=== PATIENT | female | born 1955 | race Caucasian/White ===

== ENCOUNTER 2020-02-06 10:51 | Outpatient (CLI) | payer BC, MEDICARE, SELFPAY ==
[2020-02-06 11:09] LABS: Basophils Absolute Auto 0.06 K/mm3 (0.00-0.10); Eosinophils Absolute Auto 0.06 K/mm3 (0.02-0.50); Hematocrit 45.6 % (35.0-42.0); Hemoglobin 15.8 g/dL (11.7-13.8); Immature Granulocyte Absolute 0.02 K/mm3 (0.00-0.00); Immature Granulocyte Percent A 0.3 % (0.0-0.0); Lymphocytes Absolute Auto 1.74 K/mm3 (1.10-4.50); Lymphocytes Percent Auto 29.2 % (18.0-42.0); Mean Corpuscular HGB Conc 34.6 g/dL (32.0-36.0); Mean Corpuscular Hemoglobin 31.7 pg (27.0-31.0); Mean Corpuscular Volume 91.6 fL (78.0-102.0); Mean Platelet Volume 9.7 fl (9.2-11.8); Monocytes Absolute Auto 0.48 K/mm3 (0.10-0.90); Monocytes Percent Auto 8.1 % (2.0-11.0); Neutrophils Absolute Auto 3.6 K/mm3 (1.7-7.2); Neutrophils Percent Auto 60.4 % (50.0-70.0); Platelet Count Result 269 K/mm3 (150-420); Red Blood Count 4.98 M/mm3 (4.20-5.40); Red Cell Distribution Width 12.9 % (11.6-14.4)
[2020-02-06 11:48] LABS: Alanine Aminotransferase 14 U/L (14-59); Alkaline Phosphatase 147 U/L (46-116); Anion Gap 18.9 mmol/L (7-16); Aspartate Amino Transferase 14 U/L (15-37); Bilirubin,Total 0.3 mg/dL (0.00-1.00); Blood Urea Nitrogen 10 mg/dL (7-18); Calcium 9.9 mg/dL (8.5-10.1); Carbon Dioxide 19 mmol/L (21-32); Chloride 110 mmol/L (98-108); Cholesterol 256 mg/dL (0-200); Estimated Glomerular Filt Rate > 60; Glucose 88 mg/dL (70-99); HDL Direct 51 mg/dL (40-60); LDL Cholesterol Calculated 161 mg/dL (<130); Osmolality Calculated 296 mOsm/kg (285-295); Potassium 3.9 mmol/L (3.5-5.1); Sodium 144 mmol/L (136-145); Total Protein 7.2 g/dL (6.4-8.2); Triglycerides 219 mg/dL (0-150)
[2020-02-06 12:08] LABS: Thyroid Stimulating Hormone Reflex 2.35 u/IU/mL (0.36-3.74)
[2020-02-09 02:17] LABS: Hepatitis C Signal to Cutoff 0.01 ratio (<1.00); Hepatitis C Virus Antibody Nonreactive (Nonreactive)
== END 2020-02-06 10:52 | disposition home or self-care (01) ==
PROVIDERS: PCP Family Medicine; Visit Provider Family Medicine
DX: E03.9 Hypothyroidism, unspecified (principal); Z11.59 Encounter for screening for other viral diseases; E78.5 Hyperlipidemia, unspecified
CPT/HCPCS: 36415; 80053; 80061; 84443; 85025

== ENCOUNTER 2020-06-07 13:23 | Emergency (ER) | payer BC, MEDICARE, SELFPAY ==
--- NOTE | ~2020-06-07 | XR_ITS ---
XR chest 2V DATE: 06/07/2020 14:33 INDICATION: Right chest pain TECHNIQUE: PA and lateral views COMPARISON: 07/29/2019 2 view chest FINDINGS: Bilateral hyperinflation. No pulmonary infiltrate or consolidation, pleural effusion or pul monary vascular congestion or pneumothorax. Normal heart size. No hilar or mediastinal enlargement. Diffuse osteopenia. IMPRESSION: Bilateral hyperinflation Reviewed, dictated and finalized at location [facility]. IMPRESSION: Bilateral hyperinflation
--- NOTE | 2020-06-07 13:27 | ECG_ITS ---
Measurements Intervals [place] Rate: 105 P: 65 [place]: 166 QRS: 26 QRSD: 85 T: 66 QT: 322 QTc: 426 Interpretive Statements SINUS TACHYCARDIA BASELINE ARTIFACT- I, II, III, AVR, AVL, AVF, V1-V6 ABNORMAL ECG Electronically Signed On 06-08-2020 8:30:21 CDT by Juan Coto D.O.
[2020-06-07 13:30] VITALS: BP 143/85; PULSE 95; RESP 16; TEMP 36.8; O2SAT 98
--- NOTE | 2020-06-07 13:55 | ED.CHESTPAIN ---
HPI - Chest Pain General Chief Complaint: Chest Pain Stated Complaint: 64 Yo female w/ known h/o tobaccoism, HLD, Hypothyroidism, GERD comes into Ed for evaluation of Right sided Chest Pain that started yesterday after she sneezed several times. Patient pointe to pain in chest wall and is able to reproduce it. Denies revious H/O CAD. Related Data Allergies Allergy/AdvReac Type Severity Reaction Status Date / Time poison micheline extract Allergy Unknown Unknown Verified 02/06/20 09:52 ibuprofen AdvReac Mild NAUSEA, Verified 02/06/20 09:52 ABD PAIN Review of Systems Review of Systems: All systems reviewed & are unremarkable except as noted in HPI and below Constitutional: Constitutional: Reports no additional constitutional complaints Eyes: Eyes: Reports no additional eye complaints ENT: Reports system reviewed and no additional complaints, except as documented Cardiovascular: Cardiovascular: Reports as per HPI, Reports chest pain, Denies rapid heart rate, Denies radiating jaw, neck or arm pain and Denies slow heart rate Respiratory: Respiratory: Reports no additional respiratory complaints, Denies chest congestion, Denies cough, Denies dyspnea and Denies wheezing Gastrointestinal: Gastrointestinal: Reports no additional gastrointestinal complaints Genitourinary: Genitourinary: Reports no additional female genitourinary complaints Musculoskeletal: Musculoskeletal: Reports no additional musculoskeletal complaints Integumentary/Breasts: Skin/Breast: Reports system reviewed and no additional complaints, except as docu Neurologic: Reports system reviewed and no additional complaints, except as documented Psychiatric: Psychiatric: Reports no additional psychiatric complaints Endocrine: Endocrine: Reports no additional endocrine complaints Hematologic/Lymphatic: Hematologic/Lymphatic: Reports no additional hematologic/lymphatic complaints Allergic/Immunologic: Allergic/Immunologic: Reports no additional allergic/immunologic complaints [facility] Past Medical History Medical History Acid reflux disease with ulcer Hyperlipidemia Hypothyroidism Migraines, neuralgic Surgical History Surgical History H/O removal of cyst H/O: section Hx of removal of ovary Family History Family History Other Family history of arthritis Family history of mental disorder Family history of thyroid disease Social History Social History (Reviewed 02/14/20 @ 10:31 by Montserrat Baker Smoking packs per day: 0.25 Smoking cigarettes per day: 5.0 Years smoked: 10 Smoking pack-years: 2.50 Smoking status: Current every day smoker Second hand tobacco smoke exposure: No Alcohol intake: never Substance use type: does not use Additional living arrangements comments: , has 2 children Gender identity (if verbalized by the patient): Female Spiritual care concerns: No Exam Const: General: healthy appearing, no acute distress and alert Orientation/consciousness: patient oriented x3 HENMT: Head: normal to inspection Eyes: Conjunctivae: conjunctivae normal Pupils: Equal, round and reactive pupils present Neck: Neck: normal visual inspection Chest: Chest palpation & inspection: normal inspection of the chest, normal inspection of the chest, tenderness costochondral junction (Right sided that completely reproduces the pain.) and No Pacemaker present Resp: Effort & Inspection: normal respiratory effort, not labored, no retractions, not tachypneic and no use of accessory muscles Auscultation: clear to auscultation bilaterally Cardio: Rate: regular rate Rhythm: regular rhythm GI: Auscultation: normal bowel sounds : General: Yes no CVA tenderness Back/Spine/Pelvis: Back: no CVA tenderness Skin: General skin exam: normal color
[2020-06-07] MEDS: KETOROLAC 30 MG/ML VIAL (*BKC) IV PUSH (14:03)
[2020-06-07] MEDS: ASPIRIN 81 MG CHEWABLE TABLET 324 MG PO (14:04)
[2020-06-07 14:27] LABS: Basophils Absolute Auto 0.05 K/mm3 (0.00-0.10); Basophils Percent Auto 0.6 % (0.0-1.0); Eosinophils Absolute Auto 0.03 K/mm3 (0.02-0.50); Eosinophils Percent Auto 0.4 % (1.0-6.0); Hemoglobin 14.2 g/dL (11.7-13.8); Immature Granulocyte Absolute 0.03 K/mm3 (0.00-0.00); Immature Granulocyte Percent A 0.4 % (0.0-0.0); Lymphocytes Absolute Auto 1.91 K/mm3 (1.10-4.50); Lymphocytes Percent Auto 22.7 % (18.0-42.0); Mean Corpuscular HGB Conc 33.8 g/dL (32.0-36.0); Mean Corpuscular Hemoglobin 31.1 pg (27.0-31.0); Mean Corpuscular Volume 92.1 fL (78.0-102.0); Mean Platelet Volume 9.8 fl (9.2-11.8); Monocytes Absolute Auto 0.71 K/mm3 (0.10-0.90); Monocytes Percent Auto 8.4 % (2.0-11.0); Neutrophils Absolute Auto 5.7 K/mm3 (1.7-7.2); Neutrophils Percent Auto 67.5 % (50.0-70.0); Platelet Count Result 204 K/mm3 (150-420); Red Blood Count 4.56 M/mm3 (4.20-5.40); Red Cell Distribution Width 12.8 % (11.6-14.4); White Blood Count 8.4 K/mm3 (4.8-10.8)
[2020-06-07 14:43] LABS: D Dimer 0.21 mg/L (0.19-0.50); Partial Thromboplastin Time 25.1 SEC (22.3-31.6); Prothrombin Time 10.8 Seconds (9.64-11.0)
[2020-06-07 14:44] LABS: Alanine Aminotransferase 15 U/L (14-59); Albumin Level 3.7 g/dL (3.4-5.0); Alkaline Phosphatase 149 U/L (46-116); Anion Gap 11 mmol/L (8-16); Aspartate Amino Transferase 12 U/L (15-37); Bilirubin,Total 0.3 mg/dL (0.00-1.00); Blood Urea Nitrogen 10 mg/dL (7-18); Calcium 9.4 mg/dL (8.5-10.1); Carbon Dioxide 22 mmol/L (21-32); Chloride 110 mmol/L (98-108); Estimated Glomerular Filt Rate 58; Glucose 99 mg/dL (70-99); Osmolality Calculated 295 mOsm/kg (285-295); Potassium 3.7 mmol/L (3.5-5.1); Sodium 143 mmol/L (136-145); Total Protein 7.3 g/dL (6.4-8.2)
[2020-06-07 14:45] LABS: BNP < 5.0 pg/mL (0-100); Troponin I < 0.02 ng/mL (0.00-0.056)
[2020-06-07 15:28] VITALS: BP 113/67; PULSE 83; O2SAT 98
== END 2020-06-07 15:28 | disposition home or self-care (01) ==
PROVIDERS: Emergency Provider Family Medicine; PCP Family Medicine
DX: M94.0 Chondrocostal junction syndrome [Tietze] (principal); F17.200 Nicotine dependence, unspecified, uncomplicated
CPT/HCPCS: 36415; 71046; 80053; 83880; 84484; 85025; 85380; 85610; 85730; 93005; 96374; 99283; 99284; A9270; J1885

== ENCOUNTER 2020-10-09 11:12 | Outpatient (CLI) | payer BC, MEDICARE, SELFPAY ==
[2020-10-09 11:27] LABS: Basophils Absolute Auto 0.06 K/mm3 (0.00-0.10); Basophils Percent Auto 0.9 % (0.0-1.0); Eosinophils Absolute Auto 0.09 K/mm3 (0.02-0.50); Eosinophils Percent Auto 1.3 % (1.0-6.0); Hematocrit 42.5 % (35.0-42.0); Hemoglobin 14.3 g/dL (11.7-13.8); Immature Granulocyte Absolute 0.03 K/mm3 (0.00-0.00); Immature Granulocyte Percent A 0.4 % (0.0-0.0); Lymphocytes Absolute Auto 1.43 K/mm3 (1.10-4.50); Lymphocytes Percent Auto 21.4 % (18.0-42.0); Mean Corpuscular HGB Conc 33.6 g/dL (32.0-36.0); Mean Platelet Volume 10.1 fl (9.2-11.8); Monocytes Absolute Auto 0.49 K/mm3 (0.10-0.90); Monocytes Percent Auto 7.3 % (2.0-11.0); Neutrophils Absolute Auto 4.6 K/mm3 (1.7-7.2); Neutrophils Percent Auto 68.7 % (50.0-70.0); Platelet Count Result 210 K/mm3 (150-420); Red Blood Count 4.62 M/mm3 (4.20-5.40); Red Cell Distribution Width 12.4 % (11.6-14.4); White Blood Count 6.7 K/mm3 (4.8-10.8)
[2020-10-09 12:50] LABS: Alanine Aminotransferase 15 U/L (14-59); Albumin Level 3.8 g/dL (3.4-5.0); Alkaline Phosphatase 155 U/L (46-116); Anion Gap 12 mmol/L (8-16); Aspartate Amino Transferase 13 U/L (15-37); Bilirubin,Total 0.3 mg/dL (0.00-1.00); Blood Urea Nitrogen 10 mg/dL (7-18); Calcium 9.6 mg/dL (8.5-10.1); Carbon Dioxide 23 mmol/L (21-32); Chloride 107 mmol/L (98-108); Estimated Glomerular Filt Rate > 60; Glucose 80 mg/dL (70-99); Osmolality Calculated 292 mOsm/kg (285-295); Sodium 142 mmol/L (136-145); Total Protein 7.1 g/dL (6.4-8.2)
[2020-10-09 12:52] LABS: Thyroid Stimulating Hormone Reflex 1.64 u/IU/mL (0.36-3.74)
== END 2020-10-09 11:13 | disposition home or self-care (01) ==
LOC: CHSLAB 11:15
PROVIDERS: PCP Family Medicine; Visit Provider Family Medicine
DX: E03.9 Hypothyroidism, unspecified (principal)
CPT/HCPCS: 36415; 80053; 84443; 85025

== ENCOUNTER 2021-02-15 08:51 | Outpatient (CLI) | payer BC, MEDICARE, SELFPAY ==
[2021-02-15 09:56] LABS: Cholesterol 181 mg/dL (0-200); HDL Direct 59 mg/dL (40-60); LDL Cholesterol Calculated 105 mg/dL (<130); Triglycerides 84 mg/dL (0-150)
== END 2021-02-15 08:52 | disposition home or self-care (01) ==
LOC: CHSLAB 08:54
PROVIDERS: PCP Family Medicine; Visit Provider Internal Medicine Cardiovascular Disease
DX: E78.5 Hyperlipidemia, unspecified (principal)
CPT/HCPCS: 36415; 80061

== ENCOUNTER 2021-06-28 13:27 | Outpatient (CLI) | payer BC, MEDICARE, SELFPAY ==
--- NOTE | ~2021-06-28 | MM_ITS ---
EXAMINATION: MM screening lindsey BI w eugenie HISTORY: Screening TECHNIQUE: Craniocaudal and mediolateral oblique 3-D tomosynthesis images were obtained and synthetic 2-D images were generated. CAD analysis was submitted and interpreted. COMPARISON: No prior mammogram is available for comparison at this institution. BREAST PARENCHYMAL COMPOSITION: The breasts are heterogeneously dense, which may obscure small masses .. FINDINGS: There is a benign intramammary lymph node in the upper outer quadrant of the right breast. There is no evidence of suspicious mass, calcification, or architectural distortion to suggest malign ekaterina in either breast. There has been no suspicious interval change. IMPRESSION: 1. No mammographic evidence of malignancy. 2. Recommend routine screening mammography in one year. BI-RADS Category 2: Benign finding(s). Reviewed, dictated and finalized at location [facility].
== END 2021-06-28 13:28 | disposition home or self-care (01) ==
LOC: CHSIMG 13:31
PROVIDERS: PCP Family Medicine; Visit Provider Family Medicine
DX: Z12.31 Encounter for screening mammogram for malignant neoplasm of breast (principal)
CPT/HCPCS: 77063; 77067

== ENCOUNTER 2021-10-27 18:46 | Emergency (ER) | payer BC, MEDICARE, SELFPAY ==
--- NOTE | ~2021-10-27 | CT_ITS ---
EXAMINATION: CT abdomen pelvis w con DATE: 10/27/2021 20:52 INDICATION: Left upper quadrant and flank pain for one week. History of kidney stones TECHNIQUE: Computed tomography (CT) of the abdomen and pelvis was performed with 100 cc Omnipaque 350 intravenous contrast. Automated exposure control and iterative reconstruction technique were employe d. Exam dose: 224.44 mGy-cm total exam DLP. COMPARISON: 03/07/2018 CT abdomen pelvis noncontrast examination FINDINGS: And irregular 15 x 17.5 mm soft tissue opacity is noted in the posterior right lung base, r ight lower lobe. Differential diagnosis includes pulmonary malignancy versus round atelectasis/consol idation. There is patchy infiltrate and/atelectasis in the posterior and posterolateral left lung base, left l ower lobe. Minimal left pleural effusion. Normal heart size. No pericardial or pleural effusion. There is calcification at the posterior wall of the gallbladder fundus, possibly gallbladder wall richardson cification and/or small gallstones. No gallbladder wall thickening. No bile duct or pancreatic duct d ilatation. No hepatic, splenic, pancreatic, and adrenal or renal space-occupying mass lesion is evident. Several mid and lower right renal calculi are noted, largest measuring up to 5.7 x 9 mm. No left sonia l calculus. No right or left ureteral calculus or hydroureteronephrosis is evident. The urinary bladd er is unremarkable. Retroverted uterus. There is calcification of the abdominal aorta but no abdominal aortic aneurysm. No intraperitoneal or retroperitoneal or pelvic mass lesion or adenopathy or ascites is evident. Included skeletal structures are unremarkable other than occasional probable bone island. IMPRESSION: 15 x 17.5 cm soft tissue mass density in the posterior right lung base; diffusion diagno sis includes pulmonary malignancy versus rounded atelectasis/consolidation Minimal infiltrate or atelectasis in the posterior left lung base and minimal left pleural effusion Nonobstructive right nephrolithiasis Posterior gallbladder fundus calcification or calculi Reviewed, dictated and finalized at [facility]. Reviewed, dictated and finalized at location [facility]. 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
[2021-10-27 18:55] VITALS: BP 150/71; PULSE 105; RESP 20; TEMP 36.7; O2SAT 98
--- NOTE | 2021-10-27 19:25 | ED.ABDPAIN ---
HPI - Abdominal Pain General Chief Complaint: Urogenital-Female Stated Complaint: ambulance Time Seen by Provider: 10/27/21 19:25 Source: patient Mode of arrival: EMS Limitations: no limitations History of Present Illness HPI narrative: 66-year-old woman with a history kidney stone comes in today complaining of left flank pain that started approximately a.m. this evening. Patient states that she woke up 2 days ago with pain in her right side that was worse with movement and coughing and taking a deep breath. She denies any injuries, heavy lifting. She has had no fever, chills, nausea, vomiting, hematuria, dysuria, diarrhea, blood in her stools or change in appetite. She last ate at noon. She has a history of kidney stones. MD elicited complaint: flank pain Pertinent past history: kidney stones Onset (ago): hour(s) (2) Pain Consistency: constant Location: L flank Severity: severe Quality: sharp Radiation: back Migration to: no migration Exacerbating factors: movement Relieving factors: rest Associated symptoms: denies other symptoms Treatments prior to arrival: NSAIDs (30 mg of Ketoralac IV from EMS) Related Data Home Medications Medication Instructions Recorded Confirmed esomeprazole magnesium [Nexium 20 mg PO BID 10/27/21 10/27/21 24HR] rosuvastatin [Crestor] 20 mg PO DAILY 10/27/21 10/27/21 Allergies Allergy/AdvReac Type Severity Reaction Status Date / Time poison micheline extract Allergy Unknown Unknown Verified 10/27/21 18:52 ibuprofen AdvReac Mild NAUSEA, Verified 10/27/21 18:52 ABD PAIN Review of Systems Review of Systems: All systems reviewed & are unremarkable except as noted in HPI and below Constitutional: Constitutional: Denies chills and Denies fever(s) ENT: Denies nasal congestion and Denies sore throat Cardiovascular: Cardiovascular: Denies chest pain Respiratory: Respiratory: Denies cough and Denies dyspnea Gastrointestinal: Gastrointestinal: Reports abdominal pain, Denies diarrhea, Denies nausea and Denies vomiting Genitourinary: Genitourinary: Denies hematuria, Denies nocturia and Denies dysuria Musculoskeletal: Musculoskeletal: Denies back pain, Denies arthralgias and Denies joint swelling Integumentary/Breasts: Skin/Breast: Denies pruritus, Denies erythema and Denies rash Neurologic: Denies vertigo, Denies dizziness, Denies syncope and Denies focal weakness Allergic/Immunologic: Allergic/Immunologic: Denies lip swelling and Denies throat swelling [facility] Past Medical History Medical History (Updated 10/27/21 @ 21:42 by Derrick Rizo MD) Acid reflux disease with ulcer Acute bronchitis Bipolar 1 disorder Hyperlipidemia Hypothyroidism Migraines, neuralgic Mood disorder Urolithiasis Surgical History Surgical History H/O removal of cyst H/O: section Hx of removal of ovary Family History Family History Other Family history of arthritis Family history of mental disorder Family history of thyroid disease Social History Social History Smoking packs per day: 0.25 Smoking cigarettes per day: 5.0 Years smoked: 10 Smoking pack-years: 2.50 Smoking status: Current every day smoker Second hand tobacco smoke exposure: No Alcohol intake: never Substance use type: does not use Additional living arrangements comments: , has 2 children Gender identity (if verbalized by the patient): Female Spiritual care concerns: No Exam Const: General: healthy appearing and alert Orientation/consciousness: patient oriented x3 Limitations: no limitations Other: Moderate acute distress. HENMT: Head: normal to inspection Ears: external ears normal, TM's normal bilaterally and EAC's normal General nose exam: Normal nares present Face and sinus: normal facial exam Mo
[2021-10-27 19:57] LABS: Basophils Absolute Auto 0.02 K/mm3 (0.00-0.10); Basophils Percent Auto 0.3 % (0.0-1.0); Eosinophils Absolute Auto 0.02 K/mm3 (0.02-0.50); Eosinophils Percent Auto 0.3 % (1.0-6.0); Hematocrit 39.4 % (35.0-42.0); Hemoglobin 13.5 g/dL (11.7-13.8); Immature Granulocyte Absolute 0.02 K/mm3 (0.00-0.00); Immature Granulocyte Percent A 0.3 % (0.0-0.0); Lymphocytes Absolute Auto 0.48 K/mm3 (1.10-4.50); Lymphocytes Percent Auto 6.7 % (18.0-42.0); Mean Corpuscular HGB Conc 34.3 g/dL (32.0-36.0); Mean Corpuscular Hemoglobin 31.3 pg (27.0-31.0); Mean Corpuscular Volume 91.2 fL (78.0-102.0); Mean Platelet Volume 9.6 fl (9.2-11.8); Monocytes Absolute Auto 0.63 K/mm3 (0.10-0.90); Monocytes Percent Auto 8.8 % (2.0-11.0); Neutrophils Percent Auto 83.6 % (50.0-70.0); Platelet Count Result 189 K/mm3 (150-420); Red Blood Count 4.32 M/mm3 (4.20-5.40); Red Cell Distribution Width 12.6 % (11.6-14.4); White Blood Count 7.2 K/mm3 (4.8-10.8)
[2021-10-27 19:58] LABS: Appearance Urine Clear (Clear); Bilirubin Urine Negative (Negative); Color Urine Light Yellow (Yellow); Glucose Urine UA Negative (Negative); Ketones Urine Negative (Negative); Leukocyte Esterase Ur Trace LEU/UL (Negative); Nitrate Urine Negative (Negative); Protein Urine Trace (Negative); Specific Grav Ur 1.015 (1.010-1.020); Urobilinogen Urine 0.2 mg/dL (0.2-1.0)
[2021-10-27 20:03] LABS: Add Urine Microscopic? YES; Bacteria Urine Trace /hpf; Blood Urine Trace-Intact (Negative); RBC Urine 0-2 /hpf (0-2); Squamous Epithelial Cell Urine Rare /hpf (Few); WBC Urine 0-3 /hpf (0-3)
[2021-10-27 20:04] LABS: Mucus Urine Rare /lpf
[2021-10-27] MEDS: SODIUM CHLORIDE 0.9% IV 1,000 ML 999 ML IV CONT (20:04)
[2021-10-27] MEDS: HYDROmorphone HCL INJ (*CRX) 2 MG/ML VIAL 0.5 MG IV PUSH ×2 (20:06→21:07)
[2021-10-27] MEDS: ONDANSETRON INJ 4 MG/2 ML VIAL IV PUSH (20:06)
[2021-10-27 20:11] LABS: Alanine Aminotransferase 18 U/L (14-59); Albumin Level 3.1 g/dL (3.4-5.0); Alkaline Phosphatase 154 U/L (46-116); Anion Gap 12 mmol/L (8-16); Aspartate Amino Transferase 12 U/L (15-37); Bilirubin,Total 0.3 mg/dL (0.00-1.00); Blood Urea Nitrogen 12 mg/dL (7-18); Calcium 9.6 mg/dL (8.5-10.1); Carbon Dioxide 21 mmol/L (21-32); Chloride 105 mmol/L (98-108); Estimated CRCL calculation 45 ml/min; Estimated Glomerular Filt Rate > 60; Glucose 112 mg/dL (70-99); Lipase 61 U/L (73-393); Osmolality Calculated 286 mOsm/kg (285-295); Potassium 3.4 mmol/L (3.5-5.1); Sodium 138 mmol/L (136-145)
[2021-10-27 20:16] LABS: Lactic Acid Reflex 0.4 mmol/L (0.4-2.0)
--- NOTE | 2021-10-27 20:34 | PC.NURSE ---
191: Took Pt report from Janae FREEMAN. Pt. resting comfortable on stretcher and at bedside. MALORIE Rizo in to see Pt. Pt reports pain coming back at this time S/P 30mg Toradol per EMs. Med orders recieved form [facility]. No obvious signs of pain from Pt. Noted Pt smiling and conversational.
--- NOTE | 2021-10-27 20:36 | PC.NURSE ---
Pt to CT via w/c at this time.
--- NOTE | 2021-10-27 20:49 | PC.NURSE ---
Pt returned from CT at this time. States Pain is a 3 on a 1-10 scale.
[2021-10-27 21:18] VITALS: BP 139/79; PULSE 103; RESP 22; O2SAT 97
[2021-10-27 22:00] VITALS: BP 139/89; PULSE 95; RESP 20; TEMP 36.4; O2SAT 97
== END 2021-10-27 22:03 | disposition home or self-care (01) ==
PROVIDERS: Emergency Provider Emergency Medicine
DX: R91.8 Other nonspecific abnormal finding of lung field (principal); R10.12 Left upper quadrant pain
CPT/HCPCS: 36415; 74177; 80053; 81001; 83605; 83690; 85025; 96361; 96374; 96375; 96376; 99283; 99284; J1170; J2405; J7030; Q9967

== ENCOUNTER 2021-11-21 13:37 | Emergency (ER) | payer BC, MEDICARE, SELFPAY ==
--- NOTE | ~2021-11-21 | CT_ITS ---
EXAMINATION: CTA chest PE protocol DATE: 11/21/2021 16:55 INDICATION: Shortness of breath, chronic cough and positive d-dimer. TECHNIQUE: Computed tomography (CT) pulmonary angiogram of the chest was performed with 100 mL Omnipa que-350 intravenous contrast. Additional 3D reconstructions utilizing coronal maximum intensity proje ction (MIP) were performed. Automated exposure control and iterative reconstruction technique were em ployed. The dose-length product was 135.45 mGy-cm. COMPARISON: None FINDINGS: Excellent contrast opacification of the pulmonary arteries. There is mild streak artifact from dense contrast in the superior vena cava and right atrium. Minimal respiratory motion which does not limit evaluation. No pulmonary embolism. Tree-in-bud and patchy airspace opacities consistent with pneumoni a in the lingula, right middle and the lateral lower lobes. This includes a large region of consolida tion occupying a significant portion of the left lower lobe. Within this region of consolidation is a 6.6 x 7.0 x 3.9 cm loculated fluid collection which appears intrapulmonary and favors abscess. There is also a small left pleural effusion at the posterior sulcus. Heart size is normal. No pericardial effusion. Thoracic aorta is normal in caliber with no dissection. Mild bilateral hilar lymphadenopath y which is likely reactive. Visualized upper abdomen is unremarkable. Mild thoracic kyphosis with chr onic minimal to mild anterior wedging at T6-T9. IMPRESSION: 1. No pulmonary embolism. 2. Bilateral lung disease consistent with multifocal pneumonia which in the left lower lobe surrounds a large likely intrapulmonary abscess. 2. Small left pleural effusion. Reviewed, dictated and finalized at location A. 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 No pulmonary embolism. 2. Bilateral lung disease consistent with multifocal pneumonia which in the lef t lower lobe surrounds a large likely intrapulmonary abscess. 2. Small left pleural effusion.
--- NOTE | 2021-11-21 14:18 | ED.URI ---
HPI - URI/Sore Throat General Chief Complaint: Upper Respiratory Infection Stated Complaint: still not feeling better from pneumonia Time Seen by Provider: 11/21/21 14:18 Source: patient Mode of arrival: ambulatory Limitations: no limitations History of Present Illness HPI Narrative: 66-year-old female, smoker with bipolar, hypothyroidism, dyslipidemia, migraine, GERD, kidney stone presented to the ER I 03/21/2022 for abdominal pain. She did not have any ureteric stones but had a 15 in to 17.5 right lung mass. The patient received antibiotics and subsequently followed up with her physician who gave her an additional round of Zithromax. The patient presents to the ER with -- recurrent coughing -- weakness and chest discomfort from the coughing. No fever. No mucopurulent sputum or hemoptysis. No weight loss. MD elicited complaint: cough Onset (ago): day(s) ( Fifteen days.) Consistency: constant Severity: moderate Description of mucous: clear Able to tolerate fluids by mouth: Yes Exacerbating factors: nothing Relieving factors: nothing Associated symptoms: denies other symptoms Treatments prior to arrival: antibiotics Related Data Home Medications Medication Instructions Recorded Confirmed esomeprazole magnesium [Nexium 20 mg PO BID 10/27/21 11/21/21 24HR] rosuvastatin [Crestor] 20 mg PO DAILY 10/27/21 11/21/21 Allergies Allergy/AdvReac Type Severity Reaction Status Date / Time poison micheline extract Allergy Unknown Unknown Verified 11/21/21 14:26 ibuprofen AdvReac Mild NAUSEA, Verified 11/21/21 14:26 ABD PAIN Review of Systems Review of Systems: All systems reviewed & are unremarkable except as noted in HPI and below Constitutional: Constitutional: Reports as per HPI and Reports weakness Eyes: Eyes: Reports as per HPI and Reports no additional eye complaints ENT: Reports system reviewed and no additional complaints, except as documented Cardiovascular: Cardiovascular: Reports as per HPI and Reports no additional cardiovascular complaints Respiratory: Respiratory: Reports as per HPI and Reports cough Comments: Right chest wall pain. Gastrointestinal: Gastrointestinal: Reports as per HPI and Reports no additional gastrointestinal complaints Genitourinary: Genitourinary: Reports no additional female genitourinary complaints Musculoskeletal: Musculoskeletal: Reports no additional musculoskeletal complaints Integumentary/Breasts: Skin/Breast: Reports system reviewed and no additional complaints, except as docu Neurologic: Reports system reviewed and no additional complaints, except as documented Psychiatric: Psychiatric: Reports no additional psychiatric complaints Endocrine: Endocrine: Reports no additional endocrine complaints Hematologic/Lymphatic: Hematologic/Lymphatic: Reports no additional hematologic/lymphatic complaints Allergic/Immunologic: Allergic/Immunologic: Reports no additional allergic/immunologic complaints [facility] Past Medical History Medical History Acid reflux disease with ulcer Acute bronchitis Bipolar 1 disorder Hyperlipidemia Hypothyroidism Migraines, neuralgic Mood disorder Urolithiasis Surgical History Surgical History H/O removal of cyst H/O: section Hx of removal of ovary Family History Family History Other Family history of arthritis Family history of mental disorder Family history of thyroid disease Social History Social History Smoking packs per day: 0.25 Smoking cigarettes per day: 5.0 Years smoked: 10 Smoking pack-years: 2.50 Smoking status: Current every day smoker Second hand tobacco smoke exposure: No Alcohol intake: never Substance use type: does not use Additional living arrangements comments:
[2021-11-21 14:20] VITALS: BP 163/79; PULSE 96; RESP 16; TEMP 36.4; O2SAT 95
[2021-11-21] MEDS: LACTATED RINGERS 1,000 ML 500 ML IV CONT (14:39)
[2021-11-21 15:14] LABS: Basophils Absolute Auto 0.04 K/mm3 (0.00-0.10); Basophils Percent Auto 0.4 % (0.0-1.0); Eosinophils Absolute Auto 0.07 K/mm3 (0.02-0.50); Eosinophils Percent Auto 0.7 % (1.0-6.0); Hematocrit 36.3 % (35.0-42.0); Immature Granulocyte Absolute 0.11 K/mm3 (0.00-0.00); Lymphocytes Absolute Auto 0.91 K/mm3 (1.10-4.50); Lymphocytes Percent Auto 8.5 % (18.0-42.0); Mean Corpuscular HGB Conc 33.1 g/dL (32.0-36.0); Mean Corpuscular Hemoglobin 29.7 pg (27.0-31.0); Mean Corpuscular Volume 89.9 fL (78.0-102.0); Mean Platelet Volume 9.2 fl (9.2-11.8); Monocytes Absolute Auto 0.66 K/mm3 (0.10-0.90); Monocytes Percent Auto 6.2 % (2.0-11.0); Neutrophils Absolute Auto 8.9 K/mm3 (1.7-7.2); Neutrophils Percent Auto 83.2 % (50.0-70.0); Platelet Count Result 483 K/mm3 (150-420); Red Blood Count 4.04 M/mm3 (4.20-5.40); Red Cell Distribution Width 12.5 % (11.6-14.4); White Blood Count 10.7 K/mm3 (4.8-10.8)
[2021-11-21 15:30] LABS: Partial Thromboplastin Time 36.2 SEC (23.90-30.70); Prothrombin Time 20.9 Seconds (9.50-12.10)
[2021-11-21 15:40] LABS: Alanine Aminotransferase 14 U/L (14-59); Alkaline Phosphatase 350 U/L (46-116); Anion Gap 11 mmol/L (8-16); Aspartate Amino Transferase 22 U/L (15-37); Bilirubin,Total 0.3 mg/dL (0.00-1.00); Blood Urea Nitrogen 13 mg/dL (7-18); Calcium 9.1 mg/dL (8.5-10.1); Carbon Dioxide 26 mmol/L (21-32); Chloride 98 mmol/L (98-108); Estimated CRCL calculation 49 ml/min; Estimated Glomerular Filt Rate > 60; Glucose 102 mg/dL (70-99); NT Pro B Type Natriuretic Pept 121 pg/mL (0-125); Osmolality Calculated 280 mOsm/kg (285-295); Potassium 3.3 mmol/L (3.5-5.1); Sodium 135 mmol/L (136-145); Thyroid Stimulating Hormone 10.82 uIU/mL (0.36-3.74); Total Protein 7.1 g/dL (6.4-8.2); Troponin I 4.3 ng/L (0.00-60.4)
[2021-11-21 15:50] LABS: SARS-CoV-2 Ag Negative (Negative)
[2021-11-21 17:59] LABS: Lactic Acid Reflex 1.6 mmol/L (0.4-2.0)
[2021-11-21] MEDS: HYDROcodone/acetaminophen (*CRX) 5-325 MG TABLET 1 TAB PO ×2 (18:15→21:57)
--- NOTE | 2021-11-21 20:02 | PC.NURSE ---
Contacted [facility] concerning patient transfer. informed that the patient's room is not ready at this time. Advised to call back at 2100 to verify room status.
--- NOTE | 2021-11-21 21:00 | PC.NURSE ---
contacted [facility] concerning patient's room status. informed that patient's room is ready. contacting EMS for transport.
--- NOTE | 2021-11-21 21:20 | PC.NURSE ---
[facility] does not have a transfer truck. [facility] contacted for patient transfer.
[2021-11-21] MEDS: guaiFENesin/DEXTROMETHORPHAN 5 ML UDC PO (21:58)
[2021-11-21 22:29] VITALS: BP 134/92; PULSE 93; RESP 17; TEMP 36.9; O2SAT 97
== END 2021-11-21 22:43 | disposition short-term general hospital (02) ==
PROVIDERS: Emergency Provider Internal Medicine Critical Care Medicine; PCP Family Medicine
DX: J85.1 Abscess of lung with pneumonia (principal); R07.89 Other chest pain; E03.9 Hypothyroidism, unspecified; Z20.822 Contact with and (suspected) exposure to COVID-19; K21.9 Gastro-esophageal reflux disease without esophagitis; E78.5 Hyperlipidemia, unspecified; F17.200 Nicotine dependence, unspecified, uncomplicated; Z79.899 Other long term (current) drug therapy
CPT/HCPCS: 36415; 71275; 80053; 83605; 83880; 84443; 84484; 85025; 85380; 85610; 85730; 87040; 87426; 96361; 96365; 96367; 99285; A9270; C9803; J2543; J3370; J7120; Q9967

== ENCOUNTER 2021-12-27 14:20 | Outpatient (CLI) | payer BC, MEDICARE, SELFPAY ==
--- NOTE | ~2021-12-27 | XR_ITS ---
XR chest 2V DATE: 12/27/2021 15:00 INDICATION: Hyperlipidemia. Recent pulmonary abscess. TECHNIQUE: PA and lateral views COMPARISON: November 21, 2021 CT pulmonary scan 06/07/2020 PA and lateral chest FINDINGS: There is mild discoid atelectasis//or scarring in the left mid to lower lung. The lungs are otherwise clear of infiltrate or consolidation. There is blunting of left costophrenic which may be due to small pleural effusion or scarring. No right pleural effusion. No pneumothorax. Normal heart size. No hilar or mediastinal enlargement. Diffuse osteopenia. IMPRESSION: Mild discoid atelectasis and/or scarring in the left mid and lower lung Reviewed, dictated and finalized at location A.
[2021-12-27 14:45] LABS: Hematocrit 40.8 % (35.0-42.0); Hemoglobin 13.4 g/dL (11.7-13.8); Mean Corpuscular HGB Conc 32.8 g/dL (32.0-36.0); Mean Corpuscular Hemoglobin 30.9 pg (27.0-31.0); Mean Corpuscular Volume 94.2 fL (78.0-102.0); Mean Platelet Volume 10.6 fl (9.2-11.8); Platelet Count Result 201 K/mm3 (150-420); Red Blood Count 4.33 M/mm3 (4.20-5.40); Red Cell Distribution Width 14.5 % (11.6-14.4); White Blood Count 5.6 K/mm3 (4.8-10.8)
[2021-12-27 15:39] LABS: Alanine Aminotransferase 15 U/L (14-59); Albumin Level 3.8 g/dL (3.4-5.0); Alkaline Phosphatase 121 U/L (46-116); Anion Gap 12 mmol/L (8-16); Aspartate Amino Transferase 12 U/L (15-37); Bilirubin,Total 0.2 mg/dL (0.00-1.00); Blood Urea Nitrogen 21 mg/dL (7-18); Calcium 9.5 mg/dL (8.5-10.1); Carbon Dioxide 21 mmol/L (21-32); Chloride 109 mmol/L (98-108); Cholesterol 165 mg/dL (0-200); Estimated Glomerular Filt Rate > 60; Glucose 91 mg/dL (70-99); HDL Direct 60 mg/dL (40-60); LDL Cholesterol Calculated 86 mg/dL (<130); Osmolality Calculated 297 mOsm/kg (285-295); Potassium 3.7 mmol/L (3.5-5.1); Sodium 142 mmol/L (136-145); Triglycerides 94 mg/dL (0-150)
[2021-12-27 15:40] LABS: Thyroid Stimulating Hormone Reflex 0.67 u/IU/mL (0.36-3.74)
== END 2021-12-27 14:21 | disposition home or self-care (01) ==
LOC: CHSIMG 14:25
PROVIDERS: PCP Family Medicine; Visit Provider Family Medicine
DX: E78.5 Hyperlipidemia, unspecified (principal); F31.9 Bipolar disorder, unspecified; E03.9 Hypothyroidism, unspecified
CPT/HCPCS: 36415; 71046; 80053; 80061; 84443; 85027

== ENCOUNTER 2022-04-22 09:06 | Outpatient (CLI) | payer BC, MEDICARE, SELFPAY ==
--- NOTE | ~2022-04-22 | XR_ITS ---
XR chest 2V 04/22/2022 09:23 Indication: Left-sided chest pain. Previous pneumonia. Procedure: 2 view chest Comparison: Comparison to multiple prior studies sequentially, with oldest reviewed study dated 06/2019. Findings: Heart size normal. No focal air space disease, pulmonary edema, pleural effusion or suspect ed pneumothorax. There is left basilar atelectasis/scarring, unchanged. There is dextroscoliosis. No acute osseous abnormality. The lungs are hyperinflated which is consistent with, but not diagnostic of chronic obstructive pulmo nary disease. Impression: 1: No acute cardiopulmonary disease. 2: Unchanged left basilar atelectasis/scarring. Reviewed, dictated and finalized at location A. Impression: 1: No acute cardiopulmonary disease. 2: Unchanged left basilar atelectasis/scarring.
== END 2022-04-22 09:07 | disposition home or self-care (01) ==
LOC: CHSIMG 09:07
PROVIDERS: PCP Family Medicine; Visit Provider Family Medicine
DX: R07.9 Chest pain, unspecified (principal)
CPT/HCPCS: 71046

== ENCOUNTER 2022-05-16 09:26 | Outpatient (CLI) | payer BC, MEDICARE, SELFPAY ==
--- NOTE | 2022-05-16 09:28 | EST_ITS ---
Patient Info Name: Radha Hazel Age: 66 years : 1955 Gender: Female Ht: 66 in Wt: 123 lbs BSA: 1.61 m2 HR: 90 bpm BP: 116 / 75 mmHg Heart Rhythm: Sinus Rhythm Technical Quality: Good Exam Date: 05/16/2022 9:41 AM Exam Location: [facility] Patient Status: Outpatient Admit Date: 05/16/2022 Staff Ordering Physician: Aashish Corrigan DO Attending Provider: Aashish Corrigan DO Exercise Technologist: Danielle Martinez CRT Exam Type: CA stress test treadmill Study Info Indications R07.9 - Chest pain, unspecified An exercise stress test was performed. History/Risk Factors Tobacco Use: Current - Frequency Unknown Summary 1. 1. Negative Devyn exercise stress test for ischemic ST changes by ECG criteria. 2. 2. Reduced functional capacity, achieving 7 METs of workload. 3. 3. Hypertensive response to exercise. 4. 4. Appropriate HR response to exercise. 5. 5. Appropriate HR recovery at 1 minute post exercise. 6. 6. No imaging with stress testing. Recommendations * Smoking cessation counseling is recommended for this patient. Protocol: Devyn Stress ECG Details Stage: REST Duration (min): 4 min : 8 sec Speed (mph): 0.0 Grade (%): 0 HR (bpm): 92 SBP (mmHg): 116 DBP (mmHg): 75 METS: --- Stage: REST Duration (min): 9 min : 37 sec Speed (mph): 0.0 Grade (%): 0 HR (bpm): 105 SBP (mmHg): 116 DBP (mmHg): 75 METS: --- Stage: STAGE 1 Duration (min): 1 min : 0 sec Speed (mph): 1.7 Grade (%): 10 HR (bpm): 116 SBP (mmHg): 116 DBP (mmHg): 75 METS: --- Stage: STAGE 1 Duration (min): 2 min : 0 sec Speed (mph): 1.7 Grade (%): 10 HR (bpm): 127 SBP (mmHg): 116 DBP (mmHg): 75 METS: --- Stage: STAGE 1 Duration (min): 3 min : 0 sec Speed (mph): 1.7 Grade (%): 10 HR (bpm): 133 SBP (mmHg): 179 DBP (mmHg): 69 METS: --- Stage: STAGE 2 Duration (min): 1 min : 0 sec Speed (mph): 2.5 Grade (%): 12 HR (bpm): 142 SBP (mmHg): 179 DBP (mmHg): 69 METS: --- Stage: STAGE 2 Duration (min): 2 min : 0 sec Speed (mph): 2.5 Grade (%): 12 HR (bpm): 148 SBP (mmHg): 179 DBP (mmHg): 69 METS: --- Stage: STAGE 2 Duration (min): 2 min : 0 sec Speed (mph): 2.5 Grade (%): 12 HR (bpm): 148 SBP (mmHg): 179 DBP (mmHg): 69 METS: --- Stage: RECOVERY Duration (min): 0 min : 59 sec Speed (mph): 0.0 Grade (%): 0 HR (bpm): 126 SBP (mmHg): 210 DBP (mmHg): 65 METS: --- Stage: RECOVERY Duration (min): 1 min : 59 sec Speed (mph): 0.0 Grade (%): 0 HR (bpm): 110 SBP (mmHg): 183 DBP (mmHg): 67 METS: --- Stage: RECOVERY Duration (min): 2 min : 59 sec Speed (mph): 0.0 Grade (%): 0 HR (bpm): 103 SBP (mmHg): 183 DBP (mmHg): 67 METS: --- Stage: RECOVERY Duration (min): 3 min : 59 s
== END 2022-05-16 09:27 | disposition home or self-care (01) ==
LOC: CHSCARD 09:28
PROVIDERS: PCP Family Medicine; Visit Provider Family Medicine
DX: R07.9 Chest pain, unspecified (principal)
CPT/HCPCS: 93017

== ENCOUNTER 2022-07-21 09:48 | Outpatient (CLI) | payer BC, MEDICARE, SELFPAY ==
[2022-07-21 10:53] LABS: Alanine Aminotransferase 17 U/L (14-59); Alkaline Phosphatase 143 U/L (46-116); Anion Gap 10 mmol/L (8-16); Aspartate Amino Transferase 17 U/L (15-37); Bilirubin,Total 0.3 mg/dL (0.00-1.00); Blood Urea Nitrogen 14 mg/dL (7-18); Calcium 9.8 mg/dL (8.5-10.1); Carbon Dioxide 25 mmol/L (21-32); Chloride 107 mmol/L (98-108); Cholesterol 163 mg/dL (0-200); Estimated Glomerular Filt Rate 56; Free T4 Free Thyroxine 1.22 ng/dL (0.76-1.46); Glucose 99 mg/dL (70-99); HDL Direct 55 mg/dL (40-60); LDL Cholesterol Calculated 89 mg/dL (<130); Osmolality Calculated 294 mOsm/kg (285-295); Potassium 3.6 mmol/L (3.5-5.1); Sodium 142 mmol/L (136-145); Thyroid Stimulating Hormone 0.35 uIU/mL (0.36-3.74); Total Protein 7.2 g/dL (6.4-8.2); Triglycerides 93 mg/dL (0-150)
== END 2022-07-21 09:49 | disposition home or self-care (01) ==
LOC: CHSLAB 09:50
PROVIDERS: PCP Nurse Practitioner Family; Visit Provider Nurse Practitioner Family
DX: E78.5 Hyperlipidemia, unspecified (principal); E03.9 Hypothyroidism, unspecified
CPT/HCPCS: 36415; 80053; 80061; 84439; 84443

== ENCOUNTER 2022-07-29 08:10 | Outpatient (CLI) | payer BC, MEDICARE, SELFPAY ==
--- NOTE | ~2022-07-29 | MM_ITS ---
EXAMINATION: MM screening lindsey BI w eugenie HISTORY: Screening mammogram TECHNIQUE: Craniocaudal and mediolateral oblique 3-D tomosynthesis images were obtained and synthetic 2-D images were generated. CAD analysis was submitted and interpreted. COMPARISON: 06/28/2021 BREAST PARENCHYMAL COMPOSITION: The breasts are heterogeneously dense, which may obscure small masses . FINDINGS: No suspicious mass, calcification, or architectural distortion are identified in either nikolas ast to suggest malignancy. There has been no suspicious interval change. IMPRESSION: 1. No mammographic evidence of malignancy. 2. Recommend routine screening mammography in one year. BI-RADS Category 1: Negative Reviewed, dictated and finalized at location A.
== END 2022-07-29 08:11 | disposition home or self-care (01) ==
LOC: CHSIMG 08:12
PROVIDERS: PCP Nurse Practitioner Family; Visit Provider Nurse Practitioner Family
DX: Z12.31 Encounter for screening mammogram for malignant neoplasm of breast (principal)
CPT/HCPCS: 77063; 77067

== ENCOUNTER 2022-08-05 14:29 | Outpatient (NON) | payer BC, MEDICARE, SELFPAY | END 2022-08-05 14:30 | disposition home or self-care (01) | PROVIDERS: Visit Provider Family Medicine | DX: N39.0 Urinary tract infection, site not specified (principal) | CPT/HCPCS: 87077; 87086; 87088; 87186 ==

== ENCOUNTER 2022-08-16 10:19 | Outpatient (CLI) | payer BC, MEDICARE, SELFPAY ==
--- NOTE | ~2022-08-16 | CT_ITS ---
EXAMINATION: CT abdomen pelvis wo con DATE: 08/16/2022 10:40 INDICATION: Right flank pain, pyelonephritis. TECHNIQUE: Computed tomography (CT) of the abdomen and pelvis was performed without intravenous contr ast. Automated exposure control and iterative reconstruction technique were employed. Exam dose: 193 .86 mGy-cm total exam DLP. COMPARISON: 10/27/2021 CT abdomen pelvis FINDINGS: Interval resolution of rounded opacity in the posterior right lung base since 10/27/2021, co nsistent with resolution of round atelectasis or consolidation. There is mild discoid atelectasis or scarring in both lower lobes. Normal heart size. No pericardial or pleural effusion. The liver, gallbladder, bile ducts, spleen, pancreas and pancreatic duct are unremarkable. There is extensive nonobstructive nephrolithiasis of the right kidney. There is a pinpoint nonobstruc ting lower pole left renal calculi. No ureteral calculus or hydroureteronephrosis. The urinary bladder is unremarkable. Retroverted uterus. There is atherosclerotic calcification but normal caliber of the abdominal aorta. No intraperitoneal or retroperitoneal or pelvic mass lesion or adenopathy or ascites. Normal appendix. No bowel obstruction or intraperitoneal free air. Probable bone islands of the iliac bones. No suspicious osteolytic or osteosclerotic lesions are sugg ested IMPRESSION: Extensive nonobstructive nephrolithiasis on the right Pinpoint lower pole nonobstructing left renal calculus No ureteral calculus or hydroureteronephrosis Normal appendix Reviewed, dictated and finalized at [facility]. Reviewed, dictated and finalized at location [facility]. T END SPECIALIST
== END 2022-08-16 10:20 | disposition home or self-care (01) ==
LOC: CHSIMG 10:23
PROVIDERS: PCP Family Medicine; Visit Provider Family Medicine
DX: N12 Tubulo-interstitial nephritis, not specified as acute or chronic (principal); R10.9 Unspecified abdominal pain
CPT/HCPCS: 74176

== ENCOUNTER 2022-10-01 09:22 | Emergency (ER) | payer BC, MEDICARE, SELFPAY ==
--- NOTE | ~2022-10-01 | XR_ITS ---
EXAMINATION: XR chest 2V DATE: 10/01/2022 10:07 INDICATION: Mid chest pain. TECHNIQUE: Frontal and lateral views of the chest were obtained. COMPARISON: Chest 2 views 04/22/2022, CT abdomen and pelvis 08/16/2022 FINDINGS: There is mild scarring at left lung base. No pleural effusion or pneumothorax. The heart si ze is normal. IMPRESSION: 1. Stable mild scarring at left lung base. Reviewed, dictated and finalized at location [facility]. SCIENTIST
[2022-10-01 09:22] VITALS: BP 139/76; PULSE 84; RESP 16; TEMP 36.9; O2SAT 100
[2022-10-01 09:25] VITALS: BP 139/76; PULSE 84; RESP 16; TEMP 36.9; O2SAT 99
[2022-10-01 09:35] VITALS: PULSE 81
--- NOTE | 2022-10-01 09:40 | ECG_ITS ---
Measurements Intervals [place] Rate: 79 P: 60 TN: 179 QRS: 37 QRSD: 88 T: 82 QT: 357 QTc: 410 Interpretive Statements SINUS RHYTHM NORMAL ELECTROCARDIOGRAM COMPARED TO ECG 06/07/2020 13:36:19 HEART RATE IS REDUCED/CURRENT ECG IS OF BETTER QUALITY WITH LESS ARTIFACT Electronically Signed On 10-01-2022 9:58:08 PHOTOGRAPHER NEWS by Riccardo Roy M.D.
--- NOTE | 2022-10-01 09:45 | ED.GENADULT ---
HPI - General Adult General Chief complaint: Chest Pain Stated complaint: chest pain Time Seen by Provider: 10/01/22 09:44 History of Present Illness HPI narrative: The patient is a 67-year-old woman with no significant coronary artery disease. Has history of migraine headaches, hyperlipidemia, pneumonia, GERD on Nexium, and previous history of chest pain at which point she was diagnosed with pneumonia. Also has a history of kidney stones. She presents with mild sternal chest discomfort, with tenderness in the chest wall, since 11:00 p.m. last night, constant in nature, not waxing and waning in intensity, described as moderate. No falls or twists or turns or heavy lifting. The pain continues this morning. No previous similar symptoms. Does complain of mild chest congestion, but no URI symptoms such as fevers or chills or diaphoresis or cough or rhinorrhea or nasal congestion or dyspnea. No nausea vomiting or diaphoresis. No abdominal pain. No other complaints. Related Data Home Medications Medication Instructions Recorded Confirmed esomeprazole magnesium 20 mg 20 mg PO DAILY 12/27/21 10/01/22 tablet,delayed release (Nexium 24HR) Allergies Allergy/AdvReac Type Severity Reaction Status Date / Time poison micheline extract Allergy Unknown Unknown Verified 10/01/22 09:33 ibuprofen AdvReac Mild NAUSEA, Verified 10/01/22 09:33 ABD PAIN Review of Systems Review of Systems: All systems reviewed & are unremarkable except as noted in HPI and below Constitutional: Constitutional: Reports no additional constitutional complaints, Denies anorexia, Denies body ache(s), Denies chills, Denies excessive sweating, Denies fatigue, Denies fever(s), Denies frequent falls, Denies headache(s), Denies malaise and Denies poor appetite Eyes: Eyes: Reports no additional eye complaints, Denies blurry vision, Denies change in vision, Denies irritation, Denies itchy eyes and Denies photophobia ENT: Reports system reviewed and no additional complaints, except as documented, Reports Normal hearing present, Denies change in voice, Denies dysphagia, Denies vertigo, Denies dizziness, Denies ear discharge, Denies headache(s), Denies hearing loss, Denies hoarseness, Denies nasal congestion, Denies neck pain, Denies sinus pressure, Denies sore throat and Denies throat swelling Cardiovascular: Cardiovascular: Reports no additional cardiovascular complaints, Reports chest pain, Denies syncope, Denies rapid heart rate, Denies irregular heart rhythm, Denies leg edema, Denies dyspnea and Denies slow heart rate Respiratory: Respiratory: Reports no additional respiratory complaints, Denies cough, Denies dyspnea, Denies stridor and Denies wheezing Gastrointestinal: Gastrointestinal: Reports no additional gastrointestinal complaints, Denies abdominal pain, Denies melena, Denies hematochezia, Denies dysphagia, Denies diarrhea, Denies nausea and Denies vomiting Genitourinary: Genitourinary: Denies hematuria, Denies urinary frequency, Denies dysuria, Denies flank pain and Denies urinary urgency Musculoskeletal: Musculoskeletal: Reports no additional musculoskeletal complaints, Denies abnormal gait, Denies back pain, Denies myalgias, Denies arthralgias, Denies joint swelling, Denies limited range of motion, Denies muscle cramps, Denies muscle weakness, Denies neck pain and Denies numbness Integumentary/Breasts: Skin/Breast: Reports system reviewed and no additional complaints, except as docu, Denies breast pain, Denies change in pigmentation, Denies pruritus, Denies erythema and Denies wounds Neurologic: Reports system reviewed and no additional complaints, except as documented, Reports Normal hearing present, Denies Abnormal speech present, Denies abnormal gait, Denies confusion, Denies vertigo, Denies dizziness, Denies syncope, Denies frequent falls, Denies headache(s), Denies focal weakness, Denies numbness and Denies paresthesias Psychiatric: Psychiatric: Reports no
[2022-10-01 10:00] LABS: Basophils Absolute Auto 0.04 K/mm3 (0.00-0.10); Basophils Percent Auto 0.7 % (0.0-1.0); Eosinophils Absolute Auto 0.09 K/mm3 (0.02-0.50); Eosinophils Percent Auto 1.5 % (1.0-6.0); Hematocrit 40.2 % (35.0-42.0); Immature Granulocyte Absolute 0.02 K/mm3 (0.00-0.00); Immature Granulocyte Percent A 0.3 % (0.0-0.0); Lymphocytes Absolute Auto 1.41 K/mm3 (1.10-4.50); Mean Corpuscular HGB Conc 34.8 g/dL (32.0-36.0); Mean Corpuscular Hemoglobin 32.6 pg (27.0-31.0); Mean Corpuscular Volume 93.7 fL (78.0-102.0); Mean Platelet Volume 9.9 fl (9.2-11.8); Monocytes Absolute Auto 0.62 K/mm3 (0.10-0.90); Monocytes Percent Auto 10.1 % (2.0-11.0); Neutrophils Absolute Auto 3.9 K/mm3 (1.7-7.2); Neutrophils Percent Auto 64.4 % (50.0-70.0); Platelet Count Result 178 K/mm3 (150-420); Red Blood Count 4.29 M/mm3 (4.20-5.40); Red Cell Distribution Width 11.9 % (11.6-14.4); White Blood Count 6.1 K/mm3 (4.8-10.8)
[2022-10-01] MEDS: ACETAMINOPHEN 325 MG TABLET 650 MG PO (10:09)
[2022-10-01 10:10] LABS: D Dimer 0.25 mg/L (0.19-0.50)
[2022-10-01] MEDS: IBUPROFEN 600 MG TABLET PO (10:10)
[2022-10-01] MEDS: MAG HYDROX/ALUMINUM HYD/SIMETH 30 ML, PHENobarb/HYOSCY/ATROPINE/SCOP 32.4 MG, LIDOCAINE... PO (10:11)
[2022-10-01 10:16] LABS: Alanine Aminotransferase 20 U/L (14-59); Albumin Level 3.5 g/dL (3.4-5.0); Alkaline Phosphatase 143 U/L (46-116); Anion Gap 5 mmol/L (8-16); Aspartate Amino Transferase 12 U/L (15-37); Bilirubin,Total 0.2 mg/dL (0.00-1.00); Blood Urea Nitrogen 26 mg/dL (7-18); Calcium 9.2 mg/dL (8.5-10.1); Carbon Dioxide 30 mmol/L (21-32); Chloride 106 mmol/L (98-108); Estimated CRCL calculation 48 ml/min; Estimated Glomerular Filt Rate > 60; Glucose 86 mg/dL (70-99); Osmolality Calculated 295 mOsm/kg (285-295); Potassium 3.5 mmol/L (3.5-5.1); Sodium 141 mmol/L (136-145); Total Protein 6.6 g/dL (6.4-8.2); Troponin I 4.4 ng/L (0.00-60.4)
[2022-10-01 11:01] VITALS: BP 108/52; PULSE 71; RESP 18; O2SAT 98
== END 2022-10-01 11:04 | disposition home or self-care (01) ==
PROVIDERS: Emergency Provider Emergency Medicine; PCP Family Medicine
DX: R07.89 Other chest pain (principal); K21.9 Gastro-esophageal reflux disease without esophagitis; E78.5 Hyperlipidemia, unspecified; E03.9 Hypothyroidism, unspecified; F31.9 Bipolar disorder, unspecified; Z87.891 Personal history of nicotine dependence
CPT/HCPCS: 36415; 71046; 80053; 84484; 85025; 85380; 93005; 99284; A9270

== ENCOUNTER 2022-10-04 09:55 | Outpatient (CLI) | payer BC, MEDICARE, SELFPAY | END 2022-10-04 09:56 | disposition home or self-care (01) | LOC: CHSLAB 09:56 | PROVIDERS: PCP Family Medicine; Visit Provider Family Medicine | DX: K21.9 Gastro-esophageal reflux disease without esophagitis (principal) | CPT/HCPCS: 83013 ==

== ENCOUNTER 2022-12-08 15:24 | Outpatient (NON) | payer BC, MEDICARE, SELFPAY ==
[2022-12-08 15:38] LABS: Appearance Urine Clear (Clear); Bilirubin Urine Negative (Negative); Blood Urine Negative (Negative); Color Urine Light Yellow (Yellow); Glucose Urine UA Negative (Negative); Ketones Urine Negative (Negative); Leukocyte Esterase Ur Trace LEU/UL (Negative); Nitrate Urine Negative (Negative); Protein Urine Negative (Negative); Urobilinogen Urine 0.2 mg/dL (0.2-1.0)
[2022-12-08 16:08] LABS: Add Urine Microscopic? YES
[2022-12-08 16:09] LABS: Bacteria Urine Rare /hpf; Squamous Epithelial Cell Urine Few /hpf (Few); WBC Urine 0-3 /hpf (0-3)
== END 2022-12-08 15:25 | disposition home or self-care (01) ==
LOC: CHSLAB 15:26
PROVIDERS: Visit Provider Nurse Practitioner Family
DX: R39.9 Unspecified symptoms and signs involving the genitourinary system (principal)
CPT/HCPCS: 81001

== ENCOUNTER 2023-01-27 11:28 | Outpatient (CLI) | payer BC, MEDICARE, SELFPAY ==
--- NOTE | ~2023-01-27 | CT_ITS ---
EXAMINATION: CT abdomen pelvis wo con DATE: 01/27/2023 11:51 INDICATION: Right flank pain TECHNIQUE: Computed tomography (CT) of the abdomen and pelvis was performed without intravenous contr ast. The dose-length product (DLP) was 213.49 mGy-cm. Automated exposure control and iterative recons truction technique were employed. COMPARISON: 08/16/2022 FINDINGS: Minimal dependent atelectasis is present in the lung bases. The heart size is normal. The l iver, spleen, pancreas, gallbladder, and adrenal glands are normal. An extrarenal pelvis is noted in the right kidney. There are at least five nonobstructing stones of the right kidney which measure up to 1.4 cm. There is a 3 mm nonobstructing stone of the left kidney lower pole. No stones are identifi ed in the ureters or bladder. No hydronephrosis or hydroureter. There is calcified atherosclerosis of the aorta and many of the other arteries. No pathologically enlarged abdominal or pelvic lymph nodes are identified. No free intraperitoneal gas or evidence of bowel obstruction. A large volume of colo princess stool is present. There is hyperattenuating material in the otherwise normal appendix. There is m ild lumbar spondylosis. IMPRESSION: 1. Bilateral nonobstructing nephrolithiasis. Reviewed, dictated and finalized at location [facility].
== END 2023-01-27 11:29 | disposition home or self-care (01) ==
LOC: CHSIMG 11:31
PROVIDERS: PCP Family Medicine; Visit Provider Family Medicine
DX: R10.9 Unspecified abdominal pain (principal); N20.0 Calculus of kidney
CPT/HCPCS: 74176

== ENCOUNTER 2023-03-21 12:01 | Outpatient (NON) | payer BC, MEDICARE, SELFPAY ==
[2023-03-21 12:10] LABS: Appearance Urine Clear (Clear); Bilirubin Urine Negative (Negative); Blood Urine 1+ (Negative); Color Urine Light Yellow (Yellow); Glucose Urine UA Negative (Negative); Ketones Urine Negative (Negative); Leukocyte Esterase Ur 3+ LEU/UL (Negative); Nitrate Urine Positive (Negative); Protein Urine Negative (Negative); Specific Grav Ur <= 1.005 (1.010-1.020); Urobilinogen Urine 0.2 mg/dL (0.2-1.0)
[2023-03-21 12:16] LABS: Add Urine Microscopic? YES; Bacteria Urine 2+ /hpf; Squamous Epithelial Cell Urine Occasional /hpf (Few); WBC Urine 21-30 /hpf (0-3)
== END 2023-03-21 12:02 | disposition home or self-care (01) ==
LOC: CHSLAB 12:02
PROVIDERS: Visit Provider Family Medicine
DX: R39.9 Unspecified symptoms and signs involving the genitourinary system (principal)
CPT/HCPCS: 81001; 87077; 87086; 87088; 87186

== ENCOUNTER 2023-04-19 08:55 | Outpatient (CLI) | payer BC, MEDICARE, SELFPAY ==
[2023-04-19 09:08] LABS: Appearance Urine Clear (Clear); Bilirubin Urine Negative (Negative); Blood Urine Trace-Intact (Negative); Color Urine Light Yellow (Yellow); Glucose Urine UA Negative (Negative); Ketones Urine Negative (Negative); Leukocyte Esterase Ur 2+ (Negative); Nitrate Urine Negative (Negative); Protein Urine Negative (Negative); Specific Grav Ur <= 1.005 (1.010-1.020); Urobilinogen Urine 0.2 mg/dL (0.2-1.0)
[2023-04-19 09:13] LABS: Add Urine Microscopic? YES; Bacteria Urine Trace /hpf; RBC Urine None seen /hpf (0-2); Squamous Epithelial Cell Urine Few /hpf (Few)
== END 2023-04-19 08:56 | disposition home or self-care (01) ==
LOC: CHSLAB 08:58
PROVIDERS: PCP Family Medicine; Visit Provider Family Medicine
DX: R30.9 Painful micturition, unspecified (principal)
CPT/HCPCS: 81001

== ENCOUNTER 2023-05-11 10:25 | Outpatient (NON) | payer BC, SELFPAY ==
[2023-05-11 10:35] LABS: Appearance Urine Clear (Clear); Bilirubin Urine Negative (Negative); Blood Urine 2+ (Negative); Color Urine Yellow (Yellow); Glucose Urine UA Negative (Negative); Ketones Urine Negative (Negative); Leukocyte Esterase Ur 3+ LEU/UL (Negative); Nitrate Urine Positive (Negative); Protein Urine 1+ (Negative); Urobilinogen Urine 0.2 mg/dL (0.2-1.0); pH Urine 6.5 (5.0-8.0)
[2023-05-11 10:43] LABS: Add Urine Microscopic? YES
[2023-05-11 10:44] LABS: Bacteria Urine 1+ /hpf; Squamous Epithelial Cell Urine Occasional /hpf (Few); WBC Urine 21-30 /hpf (0-3)
== END 2023-05-11 10:26 | disposition home or self-care (01) ==
LOC: CHSLAB 10:26
PROVIDERS: Visit Provider Nurse Practitioner Family
DX: R39.9 Unspecified symptoms and signs involving the genitourinary system (principal); R82.90 Unspecified abnormal findings in urine
CPT/HCPCS: 81001; 87077; 87086; 87088; 87186

== ENCOUNTER 2023-05-25 08:29 | Outpatient (CLI) | payer BC, MEDICARE, SELFPAY ==
[2023-05-25 08:43] LABS: Appearance Urine Clear (Clear); Bilirubin Urine Negative (Negative); Blood Urine Trace-Intact (Negative); Color Urine Light Yellow (Yellow); Glucose Urine UA Negative (Negative); Ketones Urine Negative (Negative); Leukocyte Esterase Ur Trace LEU/UL (Negative); Nitrate Urine Negative (Negative); Protein Urine Negative (Negative); Specific Grav Ur <= 1.005 (1.010-1.020); Urobilinogen Urine 0.2 mg/dL (0.2-1.0)
[2023-05-25 08:50] LABS: Add Urine Microscopic? YES; Bacteria Urine Rare /hpf; RBC Urine None seen /hpf (0-2); Squamous Epithelial Cell Urine Rare /hpf (Few); WBC Urine None seen /hpf (0-3)
== END 2023-05-25 08:30 | disposition home or self-care (01) ==
LOC: CHSLAB 08:30
PROVIDERS: PCP Family Medicine; Visit Provider Nurse Practitioner Family
DX: R39.9 Unspecified symptoms and signs involving the genitourinary system (principal)
CPT/HCPCS: 81001

== ENCOUNTER 2023-07-02 10:20 | Emergency (ER) | payer BC, MEDICARE, SELFPAY ==
[2023-07-02 10:33] VITALS: BP 145/81; PULSE 91; RESP 19; TEMP 36.6; O2SAT 97
[2023-07-02 10:37] LABS: Bilirubin Urine Negative (Negative); Blood Urine 3+ (Negative); Color Urine Light Yellow (Yellow); Glucose Urine UA Negative (Negative); Ketones Urine Negative (Negative); Leukocyte Esterase Ur 2+ LEU/UL (Negative); Nitrate Urine Negative (Negative); Protein Urine 1+ (Negative); Urobilinogen Urine 0.2 mg/dL (0.2-1.0)
[2023-07-02 10:50] LABS: Add Urine Microscopic? YES; Appearance Urine Slightly Cloudy (Clear); Bacteria Urine 2+ /hpf; Mucus Urine Few /lpf; RBC Urine 21-50 /hpf (0-2); Squamous Epithelial Cell Urine Few /hpf (Few); WBC Clumps Urine Present /hpf; WBC Urine 16-20 /hpf (0-3)
--- NOTE | 2023-07-02 10:54 | ED.FEMALEGU ---
HPI - Female Genitourinary General Chief complaint: Urogenital-Female Stated complaint: Urinary problems Time Seen by Provider: 07/02/23 10:22 Source: patient Mode of arrival: ambulatory Limitations: no limitations History of Present Illness HPI Narrative: Patient is a 67-year-old female with known recurrent and chronic UTIs. She is on Bactrim which is not helpful at this time. She is having dysuria and suprapubic pains. MD elicited complaint: dysuria, UTI , pelvic pain and back pain Pertinent past history: recurrent UTIs and interstitial cystits Onset (ago): week(s) Location of symptoms: suprapubic Severity: moderate Female Urogenital Radiation: Suprapubic Severity scale (1-10): 5 Quality of pain: sharp Consistency: constant Vaginal discharge: none Vaginal bleeding: none Urinary symptoms: Dysuria, Urgency and Frequency Exacerbating factors: none Relieving factors: none Associated symptoms: denies other symptoms Treatment prior to arrival: other ( Bactrim for 5 days without change) Sexual activity: Yes Patient : No Related Data Home Medications Medication Instructions Recorded Confirmed rosuvastatin 20 mg tablet 20 mg PO DAILY 07/02/23 07/02/23 topiramate 100 mg tablet 100 mg PO BID 07/02/23 07/02/23 Allergies Allergy/AdvReac Type Severity Reaction Status Date / Time poison micheline extract Allergy Severe Rash Verified 05/11/23 09:05 ibuprofen AdvReac Mild NAUSEA, Verified 05/11/23 09:05 ABD PAIN Review of Systems Review of Systems: All systems reviewed & are unremarkable except as noted in HPI and below Constitutional: Constitutional: Reports no additional constitutional complaints Eyes: Eyes: Reports no additional eye complaints ENT: Reports system reviewed and no additional complaints, except as documented Cardiovascular: Cardiovascular: Reports no additional cardiovascular complaints Respiratory: Respiratory: Reports no additional respiratory complaints Gastrointestinal: Gastrointestinal: Reports no additional gastrointestinal complaints Genitourinary: Genitourinary: Reports no additional female genitourinary complaints Musculoskeletal: Musculoskeletal: Reports no additional musculoskeletal complaints Integumentary/Breasts: Skin/Breast: Reports system reviewed and no additional complaints, except as docu Neurologic: Reports system reviewed and no additional complaints, except as documented Psychiatric: Psychiatric: Reports no additional psychiatric complaints Endocrine: Endocrine: Reports no additional endocrine complaints Hematologic/Lymphatic: Hematologic/Lymphatic: Reports no additional hematologic/lymphatic complaints Allergic/Immunologic: Allergic/Immunologic: Reports no additional allergic/immunologic complaints PMFSH Past Medical History Medical History Bipolar 1 disorder Encounter for screening for other viral diseases Hyperlipidemia Hypothyroidism Urolithiasis Surgical History Surgical History H/O removal of cyst H/O: section Hx of removal of ovary Family History Family History Other Family history of arthritis Family history of mental disorder Family history of thyroid disease Social History Social History Smoking packs per day: 0.25 Smoking cigarettes per day: 5.0 Years smoked: 10 Smoking pack-years: 2.50 Smoking status: Former smoker Tobacco type: cigarettes Second hand tobacco smoke exposure: No Additional smoking assessment comments: Quit October 2021 Alcohol intake: never Substance use: never Substance use type: does not use Lack of Transportation: No Lack of Food: Never True Current Housing: I Have Housing Concerned About Future Housing: No Difficulty Paying Gas/Electric Bills: No Diffic
[2023-07-02 11:20] VITALS: BP 142/54; PULSE 89; RESP 19; TEMP 36.3; O2SAT 98
--- NOTE | 2023-07-04 12:22 | PC.NURSE ---
FINAL URINE CULTURE RESULTS: NO GROWTH. NO ACTION NEEDED.
== END 2023-07-02 11:38 | disposition home or self-care (01) ==
PROVIDERS: Emergency Provider Emergency Medicine; PCP Family Medicine
DX: N39.0 Urinary tract infection, site not specified (principal); E78.5 Hyperlipidemia, unspecified; E03.9 Hypothyroidism, unspecified; F31.9 Bipolar disorder, unspecified; Z87.891 Personal history of nicotine dependence
CPT/HCPCS: 81001; 87086; 99283

== ENCOUNTER 2023-07-15 16:56 | Emergency (ER) | payer BC, MEDICARE, SELFPAY ==
--- NOTE | ~2023-07-15 | CT_ITS ---
EXAMINATION: CT abdomen pelvis wo con DATE: 07/15/2023 17:27 INDICATION: Nephrolithiasis presenting with left flank pain and nausea TECHNIQUE: Computed tomography (CT) of the abdomen and pelvis was performed without intravenous contr ast. Automated exposure control and iterative reconstruction technique were employed. The dose-length product was 177.77 mGy-cm. COMPARISON: 01/27/2023 FINDINGS: Discoid atelectasis in the posterior aspect of the left and right lower lobes. Heart size is normal. No pericardial or pleural effusion. Tiny calcific density along the dependent fundus of the otherwise normal gallbladder which could represent either cholelithiasis or small amount of mural calcificatio n. Liver, spleen, pancreas and the lateral adrenal glands are normal. Bilateral nephrolithiasis with 5 stones and sludge or cluster of stones in the mid and lower pole calyces of the right kidney, the l argest stone measuring 8 mm in maximal diameter. Couple stones measuring up to 3 mm at the lower pole calyces of the left kidney. There is mild left hydroureteronephrosis resulting from a 3 mm stone at the distal left ureter on series 3, image 119. Several additional unchanged calcific lesions and pelv is corresponding to atherosclerotic calcific lesions and phleboliths. The uterus, bilateral adnexa an d decompressed bladder are unremarkable. Bowels including the appendix are normal. No free intraperit bro gas or fluid. No pathologically enlarged thoracic lymphadenopathy. Mild degenerative skeletal c hanges in the pelvis and visualized spine. IMPRESSION: 1. Bilateral nephrolithiasis with 3 mm distal left ureteral stone and mild left hydroureteronephrosis . 2. Unchanged tiny calcification along the wall of the fundus of the decompressed gallbladder which co uld represent either cholelithiasis or small focus of mural calcification. Reviewed, dictated and finalized at location A. IMPRESSION: 1. Bilateral nephrolithiasis with 3 mm distal left ureteral stone and mild left hydroureteronephrosis. 2. Unchanged tiny calcification along the wall of the fundus of the decompresse d gallbladder which could represent either cholelithiasis or small focus of mur al calcification.
[2023-07-15 16:56] VITALS: BP 149/87; PULSE 89; RESP 16; TEMP 36.7; O2SAT 97
--- NOTE | 2023-07-15 17:04 | ED.FEMALEGU ---
HPI - Female Genitourinary General Chief complaint: Back Pain/Injury Stated complaint: L FLANK PAIN Time Seen by Provider: 07/15/23 16:57 Source: patient Mode of arrival: ambulatory Limitations: no limitations History of Present Illness HPI Narrative: Patient presents to ED due to 1 day history of left flank pain. Has history of renal stone and recurrent UTIs. She does see a Urologist and recently finished a course of Abx just 3 days ago. No dysuria, gross blood in urine. MD elicited complaint: flank pain and difficulty urinating Pertinent past history: pyelonephritis Onset (ago): hour(s) Location of symptoms: flank (Left) Severity: severe Female Urogenital Radiation: L Flank Severity scale (1-10): 8 Consistency: constant Vaginal discharge: none Vaginal bleeding: none Urinary symptoms: Flank Pain Exacerbating factors: none Relieving factors: none Treatment prior to arrival: none Sexual activity: No Patient : No Related Data Home Medications Medication Instructions Recorded Confirmed topiramate 100 mg tablet 100 mg PO BID 07/02/23 07/15/23 Allergies Allergy/AdvReac Type Severity Reaction Status Date / Time poison micheline extract Allergy Severe Rash Verified 07/15/23 17:08 ibuprofen AdvReac Mild NAUSEA, Verified 07/15/23 17:08 ABD PAIN Review of Systems Constitutional: Constitutional: Reports as per HPI and Reports no additional constitutional complaints Eyes: Eyes: Reports as per HPI and Reports no additional eye complaints ENT: Reports system reviewed and no additional complaints, except as documented and Reports as per HPI Cardiovascular: Cardiovascular: Reports as per HPI and Reports no additional cardiovascular complaints Respiratory: Respiratory: Reports as per HPI and Reports no additional respiratory complaints Gastrointestinal: Gastrointestinal: Reports as per HPI and Reports no additional gastrointestinal complaints Genitourinary: Genitourinary: Reports as per HPI Musculoskeletal: Musculoskeletal: Reports no additional musculoskeletal complaints and Reports as per HPI Integumentary/Breasts: Skin/Breast: Reports system reviewed and no additional complaints, except as docu and Reports as per HPI Neurologic: Reports system reviewed and no additional complaints, except as documented and Reports as per HPI Psychiatric: Psychiatric: Reports no additional psychiatric complaints and Reports as per HPI Endocrine: Endocrine: Reports no additional endocrine complaints and Reports as per HPI Hematologic/Lymphatic: Hematologic/Lymphatic: Reports no additional hematologic/lymphatic complaints and Reports as per HPI Allergic/Immunologic: Allergic/Immunologic: Reports no additional allergic/immunologic complaints and Reports as per HPI [facility] Past Medical History Medical History Bipolar 1 disorder Encounter for screening for other viral diseases Hyperlipidemia Hypothyroidism Urolithiasis Surgical History Surgical History H/O removal of cyst H/O: section Hx of removal of ovary Family History Family History Other Family history of arthritis Family history of mental disorder Family history of thyroid disease Social History Social History Smoking packs per day: 0.25 Smoking cigarettes per day: 5.0 Years smoked: 10 Smoking pack-years: 2.50 Smoking status: Former smoker Tobacco type: cigarettes Second hand tobacco smoke exposure: No Additional smoking assessment comments: Quit October 2021 Alcohol intake: never Substance use: never Substance use type: does not use Lack of Transportation: No Lack of Food: Never True Current Housing: I Have Housing Concerned About Future Housing: No Difficulty Paying Gas/Electric Bills: No
[2023-07-15] MEDS: KETOROLAC 30 MG/ML VIAL (*BKC) IV PUSH (17:40)
[2023-07-15 17:46] LABS: Hemoglobin 13.7 g/dL (11.7-13.8); Mean Corpuscular HGB Conc 34.3 g/dL (32.0-36.0); Mean Corpuscular Volume 93.5 fL (78.0-102.0); Mean Platelet Volume 9.4 fl (9.2-11.8); Platelet Count Result 241 K/mm3 (150-420); Red Blood Count 4.28 M/mm3 (4.20-5.40); Red Cell Distribution Width 12.4 % (11.6-14.4); White Blood Count 9.2 K/mm3 (4.8-10.8)
[2023-07-15 18:01] LABS: Alanine Aminotransferase 9 U/L (14-59); Albumin Level 3.5 g/dL (3.4-5.0); Alkaline Phosphatase 110 U/L (46-116); Anion Gap 10 mmol/L (8-16); Aspartate Amino Transferase 10 U/L (15-37); Bilirubin,Total 0.2 mg/dL (0.00-1.00); Blood Urea Nitrogen 21 mg/dL (7-18); Calcium 9.9 mg/dL (8.5-10.1); Carbon Dioxide 26 mmol/L (21-32); Chloride 109 mmol/L (98-108); Estimated Glomerular Filt Rate 54; Glucose 116 mg/dL (70-99); Osmolality Calculated 304 mOsm/kg (285-295); Potassium 3.5 mmol/L (3.5-5.1); Sodium 145 mmol/L (136-145); Total Protein 6.6 g/dL (6.4-8.2)
[2023-07-15 18:02] LABS: Bilirubin Urine Negative (Negative); Blood Urine 3+ (Negative); Glucose Urine UA Negative (Negative); Ketones Urine Negative (Negative); Leukocyte Esterase Ur Negative LEU/UL (Negative); Nitrate Urine Negative (Negative); Protein Urine Negative (Negative); Urobilinogen Urine 0.2 mg/dL (0.2-1.0)
[2023-07-15 18:39] LABS: Appearance Urine Cloudy (Clear)
[2023-07-15 18:40] LABS: Add Urine Microscopic? YES; Amorphous Sediment Urine Moderate; Color Urine Light Red (Yellow); RBC Urine >100 /hpf (0-2)
[2023-07-15] MEDS: SODIUM CHLORIDE 0.9% IV 500 ML 2000 ML IV CONT (19:13)
[2023-07-15 19:58] VITALS: BP 127/84; PULSE 97; RESP 20; TEMP 36.6; O2SAT 97
== END 2023-07-15 19:57 | disposition home or self-care (01) ==
PROVIDERS: Emergency Provider Emergency Medicine; PCP Family Medicine
DX: N20.0 Calculus of kidney (principal); E78.5 Hyperlipidemia, unspecified; E03.9 Hypothyroidism, unspecified; Z87.891 Personal history of nicotine dependence
CPT/HCPCS: 36415; 74176; 80053; 81001; 85027; 96374; 99284; J1885; J7040

== ENCOUNTER 2023-07-18 09:37 | Outpatient (NON) | payer BC, MEDICARE, SELFPAY ==
[2023-07-18 09:46] LABS: Appearance Urine Cloudy (Clear); Bilirubin Urine 1+ (Negative); Blood Urine 3+ (Negative); Color Urine Red (Yellow); Glucose Urine UA Negative (Negative); Ketones Urine Negative (Negative); Leukocyte Esterase Ur Trace LEU/UL (Negative); Nitrate Urine Negative (Negative); Protein Urine 2+ (Negative); Urobilinogen Urine 0.2 mg/dL (0.2-1.0)
[2023-07-18 09:57] LABS: Add Urine Microscopic? YES; Bacteria Urine Trace /hpf; RBC Urine >100 /hpf (0-2); Squamous Epithelial Cell Urine Few /hpf (Few); WBC Urine 0-3 /hpf (0-3)
== END 2023-07-18 09:38 | disposition home or self-care (01) ==
LOC: CHSLAB 09:38
PROVIDERS: Visit Provider Nurse Practitioner Family
DX: R39.9 Unspecified symptoms and signs involving the genitourinary system (principal)
CPT/HCPCS: 81001

== ENCOUNTER → 2023-08-02 08:09 | Outpatient (CLI) | payer BC, MEDICARE, SELFPAY ==
--- NOTE | ~2023-08-02 | XR_ITS ---
XR abdomen/kub 1V 08/02/2023 08:24 Indication: Renal stone Procedure: KUB Comparison: 03/06/2018 Findings: There are right renal stones. There is calcification overlying the right sacrum. Large uret eral stone measuring 12 mm is possible. Nonobstructive bowel gas pattern. No acute osseous abnormalit y. There are left pelvic phleboliths. Impression: 1: Right nephrolithiasis. Possible right ureteral stone. Reviewed, dictated and finalized at location B. Impression: 1: Right nephrolithiasis. Possible right ureteral stone.
== END ==
PROVIDERS: PCP Nurse Practitioner Family; Visit Provider Nurse Practitioner Family
DX: N20.0 Calculus of kidney (principal)
CPT/HCPCS: 74018

== ENCOUNTER 2023-08-08 13:50 | Outpatient (CLI) | payer BC, MEDICARE, SELFPAY ==
--- NOTE | ~2023-08-08 | CT_ITS ---
Non-contrast CT scan of the Abdomen and Pelvis Clinical indication: Ureteral stone Technique: 2.5 mm axial scans were obtained through the abdomen and pelvis without intravenous or or al contrast. Dose reduction technique was used on this scan by utilizing automated exposure control a nd iterative reconstruction technique. The dose-length product (DLP) was 171.44 mGy-cm. COMPARISON: 07/15/2023 Findings: Images through the lung bases reveal no abnormalities. Multiple nonobstructing right renal stones are present, largest measuring up to 7 mm. Punctate nonobs tructing left renal stone present. Probable 5 mm distal left ureteral stone (axial image 132). No hyd ronephrosis evident on either side. The liver, spleen, pancreas, gallbladder, and adrenals appear normal. There is no aortic aneurysm. There is no evidence of bowel obstruction. Images through the pelvis were performed. There is no evidence of ascites or lymphadenopathy. Urinary bladder unremarkable. No pelvic mass seen. Impression: 5 mm distal left ureteral stone. No hydronephrosis. Additional bilateral nonobstructing renal calculi, as detailed above. Reviewed, dictated and finalized at location M. IOLOGIST Impression: 5 mm distal left ureteral stone. No hydronephrosis. Additional bilateral nonobstructing renal calculi, as detailed above.
== END 2023-08-08 13:51 | disposition home or self-care (01) ==
PROVIDERS: PCP Family Medicine; Visit Provider Nurse Practitioner Family
DX: N20.0 Calculus of kidney (principal); N20.1 Calculus of ureter
CPT/HCPCS: 74176

== ENCOUNTER 2023-08-31 01:25 | Day surgery (SDC) | payer BC, MEDICARE, SELFPAY ==
--- NOTE | 2023-08-23 12:32 | PC.NURSE ---
Report to the Outpatient Waiting Room, entrance under the green pavilion located off [facility], at time _1030_ on date _[id number]_. Planned Procedure Time: _1230_. Time changes happen often and if your time is changed the preop area will call you the afternoon before. - You and your visitor will be asked to self-screen and do not enter if you have any COVID symptoms. - A mask is optional within the hospital at this time. Patients may have clear liquids (water, carbonated beverages, clear teas, apple juice) until 3 hours prior to surgery with a maximum of 20 ounces. - No food from midnight until time of surgery Take the following medications with a SIP of water the morning of surgery: __Synthroid and Topiramate DO NOT STOP ANY OF YOUR OTHER PRESCRIPTION MEDICATIONS PRIOR TO SURGERY ?EXCEPT THE FOLLOWING Medications to discontinue per physician None Date to take last dose Please no make-up, nail frisian, hairspray, perfume, deodorant, or body powder the day of surgery. No jewelry (including any body piercings) or valuables the day of surgery, leave them at home. Please take a shower or bath the night before, or the morning of, surgery with an antibacterial soap. Wear comfortable, loose fitting clothing. - Jewelry must be removed prior to entering the operating room. Rings and piercings that are not removed may be cut off. - The hospital will not accept responsibility for valuables. - Please leave all valuables, including medications, at home the day of surgery. If you are going home after surgery, a licensed [employer] company driver must drive you home. - NO public transportation without another adult if you receive anesthesia. - We recommend that an adult stay with you for 24 hours following discharge. - We also recommend that you do not drive, make important decision, drink alcoholic beverages, or take any drugs that were not prescribed by your health care provider for at least 24 hours after your discharge time. Follow any additional instructions given to you from your surgeon. If you or anyone in your household have experienced Covid symptoms in the past week, please notify your surgeon or the nurse liaison at the phone number below for possible testing. Telephone instructions given to _Zarasindy_and asked if any additional questions and then verbalized understanding. Patient advised to call surgeon office or pre surgery nurse liaison [phone] if any additional questions.
--- NOTE | 2023-08-29 07:47 | PM.HPGS ---
History of Present Illness History of Present Illness Consent: Risks, benefits, and alternatives have been discussed and questions answered. Patient agrees to proceed with procedure. Chief complaint: left ureteral stone Narrative: Radha Hazel is a 68 year old female undergoing evaluation for recurrent UTI and irritable voiding by 1 of our nurse practitioners.? Upper tract imaging revealed a partially obstructing stone in her distal left ureter and a moderate-sized nonobstructing stone in her right kidney.? After discussion of options she is elected for left ureteroscopy with possible laser lithotripsy, stone extraction and stent placement.? In the future we will consider ESWL for her right renal calculus.? She is aware of the risks including, but not limited to, need for additional procedures, ureteral injury, hematuria and stent placement. Review of Systems Cardiovascular: Cardiovascular: Denies chest pain, Denies lightheadedness, Denies palpitations and Denies dyspnea Respiratory: Respiratory: Denies dyspnea Gastrointestinal: Gastrointestinal: Denies diarrhea, Denies nausea and Denies vomiting Genitourinary: Genitourinary: Denies hematuria and Denies dysuria Endocrine: Endocrine: Denies palpitations [facility] Past Medical History Medical History (Updated 08/29/23 @ 07:48 by Colton Alvarez MD) Bipolar 1 disorder Encounter for screening for other viral diseases Hyperlipidemia Hypothyroidism Urolithiasis Surgical History Surgical History H/O removal of cyst H/O: section Hx of removal of ovary Family History Family History Other Family history of arthritis Family history of mental disorder Family history of thyroid disease Social History Social History Smoking packs per day: 0.25 Smoking cigarettes per day: 5.0 Years smoked: 15 Smoking pack-years: 3.75 Smoking status: Current some day smoker Tobacco type: cigarettes Second hand tobacco smoke exposure: No Additional smoking assessment comments: Quit October 2021 Alcohol intake: never Substance use: never Substance use type: does not use Lack of Transportation: No Lack of Food: Never True Current Housing: I Have Housing Concerned About Future Housing: No Difficulty Paying Gas/Electric Bills: No Difficulty Paying for Meds: No Currently Unemployed: No Education: High School Diploma/GED Difficulty w/ Childcare or Family Care: No Living arrangements: with family Additional living arrangements comments: , has 2 children Occupation/Education: retired Gender identity (if verbalized by the patient): Female Spiritual care concerns: No Meds Home Medications and Allergies Home Medications Medication Instructions Recorded Confirmed Type topiramate 100 mg tablet 100 mg PO BID 07/02/23 08/23/23 History rosuvastatin 20 mg tablet See Rx Instructions .Route 07/14/23 08/23/23 Rx .COMPLEX #90 tabs Synthroid 112 mcg tablet See Rx Instructions .Route 08/02/23 08/23/23 Rx (levothyroxine) .COMPLEX #90 tabs rfleuyq-pxmxkkosxi-VDZ-caffeine 30 1 cap PO Q4H PRN Migraine Headache 08/02/23 08/23/23 Rx mg-50 mg-325 mg-40 mg capsule #20 caps hydrocodone 5 mg-acetaminophen 325 1 tablet PO Q8H PRN pain #20 tabs 08/15/23 08/23/23 Rx mg tablet tamsulosin 0.4 mg capsule See Rx Instructions .Route 08/22/23 08/23/23 Rx .COMPLEX #20 caps Allergies Allergy/AdvReac Type Severity Reaction Status Date / Time poison micheline extract Allergy Severe Rash Verified 08/23/23 12:25 ibuprofen AdvReac Mild NAUSEA, Verified 08/23/23 12:25 ABD PAIN Exam Const: General: no acute distress Resp: Effort & Inspection: normal respiratory effort GI: Inspection: non-distended GI Palp: No abdominal tenderness and No Guarding due to palpat
[2023-08-31] VITALS (9 sets, daily range): BP systolic 106–133; BP diastolic 51–69; PULSE 77–94; RESP 13–16; TEMP 36.8–37.4; O2SAT 97–100; BMI 18.6
--- NOTE | ~2023-08-31 | XR_ITS ---
EXAMINATION: XR stent kub - surgery DATE: 08/31/2023 10:36 INDICATION: Left-sided stent placement TECHNIQUE: Fluoroscopic images from a left internal ureteral stent placement are submitted for review . 25 seconds of fluoroscopy time. 5 fluoroscopic images. FINDINGS: There is a left double-J internal ureteral stent projecting in expected position, with proximal Gurley loop at the level of the renal pelvis and distal loop in the pelvis within the bladder lumen. IMPRESSION: 1. Left internal ureteral stent placement. Please refer to real-time procedural findings for detail s. Reviewed, dictated and finalized at location L. CER HELPER IMPRESSION: 1. Left internal ureteral stent placement. Please refer to real-time procedur al findings for details.
--- NOTE | 2023-08-31 06:30 | WPDHPUPDATE1 ---
History and Physical Update Update Date/Time: 08/31/23 06:30 History and Physical has been reviewed, including an updated exam of the patient. There are NO changes in the patient's condition. Risks, benefits, and alternatives have been discussed and questions answered. Patient agrees to proceed with procedure.
[2023-08-31] MEDS: LACTATED RINGERS 1,000 ML 30 ML IV CONT (09:25)
--- NOTE | 2023-08-31 09:49 | WPDANESEPPF ---
Anes - Initial Pre Proc Eval Procedure: Operation Date: 08/31/23 10:30 Proposed Procedures p Cystoscopy, Left Ureteroscopy, Left Stone Extraction, Possible Left Stent Placement, Possible Holmium Laser, Possible Left Retrograde Pyelogram - Colton Alvarez MD Date/Time: 08/31/23 09:49 Surgeon: Colton Alvarez MD Pre Op Diagnosis: left ureteral stone Patient Data Age: 68 Gender: F Height: Weight: 54.5 kg Allergies Allergy/AdvReac Type Severity Reaction Status Date / Time poison micheline extract Allergy Severe Rash Verified 08/31/23 09:12 ibuprofen AdvReac Mild NAUSEA, Verified 08/31/23 09:12 ABD PAIN Home Medications Medication Instructions Recorded Confirmed Type topiramate 100 mg tablet 100 mg PO BID 07/02/23 08/31/23 History rosuvastatin 20 mg tablet See Rx Instructions .Route 07/14/23 08/23/23 Rx .COMPLEX #90 tabs Synthroid 112 mcg tablet See Rx Instructions .Route 08/02/23 08/31/23 Rx (levothyroxine) .COMPLEX #90 tabs zusirut-glmyehshuy-CJJ-caffeine 30 1 cap PO Q4H PRN Migraine Headache 08/02/23 08/23/23 Rx mg-50 mg-325 mg-40 mg capsule #20 caps hydrocodone 5 mg-acetaminophen 325 1 tablet PO Q8H PRN pain #20 tabs 08/15/23 08/23/23 Rx mg tablet tamsulosin 0.4 mg capsule See Rx Instructions .Route 08/22/23 08/23/23 Rx .COMPLEX #20 caps Patient hx anesthesia problems: none Family hx anesthesia problems: post op nausea/vomiting Results Review: All pre-operative results and documents have been reviewed as part of the pre-operative evaluation. [facility] Past Medical History Medical History Bipolar 1 disorder Encounter for screening for other viral diseases Hyperlipidemia Hypothyroidism Urolithiasis Surgical History Surgical History H/O removal of cyst H/O: section Hx of removal of ovary Family History Family History Other Family history of arthritis Family history of mental disorder Family history of thyroid disease Social History Social History Smoking packs per day: 0.25 Smoking cigarettes per day: 5.0 Years smoked: 15 Smoking pack-years: 3.75 Smoking status: Current some day smoker Tobacco type: cigarettes Second hand tobacco smoke exposure: No Additional smoking assessment comments: Quit October 2021 Alcohol intake: never Substance use: never Substance use type: does not use Lack of Transportation: No Lack of Food: Never True Current Housing: I Have Housing Concerned About Future Housing: No Difficulty Paying Gas/Electric Bills: No Difficulty Paying for Meds: No Currently Unemployed: No Education: High School Diploma/GED Difficulty w/ Childcare or Family Care: No Living arrangements: with family Additional living arrangements comments: , has 2 children Occupation/Education: retired Gender identity (if verbalized by the patient): Female Spiritual care concerns: No Anes - Eval Final PreProcedure Day of Procedure 08/31/23 09:49 Patient weight: normal Heart: regular rate and rhythm Lungs: decreased breath sounds Airway: Mallampati scale class II Neurological: alert and oriented Last oral intake: >/= 8 hours ASA classification: III Emergent: no Anesthetic plan: proceed Anesthesia type and monitoring: general LMA and standard monitoring Results Review: All pre-operative results and documents have been reviewed as part of the pre-operative evaluation. Informed Consent: The patient's anesthetic plan and its attendant risks and benefits were discussed with the patient/family/POA. Questions were solicited and answers provided to the satisfaction of the patient/family/POA.
[2023-08-31] MEDS: ceFAZolin 2 GM/D5W 50 ML 2 GM/50 ML BAG IVPB (10:01)
--- NOTE | 2023-08-31 10:49 | W.PM.PROC2 ---
Procedure Note - Detailed Date of Procedure 08/31/23 Pre-op Diagnosis Left ureteral stone Post-op Diagnosis Same Procedure Performed Cystoscopy, left ureteroscopy with laser lithotripsy, stone extraction and stent placement Surgeon Colton Alvarez MD Anesthesia General Description of Procedure patient brought to the op suite she has prepped draped in routine sterile fashion while in dorsal lithotomy position. Cystoscopy was undertaken with a 19 F rigid cystoscope. The urethra and bladder neck were endoscopically normal. Bladder shows no mucosal hyperemia. There was no intravesical foreign body or neoplasm. She has a single orthotopic ureteral orifice bilaterally. A 0.035 in glidewire was advanced in the left renal pelvis. Ureteroscopy was undertaken with a short tapered semi-rigid ureteral scope after dilating the ureter with an 8 F 10 F dilator. Her 5-6 mm distal ureteral stone is identified. I tried gently extract the disposable basket without success. I therefore got a 2 micron Erik laser fiber and fractured/ dusted the stone into small particles all of which were removed with a 1.9 F disposable stone basket. Because of the extent of this manipulation I did place a 4.8 F variable length stent with proximal coil in the renal pelvis and distal coil in the bladder. Scopes wires removed. She was taken recovery in good condition. Drains No Pathology Yes
[2023-08-31] MEDS: fentaNYL CITRATE INJ (*CRX) 100 MCG/2 ML VIAL 25 MCG IV PUSH ×8 (10:51→11:15)
[2023-08-31] MEDS: oxyCODONE HCL (*CRX) 5 MG TAB IR PO (11:43)
== END 2023-08-31 12:11 | disposition home or self-care (01) ==
PROVIDERS: PCP Family Medicine; Visit Provider Urology
PROC: (CPT 52352; principal; 2023-08-31 10:30)
DX: N20.1 Calculus of ureter (principal); E78.5 Hyperlipidemia, unspecified; E03.9 Hypothyroidism, unspecified; F31.9 Bipolar disorder, unspecified; F17.210 Nicotine dependence, cigarettes, uncomplicated
CPT/HCPCS: 52356; 82365; 88300; A9270; C1769; C2617; J0690; J1100; J2405; J2704; J3010; J7120

== ENCOUNTER 2024-01-15 09:42 | Outpatient (CLI) | payer BC, MEDICARE, SELFPAY ==
--- NOTE | ~2024-01-15 | XR_ITS ---
EXAMINATION: XR lumbar spine 2-3V DATE: 01/15/2024 10:23 INDICATION: Right upper flank pain. TECHNIQUE: 3 views of lumbar spine were obtained. COMPARISON: None. FINDINGS: There is 4 degrees dextrocurvature of thoracolumbar spine. Vertebral body heights are colin l. There is a benign bone island in right ilium. Intervertebral disc heights are normal. There are en dplate osteophytes at multiple levels. There is multilevel facet joint osteoarthritis, moderate in lo wer lumbar spine. IMPRESSION: 1. Mild lumbar spondylosis. Reviewed, dictated and finalized at location E. IMPRESSION: 1. Mild lumbar spondylosis.
[2024-01-15 10:16] LABS: Appearance Urine Clear (Clear); Bilirubin Urine Negative (Negative); Blood Urine 1+ (Negative); Color Urine Yellow (Yellow); Glucose Urine UA Negative (Negative); Ketones Urine Negative (Negative); Leukocyte Esterase Ur Negative LEU/UL (Negative); Nitrate Urine Negative (Negative); Protein Urine Negative (Negative); Urobilinogen Urine 0.2 mg/dL (0.2-1.0)
[2024-01-15 10:39] LABS: Add Urine Microscopic? YES; Bacteria Urine Trace /hpf; Mucus Urine Moderate /lpf; Squamous Epithelial Cell Urine Few /hpf (Few); WBC Urine None seen /hpf (0-3)
[2024-01-15 13:56] LABS: Alanine Aminotransferase 20 U/L (14-59); Alkaline Phosphatase 165 U/L (46-116); Anion Gap 12 mmol/L (4-12); Aspartate Amino Transferase 20 U/L (15-37); Bilirubin,Total 0.2 mg/dL (0.00-1.00); Blood Urea Nitrogen 15 mg/dL (7-18); Calcium 9.7 mg/dL (8.5-10.1); Carbon Dioxide 22 mmol/L (21-32); Chloride 109 mmol/L (98-108); Cholesterol 172 mg/dL (0-200); Estimated Glomerular Filt Rate 56; Free T4 Free Thyroxine 1.31 ng/dL (0.76-1.46); Glucose 88 mg/dL (70-99); HDL Direct 64 mg/dL (40-60); LDL Cholesterol Calculated 95 mg/dL (<130); Osmolality Calculated 295 mOsm/kg (285-295); Potassium 3.9 mmol/L (3.5-5.1); Sodium 143 mmol/L (136-145); Thyroid Stimulating Hormone 0.13 uIU/mL (0.36-3.74); Total Protein 6.9 g/dL (6.4-8.2); Triglycerides 63 mg/dL (0-150)
[2024-01-15 14:02] LABS: CRP < 0.5 mg/dL (0.0-0.9)
== END 2024-01-15 09:43 | disposition home or self-care (01) ==
PROVIDERS: PCP Nurse Practitioner Family; Visit Provider Nurse Practitioner Family
DX: N39.0 Urinary tract infection, site not specified (principal); E78.5 Hyperlipidemia, unspecified; E03.9 Hypothyroidism, unspecified; M54.50 Low back pain, unspecified; M43.06 Spondylolysis, lumbar region
CPT/HCPCS: 36415; 72100; 80053; 80061; 81001; 84439; 84443; 86140

== ENCOUNTER 2024-01-24 11:47 | Outpatient (CLI) | payer BC, MEDICARE, SELFPAY ==
--- NOTE | ~2024-01-24 | DEXA_ITS ---
? Bone Density Report? Name:? linseyrobert Patient ID:??? [id number] Age:? 68 Sex:? Female Ethnicity:? White Date of : 1955 Indication: postmenopausal; screening for osteoporosis; parental hip fracture; height loss; Referring Provider: Yisel Reid Study: Bone densitometry was performed. Exam Date: January 24, 2024 Accession number: [id number] Bone Density: Region? BMD??? T-score? Z-score?? Classification AP Spine(L1-L4)? 0.542?? -4.6? -2.5? Osteoporosis Femoral Neck (Left)? 0.421?? -3.9? -2.1? Osteoporosis Total Hip (Left)? 0.417?? -4.3? -2.8? Osteoporosis Femoral Neck (Right)? 0.416?? -3.9? -2.1? Osteoporosis Total Hip (Right)? 0.430?? -4.2? -2.7? Osteoporosis Femoral Neck Mean? 0.419?? -3.9? -2.1? Osteoporosis Total Hip Mean? 0.423?? -4.3? -2.8? Osteoporosis World Health Organization criteria for BMD impression classify patients as: Normal (T-score at or above -1.0), Osteopenia (T-score between -1.0 and -2.5), or Osteoporosis (T-score at or below -2.5). 10-year Fracture Risk: FRAX not reported because: ? Some T-score for Spine Total or Hip Total or Femoral Neck at or below -2.5 Clinical Information Provided by Patient: Parent has had a hip fracture Smokes Has used the following medications: Calcium Patient maximum height was 65 Menopause Age: 44 No regular weight bearing exercise Does not regularly consume dairy products Onset of menses at age 13 Number of children 2 Impression: The patient has osteoporosis, based on the Total Spine T-score. The patient has risk factors, including: parental hip fracture, smoking. Discussion: HIGH RISK OF FRACTURE. BONE DENSITY IS UNDESIRABLY LOW AT ONE OR MORE SKELETAL SITES, CONSISTENT WITH OSTEOPOROSIS.? ALSO, BONE DENSITY IS LOWER THAN EXPECTED FOR AGE AND SEX AT ONE OR MORE SKELETAL SITES; RECOMMEND A DILIGENT SEARCH FOR SECONDARY CAUSES OF BONE LOSS. This patient's lowest T-score meets the World Health Organization's (WHO) criteria for osteoporosis at one or more sites (T-score -2.5 or below).? In untreated patients, the risk of osteoporotic fracture increases approximately two-fold for each 1.0 SD decrease in T-score.? Low bone density is not the only risk factor for fracture; also consider factors such as patient's age, frailty or poor health, risk of falling, risk of injury, previous osteoporotic fracture, family history of osteoporosis, cigarette smoking, low body weight, etc.? Not everyone with low bone mineral density has osteoporosis; osteomalacia and other metabolic bone disorders should also be considered. Patients who have osteoporosis should be evaluated for specific diseases and conditions (secondary causes) that may cause or contribute to bone loss.? The [place] [employer]ocrinologists (AACE) and National Osteoporosis Foundation (NOF) recommend pharmacologic intervention for all postmenopausal women whose T-score is in this range.
== END 2024-01-24 11:48 | disposition home or self-care (01) ==
LOC: CHSIMG 11:48
PROVIDERS: PCP Nurse Practitioner Family; Visit Provider Nurse Practitioner Family
DX: Z78.0 Asymptomatic menopausal state (principal)
CPT/HCPCS: 77080

== ENCOUNTER 2024-05-05 13:20 | Emergency (ER) | payer BC, MEDICARE, SELFPAY ==
--- NOTE | ~2024-05-05 | XR_ITS ---
Right Shoulder Technique: AP and scapular Y views were obtained. Clinical History: Status post fall Findings: There is an acute comminuted fracture involving the surgical neck and greater tuberosity of the right humerus. Fracture is minimally displaced.. The glenohumeral and acromioclavicular joint sp aces are preserved. Soft tissues are unremarkable. Impression: Acute, comminuted, minimally displaced fracture involving the surgical neck and greater tuberosity of the proximal right humerus. Reviewed, dictated and finalized at location M. Impression: Acute, comminuted, minimally displaced fracture involving the surgical neck and greater tuberosity of the proximal right humerus.
--- NOTE | ~2024-05-05 | CT_ITS ---
Non-contrast Head CT History: Status post fall Technique: Axial non-contrast imaging of the brain was performed. Dose reduction technique was used on this scan by utilizing automated exposure control and iterative reconstruction technique. The dose -length product (DLP) was 681.00 mGy-cm. Findings: There is no evidence of intracranial hemorrhage, mass lesion, or acute infarct. Brain par enchyma appears normal. The ventricles and subarachnoid spaces are normal in size. The calvarium ap pears normal. The visualized paranasal sinuses and mastoid air cells are clear. Impression: No significant abnormality seen. Reviewed, dictated and finalized at location . Impression: No significant abnormality seen.
--- NOTE | ~2024-05-05 | CT_ITS ---
Noncontrast CT scan of the cervical spine Technique: Multiple contiguous axial [address] images of the cervical spine were obtained and rec onstructed in 2D sagittal and coronal planes on the acquisition scanner. Dose reduction technique was used on this scan by utilizing automated exposure control, adjustment of the mA and/or kV according to patient size. The dose-length product (DLP) was 110.69 mGy-cm. Clinical History: Pain Findings: No fractures or dislocations. There are mild degenerative changes of the cervical spine. T here is mild bilateral neural foraminal narrowing at C5-C6. No prevertebral soft tissue swelling. Impression: No fracture or subluxation of the cervical spine. Reviewed, dictated and finalized at location . Impression: No fracture or subluxation of the cervical spine.
--- NOTE | ~2024-05-05 | XR_ITS ---
Right wrist Technique: PA, oblique, lateral, and ulnar deviation views were obtained. Clinical History: Status post fall Findings: No acute fracture or dislocation is seen. Osseous alignment is anatomic. Joint spaces are p reserved. Soft tissues are unremarkable. Impression: Unremarkable right wrist radiographs. Reviewed, dictated and finalized at location . Impression: Unremarkable right wrist radiographs.
[2024-05-05 13:21] VITALS: BP 158/92; PULSE 113; RESP 18; TEMP 36.3; O2SAT 96
--- NOTE | 2024-05-05 13:33 | ED.UPPEXIN ---
HPI - Extremity Injury (Upper) General Chief Complaint: Extremity Injury, Upper Stated Complaint: shoulder pain, head injury Time Seen by Provider: 05/05/24 13:21 Source: patient Mode of arrival: ambulatory Limitations: no limitations History of Present Illness HPI narrative: Patient is a 68-year-old female with a fall over a baby gate while doing laundry at ground level. She sustained a right head injury and right shoulder injury and right wrist injury. No open wounds. Patient has osteoporosis. She is on Fosamax. complaint: injury to: right, shoulder ( And head) and wrist Onset (ago): hour(s) (1) Other injuries: none Place: home Severity: mild Severity scale (1-10): 3 Relieving factors: immobilization Exacerbating factors: movement of extremity Context: fall Associated symptoms: denies other symptoms Related Data Allergies Allergy/AdvReac Type Severity Reaction Status Date / Time poison micheline extract Allergy Severe Rash Verified 05/05/24 13:24 ibuprofen AdvReac Mild NAUSEA, Verified 05/05/24 13:24 ABD PAIN Review of Systems Review of Systems: All systems reviewed & are unremarkable except as noted in HPI and below Constitutional: Constitutional: Reports no additional constitutional complaints Eyes: Eyes: Reports no additional eye complaints ENT: Reports system reviewed and no additional complaints, except as documented Cardiovascular: Cardiovascular: Reports no additional cardiovascular complaints Respiratory: Respiratory: Reports no additional respiratory complaints Gastrointestinal: Gastrointestinal: Reports no additional gastrointestinal complaints Genitourinary: Genitourinary: Reports no additional female genitourinary complaints Musculoskeletal: Musculoskeletal: Reports no additional musculoskeletal complaints Integumentary/Breasts: Skin/Breast: Reports system reviewed and no additional complaints, except as docu Neurologic: Reports system reviewed and no additional complaints, except as documented Psychiatric: Psychiatric: Reports no additional psychiatric complaints Endocrine: Endocrine: Reports no additional endocrine complaints Hematologic/Lymphatic: Hematologic/Lymphatic: Reports no additional hematologic/lymphatic complaints Allergic/Immunologic: Allergic/Immunologic: Reports no additional allergic/immunologic complaints PMFSH Past Medical History Medical History Bipolar 1 disorder Encounter for screening for other viral diseases Hyperlipidemia Hypothyroidism Urolithiasis Surgical History Surgical History H/O removal of cyst H/O: section Hx of removal of ovary Family History Family History Other Family history of arthritis Family history of mental disorder Family history of thyroid disease Social History Social History Smoking packs per day: 0.25 Smoking cigarettes per day: 5.0 Years smoked: 15 Smoking pack-years: 3.75 Smoking status: Current some day smoker Tobacco type: cigarettes Second hand tobacco smoke exposure: No Additional smoking assessment comments: Quit October 2021 Alcohol intake: never Substance use: never Substance use type: does not use Lack of Transportation: No Lack of Food: Never True Current Housing: I Have Housing Concerned About Future Housing: No Difficulty Paying Gas/Electric Bills: No Difficulty Paying for Meds: No Currently Unemployed: No Education: High School Diploma/GED Difficulty w/ Childcare or Family Care: No Living arrangements: with family Additional living arrangements comments: , has 2 children Occupation/Education: retired Gender identity (if verbalized by the patient): Female Spiritual care concerns: No Exam Const: General: healthy appear
[2024-05-05 14:14] VITALS: BP 149/80; PULSE 98; RESP 18; TEMP 36.3; O2SAT 97
== END 2024-05-05 14:14 | disposition home or self-care (01) ==
PROVIDERS: Emergency Provider Emergency Medicine; PCP Nurse Practitioner Family
DX: S42.294A Other nondisplaced fracture of upper end of right humerus, initial encounter for closed fracture (principal); E78.5 Hyperlipidemia, unspecified; E03.9 Hypothyroidism, unspecified; F17.210 Nicotine dependence, cigarettes, uncomplicated; W01.0XXA Fall on same level from slipping, tripping and stumbling without subsequent striking against object, initial encounter; Y92.009 Unspecified place in unspecified non-institutional (private) residence as the place of occurrence of the external cause
CPT/HCPCS: 70450; 72125; 73030; 73110; 99284; L3670

== ENCOUNTER 2024-05-13 08:36 | Outpatient (CLI) | payer BC, MEDICARE, SELFPAY ==
--- NOTE | ~2024-05-13 | XR_ITS ---
EXAMINATION: XR shoulder RT min 2V DATE: 05/13/2024 08:52 INDICATION: Right shoulder injury. Fall. TECHNIQUE: 3 views of right shoulder were obtained. COMPARISON: Right shoulder radiographs 05/05/2024 FINDINGS: There is a comminuted fracture of proximal right humerus involving the surgical neck and gr eater tuberosity. At the surgical neck, the main distal fracture fragment demonstrates impaction and 20 degrees posterior angulation and 12 mm anterior displacement. There is mild osteoarthrosis of eulalia ohumeral joint and acromioclavicular joint. IMPRESSION: 1. Unchanged two-part fracture of proximal right humerus. Reviewed, dictated and finalized at location A.
[2024-05-13 11:23] LABS: Alanine Aminotransferase 12 U/L (14-59); Albumin Level 3.6 g/dL (3.4-5.0); Alkaline Phosphatase 164 U/L (46-116); Aspartate Amino Transferase 19 U/L (15-37); Bilirubin,Total 0.3 mg/dL (0.00-1.00); Blood Urea Nitrogen 16 mg/dL (7-18); Calcium 9.9 mg/dL (8.5-10.1); Chloride 104 mmol/L (98-108); Estimated Glomerular Filt Rate > 60; Free T4 Free Thyroxine 1.37 ng/dL (0.76-1.46); Glucose 85 mg/dL (70-99); Osmolality Calculated 290 mOsm/kg (285-295); Potassium 3.6 mmol/L (3.5-5.1); Sodium 140 mmol/L (136-145); Thyroid Stimulating Hormone 0.27 uIU/mL (0.36-3.74); Total Protein 6.8 g/dL (6.4-8.2)
[2024-05-13 11:29] LABS: Anion Gap 14 mmol/L (4-12); Carbon Dioxide 22 mmol/L (21-32)
== END 2024-05-13 08:37 | disposition home or self-care (01) ==
PROVIDERS: Nurse Practitioner Family; PCP Nurse Practitioner Family; Visit Provider Orthopaedic Surgery
DX: H53.8 Other visual disturbances (principal); E03.9 Hypothyroidism, unspecified; M25.511 Pain in right shoulder; S42.291A Other displaced fracture of upper end of right humerus, initial encounter for closed fracture
CPT/HCPCS: 36415; 73030; 80053; 83036; 84439; 84443

== ENCOUNTER 2024-07-03 12:07 | Outpatient (CLI) | payer MEDICARE, SELFPAY ==
[2024-07-03 12:23] LABS: Add Urine Microscopic? YES; Appearance Urine Clear (Clear); Bilirubin Urine Negative (Negative); Blood Urine 2+ (Negative); Color Urine Light Yellow (Yellow); Glucose Urine UA Negative (Negative); Ketones Urine Negative (Negative); Leukocyte Esterase Ur 2+ LEU/UL (Negative); Nitrate Urine Negative (Negative); Protein Urine Negative (Negative); Urobilinogen Urine 0.2 mg/dL (0.2-1.0); pH Urine 5.5 (5.0-8.0)
[2024-07-03 12:30] LABS: Bacteria Urine Trace /hpf; Squamous Epithelial Cell Urine Rare /hpf (Few); WBC Urine 21-50 /hpf (0-3)
== END 2024-07-03 12:08 | disposition home or self-care (01) ==
PROVIDERS: PCP Nurse Practitioner Family; Visit Provider Nurse Practitioner Family
DX: Z87.898 Personal history of other specified conditions (principal); R30.0 Dysuria
CPT/HCPCS: 81001; 87077; 87086; 87088; 87186

== ENCOUNTER 2024-07-09 09:48 | Outpatient (CLI) | payer MEDICARE, SELFPAY ==
[2024-07-09 11:29] LABS: Free T4 Free Thyroxine 1.33 ng/dL (0.76-1.46); Thyroid Stimulating Hormone 0.04 uIU/mL (0.36-3.74)
== END 2024-07-09 09:49 | disposition home or self-care (01) ==
LOC: CHSLAB 09:49
PROVIDERS: PCP Nurse Practitioner Family; Visit Provider Nurse Practitioner Family
DX: E03.9 Hypothyroidism, unspecified (principal)
CPT/HCPCS: 36415; 84439; 84443

== ENCOUNTER 2024-07-22 08:17 | Outpatient (CLI) | payer MEDICARE, SELFPAY ==
--- NOTE | ~2024-07-22 | XR_ITS ---
XR shoulder RT min 2V 07/22/2024 08:34 Indication: Right shoulder pain. Right humeral neck fracture. Procedure: 4 views right shoulder Comparison: Comparison to multiple prior studies sequentially, with oldest reviewed study dated 01/2024. Findings: There is a stable alignment of healing comminuted fracture right humerus proximally involvi ng the surgical neck and greater tuberosity. There is mild osteoarthritis of the glenohumeral joint. Impression: 1: Stable alignment of healing comminuted proximal right humeral fracture. Reviewed, dictated and finalized at location B. Impression: 1: Stable alignment of healing comminuted proximal right humeral fracture.
== END 2024-07-22 08:18 | disposition home or self-care (01) ==
LOC: CHSIMG 08:19
PROVIDERS: PCP Nurse Practitioner Family; Visit Provider Orthopaedic Surgery
DX: S42.201D Unspecified fracture of upper end of right humerus, subsequent encounter for fracture with routine healing (principal); M25.511 Pain in right shoulder
CPT/HCPCS: 73030

== ENCOUNTER 2024-09-02 16:48 | Outpatient (NON) | payer MEDICARE, SELFPAY ==
[2024-09-02 17:29] LABS: Add Urine Microscopic? YES; Appearance Urine Cloudy (Clear); Bilirubin Urine Negative (Negative); Blood Urine 3+ (Negative); Color Urine Light Yellow (Yellow); Glucose Urine UA Negative (Negative); Ketones Urine Negative (Negative); Leukocyte Esterase Ur 1+ LEU/UL (Negative); Nitrate Urine Positive (Negative); Protein Urine 1+ (Negative); Urobilinogen Urine 0.2 mg/dL (0.2-1.0); pH Urine 6.5 (5.0-8.0)
[2024-09-02 17:32] LABS: Bacteria Urine 3+ /hpf; Squamous Epithelial Cell Urine Few /hpf (Few); WBC Urine >75 /hpf (0-3)
== END 2024-09-02 16:49 | disposition home or self-care (01) ==
PROVIDERS: Visit Provider Nurse Practitioner Family
DX: R39.9 Unspecified symptoms and signs involving the genitourinary system (principal)
CPT/HCPCS: 81001; 87077; 87086; 87088; 87186

== ENCOUNTER 2024-10-23 16:20 | Outpatient (NON) | payer MEDICARE, SELFPAY ==
[2024-10-23 16:31] LABS: Add Urine Microscopic? YES; Bilirubin Urine Negative (Negative); Blood Urine 2+ (Negative); Glucose Urine UA Negative (Negative); Ketones Urine Negative (Negative); Leukocyte Esterase Ur 2+ LEU/UL (Negative); Nitrate Urine Positive (Negative); Protein Urine 1+ (Negative); Specific Grav Ur 1.015 (1.010-1.020); Urobilinogen Urine 0.2 mg/dL (0.2-1.0)
[2024-10-23 16:39] LABS: Appearance Urine Cloudy (Clear); Color Urine Yellow (Yellow); Squamous Epithelial Cell Urine Few /hpf (Few); WBC Urine 21-30 /hpf (0-3)
[2024-10-23 16:40] LABS: Bacteria Urine 2+ /hpf
== END 2024-10-23 16:21 | disposition home or self-care (01) ==
PROVIDERS: Visit Provider Nurse Practitioner Family
DX: R30.0 Dysuria (principal)
CPT/HCPCS: 81001; 87086

== ENCOUNTER 2024-11-06 13:07 | Outpatient (CLI) | payer MEDICARE, SELFPAY ==
--- NOTE | ~2024-11-06 | CT_ITS ---
EXAMINATION: CT abdomen pelvis wo con DATE: 11/06/2024 13:36 INDICATION: Hematuria, unspecified. TECHNIQUE: Computed tomography (CT) of the abdomen and pelvis was performed without intravenous contr ast. Automated exposure control and iterative reconstruction technique were employed. The dose-length product was 177.64 mGy-cm. COMPARISON: CT abdomen and pelvis 08/08/2023 FINDINGS: The visualized portions of the lung bases demonstrate mild atelectasis. No pleural effusion . The heart size is normal. There are coronary artery calcifications. No pericardial effusion. The li cesar is normal. There are gallstones in the gallbladder, which is normal in size. The spleen, pancreas , and adrenal glands are normal. There are approximately 3 stones in right kidney measuring up to 11 mm. There is a 13 mm stone in right renal pelvis. No hydronephrosis. There is a 1 mm stone in left ki dney. There are no dilated loops of bowel. The appendix is normal. There are no pathologically enlarg ed lymph nodes. There is no free intraperitoneal fluid. There are benign bone islands in the iliac francesca blaire. There is mild lumbar spondylosis. IMPRESSION: 1. Bilateral nonobstructing kidney stones. Reviewed, dictated and finalized at location A. TY PROSECUTING ATTORNEY
[2024-11-06 13:35] LABS: Basophils Absolute Auto 0.06 K/mm3 (0.00-0.10); Basophils Percent Auto 0.8 % (0.0-1.0); Eosinophils Absolute Auto 0.07 K/mm3 (0.02-0.50); Eosinophils Percent Auto 0.9 % (1.0-6.0); Hematocrit 41.7 % (35.0-42.0); Hemoglobin 13.7 g/dL (11.7-13.8); Immature Granulocyte Absolute 0.02 K/mm3 (0.00-0.00); Immature Granulocyte Percent A 0.3 % (0.0-0.0); Lymphocytes Absolute Auto 1.55 K/mm3 (1.10-4.50); Mean Corpuscular HGB Conc 32.9 g/dL (32-36); Mean Corpuscular Hemoglobin 31.1 pg (27.0-31.0); Mean Corpuscular Volume 94.8 fL (78.0-102.0); Mean Platelet Volume 9.7 fl (9.2-11.8); Monocytes Absolute Auto 0.72 K/mm3 (0.10-0.90); Monocytes Percent Auto 9.7 % (2.0-11.0); Neutrophils Absolute Auto 4.97 K/mm3 (1.70-7.20); Neutrophils Percent Auto 67.3 % (50.0-70.0); Platelet Count Result 262 K/mm3 (150-420); Red Cell Distribution Width 12.4 % (11.6-14.4); White Blood Count 7.4 K/mm3 (4.8-10.8)
[2024-11-06 14:00] LABS: Alanine Aminotransferase 19 U/L (14-59); Albumin Level 3.6 g/dL (3.4-5.0); Alkaline Phosphatase 147 U/L (46-116); Anion Gap 12 mmol/L (4-12); Aspartate Amino Transferase 15 U/L (15-37); Bilirubin,Total 0.2 mg/dL (0.00-1.00); Blood Urea Nitrogen 13 mg/dL (7-18); Carbon Dioxide 21 mmol/L (21-32); Chloride 112 mmol/L (98-108); Estimated Glomerular Filt Rate > 60; Glucose 88 mg/dL (70-99); Osmolality Calculated 299 mOsm/kg (285-295); Potassium 4.2 mmol/L (3.5-5.1); Sodium 145 mmol/L (136-145); Thyroid Stimulating Hormone 0.09 uIU/mL (0.36-3.74); Total Protein 6.3 g/dL (6.4-8.2)
[2024-11-06 14:06] LABS: CRP < 0.5 mg/dL (0.0-0.9)
--- OUTSIDE RECORDS SUMMARY | 2024-11-06 14:10 | XMS_ITS | Encounter Summary ---
Author Organization [facility] Address [address] [place] [address] Care Team Providers Care Welder Assistant Name Role Phone Alejo Cha Primary Care Provider [phone] Encounter Details Date Type Department Care Team (Late st Contact Info) Description 07/06/2000 Outpatient Historical Division of Neurology 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
--- OUTSIDE RECORDS SUMMARY | 2024-11-06 14:10 | XMS_ITS | Encounter Summary ---
Author Organization [facility] Address 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
--- OUTSIDE RECORDS SUMMARY | 2024-11-06 14:10 | XMS_ITS | Patient Health Summary ---
Author Organization [facility] Address [address] [place] [address] Care Team Providers Care Fryline Attendant Name Role Phone KaiserCorrina Selena HODGES-SAS STATISTICAL PROGRAMMER Unavailable [phone] Aashish Corrigan DO Primary Care Provider [phone] Note from [facility] [place],non-owned Affiliates and Associated Physician Practices is amultiple site organization consisting of ambulatory clinics and hospital sitesin [place], [place], [place] and [place]. This disclosure is being madepursuant to the Care Everywhere program and may not contain all information available regarding this patient. Last updated 18.[facility] Allergies No known active allergies Medications * Be aware that medications may not be up to date on this document. Alwaysverify current medications with the patient. * levothyroxine (SYNTHROID) 112 MCG tablet Take 112 mcg by mouth daily before breakfast * esomeprazole (NEXIUM) 20 MG capsule Take 20 mg by mouth daily before breakfast * topiramate (TOPAMAX) 100 MG tablet Take 100 mg by mouth 2 times daily * rosuvastatin (CRESTOR) 10 MG tablet Take 10 mg by mouth once daily * uwf-xsmd-jweqpgqzoz-codeine (FIORINAL WITH CODEINE) [id number] MG capsule Take 1 capsule by mouth every 4 hours as needed for Headache * HYDROcodone-acetaminophen (NORCO) 5-325 MG tablet(Started 11/27/2021) Take 1 (one) tablet by mouth every 6 hours as needed Active Problems Problem Noted Date Diagnosed Date Abscess 11/21/2021 Immunizations * Covid Pfizer primary monovalent 12+ yr 0.3mL Purple cap(Given 01/01/2022) Social History Tobacco Use Types Packs/Day Years Used Date Smoking Tobacco: Former Cigarettes 0.3 10 0 11/21/2011 - 10/23/2021 Smokeless Tobacco: Never Tobacco Cessation:Counseling Given: Yes Comments:pt states she quit Oct 23 Alcohol Use Standard Drinks/Week Comments Never 0 (1 standard drink = 0.6 oz pur e alcohol) AUDIT-C Answer Date Recorded Q1: How often do you have a drink containing alc ohol? Patient declined 11/21/2021 Q2: How many drinks containi ng alcohol do you have on a typical day when you are drinking? Patient declined 11/21/2021 Q3: How often do you have si x or more drinks on one occasion? Patient declined 11/21/2021 Hunger Vital Sign Answer Date Recorded Within the past 12 months, y ou worried that your food would run out before you got the money to buy more. Never true 11/22/19 Within the past 12 months, t he food you bought just didn't last and you didn't have money to get more. Never true 11/22/2021 Sex and Gender Information Value Date Recorded Sex Assigned at Not on file Gender Identity Not on file Sexual Orientation Not on file Last Filed Vital Signs Vital Sign Reading Time Taken Comments Blood Pressure 112/70 01/18/2022 1:51 PM CDT Pulse 72 01/18/2022 1:51 PM CDT Temperature 35.9 C (96.6 F) 01/18/2022 1:51 PM CDT Respiratory Rate 16 01/18/2022 1:51 PM CDT Oxygen Saturation 99% 01/18/2022 1:51 PM CDT RA Inhaled Oxygen Concentration - - Weight 53.2 kg (117 lb 3.2 oz) 01/18/2022 1:51 P M CDT Height 165.1 cm (5' 5 ) 01/18/2022 1:51 PM CDT Body Mass Index 19.5 01/18/2022 1:51 PM CDT Procedures * XR CHEST 2VW(Performed 01/18/2022) Performed for Empyema lung (HCC) * C-REACTIVE PROTEIN(Performed 12/14/2021) Performed for Empyema lung (HCC) * CBC W AUTO DIFFERENTIAL(Performed 12/14/2021) Performed for Empyema lung (HCC) * XR CHEST 2VW(Performed 12/14/2021) Performed for Empyema lung (HCC) * CT CHEST W CONTRAST(Performed 11/26/2021) Performed for Empyema (HCC) * BASIC METABOLIC PANEL (CALCIUM TOTAL)(Performed 11/26/2021) * C-REACTIVE PROTEIN(Performed 11/26/2021) * CBC W AUTO DIFFERENTIAL(Performed 11/26/2021) * PROCALCITONIN LEVEL(Performed 11/26/2021) * XR CHEST 1VW PORTABLE(Performed 11/25/2021) Performed for Empyema (HCC) * XR CHEST 1VW PORTABLE(Performed 11/24/2021) Performed for Abscess, Empyema (HCC) * CBC W AUTO DIFFERENTIAL(Performed 11/24/2021) * PROCALCITONIN LEVEL(Performed 11/24/2021) * C-REACTIVE PROTEIN(Performed 11/24/2021) * CT DRAIN W CATH PLACEMENT(Performed 11/23/2021) Performed for Abscess * CULTURE FLUID+GRAM STAIN(Performed 11/23/2021) * COMPREHENSIVE METABOLIC PANEL(Performed 11/23/2021) * MRSA DNA PCR(Performed 11/22/2021) * PT-INR(Performed 11/22/2021) * PTT(Performed 11/22/2021) * COMPREHENSIVE METABOLIC PANEL(Performed 11/22/2021) * CBC W AUTO DIFFERENTIAL(Performed 11/22/2021) * PROCALCITONIN LEVEL(Performed 11/22/2021) * C-REACTIVE PROTEIN(Performed 11/22/2021) * ECHOCARDIOGRAM 2D WITH DOPPLER(Performed 11/22/2021) Performed for Heart murmur * CREATININE BLOOD(Performed 11/22/2021) Results * XR CHEST 2VW (01/18/2022 1:11 PM CDT) Only the most recent of2 resultswithin the time period is included. Anatomical Region Laterality Modality Chest Radiographic Trena ging 01/18/2022 1:13 PM CDT Narrative 01/18/2022 1:13 PM CDT STUDY: Frontal and lateral views of the chest. HISTORY: Pyothorax without fistula. Lung empyema. COMPARISON: Chest radiograph dated 12/14/2021. FINDINGS: The cardiomediastinal silhouette is normal. The pulmonary vasculature is unremarkable. Mild linear atelectasis versus scarring is seen at the left lung base in the area of the previously seen thoracostomy tube. There is no pleural effusion. There is no pneumothorax. The osseous structures are grossly unremarkable. IMPRESSION: No acute cardiopulmonary findings. *Reading Radiologist: Yesi Fine on 01/18/2022 at 1:13 PM Procedure Note Yesi Fine MD - 01/18/2022 STUDY: Frontal and lateral views of the chest. HISTORY: Pyothorax without fistula. Lung empyema. COMPARISON: Chest radiograph dated 12/14/2021. FINDINGS: The cardiomediastinal silhouette is normal. The pulmonary vasculature is unremarkable. Mild linear atelectasis versus scarring is seen at the left lung base in the area of the previously seen thoracostomy tube. There is no pleural effusion. There is no pneumothorax. The osseous structures are grossly unremarkable. IMPRESSION: No acute cardiopulmonary findings. *Reading Radiologist: Yesi Fine on 01/18/2022 at 1:13 PM Corrina Saab APRN-[facility] DIAGNOSTIC IMAG ING ORDERABLES * C-REACTIVE PROTEIN (CRP) (12/14/2021 3:29 PM CDT) Only the most recent of4 resultswithin the time period is included. Pathologist [facility] C-Reactive Protein <0.20 <=0.50 mg/dL [facility] ACCOUNT BILL Blood BLOOD SPECIMEN / Unknown 12/14/2021 3:29 PM CDT 12/14/2021 Narrative Resulting Agency Comment Lab Testing performed at: [address] [id number] Corrina Saab APRN-[facility] LAB - CHEMISTRY ORDERABLES [facility] ACCOUNT BILL [address] [place] [address] * (ABNORMAL) CBC WITH DIFFERENTIAL (12/14/2021 3:29 PM CDT) Only the most recent of4 resultswithin the time period is included. Pathologist [facility] WBC 4.5 4.4 - 10.7 x10E9/L [facility] ACCOUNT BILL RBC 3.74(L) 3.80 - 5.20 x10E12/L [facility] ACCOUNT BILL Hemoglobin 11.3(L) 12.0 - 15.6 gm/dL [facility] ACCOUNT BILL Hematocrit 36.6 35.9 - 45.5 % [facility] ACCOUNT BILL MCV 97.9 80.7 - 98.3 fl [facility] ACCOUNT BILL MCH 30.2 26.7 - 34.0 pg [facility] ACCOUNT BILL MCHC 30.9 30.8 - 35.9 gm/dL [facility] ACCOUNT BILL RDW 16.7(H) 12.1 - 14.9 % [facility] ACCOUNT BILL Platelet Count 201 153 - 416 x10E9/L [facility] ACCOUNT BILL Comment:MPV FL BLOOD ([facility]) 1 1.2 fl 9.4-12.9 Granulocytes % 68.9 44.0 - 73.0 % [facility] ACCOUNT BILL Lymphocytes % 20.0 20.0 - 43.0 % [facility] ACCOUNT BILL Monocytes % 8.5 5.0 - 13.0 % [facility] ACCOUNT BILL Eosinophils % 2.0 0.0 - 6.0 % [facility] ACCOUNT BILL Basophils % 0.4 0.0 - 2.0 % [facility] ACCOUNT BILL Granulocytes Absolute 3.09 2.01 - 7.14 x10E9/L [facility] ACCOUNT BILL Lymphocytes Absolute 0.90(L) 1.07 - 3.94 x10E9/L [facility] ACCOUNT BILL Monocytes Absolute 0.38 0.26 - 1.07 x10E9/L [facility] ACCOUNT BILL Eosinophils Absolute 0.09 0 - 0.47 x10E9/L [facility] ACCOUNT BILL Basophils Absolute 0.02 0 - 0.08 x10E9/L [facility] ACCOUNT BILL Immature Granulocytes 0.2 0 - 1 % [facility] ACCOUNT BILL Immature Granulocytes Absolute 0.01 0.00 - 0.06 x10E9/L [facility] ACCOUNT BILL nRBC 0 /100 WBC [facility] ACCOUNT BILL Blood BLOOD SPECIMEN / Unknown 12/14/2021 3:29 PM CDT 12/14/2021 Narrative Resulting Agency Comment Lab Testing performed at: [address] [id number] Corrina Saab STEREO OPERATOR-SAS STATISTICAL PROGRAMMER LAB - HEMATOLOG Y ORDERABLES [facility] ACCOUNT BILL [address] [place] [place] [address] * CT CHEST W CONTRAST (11/26/2021 3:17 PM [facility]) Anatomical Region Laterality Modality Chest Computed Tomogra phy 11/26/2021 3:51 PM [facility] Impressions 11/26/2021 3:53 PM [facility] Resolution of the fluid collection within the posterior left hemithorax following percutaneous drainage. Trace residual fluid at the costophrenic angle. Persistent left lower lobe consolidation and minimal infiltrate right middle lobe and right lung base. *Reading Radiologist: Norman Huerta on 11/26/2021 at 3:53 PM Narrative 11/26/2021 3:[address] Chest With Contrast INDICATION: Pyothorax without fistula. TECHNIQUE: Axial images of the chest with contrast were obtained and reconstructions performed. Isovue-370, 80 cc IV contrast was administered. FINDINGS: There is no supraclavicular or axillary lymphadenopathy. No mediastinal or hilar lymphadenopathy. The heart is normal in size. No pericardial effusion seen. Limited views of the upper abdomen are within normal limits. The pigtail drain is well-positioned within the caudal posterior left hemithorax. Previously identified fluid collection has resolved. There is trace free fluid at the costophrenic angle. There is persistent consolidation at the left lung base and also small areas of patchy infiltrate within the medial right middle lobe and right lung base. No pneumothorax. No acute osseous abnormality or osseous destruction seen. Procedure Note Norman Huerta MD - 11/26/2021 CT Chest With Contrast INDICATION: Pyothorax without fistula. TECHNIQUE: Axial images of the chest with contrast were obtained and reconstructions performed. Isovue-370, 80 cc IV contrast was administered. FINDINGS: There is no supraclavicular or axillary lymphadenopathy. No mediastinal or hilar lymphadenopathy. The heart is normal in size. No pericardial effusion seen. Limited views of the upper abdomen are within normal limits. The pigtail drain is well-positioned within the caudal posterior left hemithorax. Previously identified fluid collection has resolved. There is trace free fluid at the costophrenic angle. There is persistent consolidation at the left lung base and also small areas of patchy infiltrate within the medial right middle lobe and right lung base. No pneumothorax. No acute osseous abnormality or osseous destruction seen. IMPRESSION Resolution of the fluid collection within the posterior left hemithorax following percutaneous drainage. Trace residual fluid at the costophrenic angle. Persistent left lower lobe consolidation and minimal infiltrate right middle lobe and right lung base. *Reading Radiologist: Norman Huerta on 11/26/2021 at 3:53 PM Daniele Duke MD CT ORDERABLES * (ABNORMAL) PROCALCITONIN LEVEL (11/26/2021 6:13 AM [facility]) Only the most recent of3 resultswithin the time period is included. Procalcitonin 0.14(H) <0.10 ng/mL 11/26/2021 7:01 AM [facility] Blood BLOOD SPECIMEN / Unknown Lab Venipuncture / Unknown 11/26/2021 6:13 AM [facility] 11/26/2021 6:18 AM [facility] Narrative [facility] - 11/26/2021 7:01 AM [facility] The change in procalcitonin (PCT) concentration over time provides support in decision making on antibiotic discontinuation for suspected or confirmed septic patients. Follow-up samples should be tested once every 1-2 days based upon physician discretion taking into account the patient s evolution and progress. Consider discontinuation of antibiotic therapy if the PCT current is <= 0.5 ng/mL or if the delta PCT is > 80%. Duration of antibiotics should not be determined solely on PCT; established guidelines for the indication should be followed. PCT peak: Highest observed PCT concentration PCT current: Most recent PCT concentration Calculate delta PCT using the following equation: Delta PCT = PCT Peak PCT current X 100% PCT Peak The Change in Procalcitonin Calculator is available at [email or web address] Clean If clinical picture has not improved and PCT remains high, reevaluate and consider treatment failure or other causes. Corrina Saab STEREO OPERATOR-SAS STATISTICAL PROGRAMMER LAB - CHEMISTRY ORDERABLES [facility] [address] [place] [id number] * (ABNORMAL) BASIC METABOLIC PANEL (CALCIUM TOTAL) (11/26/2021 6:13 AM [facility]) Glucose 91 70 - 105 mg/dL 11/26/2021 7:01 AM [facility] Sodium 140 136 - 145 mmol/L 11/26/2021 7:01 AM [facility] Potassium 3.9 3.5 - 5.1 mmol/L 11/26/2021 7:01 AM [facility] Chloride 114(H) 98 - 107 mmol/L 11/26/2021 7:01 AM [facility] CO2 20(L) 23 - 31 mmol/L 11/26/2021 7:01 AM [facility] Calcium 9.0 8.4 - 10.4 mg/dL 11/26/2021 7:01 AM [facility] Anion Gap 6(L) 8 - 18 mmol/L 11/26/2021 7:01 AM [facility] BUN 6(L) 9.8 - 20.1 mg/dL 11/26/2021 7:01 AM [facility] Creatinine 0.57 0.57 - 1.11 mg/dL 11/26/2021 7:01 AM [facility] eGFR by MDRD >60 >60 mL/min/1.7 3m2 11/26/2021 7:01 AM [facility] eGFR by MDRD >60 >60 mL/min/1.7 3m2 11/26/2021 7:01 AM [facility] Blood BLOOD SPECIMEN / Unknown Lab Venipuncture / Unknown 11/26/2021 6:13 AM [facility] 11/26/2021 6:18 AM [facility] Corrina Saab STEREO OPERATOR-SAS STATISTICAL PROGRAMMER LAB - CHEMISTRY ORDERABLES [facility] [address] [id number] * XR CHEST 1VW PORTABLE (11/25/2021 12:29 PM [facility]) Only the most recent of2 resultswithin the time period is included. Anatomical Region Laterality Modality Chest Radiographic Trena ging 11/25/2021 1:22 PM [facility] Narrative 11/25/2021 1:48 PM [facility] CHEST AP PORTABLE INDICATION: Shortness of breath and empyema. FINDINGS: Frontal view of the chest compared to prior from 11/24/2021 shows left lower lobe pigtail catheter still present. There is persistent left lower lobe infiltration. No pneumothorax is seen. The heart size is stable. Edited by Ayde Coffey on 11/25/2021 1:24 PM *Reading Radiologist: Kamron Townsend on 11/25/2021 at 1:48 PM Procedure Note Kamron Townsend MD - 11/25/2021 CHEST AP PORTABLE INDICATION: Shortness of breath and empyema. FINDINGS: Frontal view of the chest compared to prior from 11/24/2021 shows left lower lobe pigtail catheter still present. There is persistent left lower lobe infiltration. No pneumothorax is seen. The heart size is stable. Edited by Ayde Coffey on 11/25/2021 1:24 PM *Reading Radiologist: Kamron Townsend on 11/25/2021 at 1:48 PM Merlin Faria MD DIAGNOSTIC IMAGING O RDERABLES * CT ABSCESS DRAIN PERCUTANEOUS (11/23/2021 1:38 PM [facility]) Anatomical Region Laterality Modality Abdomen Computed Tomogra phy Impressions 11/23/2021 3:48 PM [facility] Drain insertion into a posterior inferior left chest abscess yielding 100 cc of purulent material. *Reading Radiologist: Norman Huerta on 11/23/2021 at 3:48 PM Narrative 11/23/2021 3:48 PM [facility] Procedure: CT-guided left chest pleural drain insertion. HISTORY: Fluid collection within the posterior inferior left hemithorax, either representing an empyema or lung abscess. The patient's medications reviewed prior to the procedure. Sedation: Monitored, moderate sedation provided by the nursing staff was required for 20 minutes. 1 mg of Versed and 50 mcg of fentanyl was administered intravenously. Procedure description: Informed, written consent was obtained. The patient was placed prone on the CT table and preliminary CT of the chest was performed. The fluid collection was localized in the left chest. The area was prepped and draped in usual sterile fashion. Local anesthetic was applied. Using intermittent CT guidance, a 18-gauge Sugar needle was passed into the collection. A wire was passed and permitted to coil within the collection. The tract was dilated and a 10 Omani pigtail drain inserted. The pigtail was formed and locked. Approximately 100 cc of purulent material was aspirated and a sample sent for culture. The drain was secured in place. The patient tolerated the procedure well and there are no immediate competitions. Corrina Saab [facility] CT ORDERABLES * (ABNORMAL) CULTURE FLUID+GRAM STAIN (11/23/2021 1:15 PM [facility]) [facility] Culture Heavy Streptococcus anginosus(AA) SELENA 11/27/2021 9:51 AM [facility] Gram Stain Heavy Polymorphonuclear cells(AA) 11/27/2021 9:51 AM [facility] Gram Stain Light Gram-positive cocci(AA) 11/27/2021 9:51 AM [facility] Fluid PLEURAL FLUID / Unknown Collection / Unknown 11/23/2021 1:15 PM [facility] 11/23/2021 1:42 PM [facility] Narrative Organism Antibiotic Method Susceptibility Streptococcus anginosus Ampicillin SELENA <=0.25 ug/mL: Susceptible Streptococcus anginosus Cefotaxime SELENA <=0.12 ug/mL: Susceptible Streptococcus anginosus Ceftriaxone SELENA <=0.12 ug/mL: Susceptible Streptococcus anginosus Levofloxacin SELENA <=0.25 ug/mL: Susceptible Streptococcus anginosus Penicillin G SELENA <=0.06 ug/mL: Susceptible Streptococcus anginosus Tetracycline SELENA <=0.25 ug/mL: Susceptible Corrina Saab [facility] LAB - MICROBIOL OGY ORDERABLES [facility] [address] [place] [address], [facility] [phone] * (ABNORMAL) COMPREHENSIVE METABOLIC PANEL (11/23/2021 10:15 AM [facility]) Only the most recent of2 resultswithin the time period is included. [facility] Glucose 101 70 - 105 mg/dL 11/23/2021 10:41 AM [facility] Sodium 138 136 - 145 mmol/L 11/23/2021 10:41 AM [facility] Potassium 3.4(L) 3.5 - 5.1 mmol/L 11/23/2021 10:41 AM [facility] Chloride 110(H) 98 - 107 mmol/L 11/23/2021 10:41 AM [facility] CO2 18(L) 23 - 31 mmol/L 11/23/2021 10:41 AM [facility] Calcium 9.0 8.4 - 10.4 mg/dL 11/23/2021 10:41 AM [facility] Anion Gap 10 8 - 18 mmol/L 11/23/2021 10:41 AM [facility] BUN 7(L) 9.8 - 20.1 mg/dL 11/23/2021 10:41 AM [facility] Creatinine 0.59 0.57 - 1.11 mg/dL 11/23/2021 10:41 AM [facility] Alkaline Phosphatase 274(H) 40 - 150 U/L 11/23/2021 10:41 AM [facility] ALT 11 0 - 61 U/L 11/23/2021 10:41 AM [facility] AST 23 5 - 34 U/L 11/23/2021 10:41 AM [facility] Protein Total 5.9(L) 6.4 - 8.3 gm/dL 11/23/2021 10:41 AM [facility] Albumin 2.5(L) 3.2 - 4.6 gm/dL 11/23/2021 10:41 AM [facility] Bilirubin Total 0.3 0.2 - 1.2 mg/dL 11/23/2021 10:41 AM [facility] eGFR by MDRD >60 >60 mL/min/1.7 3m2 11/23/2021 10:41 AM [facility] eGFR by MDRD >60 >60 mL/min/1.7 3m2 11/23/2021 10:41 AM [facility] Blood BLOOD SPECIMEN / Unknown Lab Venipuncture / Unknown 11/23/2021 10:15 AM [facility] 11/23/2021 10:21 AM [facility] Corrina CASTRO LAB - CHEMISTRY ORDERABLES Performing Organization Address [facility] Co de Phone Number [facility] [address] [place] [phone] * MRSA DNA PCR (11/22/2021 9:40 PM [facility]) MRSA DNA by PCR Not detected Not detected 11/23/2021 3:18 AM [facility] Microbiology SPECIMEN FROM NASAL FOSSAE / Unknown Collection / Unknown 11/22/2021 9:40 PM [facility] 11/22/2021 9:48 PM [facility] Narrative [facility] - 11/23/2021 3:18 AM [facility] Methicillin-resistant Staphylococcus aureus (MRSA) DNA is not detected (presumed not colonized with MRSA). Daniele Duke MD LAB - MICROBIOLOGY O RDERABLES Performing Organization Address [facility] Co de Phone Number [facility] [address] [place], [place] [address] [phone] * (ABNORMAL) PTT (11/22/2021 2:07 PM [facility]) PTT 47.7(H) 23.0 - 38.4 sec 11/22/2021 3:12 PM [facility] Blood BLOOD SPECIMEN / Unknown Lab Venipuncture / Unknown 11/22/2021 2:07 PM [facility] 11/22/2021 2:13 PM [facility] Narrative [facility] - 11/22/2021 3:12 PM [facility] Heparin Therapeutic Range for PTT: 69.0 - 110.0 seconds. Corrina CASTRO LAB - COAGULATI ON ORDERABLES Performing Organization Address [facility] Co de Phone Number [facility] [address] [place] [phone] * (ABNORMAL) PT-INR (11/22/2021 2:07 PM [facility]) PT 19.6(H) 12.1 - 14.8 sec 11/22/2021 3:09 PM [facility] INR 1.7(H) 0.9 - 1.1 11/22/2021 3:09 PM [facility]IP [facility] Blood BLOOD SPECIMEN / Unknown Lab Venipuncture / Unknown 11/22/2021 2:07 PM [facility] 11/22/2021 2:13 PM [facility]IP Narrative [facility] - 11/22/2021 3:09 PM [facility] Conventional Warfarin Anticoagulant Therapy: INR Reference Range: 2.0-3.0 Intensive Warfarin Anticoagulant Therapy: INR Reference Range: 2.5-3.5 Corrina Saab STEREO OPERATOR-SAS STATISTICAL PROGRAMMER LAB - COAGULATI ON ORDERABLES [facility] [address] [place] [address] * ECHOCARDIOGRAM 2D WITH DOPPLER (11/22/2021 12:00 PM [facility]) 11/22/2021 12:0 0 PM [facility] Narrative Procedure Note Unknown, Provider, - 11/22/[address] [address] Echocardiography Examination Transthoracic Name: RADHA GARCÍA [facility]#: MR#: [id number] Admission Number: [id number] Study Date: 11/22/2021 Study Time: 01:35 PM Date Of : 1955 Age: 66 years Height: 66 in. (167.6 cm) Weight: 103 lbs. (46.72 kg) BSA: 1.51 m2 Gender: Female Blood Pressure: 112 mmHg / 44 mmHg Heart Rate: Exam Details Procedure Ordered: ECHOCARDIOGRAM 2D W/DOPPLER Procedure Components: Complete 2D, M-mode, complete spectral Doppler, color Doppler Procedure Views: Images were obtained from the parasternal, apical, subcostal, and suprasternal notch acoustic windows Procedure Status: Routine study Image Quality: Adequate Facility Location: [facility] Indication: Heart murmur Procedure Drill Sharpener: Jennifer Driscoll RDCS Ordering Provider: Amor Saab MD Reading Physician: CHARISMA HERNÁNDEZ MD Conclusions Left Ventricle: Left ventricle is normal in size. Normal global systolic left ventricular function. EF 65 %. Left ventricle wall thickness is normal. There are no regional wall motion abnormalities. Left ventricular diastolic function parameters are normal. Mitral Valve: Mild mitral regurgitation. Aortic Valve: There is mild aortic stenosis, mean gradient 13 mmHg, JESSICA 1.6 cm2 by VTI. Tricuspid Valve Measurements Patient: RADHA GARCÍA Study Date: 11/22/2021 01:35 PM Page 1 of 4 RVSP: 24 mmHg. Follow up: Findings Left Ventricle: Left ventricle is normal in size. Normal global systolic left ventricular function. EF evaluated by biplane method of disks. EF 65 %. Left ventricle wall thickness is normal. There are no regional wall motion abnormalities. Left ventricular diastolic function parameters are normal. Right Ventricle: Normal size right ventricle. Right ventricular wall thickness is normal. Right ventricular systolic function is normal. Pulmonary artery pressure normal. Left Atrium: The left atrium is normal in size. Right Atrium: The right atrium is normal in size. Mitral Valve: Mitral leaflets exhibit normal cuspal separation. Mild mitral regurgitation. No mitral valve stenosis. Aortic Valve: Aortic leaflets exhibit normal cuspal separation. No aortic valve regurgitation. There is mild aortic stenosis, mean gradient 13 mmHg, JESSIAC 1.6 cm2 by VTI. Tricuspid Valve: Tricuspid valve leaflets are normal. Mild tricuspid regurgitation. No tricuspid valve stenosis. Pulmonic Valve: Pulmonic leaflets exhibit normal cuspal separation. No pulmonic valve regurgitation is evident. There is no pulmonic valve stenosis. Aorta: The aorta is normal. No dilation of the ascending aorta. The aortic root exhibits normal size. Great Vessels: IVC: The inferior vena cava is normal in size and course. Pericardium: The pericardium is normal in appearance. No pericardial effusion. Clinical Data Comment: History: GERD, HLD, Hypothyroid, Murmur, Former smoker Measurements Anatomy Label Value Normal Value Aorta AoRoot, MM 2.4 cm (2.2cm - 3.7cm) Aortic Valve AV Vmean 1.65 m/s Aortic Valve AV VTI 43.7 cm Aortic Valve AV PGmax 24 mmHg Aortic Valve AV PGmean 13 mmHg Aortic Valve AV Vmax, Caliper 2.44 m/s (1m/s - 1.7m/s) Aortic Valve LVOT VTI / AV VTI 0.52 Aortic Valve JESSICA D (continuity eq. VTI) 1.6 cm Aortic Valve JESSICA Index (continuity 1.06 cm /m eq.Vmax) Patient: RADHA GARCÍA Study Date: 11/22/2021 01:35 PM Page 2 of 4 Aortic Valve LVOT Vmax / AV Vmax 0.51 Interventricular septum IVSd, 2D 1 cm (0.6cm - 1.1cm) Left Atrium LADs, 2D 2.3 cm (2.7cm - 3.8cm) Left Atrium LA Area s, A4C 9.2 cm (0cm - 20cm ) Left Atrium LA Area s, A2C 11.5 cm (0cm - 20cm ) Left Atrium LAESV, MOD4 15 ml (22ml - 52ml) Left Atrium LAESV, MOD2 24 ml (22ml - 52ml) Left Atrium LAESV index, MOD4 9.9 ml/m Left Atrium LAESV index, MOD2 15.9 ml/m Left Ventricle LVOT Vmax 1.25 m/s (0.7m/s - 1.1m/s) Left Ventricle LVOTd 2 cm (1.8cm - 2cm) Left Ventricle LVOT VTI 22.9 cm (18cm - 22cm) Left Ventricle LVOT PGmax 6 mmHg Left Ventricle LVEF visual 65 % (55% - 75%) Left Ventricle LVDd, 2D 2.3 cm (3.7cm - 5.2cm) Left Ventricle LVDs, 2D 1.2 cm (2.2cm - 3.5cm) Left Ventricle LVPWd, 2D 0.8 cm (0.6cm - 0.9cm) Left Ventricle FS, 2D 47.83 % Left Ventricle LVEDV, BP 43 ml (56ml - 104ml) Left Ventricle LVESV, BP 15 ml (19ml - 49ml) Left Ventricle LVEDV Index, BP 28.5 ml/m (35ml/m - 75ml/m ) Left Ventricle LVESV Index, BP 9.9 ml/m (12ml/m - 30ml/m ) Left Ventricle LVSV Index, BP 18.5 ml/m Left Ventricle LVOT PGmean 3 mmHg Left Ventricle LVOT Vmean 0.8 m/s Left Ventricle LVOT Area 3.1 cm Left Ventricle Diastolic MV E Vmax 0.88 m/s Function Left Ventricle Diastolic MV A Vmax 0.96 m/s Function Left Ventricle Diastolic MV E/A 0.92 Function Left Ventricle Diastolic MV E/E' lateral 7.6 Function Left Ventricle Diastolic MV E/E' septal 11.1 (0.45 - 1.25) Function Left Ventricle Diastolic MV DT 277 ms Function Left Ventricle Diastolic MV E' septal 0.08 m/s Function Left Ventricle Diastolic MV E' lateral 0.12 m/s Function Left Ventricle Diastolic MV E/E' mean 8.8 Function Left Ventricle Diastolic MV E' mean 0.1 m/s Function Mitral Valve MV Vmax 0.97 m/s Mitral Valve MV Vmean 0.7 m/s Mitral Valve MV VTI 28.1 cm Mitral Valve MVA D (continuity eq.) 2.6 cm Patient: RADHA GARCÍA Study Date: 11/22/2021 01:35 PM Page 3 of 4 Mitral Valve MV PGmax 4 mmHg Mitral Valve MV PGmean 2 mmHg Mitral Valve MVA PHT 3.7 cm Mitral Valve MV PHT 60 ms Mitral Valve MV Dec [place] 3.97 m/s Pulmonic Valve PV PGmax 6 mmHg Pulmonic Valve PV Vmax, Caliper 1.25 m/s (0.6m/s - 0.9m/s) Right Ventricle Diastolic TR Pmax 21 mmHg Function Right Ventricle Diastolic PV AT 116 ms Function Tricuspid Valve RVSP 24 mmHg Tricuspid Valve RA Pressure 3 mmHg Tricuspid Valve TR Vmax 2.29 m/s (No Signature Object) Patient: RADHA GARCÍA Study Date: 11/22/2021 01:35 PM Page 4 of 4 Corrina Saab STEREO OPERATOR-SAS STATISTICAL PROGRAMMER ECHO ORDERABLES [facility] [address] [place] [id number] * CREATININE BLOOD (11/22/2021 1:21 AM FINISHER HOT STRIP) Creatinine 0.61 0.57 - 1.11 mg/dL 11/22/2021 1:54 AM FINISHER HOT STRIP [facility] eGFR by MDRD >60 >60 mL/min/1.7 3m2 11/22/2021 1:54 AM FINISHER HOT STRIP [facility] eGFR by MDRD >60 >60 mL/min/1.7 3m2 11/22/2021 1:54 AM FINISHER HOT STRIP [facility] Blood BLOOD SPECIMEN / Unknown Lab Venipuncture / Unknown 11/22/2021 1:21 AM FINISHER HOT STRIP 11/22/2021 1:38 AM FINISHER HOT STRIP Billie Chavarria MD LAB - CHEMISTRY [facility] Organization Address City/State/ZIP Co de Phone Number [facility] [address] [address] Care Teams Fryline Attendant Relationship Specialty Start Date End Date Aashish Corrigan DO [address] [place], [place] [id number] PCP - General Family Medicine 01/18/22 Corrina Saab, STEREO OPERATOR-SAS STATISTICAL PROGRAMMER [address] [place] [address] Nurse Practitioner Pulmonary Disease 12/14/21
--- OUTSIDE RECORDS SUMMARY | 2024-11-06 14:10 | XMS_ITS | Encounter Summary ---
Author Organization [facility] Address [address] [place] [address] Care Team Providers Care Chief Security Officer Name Role Phone Alejo Cha Primary Care Provider [phone] Encounter Details Date Type Department Care Team (Late st Contact Info) Description 01/15/2004 Outpatient Historical Division of Neurology [address] [address] Derrick Aguilar MD [address] [place] [address] Social History Tobacco Use Types Packs/Day Years Used Date Smoking Tobacco: Never Assessed Comments Unknown Sex and Gender Information Value Date Recorded Sex Assigned at Not on file Legal Sex Female 4:34 AM BREAKER LAYER Gender Identity Not on file Sexual Orientation Not on file documented as of this encounter Plan of Treatment Not on file documented as of this encounter Visit Diagnoses Not on filedocumented in this encounter Care Teams Chief Security Officer Relationship Specialty Start Date End Date Alejo Cha PCP - General 01/14/04 documented as of this encounter
--- OUTSIDE RECORDS SUMMARY | 2024-11-06 14:10 | XMS_ITS | Encounter Summary ---
Author Organization [facility] Address [address] [place] [address] Care Team Providers Care Pinking Sewing Machine Operator Name Role Phone Alejo Cha Primary Care Provider [phone] Encounter Details Date Type Department Care Team (Late st Contact Info) Description 08/26/2003 Outpatient Historical Division of Neurology [address] [address] Derrick Aguilar MD [address] [place] [address] Social History Tobacco Use Types Packs/Day Years Used Date Smoking Tobacco: Never Assessed Comments Unknown Sex and Gender Information Value Date Recorded Sex Assigned at Not on file Legal Sex Female 4:34 AM BUCKLE FRAME SHAPER Gender Identity Not on file Sexual Orientation Not on file documented as of this encounter Plan of Treatment Not on file documented as of this encounter Visit Diagnoses Not on filedocumented in this encounter Care Teams Pinking Sewing Machine Operator Relationship Specialty Start Date End Date Alejo Cha PCP - General 01/14/04 documented as of this encounter
--- OUTSIDE RECORDS SUMMARY | 2024-11-06 14:10 | XMS_ITS | Encounter Summary ---
Author Organization [facility] Address [address] [place] [address] Care Team Providers Care Sales Route Driver Name Role Phone Alejo Cha Primary Care Provider [phone] Encounter Details Date Type Department Care Team (Late st Contact Info) Description 01/14/2004 Outpatient Historical [facility] [address] [address] [place] Social History Tobacco Use Types Packs/Day Years Used Date Smoking Tobacco: Never Assessed Comments Unknown Sex and Gender Information Value Date Recorded Sex Assigned at Not on file Legal Sex Female 4:34 AM CIGAR MAKING MACHINE OPERATOR Gender Identity Not on file Sexual Orientation Not on file documented as of this encounter Plan of Treatment Not on file documented as of this encounter Visit Diagnoses Not on filedocumented in this encounter Care Teams Sales Route Driver Relationship Specialty Start Date End Date Alejo Cha PCP - General 01/14/04 documented as of this encounter
--- OUTSIDE RECORDS SUMMARY | 2024-11-06 14:10 | XMS_ITS | Encounter Summary ---
Author Organization [facility] Address [address] [place] [address] Care Team Providers Care Shellac Polisher Name Role Phone Alejo Cha Primary Care Provider [phone] Encounter Details Date Type Department Care Team (Late st Contact Info) Description 10/16/2003 Outpatient [facility] Primary [facility] - [address] [place] [address] Alejo Cha Social History Tobacco Use Types Packs/Day Years Used Date Smoking Tobacco: Never Assessed Comments Unknown Sex and Gender Information Value Date Recorded Sex Assigned at Not on file Legal Sex Female 4:34 AM REGIONAL ENGAGEMENT CONSULTANT Gender Identity Not on file Sexual Orientation Not on file documented as of this encounter Plan of Treatment Not on file documented as of this encounter Visit Diagnoses Not on filedocumented in this encounter Care Teams Shellac Polisher Relationship Specialty Start Date End Date Alejo Cha PCP - General 01/14/04 documented as of this encounter
--- OUTSIDE RECORDS SUMMARY | 2024-11-06 14:10 | XMS_ITS | Clinical Summary ---
Author Organization [facility] Address [address] [place] [address] Care Team Providers Care In Store Banker Name Role Phone Alejo Cha Primary Care Provider [phone] Social History Tobacco Use Types Packs/Day Years Used Date Smoking Tobacco: Never Assessed Comments Unknown Sex and Gender Information Value Date Recorded Sex Assigned at Not on file Legal Sex Female 4:34 AM COMPOSITION STONE APPLICATOR Gender Identity Not on file Sexual Orientation Not on file Plan of Treatment Health Maintenance Due Date Last Done Comments DTAP/TDAP/TD VACCINES (1 - Tdap) 1973 BREAST CANCER SCREENING 1994 COLORECTAL SCREENING 1999 Colorectal Cancer Screening 1999 FIT-DNA Q 3 years 1999 FIT/FOBT Q 1 year 1999 Flex Sig/CT Colonography Q 5 years 1999 PNEUMOCOCCAL VACCINE 65+ YEARS (1 of 1 - PCV) 07/27/20 04 ZOSTER VACCINE (1 of 2) 2004 OSTEOPOROSIS SCREENING 2019 INFLUENZA VACCINE (#1) 2024 RSV VACCINE (60+ or ) (1 - 1-dose 75+ series) 2029 Care Teams In Store Banker Relationship Specialty Start Date End Date Alejo Cha PCP - General 01/14/04
--- OUTSIDE RECORDS SUMMARY | 2024-11-06 14:10 | XMS_ITS | Referral Summary ---
Author Organization [facility] Address [address] [place] [address] Care Team Providers Care Mapping Pilot Name Role Phone Sammy Yoon DO Unavailable [phone] Nain Gonzales MD Unavailable [phone] Coleman Keita MD Unavailable [phone] Alejo Chinchilla MD Primary Care Provider [phone] Allergies No known active allergies Medications topiramate (TOPAMAX) 100 mg tablet 2 (two) times a day. 8 Active butalbital-aspirin- caffeine-codeine (BUTALBITAL COMPOUND-CODEINE) per capsuleIndications: Tension-Type Headache Take 1 capsule by mouth every 4 (four) hours as needed for pain. Active esomeprazole DR (NexIUM) 40 mg capsule Take 80 mg by mouth daily before breakfast. Active acetaminophen-aspir in-caffeine (EXCEDRIN MIGRAINE) 250-250-65 mg per tabletIndications:s top 5 days before surgery Take 1 tablet by mouth every 6 (six) hours as needed. Active levothyroxine (Synthroid) 112 mcg tabletIndications:P ostablative hypothyroidism Take 1 tablet (112 mcg total) by mouth daily 30 tablet 11 0 Active rosuvastatin (CRESTOR) 10 mg tabletIndications:H yperlipidemia, unspecified hyperlipidemia type TAKE 1 TABLET BY MOUTH EVERY DAY 30 tablet 0 Active Active Problems Problem Noted Date Diagnosed Date Generalized anxiety disorder 04/01/2019 Assessment & Plan (04/01/2019 5:02 PM CDT): Will start propanolol to help her underlying anxiety and tremor symptoms Occasional tremors 04/01/2019 Anxiety and depression 12/26/2018 Assessment & Plan (12/26/2018 11:45 AM CDT): Moderate. Counseled on regular exercise, Advised to establish with a counselor. Begin Mirtazapine. Recheck 3 months Seizure disorder (CMS/HCC) 11/02/2018 Assessment & Plan (11/02/2018 11:46 AM BRUSH WASHER): Controlled. Last seizure about 9 years ago. Managed by Neurology. Primary osteoarthritis involving multiple joints 11/02/2018 Assessment & Plan (11/02/2018 11:53 AM BRUSH WASHER): Chronic. We discussed options. Advised OTC analgesics PRN. Hyperlipidemia 01/15/2018 Assessment & Plan (11/02/2018 11:47 AM BRUSH WASHER): I spent 15 minutes counseling her on CV risk reduction. Our discussion included the followin. Healthy eating habits, including low carbohydrate diet, low starch vegetables. We discussed intermittent fasting and paleo diets. 2. Regular aerobic exercise plan, which can include walking, jogging, treadmill, rowing, swimming biking. I recommend targeting the equivalent of 20K steps daily most days of the week. 3. Optimize BP control. 4. Taking aspirin. 5. Assessment of ASCVD risk and recommendations how to mitigate this risk.discussion was consistent with the 5 A s approach. Resume crestor. Postablative hypothyroidism 01/15/2018 Assessment & Plan (05/27/2019 11:07 AM CDT): Reviewed patient Recent TFT - WNL Pt symptoms are mch improved - recommend to continue Synthroid to 112 mcg oral daily - follow up in one year Instructions for taking levothyroxine Brand name is preferred Take thyroid pill all by itself Take thyroid pill one hour before food or 2 to 3 hours after food Heat, humidity, and direct sunlight will cause a loss of potency Never store thyroid pill in the bathroom The medication should be taken daily. If one or more pills are missing in a week, they can be taken all together at once, making sure at the end of the week, 7 tabs have been taken. Assessment & Plan (04/01/2019 5:02 PM CDT): Reviewed patient past thyroid lab results Patient to have some underlying anxiety symptoms that could worsen if she is getting a little bit on higher end with her thyroid medication - discussed about hypothyroidism treatment options in regards to her continuing Synthroid versus adding Cytomel or changing to [place] or pork thyroid - patient willing to try a smaller dose of Synthroid and see - recommend to decrease Synthroid to 112 mcg oral daily - and recheck labs in 6 weeks and follow-up in office to discuss further Instructions for taking levothyroxine Brand name is preferred Take thyroid pill all by itself Take thyroid pill one hour before food or 2 to 3 hours after food Heat, humidity, and direct sunlight will cause a loss of potency Never store thyroid pill in the bathroom The medication should be taken daily. If one or more pills are missing in a week, they can be taken all together at once, making sure at the end of the week, 7 tabs have been taken. Assessment & Plan (11/02/2018 11:48 AM BRUSH WASHER): Euthyroid. Continue current regimen. She is managed by Endocrinology. Assessment & Plan (06/29/2018 12:14 PM CDT): Patient's medication was recently readjusted to the Synthroid 137 mcg daily. Migraine without aura and wi thout status migrainosus, not intractable 01/18/2013 Overview (11/02/2018): Assessment & Plan (11/02/2018 11:46 AM BRUSH WASHER): Headaches are fair control. Continue current treatment regimen. Managed by Neurology. Current smoker 01/20/2011 Assessment & Plan (11/02/2018 11:46 AM BRUSH WASHER): Smoking cessation counseling: We discussed the importance of smoking cessation. Therapeutic options discussed included nicotine replacement therapy, Chantix, Wellbutrin, Acupuncture, Hypnosis, and Behavioral therapy. I spent 4 minutes counseling the patient on smoking cessation Resolved Problems Problem Noted Date Diagnosed Date Resolved Date Thyroid nodule 06/12/2018 11/02/2018 Assessment & Plan (08/27/2018 8:09 AM BRUSH WASHER): Patient is status post thyroid isthmusectomy. Final pathology was consistent with nodular hyperplasia with no cytologic evidence of malignancy. There was a single benign lymph node that was recovered as well. Patient has some mild postoperative fullness consistent with a small hematoma that is slowly resolving. Additional wound care instructions were given. Patient can follow back up as needed. Patient will require an updated TSH level. Patient is to follow up with her medical dog beautician for continued thyroid hormone replacement. Assessment & Plan (06/29/2018 12:14 PM CDT): Patient is noted to have a complex nodular lesion within the isthmus of the thyroid measuring 1.4 by 1.0 x 1.7 cm that was reported on thyroid sonogram performed 02/02/2018. The remainder of the thyroid is not visualized on ultrasound imaging with post radioactive iodine ablate of appearance. Patient has been having difficulties with adjustments to her thyroid hormone replacement. Patient continues to experience episodic symptoms of hyperthyroid. Patient has required frequent adjustments to her medications. It is conceivably possible that this solitary nodule within the isthmus is hyperfunctioning. Attempt at ultrasound-guided FNA biopsy came back nondiagnostic. Recommend minimally invasive outpatient completion thyroid isthmusectomy. Continuous recurrent laryngeal nerve monitoring will be utilized. A thorough discussion took place with the patient and her today pertaining to results of diagnostic testing in conjunction with my physical findings. I discussed the surgery in detail and expected postoperative recovery. All questions were answered to what appeared to be patient's understanding and satisfaction. After the procedure was explained in full the potential risk, complications, benefits and alternatives patient would like to proceed. Patient will be scheduled in a timely fashion. Hyperthyroidism 10/24/2013 01/15/2018 Thyroid activity decreased 01/20/2011 0 01/15/2018 Immunizations Name Administration Dates Next Due Influenza, Quadrivalent, Kerline l Culture-based MDCK, Preservative Free, Antibiotic Free, Intramuscular 2018 Influenza, Quadrivalent, Spl it, Preservative Free, Intramuscular 08/02/2018 Tdap 10/02/2013 ZOSTER Recombinant 09/06/2018,08/02/2018 Social History Tobacco Use Types Packs/Day Years Used Date Smoking Tobacco: Every Day Cigarettes 0.3 10 Smokeless Tobacco: Never Tobacco Cessation:Ready to Q uit: Yes; Counseling Given: Yes Alcohol Use Standard Drinks/Week Comments No 0 (1 standard drink = 0.6 oz pur e alcohol) PHQ-2 Answer Date Recorded PHQ-2 Score 0 05/24/2019 Comments No Sex and Gender Information Value Date Recorded Sex Assigned at Not on file Legal Sex Female 11:49 PM BRUSH WASHER Gender Identity Not on file Sexual Orientation Not on file Last Filed Vital Signs Vital Sign Reading Time Taken Comments Blood Pressure 104/68 05/27/2019 9:54 AM CDT Pulse 95 05/27/2019 9:54 AM CDT Temperature 37.4 C (99.4 F) 11/02/2018 11:20 AM BRUSH WASHER Respiratory Rate 14 05/27/2019 9:54 AM CDT Oxygen Saturation 98% 12/26/2018 11:37 AM CDT Inhaled Oxygen Concentration - - Weight 61.8 kg (136 lb 3.2 oz) 05/27/2019 9:54 A M CDT Height 165.1 cm (5' 5 ) 05/27/2019 9:54 AM CDT Body Mass Index 22.66 05/27/2019 9:54 AM CDT Plan of Treatment Not on file Procedures Procedure Name Priority Date/Time Associated Diagnosis Comments HEPATITIS C ANTIBODY Routine 11/02/2018 12:28 PM BRUSH WASHER Need for hepatitis C screening test from Last 3 Months or Most Recently Relevant to Health Maintenance Results * Hepatitis C antibody (11/02/2018 12:28 PM BRUSH WASHER) Hep C Ab Nonreactive Nonreactive [facility] Comment: Interpretive Data Positive results should be confirmed by a molecular method. If positive, a second separately collected sample should be submitted for Hepatitis C Virus (HCV) RNA Detection and Quantitation by Real-Time Reverse Electric Razor Mechanic-PCR (RT-PCR). Current interpretive data was last revised on 2016. Blood specimen (specimen) 11/02/2018 12:28 PM BRUSH WASHER 11/02/2018 1:19 PM BRUSH WASHER Narrative [facility] - 11/02/2018 2:39 PM BRUSH WASHER Alejo Chinchilla MD LAB MICROBIOLOGY - GENERA L ORDERABLES Edited Result - Final [facility] Department [place] [address] from Last 3 Months or Most Recently Relevant to Health Maintenance Insurance MEDICARE [employer] [facility] [place]ICARE [place] Member Subscriber Plan / Payer ( fective 2002-Present) Name:RADHA GARCÍA Member ID:[id number] Relation to Subscriber:Self Name:Radha García Subscriber ID:[id number] Payer ID:[id number] Group ID:Not on file Type:MEDICARE TRADITIONAL Address: [place] [phone] [employer] [facility] Care Teams Mapping Pilot Relationship Specialty Start Date End Date lAejo Chinchilla MD [facility] [facility] [address] [place] [address] [place] [id number] PCP - General 10/27/21 Sammy Yoon DO Surgeon Otolaryngology 09/10/18 Nain Gonzales MD [address] [facility] [address] [place] [address] [place] [address] Consulting Physician Endocrinology 09/10/18 Coleman Keita MD [address] [facility] [address] [place] [address] [place] [address] Referring Physician Neurology 11/02/18
--- OUTSIDE RECORDS SUMMARY | 2024-11-06 14:10 | XMS_ITS | Encounter Summary ---
Author Organization [facility] Address [address] [place] [address] Care Team Providers Care Government Affairs Fellow Name Role Phone Alejo Cha Primary Care Provider [phone] Encounter Details Date Type Department Care Team (Late st Contact Info) Description 06/27/2000 Outpatient Historical [facility] Internal [facility] [address] [facility] [address] [place] [address] Laurent Miranda Social History Tobacco Use Types Packs/Day Years Used Date Smoking Tobacco: Never Assessed Comments Unknown Sex and Gender Information Value Date Recorded Sex Assigned at Not on file Legal Sex Female 4:34 AM AUTOMATION DRIVER Gender Identity Not on file Sexual Orientation Not on file documented as of this encounter Plan of Treatment Not on file documented as of this encounter Visit Diagnoses Not on filedocumented in this encounter Care Teams Government Affairs Fellow Relationship Specialty Start Date End Date Alejo Cha PCP - General 01/14/04 documented as of this encounter
--- OUTSIDE RECORDS SUMMARY | 2024-11-06 14:10 | XMS_ITS | Encounter Summary ---
Author Organization [facility] Address [address] [place] [address] Care Team Providers Care Sailing Master Name Role Phone Alejo Cha Primary Care Provider [phone] Encounter Details Date Type Department Care Team (Late st Contact Info) Description 11/02/2006 Inpatient Historical [facility] Azfar, [facility] [address] [facility] [address] [place] [address] Opioid Type Dependence, Unspecified Abuse (CMS/HCC) (Primary Dx) Social History Tobacco Use Types Packs/Day Years Used Date Smoking Tobacco: Never Assessed Comments Unknown Sex and Gender Information Value Date Recorded Sex Assigned at Not on file Legal Sex Female 4:34 AM COMMERCIAL ELECTRICIAN Gender Identity Not on file Sexual Orientation Not on file documented as of this encounter Plan of Treatment Not on file documented as of this encounter Procedures Procedure Name Priority Date/Time Associated Diagnosis Comments VALPROIC ACID LEVEL, TOTAL Routine 11/07/2006 8:05 AM COMMERCIAL ELECTRICIAN documented in this encounter Results * VALPROIC ACID TOTAL (11/07/2006 8:05 AM COMMERCIAL ELECTRICIAN) VALPROIC ACID TOTAL 54 50 - 100 ug/mL INTERFACE SYSTEM Comment: Valproic Acid Antiepileptic Control = 50 - 100 ug/mL Valproic Acid Manic Episode Control = 50 - 125 ug/mL Valproic Acid Toxic Level = >200 ug/mL 11/07/2006 8:05 AM COMMERCIAL ELECTRICIAN us Tristen Faulkner CHEMISTRY ORDERABLES Ed ited INTERFACE SYSTEM Refer to clinic/hospital department documented in this encounter Visit Diagnoses Diagnosis Opioid type dependence, unspecified (CMS/HCC)- Primary Opioid type dependence, unspecified documented in this encounter Care Teams Sailing Master Relationship Specialty Start Date End Date Alejo Cha PCP - General 01/14/04 documented as of this encounter
--- OUTSIDE RECORDS SUMMARY | 2024-11-06 14:10 | XMS_ITS | Encounter Summary ---
Author Organization [facility] Address [facility] [place] [address] Care Team Providers Care Hat And Cap Opener Name Role Phone Gaetano Llanes DO Primary Care Provider + Encounter Details Date Type Department Care Team (Late st Contact Info) Description 10/26/[address] [facility] [address] [place] [address] , Generic Conversion, Social History Tobacco Use Types Packs/Day Years Used Date Smoking Tobacco: Never Assessed Comments Unknown Sex and Gender Information Value Date Recorded Sex Assigned at Not on file Legal Sex Female 6:30 PM BOOKMOBILE CLERK Gender Identity Not on file Sexual Orientation Not on file documented as of this encounter Plan of Treatment Not on file documented as of this encounter Visit Diagnoses Not on filedocumented in this encounter Care Teams Hat And Cap Opener Relationship Specialty Start Date End Date Gaetano Llanes DO [address] [place] [address] PCP - General FAMILY PRACTICE 02/22/19 documented as of this encounter
--- OUTSIDE RECORDS SUMMARY | 2024-11-06 14:10 | XMS_ITS | Encounter Summary ---
Author Organization [facility] Address [address] [place] [address] Care Team Providers Care Trestle Builder Name Role Phone Alejo Cha Primary Care Provider [phone] Encounter Details Date Type Department Care Team (Late st Contact Info) Description 02/03/2003 Outpatient Historical Division of Neurology [address] [address] Derrick Aguilar MD [address] [place] [address] Social History Tobacco Use Types Packs/Day Years Used Date Smoking Tobacco: Never Assessed Comments Unknown Sex and Gender Information Value Date Recorded Sex Assigned at Not on file Legal Sex Female 4:34 AM CONSUMER MARKETING MANAGER Gender Identity Not on file Sexual Orientation Not on file documented as of this encounter Plan of Treatment Not on file documented as of this encounter Visit Diagnoses Not on filedocumented in this encounter Care Teams Trestle Builder Relationship Specialty Start Date End Date Alejo Cha PCP - General 01/14/04 documented as of this encounter
--- OUTSIDE RECORDS SUMMARY | 2024-11-06 14:10 | XMS_ITS | Encounter Summary ---
Author Organization [facility] Address [address] [place] [address] Care Team Providers Care Rag Grader Name Role Phone Alejo Cha Primary Care Provider [phone] Encounter Details Date Type Department Care Team (Late st Contact Info) Description 01/15/2004 Outpatient Historical [facility] Adult Hospitalists [facility] [address] [place] [address] Violette Singh MD 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
--- OUTSIDE RECORDS SUMMARY | 2024-11-06 14:10 | XMS_ITS | Encounter Summary ---
Author Organization [facility] Address 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
--- OUTSIDE RECORDS SUMMARY | 2024-11-06 14:10 | XMS_ITS | Encounter Summary ---
Author Organization [facility] Address 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
--- OUTSIDE RECORDS SUMMARY | 2024-11-06 14:10 | XMS_ITS | Encounter Summary ---
Author Organization [facility] Address [address] [place] [address] Care Team Providers Care Radiographer Mammographer Name Role Phone Alejo Cha Primary Care Provider [phone] Encounter Details Date Type Department Care Team (Late st Contact Info) Description 12/12/[address] 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
--- OUTSIDE RECORDS SUMMARY | 2024-11-06 14:10 | XMS_ITS | Encounter Summary ---
Author Organization [facility] Address 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
--- OUTSIDE RECORDS SUMMARY | 2024-11-06 14:10 | XMS_ITS | Encounter Summary ---
Author Organization [facility] Address 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
--- OUTSIDE RECORDS SUMMARY | 2024-11-06 14:10 | XMS_ITS | Encounter Summary ---
Author Organization [facility] Address [address] [place] [address] Care Team Providers Care Deliverer Pharmacy Name Role Phone Alejo Cha Primary Care Provider [phone] Encounter Details Date Type Department Care Team (Late st Contact Info) Description 05/12/2000 Outpatient Historical [facility] Internal Medicine [facility] [address] [facility] [address] [place]adi [place] [address] Laurent Miranda Social History Tobacco Use Types Packs/Day Years Used Date Smoking Tobacco: Never Assessed Comments Unknown Sex and Gender Information Value Date Recorded Sex Assigned at Not on file 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
--- OUTSIDE RECORDS SUMMARY | 2024-11-06 14:10 | XMS_ITS | Clinical Summary ---
Author Organization [facility] Address [address] [facility] [place] [address] Care Team Providers Care Supervisor Machine Setter Name Role Phone KaiserCorrina Selena ACID BLOWER-GLUE MACHINE OPERATOR Unavailable [phone] Aashish Corrigan DO Primary Care Provider [phone] Source Comments [facility],non-owned Affiliates and Associated Physician Practices is amultiple site organization consisting of ambulatory clinics and hospital sitesin [place], [place], [place] and [place]. This disclosure is being madepursuant to the Care Everywhere program and may not contain all information available regarding this patient. Last updated 18.[facility] Allergies No known active allergies Medications * Be aware that medications may not be up to date on this document. Alwaysverify current medications with the patient. Medication Sig Dispensed Refills Start Date End Date Status levothyroxine (SYNTHROID) 112 MCG tablet Take 112 mcg by mouth daily before breakfast Active esomeprazole (NEXIUM) 20 MG capsule Take 20 mg by mouth daily before breakfast Active topiramate (TOPAMAX) 100 MG tablet Take 100 mg by mouth 2 times daily Active rosuvastatin (CRESTOR) 10 MG tablet Take 10 mg by mouth once daily Active opu-ufxy-uvvwdypjtm -codeine (FIORINAL WITH CODEINE) 29-686-49-30 MG capsule Take 1 capsule by mouth every 4 hours as needed for Headache Active HYDROcodone-acetami nophen (NORCO) 5-325 MG tablet Take 1 (one) tablet by mouth every 6 hours as needed 20 tablet 11/27/2021 Active Additional Information Patient not taking.Reported on 01/18/2022 Active Problems Problem Noted Date Diagnosed Date Abscess 11/21/2021 Immunizations Name Administration Dates Next Due Covid Pfizer primary monovalent 12+ yr 0.3mL Pur ple cap 01/01/2022 Family History Medical History Relation Name Comments None Known Brother 1 None Known Brother 2 Cancer - Lung Father None Known Maternal Grandfather None Known Maternal Grandmother Other - Hepatic/Liver Mother None Known Paternal Grandfather None Known Paternal Grandmother None Known Sister Relation Name Status Comments Brother 1 Alive Brother 2 Alive Father Maternal Grandfather Maternal Grandmother Mother Paternal Grandfather Paternal Grandmother Sister Alive Social History Tobacco Use Types Packs/Day Years [...] Mass Index 19.5 01/18/2022 1:51 PM CDT Plan of Treatment Health Maintenance Due Date Last Done Comments BONE DENSITY TESTING 1954 COLOGUARD (AGES 45-75) - COLON CA SCREENING 1954 COLON MONITORING 1954 COLONOSCOPY - COLON CA SCREENING 1954 CT COLONOGRAPHY - COLON CA SCREENING 1954 Colorectal Cancer Screening 1954 FIT - COLON CA SCREENING 1954 FLEX SIG - COLON CA SCREENING 1954 MAMMOGRAM 1954 MEDICARE AWV 12 MONTHS 1954 HEPATITIS C SCREENING 07/22/1972 DTAP/TDAP/TD VACCINES (1 - Tdap) 1973 PNEUMOCOCCAL VACCINE 50+ (1 of 1 - PCV) 2004 ZOSTER VACCINE (1 of 2) 2004 COVID-19 VACCINE (4 - season) 2024 01/01/2022, 04/09/2021, 03/18/2021 INFLUENZA VACCINE (#1) 2024 , 06/28/2020, 08/02/2018, Additional history exists DEPRESSION SCREENING 10/02/2024 Respiratory Syncytial Virus (RSV) Vaccine Pt: or over 60 yrs (1 - 1-dose 75+ series) 2029 HEPATITIS B VACCINE Aged Out No longe r eligible based on patient's age to complete this topic HIB VACCINE Aged Out No longer eligi ble based on patient's age to complete this topic HPV VACCINE Aged Out No longer eligi ble based on patient's age to complete this topic MENINGOCOCCAL (Group B) VACCINE Aged Out No longer eligible based on patient's age to complete this topic MENINGOCOCCAL VACCINE Aged Out No melonie lazara eligible based on patient's age to complete this topic Advance Directives * Full Code (Latest Code Status on File) Date Activated Date Inactivated Comments 11/22/2021 12:06 AM 11/27/2021 1:24 PM Care Teams Supervisor Machine Setter Relationship Specialty Start Date End Date Aashish Corrigan DO [address] [place] [address] PCP - General Family Medicine 01/18/22 Corrina Saab, ACID BLOWER-GLUE MACHINE OPERATOR [address] [place] [address] Nurse Practitioner Pulmonary Disease 12/14/21
--- OUTSIDE RECORDS SUMMARY | 2024-11-06 14:10 | XMS_ITS | Encounter Summary ---
Author Organization [facility] Address [address] [place] [address] Care Team Providers Care Director Of Maternity Services Name Role Phone Alejo Cha Primary Care Provider [phone] Encounter Details Date Type Department Care Team (Late st Contact Info) Description 07/15/2002 Outpatient Historical Division of Neurology 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
--- OUTSIDE RECORDS SUMMARY | 2024-11-06 14:10 | XMS_ITS | Encounter Summary ---
Author Organization [facility] Address [address] [place] [address] Care Team Providers Care Coding Manager Name Role Phone Alejo Cha Primary Care Provider [phone] Encounter Details Date Type Department Care Team (Latest Contact Info) Description 07/06/2000 Outpatient Historical HIS [facility] Derrick Bishop MD [address] [facility] [address] [place] [address] Encounter for long-term (current) use of other medications (Primary Dx) Social History Tobacco Use Types Packs/Day Years Used Date Smoking Tobacco: Never Assessed Comments Unknown Sex and Gender Information Value Date Recorded Sex Assigned at Not on file 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
--- OUTSIDE RECORDS SUMMARY | 2024-11-06 14:10 | XMS_ITS | Referral Summary ---
Author Organization [facility] Address [address] [facility] [place] [address] Care Team Providers Care Record Clerk Name Role Phone KaiserCorrina Selena STATISTICAL CLERK ADVERTISING-HOOK LOADER Unavailable [phone] Aashish Corrigan DO Primary Care Provider Source Comments [facility],non-owned Affiliates and Associated Physician Practices is amultiple site organization consisting of ambulatory clinics and hospital sitesin [place], [place], [place] and [place]. This disclosure is being madepursuant to the Care Everywhere program and may not contain all information available regarding this patient. Last updated 18.[email or web address] [email or web address] Allergies No known active allergies Medications * [...] 10 mg by mouth once daily Active gcu-wbid-eqycczjljs -codeine (FIORINAL WITH CODEINE) 43-328-64-30 MG capsule Take 1 capsule by mouth [...] 12+ yr 0.3mL Pur ple cap 01/01/2022 Social History Tobacco Use Types Packs/Day Years [...] Mass Index 19.5 01/18/2022 1:51 PM CDT Functional Status Functional Status Response Date of Assess ment Is person deaf or have serious hearing difficult y? No 11/21/2021 Is person blind or have serious difficulty seein g? No 11/21/2021 Does person have serious dif ficulty walking/climbing stairs? No 11/21/2021 Does person have difficulty dressing/bathing? No 11/21/2021 Does person have difficulty doing errands alone? No 11/21/2021 Cognitive Status Response Date of Assessm ent Does person have difficulty concentrating/remembering/making decisions? No 11/21/2021 Plan of Treatment Not on file Advance Directives * Full Code (Latest Code Status on File) Date Activated Date Inactivated Comments 11/22/2021 12:06 AM 11/27/2021 1:24 PM Care Teams Record Clerk Relationship Specialty Start Date End Date Aashish Corrigan DO [address] [place] [address] PCP - General Family Medicine 01/18/22 Corrina Saab, STATISTICAL CLERK ADVERTISING-HOOK LOADER [address] [place] [id number] Nurse Practitioner Pulmonary Disease 12/14/21
--- OUTSIDE RECORDS SUMMARY | 2024-11-06 14:10 | XMS_ITS | Clinical Summary ---
Author Organization [facility] Address [address] [place] [address] Care Team Providers Care Press Operator Carbon Products Name Role Phone Gaetano Llanes DO Primary Care Provider + Allergies No known active allergies Medications SYNTHROID 125 MCG tablet Take 125 mcg by mouth daily. 2 02/14/2019 Active topiramate 100 MG tablet Take 1 tablet by mouth 2 (two) times daily. 02/12/2019 Active rosuvastatin 10 MG tablet Take 10 mg by mouth daily. 1 02/19/2019 Active ASCOMP-CODEINE 99-669-40-30 MG capsule Take 1 mg by mouth every 4 (four) hours as needed. 5 02/09/2019 Active esomeprazole 40 MG capsule Take 40 mg by mouth 2 (two) times daily. Active Aspirin-Acetamin ophen-Caffeine (EXCEDRIN MIGRAINE OR) Take by mouth as needed. Active Active Problems No known active problems Family History Medical History Relation Comments Thyroid Disease Brother Migraines Daughter Migraines Mother Migraines Sister Relation Status Comments Brother Daughter Mother Sister Social History Tobacco Use Types Packs/Day Years Used Date Smoking Tobacco: Some Days Cigarettes 0.3 15 Smokeless Tobacco: Never Tobacco Cessation:Ready to Q uit: Yes Alcohol Use Standard Drinks/Week Comments No 0 (1 standard drink = 0.6 oz pur e alcohol) AUDIT-C Answer Date Recorded Frequency of Alcohol Consumption Never 02/22/2019 Average Number of Drinks Not on file 019 Frequency of Binge Drinking Not on file 01/31 PHQ-2 Answer Date Recorded PHQ-2 Score 0 09/09/2019 Comments Unknown Sex and Gender Information Value Date Recorded Sex Assigned at Not on file Legal Sex Female 6:30 PM TRAINING AND DEVELOPMENT SPECIALIST Gender Identity Not on file Sexual Orientation Not on file Last Filed Vital Signs Vital Sign Reading Time Taken Comments Blood Pressure 108/78 02/22/2019 8:15 AM CDT Pulse 88 02/22/2019 8:15 AM CDT Temperature 36.2 C (97.1 F) 02/22/2019 8:15 AM CDT Respiratory Rate 16 02/22/2019 8:15 AM CDT Oxygen Saturation 98% 02/22/2019 8:15 AM CDT Inhaled Oxygen Concentration - - Weight 61.2 kg (135 lb) 02/22/2019 8:15 AM CDT Height 165.1 cm (5' 5 ) 02/22/2019 8:15 AM CDT Body Mass Index 22.47 02/22/2019 8:15 AM CDT Plan of Treatment Health Maintenance Due Date Last Done Comments Colorectal Cancer Screening Colonoscopy (10 Years) 1954 Hepatitis C 1972 Mammogram Screening 1994 Annual Medicare Wellness Visit 2019 Dexa Scan (General) 2019 COVID-19 Vaccine ( season) 2024 08/01/2022, 01/01/2022, 04/09/2021, Additional history exists Influenza Adult (#1) 2024 07/13/2022, 08/02/2019, 08/02/2018, Additional history exists RSV Immunization or 60+ Years (1 - 1-dose 75+ series) 2029 DTaP, Tdap and Td Vaccines (4 - Td or Tdap) 02/18/2032 02/17/2022, 04/30/2016, 10/02/2013 Zoster Vaccines Completed 09/06/2018, 08/02/2018 Pneumococcal Vaccine: 65+ Years Completed 07/21/2022, 02/14/2020 Meningococcal B Vaccine Aged Out No l onger eligible based on patient's age to complete this topic Meningococcal Vaccine Aged Out No melonie lazara eligible based on patient's age to complete this topic RSV Immunizations Under 20 Months Aged Out No longer eligible based on patient's age to complete this topic Insurance MEDICARE [facility] Care Teams Press Operator Carbon Products Relationship Specialty Start Date End Date Gaetano Llanes DO [address] [place] [address] PCP - General FAMILY PRACTICE 02/22/19
--- OUTSIDE RECORDS SUMMARY | 2024-11-06 14:10 | XMS_ITS | Clinical Summary ---
Author Organization [facility] Address [address] [place] [address] Care Team Providers Care Streets And Buildings Decorator Name Role Phone Sammy Yoon DO Unavailable [phone] Nain Gonzales MD Unavailable [phone] Coleman Keita MD Unavailable [phone] Alejo Chinchilla MD Primary Care Provider [phone] Allergies No known active allergies Medications topiramate [...] 11/02/2018 Assessment & Plan (11/02/2018 11:46 AM WARD CLERK): Controlled. Last seizure about 9 years ago. Managed by Neurology. Primary osteoarthritis involving multiple joints 11/02/2018 Assessment & Plan (11/02/2018 11:53 AM WARD CLERK): Chronic. We discussed options. Advised OTC analgesics PRN. Hyperlipidemia 01/15/2018 Assessment & Plan (11/02/2018 11:47 AM WARD CLERK): I spent 15 minutes counseling her on [...] Synthroid versus adding Cytomel or changing to [place] or pork thyroid - patient willing to [...] taken. Assessment & Plan (11/02/2018 11:48 AM WARD CLERK): Euthyroid. Continue current regimen. She is managed by Endocrinology. Assessment & Plan (06/29/2018 12:14 PM CDT): Patient's medication was recently readjusted to the Synthroid 137 mcg daily. Migraine without aura and wi thout status migrainosus, not intractable 01/18/2013 Overview (11/02/2018): Assessment & Plan (11/02/2018 11:46 AM WARD CLERK): Headaches are fair control. Continue current treatment regimen. Managed by Neurology. Current smoker 01/20/2011 Assessment & Plan (11/02/2018 11:46 AM WARD CLERK): Smoking cessation counseling: We discussed the importance of smoking cessation. Therapeutic options discussed included nicotine replacement therapy, Chantix, Wellbutrin, Acupuncture, Hypnosis, and Behavioral therapy. I spent 4 minutes counseling the patient on smoking cessation Resolved Problems Problem Noted Date Diagnosed Date Resolved Date Thyroid nodule 06/12/2018 11/02/2018 Assessment & Plan (08/27/2018 8:09 AM WARD CLERK): Patient is status post thyroid isthmusectomy. Final [...] is to follow up with her medical electric motor and generator assembler for continued thyroid hormone replacement. Assessment & [...] Intramuscular 08/02/2018 Tdap 10/02/2013 ZOSTER Recombinant 09/06/2018,08/02/2018 Surgical History Surgery Date Site/Laterality Comments OTHER SURGICAL HISTORY C section November 1973 OTHER SURGICAL HISTORY C section July 1977 OTHER SURGICAL HISTORY Bilateral Ovary removed July 1973 THYROIDECTOMY, PARTIAL 08/03/2018 isthmusectomy Medical History Medical History Date Comments GERD (gastroesophageal reflux disease) Family History Medical History Relation Name Comments Lung cancer Father Stroke Paternal Grandmother Relation Name Status Comments Father (Age 48) Mother (Age 64) Paternal Grandmother Social History Tobacco Use Types Packs/Day Years [...] on file Legal Sex Female 11:49 PM WARD CLERK Gender Identity Not on file Sexual Orientation Not on file Obstetrics History Last Filed Vital Signs Vital Sign Reading Time Taken Comments Blood Pressure 104/68 05/27/2019 9:54 AM CDT Pulse 95 05/27/2019 9:54 AM CDT Temperature 37.4 C (99.4 F) 11/02/2018 11:20 AM WARD CLERK Respiratory Rate 14 05/27/2019 9:54 AM CDT [...] HEPATITIS C ANTIBODY Routine 11/02/2018 12:28 PM WARD CLERK Need for hepatitis C screening test from Last 3 Months or Most Recently Relevant to Health Maintenance Results * Hepatitis C antibody (11/02/2018 12:28 PM WARD CLERK) Hep C Ab Nonreactive Nonreactive [facility] Comment: Interpretive Data Positive results should be confirmed by a molecular method. If positive, a second separately collected sample should be submitted for Hepatitis C Virus (HCV) RNA Detection and Quantitation by Real-Time Reverse Vmware Administrator-PCR (RT-PCR). Current interpretive data was last revised on 2016. Blood specimen (specimen) 11/02/2018 12:28 PM WARD CLERK 11/02/2018 1:19 PM WARD CLERK Narrative [facility] - 11/02/2018 2:39 PM WARD CLERK us Alejo Chinchilla MD LAB MICROBIOLOGY - GENERA L ORDERABLES Edited Result - Final [facility] Department [place] [address] from Last 3 Months or Most Recently Relevant to Health Maintenance Insurance MEDICARE [facility] MEDICARE OrderAhead [facility] OrderAhead OR MEDICARE BLUE [facility] Care Teams Streets And Buildings Decorator Relationship Specialty Start Date End Date Alejo Chinchilla MD [facility] [address] CO[address] [place] [address] PCP - General 10/27/21 Sammy Yoon DO Surgeon Otolaryngology 09/10/18 Nain Gonzales MD [address] [facility] [address] [place] [address] Consulting Physician Endocrinology 09/10/18 Coleman Keita MD [address] [facility] [address] [address] CO[address] [place] [address] Referring Physician Neurology 11/02/18
--- OUTSIDE RECORDS SUMMARY | 2024-11-06 14:10 | XMS_ITS | Encounter Summary ---
Author Organization [facility] Address [address] [place] [address] Care Team Providers Care Cycle Manager Name Role Phone Alejo Cha Primary Care Provider [phone] Encounter Details Date Type Department Care Team (Late st Contact Info) Description 06/13/2000 Outpatient Historical [facility] Rodney Graham, DO [address] [place] [address] Er, Authorized P NO ADDRESS ON FILE Abdominal pain, unspecified site (Primary Dx) Social History Tobacco Use Types Packs/Day Years Used Date Smoking Tobacco: Never Assessed Comments Unknown Sex and Gender Information Value Date Recorded Sex Assigned at Not on file Legal Sex Female 4:34 AM NAVAL ENGINEER Gender Identity Not on file Sexual Orientation Not on file documented as of this encounter Plan of Treatment Not on file documented as of this encounter Visit Diagnoses Diagnosis Abdominal pain, unspecified site- Primary documented in this encounter Care Teams Cycle Manager Relationship Specialty Start Date End Date Alejo Cha PCP - General 01/14/04 documented as of this encounter
--- OUTSIDE RECORDS SUMMARY | 2024-11-06 14:10 | XMS_ITS | Encounter Summary ---
Author Organization [facility] Address [facility] [place] [address] Care Team Providers Care Curriculum Specialist Name Role Phone Gaetano Llanes DO Primary Care Provider + Encounter Details Date Type Department Care Team (Late st Contact Info) Description 12/16/[address] [facility] [address] [place] [address] , Generic Conversion, Social History Tobacco Use Types Packs/Day Years Used Date Smoking Tobacco: Never Assessed Comments Unknown Sex and Gender Information Value Date Recorded Sex Assigned at Not on file Legal Sex Female 6:30 PM TOWEL DISTRIBUTOR Gender Identity Not on file Sexual Orientation Not on file documented as of this encounter Plan of Treatment Not on file documented as of this encounter Visit Diagnoses Not on filedocumented in this encounter Care Teams Curriculum Specialist Relationship Specialty Start Date End Date Gaetano Llanes DO [address] [place] [address] PCP - General FAMILY PRACTICE 02/22/19 documented as of this encounter
[2024-11-06 15:47] LABS: Add Urine Microscopic? YES; Appearance Urine Cloudy (Clear); Bilirubin Urine Negative (Negative); Blood Urine 3+ (Negative); Color Urine Brown (Yellow); Glucose Urine UA Negative (Negative); Ketones Urine Negative (Negative); Leukocyte Esterase Ur 1+ LEU/UL (Negative); Nitrate Urine Positive (Negative); Protein Urine 3+ (Negative); Specific Grav Ur 1.025 (1.010-1.020)
[2024-11-06 15:57] LABS: Cholesterol 139 mg/dL (0-200); HDL Direct 60 mg/dL (40-60); LDL Cholesterol Calculated 43 mg/dL (<130); Triglycerides 179 mg/dL (0-150)
[2024-11-06 16:18] LABS: Bacteria Urine 2+ /hpf; RBC Urine >75 /hpf (0-2); Squamous Epithelial Cell Urine Rare /hpf (Few)
== END 2024-11-06 13:08 | disposition home or self-care (01) ==
PROVIDERS: PCP Nurse Practitioner Family; Visit Provider Nurse Practitioner Family
DX: E03.9 Hypothyroidism, unspecified (principal); R10.9 Unspecified abdominal pain; R31.9 Hematuria, unspecified; N20.0 Calculus of kidney; E78.5 Hyperlipidemia, unspecified
CPT/HCPCS: 36415; 74176; 80053; 80061; 81001; 84443; 85025; 86140; 87086; 87186

== ENCOUNTER 2024-11-22 07:18 | Outpatient (CLI) | payer MEDICARE, SELFPAY ==
--- NOTE | ~2024-11-22 | US_ITS ---
EXAMINATION: US carotid duplex BI DATE: 11/22/2024 07:57 INDICATION: Visual disturbances TECHNIQUE: Grayscale, color Doppler, and pulsed Doppler images of the cervical carotid arteries were obtained. The degree of vessel stenosis is placed in one of the following categories: normal, <50%, 5 0-69%, >=70% but less than near-occlusion, near-occlusion, or total occlusion. Note that percent sten osis relative to normal distal artery lumen diameter is indirectly measured from velocity measurement s as described by Delio, et al. Radiology 2003; 229:340-346. Notes: Normal: Peak systolic velocity <125 centimeters/sec and no plaque <50%. Peak systolic velocity <125 ( EDV <40; ICA/CCA PSV ratio <2.0; used these factors only a tandem lesions or low cardiac output or co ntralateral disease) 50-69 %: PSV 125-230 (EDV 40-100; ratio 2-4) >= 70% but less than near occlusion: PSV greater than 230 (EDV > 100; ratio> 4.0) Near Occlusion: PSV that is variable; markedly narrowed lumen Occlusion: Absent flow on color/spectral Doppler and no lumen on kramer scale. COMPARISON: None. FINDINGS: RIGHT: The right common carotid artery (CCA) peak systolic velocity (PSV) is 70 cm/s. The right internal car otid artery (ICA) PSV is 83 cm/s. The right ICA end-diastolic velocity (EDV) is 23 cm/s. The right IC A/CCA PSV ratio is 1.2. The external carotid artery (ECA) PSV is 82 cm/s. There is antegrade flow in the right vertebral artery. LEFT: The left CCA PSV is 93 cm/s. The left ICA PSV is 98 cm/s. The left ICA EDV is 29 cm/s. The left ICA/C CA PSV ratio is 1.1. The ECA PSV is 91 cm/s. There is antegrade flow in the left vertebral artery. IMPRESSION: 1. Less than 50% stenosis in the right internal carotid artery by sonographic criteria. 2. Less than 50% stenosis in the left internal carotid artery by sonographic criteria. Reviewed, dictated and finalized at location B. RIMENTAL MACHINIST IMPRESSION: 1. Less than 50% stenosis in the right internal carotid artery by sonographic oz scruggs. 2. Less than 50% stenosis in the left internal carotid artery by sonographic bea steiner.
--- OUTSIDE RECORDS SUMMARY | 2024-11-22 07:23 | XMS_ITS | Clinical Summary ---
Author Organization [facility] Address [address] [facility] [place] [address] Care Team Providers Care Otolaryngology Rep Name Role Phone KaiserCorrina Selena HIDE AND SKIN COLERER-PRODUCTION LINE MECHANIC Unavailable [phone] Aashish Corrigan DO Primary Care Provider [phone] Source Comments [facility],non-owned Affiliates and Associated Physician Practices is amultiple site organization consisting of ambulatory clinics and hospital sitesin [place], [place], [place] and [place]. This disclosure is being madepursuant to the Care Everywhere program and may not contain all information available regarding this patient. Last updated 18.[facility] Allergies No known active allergies Medications * [...] 10 mg by mouth once daily Active dtj-frmv-hezacsamxv -codeine (FIORINAL WITH CODEINE) 62-766-87-30 MG capsule Take 1 capsule by mouth [...] 12:06 AM 11/27/2021 1:24 PM Care Teams Otolaryngology Rep Relationship Specialty Start Date End Date Aashish Corrigan DO [address] [place] [address] PCP - General Family Medicine 01/18/22 Corrina Saab, HIDE AND SKIN COLERER-PRODUCTION LINE MECHANIC [address] [place] [address] Nurse Practitioner Pulmonary Disease 12/14/21
--- OUTSIDE RECORDS SUMMARY | 2024-11-22 07:23 | XMS_ITS | Encounter Summary ---
Author Organization [facility] Address [address] [place] [address] Care Team Providers Care Library Services Coordinator Name Role Phone Alejo Cha Primary Care Provider [phone] Encounter Details Date Type Department Care Team (Late st Contact Info) Description 01/19/2004 Outpatient Historical [facility]3] Adult Hospitalists [address] [address] Jyoti Miller MD NO ADDRESS ON FILE Social History Tobacco Use Types Packs/Day Years Used Date Smoking Tobacco: Never Assessed Comments Unknown Sex and Gender Information Value Date Recorded Sex Assigned at Not on file Legal Sex Female 4:34 AM PRODUCTION ZONE LEADER Gender Identity Not on file Sexual Orientation Not on file documented as of this encounter Plan of Treatment Not on file documented as of this encounter Visit Diagnoses Not on filedocumented in this encounter Care Teams Library Services Coordinator Relationship Specialty Start Date End Date Alejo Cha PCP - General 01/14/04 documented as of this encounter
--- OUTSIDE RECORDS SUMMARY | 2024-11-22 07:23 | XMS_ITS | Encounter Summary ---
Author Organization [facility] Address [address] [place] [address] Care Team Providers Care Special Education Preschool Teacher Name Role Phone Alejo Cha Primary Care Provider [phone] Encounter Details Date Type Department Care Team (Late st Contact Info) Description 11/02/2006 Inpatient Historical [facility] Az[facility], [facility] [address] [facility] [address] [place] [address] Opioid Type Dependence, Unspecified Abuse (CMS/HCC) (Primary Dx) Social History Tobacco Use Types Packs/Day Years Used Date Smoking Tobacco: Never Assessed Comments Unknown Sex and Gender Information Value Date Recorded Sex Assigned at Not on file Legal Sex Female 4:34 AM ALLERGIST/IMMUNOLOGIST PHYSICIAN Gender Identity Not on file Sexual Orientation Not on file documented as of this encounter Plan of Treatment Not on file documented as of this encounter Procedures Procedure Name Priority Date/Time Associated Diagnosis Comments VALPROIC ACID LEVEL, TOTAL Routine 11/07/2006 8:05 AM ALLERGIST/IMMUNOLOGIST PHYSICIAN documented in this encounter Results * VALPROIC ACID TOTAL (11/07/2006 8:05 AM ALLERGIST/IMMUNOLOGIST PHYSICIAN) VALPROIC ACID TOTAL 54 50 - 100 ug/mL INTERFACE SYSTEM Comment: Valproic Acid Antiepileptic Control = 50 - 100 ug/mL Valproic Acid Manic Episode Control = 50 - 125 ug/mL Valproic Acid Toxic Level = >200 ug/mL 11/07/2006 8:05 AM ALLERGIST/IMMUNOLOGIST PHYSICIAN us Tristen Faulkner CHEMISTRY ORDERABLES Ed ited INTERFACE SYSTEM Refer to clinic/hospital department documented in this encounter Visit Diagnoses Diagnosis Opioid type dependence, unspecified (CMS/HCC)- Primary Opioid type dependence, unspecified documented in this encounter Care Teams Special Education Preschool Teacher Relationship Specialty Start Date End Date Alejo Cha PCP - General 01/14/04 documented as of this encounter
--- OUTSIDE RECORDS SUMMARY | 2024-11-22 07:24 | XMS_ITS | Encounter Summary ---
Author Organization [facility] Address [address] [place] [address] Care Team Providers Care Flower Cutter Name Role Phone Alejo Cha Primary Care Provider Encounter Details Date Type Department Care Team (Late st Contact Info) Description 09/30/2003 Outpatient Historical [facility] MRI DEPT AguilarDerrick MD [address] [facility] [address] [place] [address] Social History Tobacco Use Types Packs/Day Years Used Date Smoking Tobacco: Never Assessed Comments Unknown Sex and Gender Information Value Date Recorded Sex Assigned at Not on file Legal Sex Female 4:34 AM CHOP SAW OPERATOR Gender Identity Not on file Sexual Orientation Not on file documented as of this encounter Plan of Treatment Not on file documented as of this encounter Visit Diagnoses Not on filedocumented in this encounter Care Teams Flower Cutter Relationship Specialty Start Date End Date Alejo Cha PCP - General 01/14/04 documented as of this encounter
--- OUTSIDE RECORDS SUMMARY | 2024-11-22 07:24 | XMS_ITS | Referral Summary ---
Author Organization [facility] Address [address] [place] [address] Care Team Providers Care Intermodal Owner Operator Truck Driver Name Role Phone Sammy Yoon DO Unavailable Nain Gonzales MD Unavailable [phone] Coleman Keita MD Unavailable [phone] Alejo Cihnchilla MD Primary Care Provider [phone] Allergies No known active allergies Medications topiramate [...] 11/02/2018 Assessment & Plan (11/02/2018 11:46 AM CAR SALESMAN): Controlled. Last seizure about 9 years ago. Managed by Neurology. Primary osteoarthritis involving multiple joints 11/02/2018 Assessment & Plan (11/02/2018 11:53 AM CAR SALESMAN): Chronic. We discussed options. Advised OTC analgesics PRN. Hyperlipidemia 01/15/2018 Assessment & Plan (11/02/2018 11:47 AM CAR SALESMAN): I spent 15 minutes counseling her on [...] Synthroid versus adding Cytomel or changing to [place] or pork thyroid - patient willing to [...] taken. Assessment & Plan (11/02/2018 11:48 AM CAR SALESMAN): Euthyroid. Continue current regimen. She is managed by Endocrinology. Assessment & Plan (06/29/2018 12:14 PM CDT): Patient's medication was recently readjusted to the Synthroid 137 mcg daily. Migraine without aura and wi thout status migrainosus, not intractable 01/18/2013 Overview (11/02/2018): Assessment & Plan (11/02/2018 11:46 AM CAR SALESMAN): Headaches are fair control. Continue current treatment regimen. Managed by Neurology. Current smoker 01/20/2011 Assessment & Plan (11/02/2018 11:46 AM CAR SALESMAN): Smoking cessation counseling: We discussed the importance of smoking cessation. Therapeutic options discussed included nicotine replacement therapy, Chantix, Wellbutrin, Acupuncture, Hypnosis, and Behavioral therapy. I spent 4 minutes counseling the patient on smoking cessation Resolved Problems Problem Noted Date Diagnosed Date Resolved Date Thyroid nodule 06/12/2018 11/02/2018 Assessment & Plan (08/27/2018 8:09 AM CAR SALESMAN): Patient is status post thyroid isthmusectomy. Final [...] is to follow up with her medical inspector and adjuster golf club head for continued thyroid hormone replacement. Assessment & [...] Thyroid activity decreased 01/20/2011 0 01/15/2018 Immunizations Immunization Administration Dates Next Due Influenza, Quadrivalent, Kerline [...] on file Legal Sex Female 11:49 PM CAR SALESMAN Gender Identity Not on file Sexual Orientation Not on file Last Filed Vital Signs Vital Sign Reading Time Taken Comments Blood Pressure 104/68 05/27/2019 9:54 AM CDT Pulse 95 05/27/2019 9:54 AM CDT Temperature 37.4 C (99.4 F) 11/02/2018 11:20 AM CAR SALESMAN Respiratory Rate 14 05/27/2019 9:54 AM CDT Oxygen Saturation 98% 12/26/2018 11:37 AM CDT Inhaled Oxygen Concentration - - Weight 61.8 kg (136 lb 3.2 oz) 05/27/2019 9:54 A M CDT Height 165.1 cm (5' 5 ) 05/27/2019 9:54 AM CDT Body Mass Index 22.66 05/27/2019 9:54 AM CDT Plan of Treatment Not on file Insurance MEDICARE [facility] MEDICARE [place] [facility] Care Teams Intermodal Owner Operator Truck Driver Relationship Specialty Start Date End Date Alejo Chinchilla MD [address] [place] [address] [place] [address] PCP - General 10/27/21 Sammy Yoon DO Surgeon Otolaryngology 09/10/18 Nain Gonzales MD [address] [facility] [address] [place] [address] Consulting Physician Endocrinology 09/10/18 Coleman Keita MD [address] [facility] [address] [place] [address] Referring Physician Neurology 11/02/18
--- OUTSIDE RECORDS SUMMARY | 2024-11-22 07:24 | XMS_ITS | Encounter Summary ---
Author Organization [facility] Address [address] [place] [address] Care Team Providers Care Tar Heater Operator Name Role Phone Alejo Cha Primary Care Provider [phone] Encounter Details Date Type Department Care Team (Latest Contact Info) Description 07/06/2000 Outpatient Historical [facility] Derrick Bishop MD [address] [facility] [address] [place] [address] Encounter for long-term (current) use of other medications (Primary Dx) Social History Tobacco Use Types Packs/Day Years Used Date Smoking Tobacco: Never Assessed Comments Unknown Sex and Gender Information Value Date Recorded Sex Assigned at Not on file Legal Sex Female 4:34 AM CREDIT ADMINISTRATION OFFICER Gender Identity Not on file Sexual Orientation Not on file documented as of this encounter Plan of Treatment Not on file documented as of this encounter Visit Diagnoses Diagnosis Encounter for long-term (current) use of other medications- Primary documented in this encounter Care Teams Tar Heater Operator Relationship Specialty Start Date End Date Alejo Cha PCP - General 01/14/04 documented as of this encounter
--- OUTSIDE RECORDS SUMMARY | 2024-11-22 07:24 | XMS_ITS | Encounter Summary ---
Author Organization [facility] Address [address] [place] [address] Care Team Providers Care Freight Checker Name Role Phone Alejo Cha Primary Care Provider [phone] Encounter Details Date Type Department Care Team (Late st Contact Info) Description 08/26/2003 Outpatient Historical Division of Neurology [address] [address] Derrick Aguilar MD [address] [place] [address] Social History Tobacco Use Types Packs/Day Years Used Date Smoking Tobacco: Never Assessed Comments Unknown Sex and Gender Information Value Date Recorded Sex Assigned at Not on file Legal Sex Female 4:34 AM PRINTED CIRCUIT BOARD PANELS DEVELOPER Gender Identity Not on file Sexual Orientation Not on file documented as of this encounter Plan of Treatment Not on file documented as of this encounter Visit Diagnoses Not on filedocumented in this encounter Care Teams Freight Checker Relationship Specialty Start Date End Date Alejo Cha PCP - General 01/14/04 documented as of this encounter
--- OUTSIDE RECORDS SUMMARY | 2024-11-22 07:24 | XMS_ITS | Encounter Summary ---
Author Organization [facility] Address [address] [place] [address] Care Team Providers Care Mold Injector Name Role Phone Alejo Cha Primary Care Provider [phone] Encounter Details Date Type Department Care Team (Late st Contact Info) Description 06/13/2000 Outpatient Historical [facility] Rodney Graham, DO [address] [place] [address] Er, Authorized P NO ADDRESS ON FILE Abdominal pain, unspecified site (Primary Dx) Social History Tobacco Use Types Packs/Day Years Used Date Smoking Tobacco: Never Assessed Comments Unknown Sex and Gender Information Value Date Recorded Sex Assigned at Not on file Legal Sex Female 4:34 AM COLLEGE ARCHIVIST Gender Identity Not on file Sexual Orientation Not on file documented as of this encounter Plan of Treatment Not on file documented as of this encounter Visit Diagnoses Diagnosis Abdominal pain, unspecified site- Primary documented in this encounter Care Teams Mold Injector Relationship Specialty Start Date End Date Alejo Cha PCP - General 01/14/04 documented as of this encounter
--- OUTSIDE RECORDS SUMMARY | 2024-11-22 07:24 | XMS_ITS | Encounter Summary ---
Author Organization [facility] Address [address] [place] [address] Care Team Providers Care Head Of Global Strategic Partnerships Name Role Phone Alejo Cha Primary Care Provider [phone] Encounter Details Date Type Department Care Team (Late st Contact Info) Description 01/15/2004 Outpatient Historical [facility] Adult [facility] [address] [place] [phone] Violette Singh MD [id number] [place], [place] [id number] Social History Tobacco Use Types Packs/Day Years Used Date Smoking Tobacco: Never Assessed Comments Unknown Sex and Gender Information Value Date Recorded Sex Assigned at Not on file Legal Sex Female 4:34 AM GOLF CART MECHANIC Gender Identity Not on file Sexual Orientation Not on file documented as of this encounter Plan of Treatment Not on file documented as of this encounter Visit Diagnoses Not on filedocumented in this encounter Care Teams Head Of Global Strategic Partnerships Relationship Specialty Start Date End Date Alejo Cha PCP - General 01/14/04 documented as of this encounter
--- OUTSIDE RECORDS SUMMARY | 2024-11-22 07:24 | XMS_ITS | Clinical Summary ---
Author Organization [facility] Address [address] [place] [address] Care Team Providers Care Kitchen Cleaner Name Role Phone Sammy Yoon DO Unavailable [phone] Nain Gonzales MD Unavailable [phone] Coleman Keita MD Unavailable [phone] Alejo Chinchilla MD Primary Care Provider [phone] Allergies No known active allergies Medications topiramate [...] 11/02/2018 Assessment & Plan (11/02/2018 11:46 AM RECREATION OFFICER): Controlled. Last seizure about 9 years ago. Managed by Neurology. Primary osteoarthritis involving multiple joints 11/02/2018 Assessment & Plan (11/02/2018 11:53 AM RECREATION OFFICER): Chronic. We discussed options. Advised OTC analgesics PRN. Hyperlipidemia 01/15/2018 Assessment & Plan (11/02/2018 11:47 AM RECREATION OFFICER): I spent 15 minutes counseling her on [...] Synthroid versus adding Cytomel or changing to [place] or pork thyroid - patient willing to [...] taken. Assessment & Plan (11/02/2018 11:48 AM RECREATION OFFICER): Euthyroid. Continue current regimen. She is managed by Endocrinology. Assessment & Plan (06/29/2018 12:14 PM CDT): Patient's medication was recently readjusted to the Synthroid 137 mcg daily. Migraine without aura and wi thout status migrainosus, not intractable 01/18/2013 Overview (11/02/2018): Assessment & Plan (11/02/2018 11:46 AM RECREATION OFFICER): Headaches are fair control. Continue current treatment regimen. Managed by Neurology. Current smoker 01/20/2011 Assessment & Plan (11/02/2018 11:46 AM RECREATION OFFICER): Smoking cessation counseling: We discussed the importance of smoking cessation. Therapeutic options discussed included nicotine replacement therapy, Chantix, Wellbutrin, Acupuncture, Hypnosis, and Behavioral therapy. I spent 4 minutes counseling the patient on smoking cessation Resolved Problems Problem Noted Date Diagnosed Date Resolved Date Thyroid nodule 06/12/2018 11/02/2018 Assessment & Plan (08/27/2018 8:09 AM RECREATION OFFICER): Patient is status post thyroid isthmusectomy. Final [...] is to follow up with her medical smeller for continued thyroid hormone replacement. Assessment & [...] on file Legal Sex Female 11:49 PM RECREATION OFFICER Gender Identity Not on file Sexual Orientation Not on file Obstetrics History Last Filed Vital Signs Vital Sign Reading Time Taken Comments Blood Pressure 104/68 05/27/2019 9:54 AM CDT Pulse 95 05/27/2019 9:54 AM CDT Temperature 37.4 C (99.4 F) 11/02/2018 11:20 AM RECREATION OFFICER Respiratory Rate 14 05/27/2019 9:54 AM CDT Oxygen Saturation 98% 12/26/2018 11:37 AM CDT Inhaled Oxygen Concentration - - Weight 61.8 kg (136 lb 3.2 oz) 05/27/2019 9:54 A M CDT Height 165.1 cm (5' 5 ) 05/27/2019 9:54 AM CDT Body Mass Index 22.66 05/27/2019 9:54 AM CDT Plan of Treatment Not on file Insurance MEDICARE BLUE ACCESS CHOICE AR MEDICARE BLUE ACCESS CHOICE AR BLUE ACCESS AR MEDICARE [facility] Care Teams Kitchen Cleaner Relationship Specialty Start Date End Date Alejo Chinchilla MD [address] [place] [address] PCP - General 10/27/21 Sammy Yoon DO Surgeon Otolaryngology 09/10/18 Nain Gonzales MD [address] [facility] [address] [place] [address] Consulting Physician Endocrinology 09/10/18 Coleman Keita MD [address] [facility] [address] [place] [address] Referring Physician Neurology 11/02/18
--- OUTSIDE RECORDS SUMMARY | 2024-11-22 07:24 | XMS_ITS | Encounter Summary ---
Author Organization [facility] Address [address] [place] [address] Care Team Providers Care Manager Drilling Name Role Phone Alejo Cha Primary Care Provider [phone] Encounter Details Date Type Department Care Team (Late st Contact Info) Description 07/15/2002 Outpatient Historical Division of Neurology [address] [address] Derrick Aguilar MD [address] [place] [address] Social History Tobacco Use Types Packs/Day Years Used Date Smoking Tobacco: Never Assessed Comments Unknown Sex and Gender Information Value Date Recorded Sex Assigned at Not on file Legal Sex Female 4:34 AM BIOLOGICAL ENGINEER Gender Identity Not on file Sexual Orientation Not on file documented as of this encounter Plan of Treatment Not on file documented as of this encounter Visit Diagnoses Not on filedocumented in this encounter Care Teams Manager Drilling Relationship Specialty Start Date End Date Alejo Cha PCP - General 01/14/04 documented as of this encounter
--- OUTSIDE RECORDS SUMMARY | 2024-11-22 07:24 | XMS_ITS | Patient Health Summary ---
Author Organization [facility] Address [address] [place] [address] Care Team Providers Care Retirement Plan Specialist Name Role Phone KaiserCorrina Selena [employer] TE[employer]ER Unavailable [phone] Aashish Corrigan DO Primary Care Provider [phone] Note from [facility],non-owned Affiliates and Associated Physician Practices is amultiple site organization consisting of ambulatory clinics and hospital sitesin [place], [place], [place] and [place]. This disclosure is being madepursuant to the Care Everywhere program and may not contain all information available regarding this patient. Last updated 18.[facility] Allergies No known active allergies Medications * [...] 10 mg by mouth once daily * qvp-otbv-dbbstkmqhv-codeine (FIORINAL WITH CODEINE) [id number] MG capsule Take 1 capsule by mouth [...] on 01/18/2022 at 1:13 PM Corrina Saab APRN-[facility] DIAGNOSTIC IMAG ING ORDERABLES * C-REACTIVE PROTEIN (CRP) (12/14/2021 3:29 PM CDT) Only the most recent of4 resultswithin the time period is included. Pathologist [facility] C-Reactive Protein <0.20 <=0.50 mg/dL [facility] ACCOUNT BILL Blood BLOOD SPECIMEN / Unknown 12/14/2021 3:29 PM CDT 12/14/2021 Narrative Resulting Agency Comment Lab Testing performed at: [address] [id number] Corrina Saab APRN-[facility] LAB - CHEMISTRY ORDERABLES [facility] ACCOUNT BILL [address] [place] [address] * (ABNORMAL) CBC WITH DIFFERENTIAL (12/14/2021 3:29 PM CDT) Only the most recent of4 resultswithin the time period is included. Pathologist [facility] WBC 4.5 4.4 - 10.7 x10E9/L [facility] [...] x10E9/L [facility] ACCOUNT BILL Comment:MPV FL BLOOD ([facility]) 1 1.2 fl 9.4-12.9 Granulocytes [...] Resulting Agency Comment Lab Testing performed at: [address] [id number] Corrina Saab VEST TA[employer]OR-SE[employer] SCHOOL TEACHER LAB - HEMATOLOG Y ORDERABLES [facility] ACCOUNT BILL [address] [place] [address] * CT CHEST W CONTRAST (11/26/2021 3:17 PM COTTON STRIPPER) Anatomical Region Laterality Modality Chest Computed Tomogra phy 11/26/2021 3:51 PM COTTON STRIPPER Impressions 11/26/2021 3:53 PM COTTON STRIPPER Resolution of the fluid collection within the posterior left hemithorax following percutaneous drainage. Trace residual fluid at the costophrenic angle. Persistent left lower lobe consolidation and minimal infiltrate right middle lobe and right lung base. *Reading Radiologist: Norman Huerta on 11/26/2021 at 3:53 PM Narrative 11/26/2021 3:[address] Chest With Contrast INDICATION: Pyothorax without [...] * (ABNORMAL) PROCALCITONIN LEVEL (11/26/2021 6:13 AM COTTON STRIPPER) Only the most recent of3 resultswithin the time period is included. Procalcitonin 0.14(H) <0.10 ng/mL 11/26/2021 7:01 AM COTTON STRIPPER [facility] Blood BLOOD SPECIMEN / Unknown Lab Venipuncture / Unknown 11/26/2021 6:13 AM COTTON STRIPPER 11/26/2021 6:18 AM COTTON STRIPPER Narrative [facility] - 11/26/2021 7:01 AM COTTON STRIPPER The change in procalcitonin (PCT) concentration over [...] Change in Procalcitonin Calculator is available at [email or web address]-HEN-[email or web address].Epigami If clinical picture has not improved and PCT remains high, reevaluate and consider treatment failure or other causes. Corrina Saab VEST TA[employer]OR-SE[employer] SCHOOL TEACHER LAB - CHEMISTRY ORDERABLES [facility] [address] [place] [address] * (ABNORMAL) BASIC METABOLIC PANEL (CALCIUM TOTAL) (11/26/2021 6:13 AM [facility]) Glucose 91 70 - 105 mg/dL 11/26/2021 7:[address] [facility] Sodium 140 136 - 145 mmol/L 11/26/2021 7:[address] [facility] Potassium 3.9 3.5 - 5.1 mmol/L 11/26/2021 7:[address] [facility] Chloride 114(H) 98 - 107 mmol/L 11/26/2021 7:[address] [facility] CO2 20(L) 23 - 31 mmol/L 11/26/2021 7:[address] [facility] Calcium 9.0 8.4 - 10.4 mg/dL 11/26/2021 7:[address] [facility] Anion Gap 6(L) 8 - 18 mmol/L 11/26/2021 7:[address] [facility] BUN 6(L) 9.8 - 20.1 mg/dL 11/26/2021 7:[address] [facility] Creatinine 0.57 0.57 - 1.11 mg/dL 11/26/2021 7:[address] [facility] eGFR by MDRD >60 >60 mL/min/1.7 3m2 11/26/2021 7:[address] [facility] eGFR by MDRD >60 >60 mL/min/1.7 3m2 11/26/2021 7:[address] [facility] Blood BLOOD SPECIMEN / Unknown Lab Venipuncture / Unknown 11/26/2021 6:13 AM C[facility] STRIPPER 11/26/2021 6:18 AM [facility] Corrina Saab VE[employer]-SE[employer] S[employer] TEACHER LAB - CHEMISTRY ORDERABLES [facility] [address] [address] * XR CHEST 1VW PORTABLE (11/25/2021 12:29 PM COTTON STRIPPER) Only the most recent of2 resultswithin the time period is included. Anatomical Region Laterality Modality Chest Radiographic Trena ging 11/25/2021 1:22 PM COTTON STRIPPER Narrative 11/25/2021 1:48 PM C[facility] STRIPPER CHEST AP PORTABLE INDICATION: Shortness of breath [...] CT ABSCESS DRAIN PERCUTANEOUS (11/23/2021 1:38 PM COTTON STRIPPER) Anatomical Region Laterality Modality Abdomen Computed Tomogra phy Impressions 11/23/2021 3:48 PM COTTON STRIPPER Drain insertion into a posterior inferior left chest abscess yielding 100 cc of purulent material. *Reading Radiologist: Norman Huerta on 11/23/2021 at 3:48 PM Narrative 11/23/2021 3:48 PM COTTON STRIPPER Procedure: CT-guided left chest pleural drain insertion. [...] The tract was dilated and a 10 Lao pigtail drain inserted. The pigtail was formed and locked. Approximately 100 cc of purulent material was aspirated and a sample sent for culture. The drain was secured in place. The patient tolerated the procedure well and there are no immediate competitions. Corrina Saab [facility] CT ORDERABLES * (ABNORMAL) CULTURE FLUID+GRAM STAIN (11/23/2021 1:15 PM COTTON STRIPPER) [facility] Culture Heavy Streptococcus anginosus(AA) SELENA 11/27/2021 9:51 AM [facility] Gram Stain Heavy Polymorphonuclear cells(AA) 11/27/2021 9:51 AM [facility] Gram Stain Light Gram-positive cocci(AA) 11/27/2021 9:51 AM [facility] Fluid PLEURAL FLUID / Unknown Collection / Unknown 11/23/2021 1:15 PM COTTON STRIPPER 11/23/2021 1:42 PM [facility] STRIPPER Narrative Organism Antibiotic Method Susceptibility Streptococcus anginosus Ampicillin SELENA <=0.25 ug/mL: Susceptible Streptococcus anginosus Cefotaxime SELENA <=0.12 ug/mL: Susceptible Streptococcus anginosus Ceftriaxone SELENA <=0.12 ug/mL: Susceptible Streptococcus anginosus Levofloxacin SELENA <=0.25 ug/mL: Susceptible Streptococcus anginosus Penicillin G SELENA <=0.06 ug/mL: Susceptible Streptococcus anginosus Tetracycline SELENA <=0.25 ug/mL: Susceptible Corrina Saab [facility] LAB - MICROBIOL OGY ORDERABLES [facility] [address] [place] [address], [facility] [phone] * (ABNORMAL) COMPREHENSIVE METABOLIC PANEL (11/23/2021 10:15 AM COTTON STRIPPER) Only the most recent of2 resultswithin the time period is included. [facility] Glucose 101 70 - 105 mg/dL 11/23/2021 10:[address] [facility] Sodium 138 136 - 145 mmol/L 11/23/2021 10:[address] [facility] Potassium 3.4(L) 3.5 - 5.1 mmol/L 11/23/2021 10:[address] [facility] Chloride 110(H) 98 - 107 mmol/L 11/23/2021 10:[address] [facility] CO2 18(L) 23 - 31 mmol/L 11/23/2021 10:[address] [facility] Calcium 9.0 8.4 - 10.4 mg/dL 11/23/2021 10:[address] [facility] Anion Gap 10 8 - 18 mmol/L 11/23/2021 10:[address] [facility] BUN 7(L) 9.8 - 20.1 mg/dL 11/23/2021 10:[address] [facility] Creatinine 0.59 0.57 - 1.11 mg/dL 11/23/2021 10:[address] [facility] Alkaline Phosphatase 274(H) 40 - 150 U/L 11/23/2021 10:[address] [facility] ALT 11 0 - 61 U/L 11/23/2021 10:[address] [facility] AST 23 5 - 34 U/L 11/23/2021 10:[address] [facility] Protein Total 5.9(L) 6.4 - 8.3 gm/dL 11/23/2021 10:[address] [facility] Albumin 2.5(L) 3.2 - 4.6 gm/dL 11/23/2021 10:[address] [facility] Bilirubin Total 0.3 0.2 - 1.2 mg/dL 11/23/2021 10:[address] [facility] eGFR by MDRD >60 >60 mL/min/1.7 3m2 11/23/2021 10:[address] [facility] eGFR by MDRD >60 >60 mL/min/1.7 3m2 11/23/2021 10:[address] [facility] Blood BLOOD SPECIMEN / Unknown Lab Venipuncture / Unknown 11/23/2021 10:15 AM COTTON STRIPPER 11/23/2021 10:21 AM COTTON STRIPPER Corrina CASTRO LAB - CHEMISTRY ORDERABLES Performing Organization Address [facility] Co de Phone Number [facility] [address] [place] [phone] * MRSA DNA PCR (11/22/2021 9:40 PM COTTON STRIPPER) MRSA DNA by PCR Not detected Not detected 11/23/2021 3:[address] [facility] Microbiology SPECIMEN FROM NASAL FOSSAE / Unknown Collection / Unknown 11/22/2021 9:40 PM COTTON STRIPPER 11/22/2021 9:48 [address] [address] N[address] [facility] - 11/23/2021 3:18 AM COTTON STRIPPER Methicillin-resistant Staphylococcus aureus (MRSA) DNA is not detected (presumed not colonized with MRSA). Daniele Duke MD LAB - MICROBIOLOGY O RDERABLES Performing Organization Address [facility] Co de Phone Number [facility] [address] [place], [place] [address] [phone] * (ABNORMAL) PTT (11/22/2021 2:07 PM COTTON STRIPPER) PTT 47.7(H) 23.0 - 38.4 sec 11/22/2021 3:12 PM COTTON STRIPPER [facility] Blood BLOOD SPECIMEN / Unknown Lab Venipuncture / Unknown 11/22/2021 2:07 PM COTTON STRIPPER 11/22/2021 2:13 PM COTTON STRIPPER Narrative [facility] - 11/22/2021 3:12 PM COTTON STRIPPER Heparin Therapeutic Range for PTT: 69.0 - 110.0 seconds. Corrina CASTRO LAB - COAGULATI ON ORDERABLES Performing Organization Address [facility] Co de Phone Number [facility] [address] [place] [phone] * (ABNORMAL) PT-INR (11/22/2021 2:07 PM COTTON STRIPPER) PT 19.6(H) 12.1 - 14.8 sec 11/22/2021 3:09 PM COTTON STRIPPER [facility] INR 1.7(H) 0.9 - 1.1 11/22/2021 3:09 PM COT[facility] STRIPPER [facility] Blood BLOOD SPECIMEN / Unknown Lab Venipuncture / Unknown 11/22/2021 2:07 PM COTTON STRIPPER 11/22/2021 2:13 PM COT[facility] STRIPPER Narrative [facility] - 11/22/2021 3:09 PM COTTON STRIPPER Conventional Warfarin Anticoagulant Therapy: INR Reference Range: 2.0-3.0 Intensive Warfarin Anticoagulant Therapy: INR Reference Range: 2.5-3.5 Corrina Saab VE[employer] TA[employer]OR-SE[employer] SCHOOL TEACHER LAB - COAGULATI ON ORDERABLES [facility] [address] [place] [address] * ECHOCARDIOGRAM 2D WITH DOPPLER (11/22/2021 12:00 PM COTTON STRIPPER) 11/22/2021 12:0 0 PM COTTON STRIPPER Narrative Procedure Note Unknown, Provider, - 11/22/[address] [address] Echocardiography Examination Transthoracic Name: RADHA GARCÍA [facility]#: MR#: [id number] Admission Number: [id number] Study Date: 11/22/2021 Study Time: 01:35 PM [...] Routine study Image Quality: Adequate Facility Location: [facility] Indication: Heart murmur Procedure Machine Puller And Laster: Jennifer Driscoll RDCS Ordering Provider: Amor Saab [...] mmHg, JESSICA 1.6 cm2 by VTI. Tricuspid Valve: Tricuspid [...] PHT 60 ms Mitral Valve MV Dec [place] 3.97 m/s Pulmonic Valve PV PGmax 6 [...] PM Page 4 of 4 Corrina Saab [employer] S[employer] TEACHER ECHO ORDERABLES [facility] [address] [facility] [place] [address] * CREATININE BLOOD (11/22/2021 1:21 AM COTTON STRIPPER) Creatinine 0.61 0.57 - 1.11 mg/dL 11/22/2021 1:54 AM COTTON STRIPPER [facility] eGFR by MDRD >60 >60 mL/min/1.7 3m2 11/22/2021 1:54 AM COTTON STRIPPER [facility] eGFR by MDRD >60 >60 mL/min/1.7 3m2 11/22/2021 1:54 AM COTTON STRIPPER [facility] Blood BLOOD SPECIMEN / Unknown Lab Venipuncture / Unknown 11/22/2021 1:21 AM COTTON STRIPPER 11/22/2021 1:38 AM COTTON STRIPPER Billie Chavarria MD LAB - CHEMISTRY [facility] Organization Address City/State/ZIP Co de Phone Number [facility] [address] [address] Care Teams Retirement Plan Specialist Relationship Specialty Start Date End Date Aashish Corrigan DO [address] [place], [place] [id number] PCP - General Family Medicine 01/18/22 Corrina Saab, VE[employer] SCHO[employer] TEACHER [address] [place] [phone] Nurse Practitioner Pulmonary Disease 12/14/21
--- OUTSIDE RECORDS SUMMARY | 2024-11-22 07:24 | XMS_ITS | Referral Summary ---
Author Organization [facility] Address [address] [place] [address] Care Team Providers Care Gauge And Instrument Inspector Name Role Phone KaiserCorrina Selena ST[employer]DOW[employer] FORMER-DOULA Unavailable [phone] Aashish Corrigan DO Primary Care Provider [phone] Source Comments [facility],non-owned Affiliates and Associated Physician Practices is amultiple site organization consisting of ambulatory clinics and hospital sitesin [place], [place], [place] and [place]. This disclosure is being madepursuant to the Care Everywhere program and may not contain all information available regarding this patient. Last updated 18.[facility] [employer] Allergies No known active allergies Medications * [...] 10 mg by mouth once daily Active ttf-zngu-lmcosopquh -codeine (FIORINAL WITH CODEINE) 54-164-22-30 MG capsule Take 1 capsule by mouth [...] 12:06 AM 11/27/2021 1:24 PM Care Teams Gauge And Instrument Inspector Relationship Specialty Start Date End Date Aashish Corrigan DO [address] [place] [address] PCP - General Family Medicine 01/18/22 Corrina Saab, STITCHDOWNS TOE FORMER-DOULA [address] [place] [phone] Nurse Practitioner Pulmonary Disease 12/14/21
--- OUTSIDE RECORDS SUMMARY | 2024-11-22 07:24 | XMS_ITS | Encounter Summary ---
Author Organization [facility] Address [address] [place] [address] Care Team Providers Care Spout Liner Name Role Phone Alejo Cha Primary Care Provider [phone] Encounter Details Date Type Department Care Team (Late st Contact Info) Description 06/27/2000 Outpatient Historical [facility] Internal Medicine [facility] [address] [place] [address] Laurent Miranda Social History Tobacco Use Types Packs/Day Years Used Date Smoking Tobacco: Never Assessed Comments Unknown Sex and Gender Information Value Date Recorded Sex Assigned at Not on file Legal Sex Female 4:34 AM 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
--- OUTSIDE RECORDS SUMMARY | 2024-11-22 07:24 | XMS_ITS | Encounter Summary ---
Author Organization [facility] Address [address] [place] [address] Care Team Providers Care General Farmer Name Role Phone Alejo Cha Primary Care Provider [phone] Encounter Details Date Type Department Care Team (Late st Contact Info) Description 12/31/2003 Outpatient [facility] Primary Care - [address] [place] [address] Alejo Cha Social History Tobacco Use Types Packs/Day Years Used Date Smoking Tobacco: Never Assessed Comments Unknown Sex and Gender Information Value Date Recorded Sex Assigned at Not on file Legal Sex Female 4:34 AM VESSEL ORDINARY SEAMAN Gender Identity Not on file Sexual Orientation Not on file documented as of this encounter Plan of Treatment Not on file documented as of this encounter Visit Diagnoses Not on filedocumented in this encounter Care Teams General Farmer Relationship Specialty Start Date End Date Alejo Cha PCP - General 01/14/04 documented as of this encounter
--- OUTSIDE RECORDS SUMMARY | 2024-11-22 07:24 | XMS_ITS | Encounter Summary ---
Author Organization [facility] Address [address] [place] [address] Care Team Providers Care Livestock Breeder Name Role Phone Alejo Cha Primary Care Provider [phone] Encounter Details Date Type Department Care [...] on file Legal Sex Female 4:34 AM SAFETY LEADER Gender Identity Not on file Sexual Orientation Not on file documented as of this encounter Plan of Treatment Not on file documented as of this encounter Visit Diagnoses Diagnosis Migraine without aura, with intractable migraine, so stated, without mention of status migrainosus- Primary documented in this encounter Care Teams Livestock Breeder Relationship Specialty Start Date End Date Alejo Cha PCP - General 01/14/04 documented as of this encounter
--- OUTSIDE RECORDS SUMMARY | 2024-11-22 07:24 | XMS_ITS | Encounter Summary ---
Author Organization [facility] Address [address] [place] [address] Care Team Providers Care Optical Manufacturing Technician Name Role Phone Alejo Cha Primary Care Provider [phone] Encounter Details Date Type Department Care Team (Late st Contact Info) Description 05/12/2000 Outpatient Historical [facility] Internal Medicine [facility] [address] [facility] [address] Shadi Patterson [place] [address] Laurent Miranda Social History Tobacco Use Types Packs/Day Years Used Date Smoking Tobacco: Never Assessed Comments Unknown Sex and Gender Information Value Date Recorded Sex Assigned at Not on file Legal Sex Female 4:34 AM INFANTRY WEAPONS OFFICER Gender Identity Not on file Sexual Orientation Not on file documented as of this encounter Plan of Treatment Not on file documented as of this encounter Visit Diagnoses Not on filedocumented in this encounter Care Teams Optical Manufacturing Technician Relationship Specialty Start Date End Date Alejo Cha PCP - General 01/14/04 documented as of this encounter
--- OUTSIDE RECORDS SUMMARY | 2024-11-22 07:24 | XMS_ITS | Encounter Summary ---
Author Organization [facility] Address [address] [place] [address] Care Team Providers Care Alligator Trapper Name Role Phone Alejo Cha Primary Care Provider [phone] Encounter Details Date Type Department Care Team (Late st Contact Info) Description 02/03/2003 Outpatient Historical Division of Neurology [address] [address] Derrick Aguilar MD [address] [place] [address] Social History Tobacco Use Types Packs/Day Years Used Date Smoking Tobacco: Never Assessed Comments Unknown Sex and Gender Information Value Date Recorded Sex Assigned at Not on file Legal Sex Female 4:34 AM TYPING ELEMENT MACHINE OPERATOR Gender Identity Not on file Sexual Orientation Not on file documented as of this encounter Plan of Treatment Not on file documented as of this encounter Visit Diagnoses Not on filedocumented in this encounter Care Teams Alligator Trapper Relationship Specialty Start Date End Date Alejo Cha PCP - General 01/14/04 documented as of this encounter
--- OUTSIDE RECORDS SUMMARY | 2024-11-22 07:24 | XMS_ITS | Encounter Summary ---
Author Organization [facility] Address [address] [place] [address] Care Team Providers Care Physical Therapy Resident Name Role Phone Alejo Cha Primary Care Provider [phone] Encounter Details Date Type Department Care Team (Late st Contact Info) Description 07/06/2000 Outpatient Historical Division of Neurology [address] [address] Derrick Aguilar MD [address] [place] [address] Social History Tobacco Use Types Packs/Day Years Used Date Smoking Tobacco: Never Assessed Comments Unknown Sex and Gender Information Value Date Recorded Sex Assigned at Not on file Legal Sex Female 4:34 AM ADMINISTRATIVE OFFICE SPECIALIST Gender Identity Not on file Sexual Orientation Not on file documented as of this encounter Plan of Treatment Not on file documented as of this encounter Visit Diagnoses Not on filedocumented in this encounter Care Teams Physical Therapy Resident Relationship Specialty Start Date End Date Alejo Cha PCP - General 01/14/04 documented as of this encounter
--- OUTSIDE RECORDS SUMMARY | 2024-11-22 07:24 | XMS_ITS | Encounter Summary ---
Author Organization [facility] Address [address] [place] [address] Care Team Providers Care Master Planner Name Role Phone Alejo Cha Primary Care Provider Encounter Details Date Type Department Care Team (Late st Contact Info) Description 10/16/2003 Outpatient [facility] Primary Care - [address] [place] [address] Alejo Cha Social History Tobacco Use Types Packs/Day Years Used Date Smoking Tobacco: Never Assessed Comments Unknown Sex and Gender Information Value Date Recorded Sex Assigned at Not on file Legal Sex Female 4:34 AM ORE TESTER Gender Identity Not on file Sexual Orientation Not on file documented as of this encounter Plan of Treatment Not on file documented as of this encounter Visit Diagnoses Not on filedocumented in this encounter Care Teams Master Planner Relationship Specialty Start Date End Date Alejo Cha PCP - General 01/14/04 documented as of this encounter
--- OUTSIDE RECORDS SUMMARY | 2024-11-22 07:24 | XMS_ITS | Encounter Summary ---
Author Organization [facility] Address [address] [place] [address] Care Team Providers Care Virtualization Engineer Name Role Phone Alejo Cha Primary Care Provider Encounter Details Date Type Department Care Team (Late st Contact Info) Description 12/12/2003 Outpatient [facility] Primary Care - [address] [place] [address] Alejo Cha Social History Tobacco Use Types Packs/Day Years Used Date Smoking Tobacco: Never Assessed Comments Unknown Sex and Gender Information Value Date Recorded Sex Assigned at Not on file Legal Sex Female 4:34 AM CONTRACT MANAGEMENT SPECIALIST Gender Identity Not on file Sexual Orientation Not on file documented as of this encounter Plan of Treatment Not on file documented as of this encounter Visit Diagnoses Not on filedocumented in this encounter Care Teams Virtualization Engineer Relationship Specialty Start Date End Date Alejo Cha PCP - General 01/14/04 documented as of this encounter
--- OUTSIDE RECORDS SUMMARY | 2024-11-22 07:24 | XMS_ITS | Clinical Summary ---
Author Organization [facility] Address [address] [place] [address] Care Team Providers Care Mincing Machine Operator Name Role Phone Alejo Cha Primary Care Provider [phone] Social History Tobacco Use Types Packs/Day Years Used Date Smoking Tobacco: Never Assessed Comments Unknown Sex and Gender Information Value Date Recorded Sex Assigned at Not on file Legal Sex Female 4:34 AM CRIMINAL RESEARCH SPECIALIST Gender Identity Not on file Sexual [...] - 1-dose 75+ series) 2029 Care Teams Mincing Machine Operator Relationship Specialty Start Date End Date Alejo Cha PCP - General 01/14/04
--- OUTSIDE RECORDS SUMMARY | 2024-11-22 07:25 | XMS_ITS | Encounter Summary ---
Author Organization [facility] Address [address] [place] [address] Care Team Providers Care Security Advisor Name Role Phone Alejo Cha Primary Care Provider [phone] Encounter Details Date Type Department Care Team (Late st Contact Info) Description 01/14/2004 Outpatient Historical [facility] [place] Adult Hospitalists [address] [address] [place] Social History Tobacco Use Types Packs/Day Years Used Date Smoking Tobacco: Never Assessed Comments Unknown Sex and Gender Information Value Date Recorded Sex Assigned at Not on file Legal Sex Female 4:34 AM BIOSTATISTICS MANAGER Gender Identity Not on file Sexual Orientation Not on file documented as of this encounter Plan of Treatment Not on file documented as of this encounter Visit Diagnoses Not on filedocumented in this encounter Care Teams Security Advisor Relationship Specialty Start Date End Date Alejo Cha PCP - General 01/14/04 documented as of this encounter
--- OUTSIDE RECORDS SUMMARY | 2024-11-22 07:25 | XMS_ITS | Encounter Summary ---
Author Organization [facility] Address [address] [place] [address] Care Team Providers Care Retail Banking Manager Name Role Phone Alejo Cha Primary Care Provider [phone] Encounter Details Date Type Department Care Team (Late st Contact Info) Description 01/15/2004 Outpatient Historical Division of Neurology [address] [address] Derrick Aguilar MD [address] [place] [address] Social History Tobacco Use Types Packs/Day Years Used Date Smoking Tobacco: Never Assessed Comments Unknown Sex and Gender Information Value Date Recorded Sex Assigned at Not on file Legal Sex Female 4:34 AM CHURCH BUSINESS ADMINISTRATOR Gender Identity Not on file Sexual Orientation Not on file documented as of this encounter Plan of Treatment Not on file documented as of this encounter Visit Diagnoses Not on filedocumented in this encounter Care Teams Retail Banking Manager Relationship Specialty Start Date End Date Alejo Cha PCP - General 01/14/04 documented as of this encounter
--- OUTSIDE RECORDS SUMMARY | 2024-11-22 07:25 | XMS_ITS | Encounter Summary ---
Author Organization [facility] Address 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
--- OUTSIDE RECORDS SUMMARY | 2024-11-22 07:25 | XMS_ITS | Encounter Summary ---
Author Organization [facility] Address [facility] [place] [address] Care Team Providers Care Bean Dumper Name Role Phone Gaetano Llanes DO Primary Care Provider + Encounter Details Date Type Department Care Team (Late st Contact Info) Description 12/16/[address] [facility] Conversion [address] [place] [address] , Generic Conversion, Social History Tobacco Use Types Packs/Day Years Used Date Smoking Tobacco: Never Assessed Comments Unknown Sex and Gender Information Value Date Recorded Sex Assigned at Not on file Legal Sex Female 6:30 PM GERICARE AIDE Gender Identity Not on file Sexual Orientation Not on file documented as of this encounter Plan of Treatment Not on file documented as of this encounter Visit Diagnoses Not on filedocumented in this encounter Care Teams Bean Dumper Relationship Specialty Start Date End Date Gaetano Llanes DO [address] [place] [address] PCP - General FAMILY PRACTICE 02/22/19 documented as of this encounter
--- OUTSIDE RECORDS SUMMARY | 2024-11-22 07:26 | XMS_ITS | Encounter Summary ---
Author Organization [facility] Address [facility] [place] [address] Care Team Providers Care Roving Department End Finder Name Role Phone Gaetano Llanes DO Primary Care Provider + Encounter Details Date Type Department Care Team (Late st Contact Info) Description 10/26/[address] 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
--- OUTSIDE RECORDS SUMMARY | 2024-11-22 07:26 | XMS_ITS | Clinical Summary ---
Author Organization [facility] Address [address] [place] [address] Care Team Providers Care Svp Digital Sales Food & Cooking Name Role Phone Gaetano Llanes DO Primary Care Provider + Allergies No known active allergies Medications SYNTHROID 125 MCG tablet Take 125 mcg by mouth daily. 2 02/14/2019 Active topiramate 100 MG tablet Take 1 tablet by mouth 2 (two) times daily. 02/12/2019 Active rosuvastatin 10 MG tablet Take 10 mg by mouth daily. 1 02/19/2019 Active ASCOMP-CODEINE 96-694-23-30 MG capsule Take 1 mg by mouth [...] on file Legal Sex Female 6:30 PM GENERAL AGENT Gender Identity Not on file Sexual Orientation [...] age to complete this topic Insurance MEDICARE [facility] Care Teams Svp Digital Sales Food & Cooking Relationship Specialty Start Date End Date Gaetano Llanes DO [address] [place] [address] PCP - General FAMILY PRACTICE 02/22/19
== END 2024-11-22 07:19 | disposition home or self-care (01) ==
PROVIDERS: PCP Nurse Practitioner Family; Visit Provider Nurse Practitioner Family
DX: H53.8 Other visual disturbances (principal); I65.23 Occlusion and stenosis of bilateral carotid arteries
CPT/HCPCS: 93880

== ENCOUNTER 2024-11-25 08:59 | Outpatient (CLI) | payer MEDICARE, SELFPAY ==
--- NOTE | ~2024-11-25 | CT_ITS ---
CLINICAL INDICATION: Gross hematuria COMPARISON: 11/06/2024. TECHNIQUE: Multiple contiguous axial images of the abdomen and pelvis were performed both prior to an d following the administration of with 100 mL Omnipaque-350 intravenous contrast The dose-length product (DLP) was 488.95 mGy-cm. Automated exposure control and iterative reconstruction technique were employed. FINDINGS/OBSERVATIONS: Visualized lower thorax: The bilateral lung bases are clear. The heart is of normal size, without pericardial effusion. Liver: The liver enhances homogeneously and is not enlarged measuring 16 cm in longitudinal dimension Gallbladder and biliary system: The gallbladder is only minimally distended, and otherwise unremarkable. Pancreas: The pancreas enhances homogeneously without ductal dilatation. Spleen: The spleen enhances homogeneously and is not enlarged measuring 9 cm in longitudinal dimension. Kidneys: Redemonstration of multiple stones within the right kidney: measuring 10 mm in the lower kourtney e, 14 mm in the right renal pelvis, and 16 mm in the interpolar region of the right kidney. The bilateral kidneys enhance symmetrically. No stones are identified within the left kidney. Adrenal glands: Unremarkable. Gastrointestinal tract: Colonic diverticulosis without surrounding inflammatory change. Appendix: The air-filled appendix is of normal caliber (axial series, images 120 through 134) Vasculature: Unremarkable. No aneurysmal dilatation or significant stenosis. Lymph nodes: No pathologically enlarged or morphologically suspicious lymph nodes within the retroperitoneum or at the root of the mesentery. Pelvic structures: The bladder is only minimally distended, and otherwise unremarkable. Contrast opacifies the bladder without filling defects. The uterus is retroverted and retroflexed, and otherwise unremarkable. Body wall and musculoskeletal: No significant degenerative disease within the lower thoracic or lumbosacral spine. IMPRESSION: Redemonstration of multiple large stones within the right kidney without additional abnormality appre ciated. The entirety of the bilateral ureters are not opacified. Opacification of the bladder in its entirety, without filling defect. Reviewed, dictated and finalized at location A. CAL CHARGE ENTRY SPECIALIST IMPRESSION: Redemonstration of multiple large stones within the right kidney without additi onal abnormality appreciated. The entirety of the bilateral ureters are not opacified. Opacification of the bladder in its entirety, without filling defect.
--- OUTSIDE RECORDS SUMMARY | 2024-11-25 09:34 | XMS_ITS | Encounter Summary ---
Author Organization [facility] Address [address] [place] [address] Care Team Providers Care Digital Asset Manager Name Role Phone Alejo Cha Primary Care Provider [phone] Encounter Details Date Type Department Care Team (Late st Contact Info) Description 01/19/2004 Outpatient Historical [facility] Adult Hospitalists [address] [address] yJoti Miller MD NO ADDRESS ON FILE Social History Tobacco Use Types Packs/Day Years Used Date Smoking Tobacco: Never Assessed Comments Unknown Sex and Gender Information Value Date Recorded Sex Assigned at Not on file Legal Sex Female 4:34 AM MED CARE MANAGER Gender Identity Not on file Sexual Orientation Not on file documented as of this encounter Plan of Treatment Not on file documented as of this encounter Visit Diagnoses Not on filedocumented in this encounter Care Teams Digital Asset Manager Relationship Specialty Start Date End Date Alejo Cha PCP - General 01/14/04 documented as of this encounter
--- OUTSIDE RECORDS SUMMARY | 2024-11-25 09:34 | XMS_ITS | Encounter Summary ---
Author Organization [facility] Address [address] [place] [address] Care Team Providers Care Store Specialist Name Role Phone Alejo Cha Primary Care Provider [phone] Encounter Details Date Type Department Care Team (Late st Contact Info) Description 11/02/2006 Inpatient Historical [facility] Az[facility], [facility] [address] [facility] [address] [place] [address] Opioid Type Dependence, Unspecified Abuse (CMS/HCC) (Primary Dx) Social History Tobacco Use Types Packs/Day Years Used Date Smoking Tobacco: Never Assessed Comments Unknown Sex and Gender Information Value Date Recorded Sex Assigned at Not on file Legal Sex Female 4:34 AM DIESEL TRACTOR ENGINE MECHANIC Gender Identity Not on file Sexual Orientation Not on file documented as of this encounter Plan of Treatment Not on file documented as of this encounter Procedures Procedure Name Priority Date/Time Associated Diagnosis Comments VALPROIC ACID LEVEL, TOTAL Routine 11/07/2006 8:05 AM DIESEL TRACTOR ENGINE MECHANIC documented in this encounter Results * VALPROIC ACID TOTAL (11/07/2006 8:05 AM DIESEL TRACTOR ENGINE MECHANIC) VALPROIC ACID TOTAL 54 50 - 100 ug/mL INTERFACE SYSTEM Comment: Valproic Acid Antiepileptic Control = 50 - 100 ug/mL Valproic Acid Manic Episode Control = 50 - 125 ug/mL Valproic Acid Toxic Level = >200 ug/mL 11/07/2006 8:05 AM DIESEL TRACTOR ENGINE MECHANIC us Tristen Faulkner CHEMISTRY ORDERABLES Ed ited INTERFACE SYSTEM Refer to clinic/hospital department documented in this encounter Visit Diagnoses Diagnosis Opioid type dependence, unspecified (CMS/HCC)- Primary Opioid type dependence, unspecified documented in this encounter Care Teams Store Specialist Relationship Specialty Start Date End Date Alejo Cha PCP - General 01/14/04 documented as of this encounter
--- OUTSIDE RECORDS SUMMARY | 2024-11-25 09:34 | XMS_ITS | Clinical Summary ---
Author Organization [facility] Address [address] [place] [address] Care Team Providers Care Transmission Specialist Name Role Phone Alejo Cha Primary Care Provider [phone] Social History Tobacco Use Types Packs/Day Years Used Date Smoking Tobacco: Never Assessed Comments Unknown Sex and Gender Information Value Date Recorded Sex Assigned at Not on file Legal Sex Female 4:34 AM CRUSHER Gender Identity Not on file Sexual Orientation [...] - 1-dose 75+ series) 2029 Care Teams Transmission Specialist Relationship Specialty Start Date End Date Alejo Cha PCP - General 01/14/04
--- OUTSIDE RECORDS SUMMARY | 2024-11-25 09:34 | XMS_ITS | Clinical Summary ---
Author Organization [facility] Address [address] [address] Care Team Providers Care Retail Business Analyst Name Role Phone KaiserCorrina Selena CHARGE MASTER SPECIALIST-SUPERVISOR LOOPING Unavailable [phone] Aashish Corrigan DO Primary Care Provider Source Comments [facility],non-owned Affiliates and Associated Physician Practices is amultiple site organization consisting of ambulatory clinics and hospital sitesin [place], [place], [place] and [place]. This disclosure is being madepursuant to the Care Everywhere program and may not contain all information available regarding this patient. Last updated 18.[facility] Allergies No known active allergies Medications * [...] 10 mg by mouth once daily Active nru-mtdu-vdtbljtatf -codeine (FIORINAL WITH CODEINE) 56-257-67-30 MG capsule Take 1 capsule by mouth [...] 12:06 AM 11/27/2021 1:24 PM Care Teams Retail Business Analyst Relationship Specialty Start Date End Date Aashish Corrigan DO [address] [place] [address] PCP - General Family Medicine 01/18/22 Corrina Saab, CHARGE MASTER SPECIALIST-SUPERVISOR LOOPING [address] [place] [address] Nurse Practitioner Pulmonary Disease 12/14/21
--- OUTSIDE RECORDS SUMMARY | 2024-11-25 09:35 | XMS_ITS | Encounter Summary ---
Author Organization [facility] Address [address] [place] [address] Care Team Providers Care Park Worker Name Role Phone Alejo Cha Primary Care Provider [phone] Encounter Details Date Type Department Care Team (Late st Contact Info) Description 06/27/2000 Outpatient Historical [facility] Internal Medicine [facility] [address] [facility] [address] Shadi [place] [address] Laurent Miranda Social History Tobacco Use Types Packs/Day Years Used Date Smoking Tobacco: Never Assessed Comments Unknown Sex and Gender Information Value Date Recorded Sex Assigned at Not on file Legal Sex Female 4:34 AM ADMINISTRATION SPECIALIST Gender Identity Not on file Sexual Orientation Not on file documented as of this encounter Plan of Treatment Not on file documented as of this encounter Visit Diagnoses Not on filedocumented in this encounter Care Teams Park Worker Relationship Specialty Start Date End Date Alejo Cha PCP - General 01/14/04 documented as of this encounter
--- OUTSIDE RECORDS SUMMARY | 2024-11-25 09:35 | XMS_ITS | Encounter Summary ---
Author Organization [facility] Address [address] [place] [address] Care Team Providers Care Chemical Analytical Sampler Name Role Phone Alejo Cha Primary Care Provider [phone] Encounter Details Date Type Department Care Team (Late st Contact Info) Description 07/15/2002 Outpatient Historical Division of Neurology [address] [address] Derrick Aguilar MD [address] [place] [address] Social History Tobacco Use Types Packs/Day Years Used Date Smoking Tobacco: Never Assessed Comments Unknown Sex and Gender Information Value Date Recorded Sex Assigned at Not on file Legal Sex Female 4:34 AM TABLE GAMES SUPERVISOR Gender Identity Not on file Sexual Orientation Not on file documented as of this encounter Plan of Treatment Not on file documented as of this encounter Visit Diagnoses Not on filedocumented in this encounter Care Teams Chemical Analytical Sampler Relationship Specialty Start Date End Date Alejo Cha PCP - General 01/14/04 documented as of this encounter
--- OUTSIDE RECORDS SUMMARY | 2024-11-25 09:35 | XMS_ITS | Encounter Summary ---
Author Organization [facility] Address [address] [place] [address] Care Team Providers Care Air Director Name Role Phone Alejo Cha Primary Care Provider [phone] Encounter Details Date Type Department Care Team (Late st Contact Info) Description 05/12/2000 Outpatient Historical [facility] Internal Medicine [facility] [address] [facility] [address] Shadi [place] [address] Laurent Miranda Social History Tobacco Use Types Packs/Day Years Used Date Smoking Tobacco: Never Assessed Comments Unknown Sex and Gender Information Value Date Recorded Sex Assigned at Not on file Legal Sex Female 4:34 AM SOCIAL SERVICES TECHNICIAN Gender Identity Not on file Sexual Orientation Not on file documented as of this encounter Plan of Treatment Not on file documented as of this encounter Visit Diagnoses Not on filedocumented in this encounter Care Teams Air Director Relationship Specialty Start Date End Date Alejo Cha PCP - General 01/14/04 documented as of this encounter
--- OUTSIDE RECORDS SUMMARY | 2024-11-25 09:35 | XMS_ITS | Encounter Summary ---
Author Organization [facility] Address [address] [place] [address] Care Team Providers Care Auditing Specialist Name Role Phone Alejo Cha Primary Care Provider [phone] Encounter Details Date Type Department Care Team (Late st Contact Info) Description 01/15/2004 Outpatient Historical [facility] Adult Hospitalists [facility] [address] [place] [address] Violette Singh MD [id number] [place], [place] [id number] Social History Tobacco Use Types Packs/Day Years Used Date Smoking Tobacco: Never Assessed Comments Unknown Sex and Gender Information Value Date Recorded Sex Assigned at Not on file Legal Sex Female 4:34 AM WORKFORCE SPECIALIST Gender Identity Not on file Sexual Orientation Not on file documented as of this encounter Plan of Treatment Not on file documented as of this encounter Visit Diagnoses Not on filedocumented in this encounter Care Teams Auditing Specialist Relationship Specialty Start Date End Date Alejo Cha PCP - General 01/14/04 documented as of this encounter
--- OUTSIDE RECORDS SUMMARY | 2024-11-25 09:35 | XMS_ITS | Encounter Summary ---
Author Organization [facility] Address [facility] [place] [address] Care Team Providers Care Insecticide Supervisor Name Role Phone Gaetano Llanes DO Primary Care Provider + Encounter Details Date Type Department Care Team (Late st Contact Info) Description 12/16/[address] [facility] Conversion [address] [place] [address] , Generic Conversion, Social History Tobacco Use Types Packs/Day Years Used Date Smoking Tobacco: Never Assessed Comments Unknown Sex and Gender Information Value Date Recorded Sex Assigned at Not on file Legal Sex Female 6:30 PM GENERAL ACTIVITIES THERAPIST Gender Identity Not on file Sexual Orientation Not on file documented as of this encounter Plan of Treatment Not on file documented as of this encounter Visit Diagnoses Not on filedocumented in this encounter Care Teams Insecticide Supervisor Relationship Specialty Start Date End Date Gaetano Llanes DO [address] [place] [address] PCP - General FAMILY PRACTICE 02/22/19 documented as of this encounter
--- OUTSIDE RECORDS SUMMARY | 2024-11-25 09:35 | XMS_ITS | Encounter Summary ---
Author Organization [facility] Address [address] [place] [address] Care Team Providers Care Equipment Cleaner And Tester Name Role Phone Alejo Cha Primary Care Provider [phone] Encounter Details Date Type Department Care Team (Late st Contact Info) Description 01/15/2004 Outpatient Historical Division of Neurology [address] [address] Derrick Aguilar MD [address] [place] [address] Social History Tobacco Use Types Packs/Day Years Used Date Smoking Tobacco: Never Assessed Comments Unknown Sex and Gender Information Value Date Recorded Sex Assigned at Not on file Legal Sex Female 4:34 AM ROTARY SHEAR OPERATOR Gender Identity Not on file Sexual Orientation Not on file documented as of this encounter Plan of Treatment Not on file documented as of this encounter Visit Diagnoses Not on filedocumented in this encounter Care Teams Equipment Cleaner And Tester Relationship Specialty Start Date End Date Alejo Cha PCP - General 01/14/04 documented as of this encounter
--- OUTSIDE RECORDS SUMMARY | 2024-11-25 09:35 | XMS_ITS | Clinical Summary ---
Author Organization [facility] Address [address] [place] [address] Care Team Providers Care Supervisor Product Inspection Name Role Phone Gaetano Llanes DO Primary Care Provider + Allergies No known active allergies Medications SYNTHROID 125 MCG tablet Take 125 mcg by mouth daily. 2 02/14/2019 Active topiramate 100 MG tablet Take 1 tablet by mouth 2 (two) times daily. 02/12/2019 Active rosuvastatin 10 MG tablet Take 10 mg by mouth daily. 1 02/19/2019 Active ASCOMP-CODEINE 84-443-59-30 MG capsule Take 1 mg by mouth [...] on file Legal Sex Female 6:30 PM SHIRT TURNER Gender Identity Not on file Sexual Orientation [...] age to complete this topic Insurance MEDICARE [facility] Care Teams Supervisor Product Inspection Relationship Specialty Start Date End Date Gaetano Llanes DO [address] [place] [id number] PCP - General FAMILY PRACTICE 02/22/19
--- OUTSIDE RECORDS SUMMARY | 2024-11-25 09:35 | XMS_ITS | Encounter Summary ---
Author Organization [facility] Address 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
--- OUTSIDE RECORDS SUMMARY | 2024-11-25 09:35 | XMS_ITS | Patient Health Summary ---
Author Organization [facility] Address [address] [place] [address] Care Team Providers Care Managing Cognitive Engineer Name Role Phone [facility] Sel[facility] Unavailable [phone] Aashish Corrigan DO Primary Care Provider [phone] [facility],non-owned Affiliates and Associated Physician Practices is amultiple site organization consisting of ambulatory clinics and hospital sitesin [place], [place], [place] and [place]. This disclosure is being madepursuant to the Care Everywhere program and may not contain all information available regarding this patient. Last updated 18.[facility] Allergies No known active allergies Medications * [...] 10 mg by mouth once daily * eqj-tsof-bzyfynvfsc-codeine (FIORINAL WITH CODEINE) 05-314-07-30 MG capsule Take 1 capsule by mouth [...] on 01/18/2022 at 1:13 PM Corrina Saab APRN-[facility] DIAGNOSTIC IMAG ING ORDERABLES * C-REACTIVE PROTEIN (CRP) (12/14/2021 3:29 PM CDT) Only the most recent of4 resultswithin the time period is included. Pathologist [facility] C-Reactive Protein <0.20 <=0.50 mg/dL [facility] ACCOUNT BILL Blood BLOOD SPECIMEN / Unknown 12/14/2021 3:29 PM CDT 12/14/2021 Narrative Resulting Agency Comment Lab Testing performed at: [address] [id number] Corrina Saab APRN-[facility] LAB - CHEMISTRY ORDERABLES [facility] ACCOUNT BILL [address] [place] [address] * (ABNORMAL) CBC WITH DIFFERENTIAL (12/14/2021 3:29 PM CDT) Only the most recent of4 resultswithin the time period is included. Pathologist [facility] WBC 4.5 4.4 - 10.7 x10E9/L [facility] [...] x10E9/L [facility] ACCOUNT BILL Comment:MPV FL BLOOD ([facility]) 1 1.2 fl 9.4-12.9 [...] Resulting Agency Comment Lab Testing performed at: [address] [id number] Corrina Saab WAVE SOLDER OFFBEARER-MUSEUM DOCENT LAB - HEMATOLOG Y ORDERABLES [facility] ACCOUNT BILL [address] [place] [address] * CT CHEST W CONTRAST (11/26/2021 3:17 PM BEEF SPECIALIST) Anatomical Region Laterality Modality Chest Computed Tomogra phy 11/26/2021 3:51 PM BEEF SPECIALIST Impressions 11/26/2021 3:53 PM BEEF SPECIALIST Resolution of the fluid collection within the posterior left hemithorax following percutaneous drainage. Trace residual fluid at the costophrenic angle. Persistent left lower lobe consolidation and minimal infiltrate right middle lobe and right lung base. *Reading Radiologist: Norman Huerta on 11/26/2021 at 3:53 PM Narrative 11/26/2021 3:[address] Chest With Contrast INDICATION: Pyothorax without [...] * (ABNORMAL) PROCALCITONIN LEVEL (11/26/2021 6:13 AM BEEF SPECIALIST) Only the most recent of3 resultswithin the time period is included. Procalcitonin 0.14(H) <0.10 ng/mL 11/26/2021 7:01 AM BEEF SPECIALIST [facility] Blood BLOOD SPECIMEN / Unknown Lab Venipuncture / Unknown 11/26/2021 6:13 AM BEEF SPECIALIST 11/26/2021 6:18 AM BEEF SPECIALIST Narrative [facility] - 11/26/2021 7:01 AM BEEF SPECIALIST The change in procalcitonin (PCT) concentration over [...] Change in Procalcitonin Calculator is available at [email or web address]-[email or web address]-Ebzolzpesw.Yododo If clinical picture has not improved and PCT remains high, reevaluate and consider treatment failure or other causes. Corrina Saab WAVE SOLDER OFFBEARER-MUSEUM DOCENT LAB - CHEMISTRY ORDERABLES [facility] [address] [place] [address] * (ABNORMAL) BASIC METABOLIC PANEL (CALCIUM TOTAL) (11/26/2021 6:13 AM [facility]) Glucose 91 70 - 105 mg/dL 11/26/2021 7:01 AM [facility] Sodium 140 136 - 145 mmol/L 11/26/2021 7:01 AM [facility] Potassium 3.9 3.5 - 5.1 mmol/L 11/26/2021 7:01 AM [facility] Chloride 114(H) 98 - 107 mmol/L 11/26/2021 7:01 AM [facility] CO2 20(L) 23 - 31 mmol/L 11/26/2021 7:01 AM [facility] Calcium 9.0 8.4 - 10.4 mg/dL 11/26/2021 7:01 AM [facility] Anion Gap 6(L) 8 - 18 mmol/L 11/26/2021 7:01 AM [facility] BUN 6(L) 9.8 - 20.1 mg/dL 11/26/2021 7:01 AM [facility] Creatinine 0.57 0.57 - 1.11 mg/dL 11/26/2021 7:01 AM [facility] eGFR by MDRD >60 >60 mL/min/1.7 3m2 11/26/2021 7:01 AM [facility] eGFR by MDRD >60 >60 mL/min/1.7 3m2 11/26/2021 7:01 AM [facility] Blood BLOOD SPECIMEN / Unknown Lab Venipuncture / Unknown 11/26/2021 6:13 AM BEEF SPECIALIST 11/26/2021 6:18 AM [facility] Corrina Saab WAVE SOLDER OFFBEARER-MUSEUM DOCENT LAB - CHEMISTRY ORDERABLES [facility] [address] [place] [address] * XR CHEST 1VW PORTABLE (11/25/2021 12:29 PM BEEF SPECIALIST) Only the most recent of2 resultswithin the time period is included. Anatomical Region Laterality Modality Chest Radiographic Trena ging 11/25/2021 1:22 PM BEEF SPECIALIST Narrative 11/25/2021 1:48 PM BEEF SPECIALIST CHEST AP PORTABLE INDICATION: Shortness of breath [...] CT ABSCESS DRAIN PERCUTANEOUS (11/23/2021 1:38 PM BEEF SPECIALIST) Anatomical Region Laterality Modality Abdomen Computed Tomogra phy Impressions 11/23/2021 3:48 PM BEEF SPECIALIST Drain insertion into a posterior inferior left chest abscess yielding 100 cc of purulent material. *Reading Radiologist: Norman Huerta on 11/23/2021 at 3:48 PM Narrative 11/23/2021 3:48 PM BEEF SPECIALIST Procedure: CT-guided left chest pleural drain insertion. [...] The tract was dilated and a 10 Lithuanian pigtail drain inserted. The pigtail was formed and locked. Approximately 100 cc of purulent material was aspirated and a sample sent for culture. The drain was secured in place. The patient tolerated the procedure well and there are no immediate competitions. Corrina Saab [facility] CT ORDERABLES * (ABNORMAL) CULTURE FLUID+GRAM STAIN (11/23/2021 1:15 PM BEEF SPECIALIST) [facility] Culture Heavy Streptococcus anginosus(AA) SELENA 11/27/2021 9:51 AM [facility] Gram Stain Heavy Polymorphonuclear cells(AA) 11/27/2021 9:51 AM [facility] Gram Stain Light Gram-positive cocci(AA) 11/27/2021 9:51 AM [facility] Fluid PLEURAL FLUID / Unknown Collection / Unknown 11/23/2021 1:15 PM BEEF SPECIALIST 11/23/2021 1:42 PM BEEF SPECIALIST Narrative Organism Antibiotic Method Susceptibility Streptococcus anginosus Ampicillin SELENA <=0.25 ug/mL: Susceptible Streptococcus anginosus Cefotaxime SELENA <=0.12 ug/mL: Susceptible Streptococcus anginosus Ceftriaxone SELENA <=0.12 ug/mL: Susceptible Streptococcus anginosus Levofloxacin SELENA <=0.25 ug/mL: Susceptible Streptococcus anginosus Penicillin G SELENA <=0.06 ug/mL: Susceptible Streptococcus anginosus Tetracycline SELENA <=0.25 ug/mL: Susceptible Corrina Saab [facility] LAB - MICROBIOL OGY ORDERABLES [facility] [address] [place] [address], [facility] [phone] * (ABNORMAL) COMPREHENSIVE METABOLIC PANEL (11/23/2021 10:15 AM BEEF SPECIALIST) Only the most recent of2 resultswithin the time period is included. [facility] Glucose 101 70 - 105 mg/dL 11/23/2021 10:41 AM [facility] Sodium 138 136 - 145 mmol/L 11/23/2021 10:41 AM [facility] Potassium 3.4(L) 3.5 - 5.1 mmol/L 11/23/2021 10:41 AM [facility] Chloride 110(H) 98 - 107 mmol/L 11/23/2021 10:41 AM [facility] CO2 18(L) 23 - 31 mmol/L 11/23/2021 10:41 AM [facility] Calcium 9.0 8.4 - 10.4 mg/dL 11/23/2021 10:41 AM [facility] Anion Gap 10 8 - 18 mmol/L 11/23/2021 10:41 AM [facility] BUN 7(L) 9.8 - 20.1 mg/dL 11/23/2021 10:41 AM [facility] Creatinine 0.59 0.57 - 1.11 mg/dL 11/23/2021 10:41 AM [facility] Alkaline Phosphatase 274(H) 40 - 150 U/L 11/23/2021 10:41 AM [facility] ALT 11 0 - 61 U/L 11/23/2021 10:41 AM [facility] AST 23 5 - 34 U/L 11/23/2021 10:41 AM [facility] Protein Total 5.9(L) 6.4 - 8.3 gm/dL 11/23/2021 10:41 AM [facility] Albumin 2.5(L) 3.2 - 4.6 gm/dL 11/23/2021 10:41 AM [facility] Bilirubin Total 0.3 0.2 - 1.2 mg/dL 11/23/2021 10:41 AM [facility] eGFR by MDRD >60 >60 mL/min/1.7 3m2 11/23/2021 10:41 AM [facility] eGFR by MDRD >60 >60 mL/min/1.7 3m2 11/23/2021 10:41 AM [facility] Blood BLOOD SPECIMEN / Unknown Lab Venipuncture / Unknown 11/23/2021 10:15 AM BEEF SPECIALIST 11/23/2021 10:21 AM BEEF SPECIALIST Corrina CASTRO LAB - CHEMISTRY ORDERABLES Performing Organization Address [facility] Co de Phone Number [facility] [address] [place] [phone] * MRSA DNA PCR (11/22/2021 9:40 PM BEEF SPECIALIST) MRSA DNA by PCR Not detected Not detected 11/23/2021 3:18 AM BEEF SPECIALIST [facility]CRO[facility] Microbiology SPECIMEN FROM NASAL FOSSAE / Unknown Collection / Unknown 11/22/2021 9:40 PM BEEF SPECIALIST 11/22/2021 9:48 PM BEEF SPECIALIST Narrative [facility] - 11/23/2021 3:18 AM BEEF SPECIALIST Methicillin-resistant Staphylococcus aureus (MRSA) DNA is not detected (presumed not colonized with MRSA). Daniele Duke MD LAB - MICROBIOLOGY O RDERABLES Performing Organization Address [facility] Co de Phone Number [facility]CRO[facility] [address] [place], [place] [address] [phone] * (ABNORMAL) PTT (11/22/2021 2:07 PM BEEF SPECIALIST) PTT 47.7(H) 23.0 - 38.4 sec 11/22/2021 3:12 PM BEEF SPECIALIST [facility] Blood BLOOD SPECIMEN / Unknown Lab Venipuncture / Unknown 11/22/2021 2:07 PM BEEF SPECIALIST 11/22/2021 2:13 PM BEEF SPECIALIST Narrative [facility] - 11/22/2021 3:12 PM BEEF SPECIALIST Heparin Therapeutic Range for PTT: 69.0 - 110.0 seconds. Corrina CASTRO LAB - COAGULATI ON ORDERABLES Performing Organization Address [facility] Co de Phone Number [facility] [address] [place] [phone] * (ABNORMAL) PT-INR (11/22/2021 2:07 PM BEEF SPECIALIST) PT 19.6(H) 12.1 - 14.8 sec 11/22/2021 3:09 PM BEEF SPECIALIST [facility] INR 1.7(H) 0.9 - 1.1 11/22/2021 3:09 PM BEEF SPECIALIST [facility] Blood BLOOD SPECIMEN / Unknown Lab Venipuncture / Unknown 11/22/2021 2:07 PM BEEF SPECIALIST 11/22/2021 2:13 PM BEEF SPECIALIST Narrative [facility] - 11/22/2021 3:09 PM BEEF SPECIALIST Conventional Warfarin Anticoagulant Therapy: INR Reference Range: 2.0-3.0 Intensive Warfarin Anticoagulant Therapy: INR Reference Range: 2.5-3.5 Corrina Saab WAVE SOLDER OFFBEARER-MUSEUM DOCENT LAB - COAGULATI ON ORDERABLES [facility] [address] [place] [address] * ECHOCARDIOGRAM 2D WITH DOPPLER (11/22/2021 12:00 PM BEEF SPECIALIST) 11/22/2021 12:0 0 PM BEEF SPECIALIST Narrative Procedure Note Unknown, Provider, - 11/22/[address] [address] Echocardiography Examination Transthoracic Name: RADHA GARCÍA [facility]#: MR#: [id number] Admission Number: [id number] Study Date: 11/22/2021 Study Time: 01:35 PM [...] Routine study Image Quality: Adequate Facility Location: [facility] Indication: Heart murmur Procedure Teaching Young: Jennifer Driscoll RDCS Ordering Provider: Amor Saab [...] PHT 60 ms Mitral Valve MV Dec Esmeralda 3.97 m/s Pulmonic Valve PV PGmax 6 [...] PM Page 4 of 4 Corrina Saab WAVE SOLDER OFFBEARER-MUSEUM DOCENT ECHO ORDERABLES [facility] [address] [place] [address] * CREATININE BLOOD (11/22/2021 1:21 AM BEEF SPECIALIST) Creatinine 0.61 0.57 - 1.11 mg/dL 11/22/2021 1:54 AM BEEF SPECIALIST [facility] eGFR by MDRD >60 >60 mL/min/1.7 3m2 11/22/2021 1:54 AM BEEF SPECIALIST [facility] eGFR by MDRD >60 >60 mL/min/1.7 3m2 11/22/2021 1:54 AM BEEF SPECIALIST [facility] Blood BLOOD SPECIMEN / Unknown Lab Venipuncture / Unknown 11/22/2021 1:21 AM BEEF SPECIALIST 11/22/2021 1:38 AM BEEF SPECIALIST Billie Chavarria MD LAB - CHEMISTRY [facility]ON [facility] Organization Address City/State/ZIP Co de Phone Number [facility] [address] [place] [address] Care Teams Managing Cognitive Engineer Relationship Specialty Start Date End Date Aashish Corrigan DO [address] [place], [place] [phone] PCP - General Family Medicine 01/18/22 Corrina Saab, WAVE SOLDER OFFBEARER-MUSEUM DOCENT [address] [place] [address] Nurse Practitioner Pulmonary Disease 12/14/21
--- OUTSIDE RECORDS SUMMARY | 2024-11-25 09:35 | XMS_ITS | Encounter Summary ---
Author Organization [facility] Address [address] [place] [address] Care Team Providers Care Melting Furnace Skimmer Name Role Phone Alejo Cha Primary Care Provider [phone] Encounter Details Date Type Department Care Team (Late st Contact Info) Description 12/12/2003 Outpatient [facility] Primary Care - [address] [place] [address] Alejo Cha Social History Tobacco Use Types Packs/Day Years Used Date Smoking Tobacco: Never Assessed Comments Unknown Sex and Gender Information Value Date Recorded Sex Assigned at Not on file Legal Sex Female 4:34 AM VICE PRESIDENT SUPPLY CHAIN Gender Identity Not on file Sexual Orientation Not on file documented as of this encounter Plan of Treatment Not on file documented as of this encounter Visit Diagnoses Not on filedocumented in this encounter Care Teams Melting Furnace Skimmer Relationship Specialty Start Date End Date Alejo Cha PCP - General 01/14/04 documented as of this encounter
--- OUTSIDE RECORDS SUMMARY | 2024-11-25 09:35 | XMS_ITS | Referral Summary ---
Author Organization [facility] Medical Office Building B Address [address] [place] [address] Care Team Providers Care Lpn Cma Name Role Phone Sammy Yoon DO Unavailable [phone] Nain Gonzales MD Unavailable [phone] Coleman Keita MD Unavailable [phone] Alejo Chinchilla MD Primary Care Provider [phone] Allergies No known active allergies Medications topiramate [...] 11/02/2018 Assessment & Plan (11/02/2018 11:46 AM LEARNING AND DEVELOPMENT SPECIALIST): Controlled. Last seizure about 9 years ago. Managed by Neurology. Primary osteoarthritis involving multiple joints 11/02/2018 Assessment & Plan (11/02/2018 11:53 AM LEARNING AND DEVELOPMENT SPECIALIST): Chronic. We discussed options. Advised OTC analgesics PRN. Hyperlipidemia 01/15/2018 Assessment & Plan (11/02/2018 11:47 AM LEARNING AND DEVELOPMENT SPECIALIST): I spent 15 minutes counseling her on [...] Synthroid versus adding Cytomel or changing to [place] or pork thyroid - patient willing to [...] taken. Assessment & Plan (11/02/2018 11:48 AM LEARNING AND DEVELOPMENT SPECIALIST): Euthyroid. Continue current regimen. She is managed by Endocrinology. Assessment & Plan (06/29/2018 12:14 PM CDT): Patient's medication was recently readjusted to the Synthroid 137 mcg daily. Migraine without aura and wi thout status migrainosus, not intractable 01/18/2013 Overview (11/02/2018): Assessment & Plan (11/02/2018 11:46 AM LEARNING AND DEVELOPMENT SPECIALIST): Headaches are fair control. Continue current treatment regimen. Managed by Neurology. Current smoker 01/20/2011 Assessment & Plan (11/02/2018 11:46 AM LEARNING AND DEVELOPMENT SPECIALIST): Smoking cessation counseling: We discussed the importance of smoking cessation. Therapeutic options discussed included nicotine replacement therapy, Chantix, Wellbutrin, Acupuncture, Hypnosis, and Behavioral therapy. I spent 4 minutes counseling the patient on smoking cessation Resolved Problems Problem Noted Date Diagnosed Date Resolved Date Thyroid nodule 06/12/2018 11/02/2018 Assessment & Plan (08/27/2018 8:09 AM LEARNING AND DEVELOPMENT SPECIALIST): Patient is status post thyroid isthmusectomy. Final [...] is to follow up with her medical rn access for continued thyroid hormone replacement. Assessment & [...] on file Legal Sex Female 11:49 PM LEARNING AND DEVELOPMENT SPECIALIST Gender Identity Not on file Sexual Orientation Not on file Last Filed Vital Signs Vital Sign Reading Time Taken Comments Blood Pressure 104/68 05/27/2019 9:54 AM CDT Pulse 95 05/27/2019 9:54 AM CDT Temperature 37.4 C (99.4 F) 11/02/2018 11:20 AM LEARNING AND DEVELOPMENT SPECIALIST Respiratory Rate 14 05/27/2019 9:54 AM CDT Oxygen Saturation 98% 12/26/2018 11:37 AM CDT Inhaled Oxygen Concentration - - Weight 61.8 kg (136 lb 3.2 oz) 05/27/2019 9:54 A M CDT Height 165.1 cm (5' 5 ) 05/27/2019 9:54 AM CDT Body Mass Index 22.66 05/27/2019 9:54 AM CDT Plan of Treatment Not on file Insurance MEDICARE [facility] MEDICARE [place] [employer] [facility] Care Teams Lpn Cma Relationship Specialty Start Date End Date Alejo Chinchilla MD [address] [place] [address] [place] [address] PCP - General 10/27/21 Sammy Yoon DO Surgeon Otolaryngology 09/10/18 Nain Gonzales MD [address] [facility] [address] [place] [address] Consulting Physician Endocrinology 09/10/18 Coleman Keita MD [address] [facility] [address] [place] [address] Referring Physician Neurology 11/02/18
--- OUTSIDE RECORDS SUMMARY | 2024-11-25 09:35 | XMS_ITS | Encounter Summary ---
Author Organization [facility] Address [address] [place] [address] Care Team Providers Care Deputy Probation Officer Name Role Phone Alejo Cha Primary Care Provider [phone] Encounter Details Date Type Department Care Team (Late st Contact Info) Description 07/06/2000 Outpatient Historical Division of Neurology [address] [address] Derrick Aguilar MD [address] [place] [address] Social History Tobacco Use Types Packs/Day Years Used Date Smoking Tobacco: Never Assessed Comments Unknown Sex and Gender Information Value Date Recorded Sex Assigned at Not on file Legal Sex Female 4:34 AM SPICE ROOM WORKER Gender Identity Not on file Sexual Orientation Not on file documented as of this encounter Plan of Treatment Not on file documented as of this encounter Visit Diagnoses Not on filedocumented in this encounter Care Teams Deputy Probation Officer Relationship Specialty Start Date End Date Alejo Cha PCP - General 01/14/04 documented as of this encounter
--- OUTSIDE RECORDS SUMMARY | 2024-11-25 09:35 | XMS_ITS | Encounter Summary ---
Author Organization [facility] Address [address] [place] [address] Care Team Providers Care Food Operations Manager Name Role Phone Alejo Cha Primary Care Provider [phone] Encounter Details Date Type Department Care Team (Late st Contact Info) Description 01/17/[address] [facility] Adult Hospitalists [address] [address] [place] Social History Tobacco Use Types Packs/Day Years Used Date Smoking Tobacco: Never Assessed Comments Unknown Sex and Gender Information Value Date Recorded Sex Assigned at Not on file Legal Sex Female 4:34 AM CHIEF PROJECTIONIST Gender Identity Not on file Sexual Orientation Not on file documented as of this encounter Plan of Treatment Not on file documented as of this encounter Visit Diagnoses Not on filedocumented in this encounter Care Teams Food Operations Manager Relationship Specialty Start Date End Date Alejo Cha PCP - General 01/14/04 documented as of this encounter
--- OUTSIDE RECORDS SUMMARY | 2024-11-25 09:35 | XMS_ITS | Encounter Summary ---
Author Organization [facility] Address [address] [place] [address] Care Team Providers Care Elevator Builder Name Role Phone Alejo Cha Primary Care Provider [phone] Encounter Details Date Type Department Care Team (Late st Contact Info) Description 09/30/2003 Outpatient Historical [facility] MRI DEPT AguilarDerrick MD [address] [facility] [address] [place] [address] Social History Tobacco Use Types Packs/Day Years Used Date Smoking Tobacco: Never Assessed Comments Unknown Sex and Gender Information Value Date Recorded Sex Assigned at Not on file Legal Sex Female 4:34 AM PERSONAL INSURANCE ADVISOR Gender Identity Not on file Sexual Orientation Not on file documented as of this encounter Plan of Treatment Not on file documented as of this encounter Visit Diagnoses Not on filedocumented in this encounter Care Teams Elevator Builder Relationship Specialty Start Date End Date Alejo Cha PCP - General 01/14/04 documented as of this encounter
--- OUTSIDE RECORDS SUMMARY | 2024-11-25 09:35 | XMS_ITS | Encounter Summary ---
Author Organization [facility] Address [address] [place] [address] Care Team Providers Care Ccie Name Role Phone Alejo Cha Primary Care Provider [phone] Encounter Details Date Type Department Care Team (Late st Contact Info) Description 06/13/2000 Outpatient Historical [facility] EMERGENCY ROOM [facility] Rodney Graham, DO [address] [place] [address] Er, Authorized P NO ADDRESS ON FILE Abdominal pain, unspecified site (Primary Dx) Social History Tobacco Use Types Packs/Day Years Used Date Smoking Tobacco: Never Assessed Comments Unknown Sex and Gender Information Value Date Recorded Sex Assigned at Not on file Legal Sex Female 4:34 AM ACCOUNT STRATEGIST Gender Identity Not on file Sexual Orientation Not on file documented as of this encounter Plan of Treatment Not on file documented as of this encounter Visit Diagnoses Diagnosis Abdominal pain, unspecified site- Primary documented in this encounter Care Teams Ccie Relationship Specialty Start Date End Date Alejo Cha PCP - General 01/14/04 documented as of this encounter
--- OUTSIDE RECORDS SUMMARY | 2024-11-25 09:35 | XMS_ITS | Encounter Summary ---
Author Organization [facility] Address [address] [place] [address] Care Team Providers Care Salesperson Meats Name Role Phone Alejo Cha Primary Care Provider [phone] Encounter Details Date Type Department Care Team (Late st Contact Info) Description 02/03/2003 Outpatient Historical Division of Neurology [address] [address] Derrick Aguilar MD [address] [place] [address] Social History Tobacco Use Types Packs/Day Years Used Date Smoking Tobacco: Never Assessed Comments Unknown Sex and Gender Information Value Date Recorded Sex Assigned at Not on file Legal Sex Female 4:34 AM GARDEN CONSULTANT Gender Identity Not on file Sexual Orientation Not on file documented as of this encounter Plan of Treatment Not on file documented as of this encounter Visit Diagnoses Not on filedocumented in this encounter Care Teams Salesperson Meats Relationship Specialty Start Date End Date Alejo Cha PCP - General 01/14/04 documented as of this encounter
--- OUTSIDE RECORDS SUMMARY | 2024-11-25 09:35 | XMS_ITS | Encounter Summary ---
Author Organization [facility] Address [address] [place] [address] Care Team Providers Care Dry Curer Name Role Phone Alejo Cha Primary Care [...] on file Legal Sex Female 4:34 AM E M ASSEMBLER Gender Identity Not on file Sexual Orientation Not on file documented as of this encounter Plan of Treatment Not on file documented as of this encounter Visit Diagnoses Diagnosis Migraine without aura, with intractable migraine, so stated, without mention of status migrainosus- Primary documented in this encounter Care Teams Dry Curer Relationship Specialty Start Date End Date Alejo Cha PCP - General 01/14/04 documented as of this encounter
--- OUTSIDE RECORDS SUMMARY | 2024-11-25 09:35 | XMS_ITS | Encounter Summary ---
Author Organization [facility] Address [address] [place] [address] Care Team Providers Care Crotch Breaker Name Role Phone Alejo Cha Primary Care Provider [phone] Encounter Details Date Type Department Care Team (Latest Contact Info) Description 07/06/2000 Outpatient Historical HIS [facility] Derrick Bishop MD [address] [facility] [address] [place] [address] Encounter for long-term (current) use of other medications (Primary Dx) Social History Tobacco Use Types Packs/Day Years Used Date Smoking Tobacco: Never Assessed Comments Unknown Sex and Gender Information Value Date Recorded Sex Assigned at Not on file Legal Sex Female 4:34 AM PHOTOGRAMMETRY AIRPLANE PILOT Gender Identity Not on file Sexual Orientation Not on file documented as of this encounter Plan of Treatment Not on file documented as of this encounter Visit Diagnoses Diagnosis Encounter for long-term (current) use of other medications- Primary documented in this encounter Care Teams Crotch Breaker Relationship Specialty Start Date End Date Alejo Cha PCP - General 01/14/04 documented as of this encounter
--- OUTSIDE RECORDS SUMMARY | 2024-11-25 09:35 | XMS_ITS | Encounter Summary ---
Author Organization [facility] Address [address] [place] [address] Care Team Providers Care Manager Reading Name Role Phone Alejo Cha Primary Care Provider [phone] Encounter Details Date Type Department Care Team (Late st Contact Info) Description 12/31/2003 Outpatient [facility] Primary Care - [address] [place] [address] Alejo Cha Social History Tobacco Use Types Packs/Day Years Used Date Smoking Tobacco: Never Assessed Comments Unknown Sex and Gender Information Value Date Recorded Sex Assigned at Not on file Legal Sex Female 4:34 AM COLLECTIONS TECHNICIAN Gender Identity Not on file Sexual Orientation Not on file documented as of this encounter Plan of Treatment Not on file documented as of this encounter Visit Diagnoses Not on filedocumented in this encounter Care Teams Manager Reading Relationship Specialty Start Date End Date Alejo Cha PCP - General 01/14/04 documented as of this encounter
--- OUTSIDE RECORDS SUMMARY | 2024-11-25 09:35 | XMS_ITS | Encounter Summary ---
Author Organization [facility] Address 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
--- OUTSIDE RECORDS SUMMARY | 2024-11-25 09:35 | XMS_ITS | Encounter Summary ---
Author Organization [facility] Address [facility] [place] [address] Care Team Providers Care Distribution A Class Lineman Name Role Phone Gaetano Llanes DO Primary Care Provider + Encounter Details Date Type Department Care Team (Late st Contact Info) Description 10/26/[address] 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
--- OUTSIDE RECORDS SUMMARY | 2024-11-25 09:35 | XMS_ITS | Encounter Summary ---
Author Organization [facility] Address [address] [place] [address] Care Team Providers Care Market Research Specialist Name Role Phone Alejo Cha Primary Care Provider [phone] Encounter Details Date Type Department Care Team (Late st Contact Info) Description 08/26/2003 Outpatient Historical Division of Neurology 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
--- OUTSIDE RECORDS SUMMARY | 2024-11-25 09:35 | XMS_ITS | Referral Summary ---
Author Organization [facility] Address [address] [place] [place] [address] Care Team Providers Care Boiling House Oiler Name Role Phone KaiesrCorrina Selena HASHER MACHINE OPERATOR-REGIONAL OTR COMPANY DRIVER Unavailable [phone] Aashish Corrigan DO Primary Care Provider [phone] Source Comments [facility],non-owned Affiliates and Associated Physician Practices is amultiple site organization consisting of ambulatory clinics and hospital sitesin [place], [place], [place]. This disclosure is being madepursuant to the Care Everywhere program and may not contain all information available regarding this patient. Last updated 18.[facility] [employer] Allergies No known active allergies Medications * [...] 10 mg by mouth once daily Active gam-xmvx-[id number] -codeine (FIORINAL WITH CODEINE) [id number] MG capsule Take 1 capsule by mouth [...] 12:06 AM 11/27/2021 1:24 PM Care Teams Boiling House Oiler Relationship Specialty Start Date End Date Aashish Corrigan DO [address] [place] [address] PCP - General Family Medicine 01/18/22 Corrina Saab, HASHER MACHINE OPERATOR-REGIONAL OTR COMPANY DRIVER [address] [place] [id number] Nurse Practitioner Pulmonary Disease 12/14/21
--- OUTSIDE RECORDS SUMMARY | 2024-11-25 09:35 | XMS_ITS | Clinical Summary ---
Author Organization [facility] Medical Office Building B Address [address] [place] [address] Care Team Providers Care Tight Rope Walker Name Role Phone Sammy Yoon DO Unavailable [phone] Nain Gonzales MD Unavailable [phone] Coleman Keita MD Unavailable [phone] Alejo Chinchilla MD Primary Care Provider [phone] Allergies No known active allergies Medications topiramate [...] 11/02/2018 Assessment & Plan (11/02/2018 11:46 AM RAILWAY TRACK WORKER): Controlled. Last seizure about 9 years ago. Managed by Neurology. Primary osteoarthritis involving multiple joints 11/02/2018 Assessment & Plan (11/02/2018 11:53 AM RAILWAY TRACK WORKER): Chronic. We discussed options. Advised OTC analgesics PRN. Hyperlipidemia 01/15/2018 Assessment & Plan (11/02/2018 11:47 AM RAILWAY TRACK WORKER): I spent 15 minutes counseling her on [...] Synthroid versus adding Cytomel or changing to [place] or pork thyroid - patient willing to [...] taken. Assessment & Plan (11/02/2018 11:48 AM RAILWAY TRACK WORKER): Euthyroid. Continue current regimen. She is managed by Endocrinology. Assessment & Plan (06/29/2018 12:14 PM CDT): Patient's medication was recently readjusted to the Synthroid 137 mcg daily. Migraine without aura and wi thout status migrainosus, not intractable 01/18/2013 Overview (11/02/2018): Assessment & Plan (11/02/2018 11:46 AM RAILWAY TRACK WORKER): Headaches are fair control. Continue current treatment regimen. Managed by Neurology. Current smoker 01/20/2011 Assessment & Plan (11/02/2018 11:46 AM RAILWAY TRACK WORKER): Smoking cessation counseling: We discussed the importance of smoking cessation. Therapeutic options discussed included nicotine replacement therapy, Chantix, Wellbutrin, Acupuncture, Hypnosis, and Behavioral therapy. I spent 4 minutes counseling the patient on smoking cessation Resolved Problems Problem Noted Date Diagnosed Date Resolved Date Thyroid nodule 06/12/2018 11/02/2018 Assessment & Plan (08/27/2018 8:09 AM RAILWAY TRACK WORKER): Patient is status post thyroid isthmusectomy. Final [...] is to follow up with her medical plumbing assembler installer for continued thyroid hormone replacement. Assessment & [...] on file Legal Sex Female 11:49 PM RAILWAY TRACK WORKER Gender Identity Not on file Sexual Orientation Not on file Obstetrics History Last Filed Vital Signs Vital Sign Reading Time Taken Comments Blood Pressure 104/68 05/27/2019 9:54 AM CDT Pulse 95 05/27/2019 9:54 AM CDT Temperature 37.4 C (99.4 F) 11/02/2018 11:20 AM RAILWAY TRACK WORKER Respiratory Rate 14 05/27/2019 9:54 AM CDT Oxygen Saturation 98% 12/26/2018 11:37 AM CDT Inhaled Oxygen Concentration - - Weight 61.8 kg (136 lb 3.2 oz) 05/27/2019 9:54 A M CDT Height 165.1 cm (5' 5 ) 05/27/2019 9:54 AM CDT Body Mass Index 22.66 05/27/2019 9:54 AM CDT Plan of Treatment Not on file Insurance MEDICARE BLUE ACCESS CHOICE [place] MEDICARE BLUE ACCESS CHOICE [place] BLUE ACCESS [place] MEDICARE [facility] Care Teams Tight Rope Walker Relationship Specialty Start Date End Date Alejo Chinchilla MD [address] [facility] [address] [place] [address] PCP - General 10/27/21 Sammy Yoon DO Surgeon Otolaryngology 09/10/18 Nain Gonzales MD [address] [facility] [address] [place] [address] Consulting Physician Endocrinology 09/10/18 Coleman Keita MD [address] [facility] [address] [place] [address] Referring Physician Neurology 11/02/18
== END 2024-11-25 09:00 | disposition home or self-care (01) ==
LOC: ANHIMG 09:00
PROVIDERS: PCP Nurse Practitioner Family; Visit Provider Nurse Practitioner Family
DX: R93.41 Abnormal radiologic findings on diagnostic imaging of renal pelvis, ureter, or bladder (principal); N20.0 Calculus of kidney
CPT/HCPCS: 74178; Q9967

== ENCOUNTER 2024-11-26 14:43 | Outpatient (CLI) | payer MEDICARE, SELFPAY ==
--- NOTE | 2024-11-26 14:46 | ECHO_ITS ---
Patient Info Name: Radha Hazel Age: 69 years : 1955 Gender: Female Ht: 65 in Wt: 110 lbs BSA: 1.50 m2 HR: 76 bpm BP: 117 / 70 mmHg Technical Quality: Fair Exam Date: 11/26/2024 2:47 PM Exam Location: Echo Lab Patient Status: Outpatient Admit Date: 11/26/2024 Staff Ordering Physician: Nathan Fuller APRN Outsole Handler: DEIRDRE Attending Provider: Nathan Fuller APRN Exam Type: CA echo doppler color flow Study Info Indications - Murmur Complete two-dimensional, color flow and Doppler transthoracic echocardiogram is performed. History/Risk Factors Tobacco Use: Current - Frequency Unknown Summary 1. Complete two-dimensional, color flow and Doppler transthoracic echocardiogram is performed. 2. Left ventricular chamber dimension is normal. 3. Left ventricular systolic function is normal, estimated at 60-65%. 4. The left ventricular diastolic function is grade I diastolic dysfunction. 5. E/e' 9 is minimally elevated. 6. The aortic valve is not well visualized. Cannot determine number of aortic valve leaflets. 7. There is moderate to severe aortic valve stenosis based on a peak velocity of 281 cm/s, mean gradient of 20 mmHg, and aortic valve area of 1.0 cm2. 8. There is severe aortic valve sclerosis. 9. There is trace tricuspid valve regurgitation. 10. No pulmonary hypertension, estimated pulmonary arterial systolic pressure is 22 mmHg. Recommendations * Smoking cessation counseling is recommended for this patient. Left Ventricle E/e' 9 is minimally elevated. Left ventricular chamber dimension is normal. Left ventricular systolic function is normal, estimated at 60-65%. The left ventricular diastolic function is grade I diastolic dysfunction. Right Ventricle Right ventricular chamber dimension is normal. Right ventricular systolic function is normal. Left Atria Left atrial chamber dimension is normal. Right Atria Right atrial chamber dimension is normal. Aortic Valve The aortic valve is not well visualized. Cannot determine number of aortic valve leaflets. There is moderate to severe aortic valve stenosis based on a peak velocity of 281 cm/s, mean gradient of 20 mmHg, and aortic valve area of 1.0 cm2. There is severe aortic valve sclerosis. There is no aortic valve regurgitation. Pulmonic Valve There is no pulmonic regurgitation. Mitral Valve There is no mitral valve stenosis. There is no mitral valve regurgitation. Tricuspid Valve There is trace tricuspid valve regurgitation. No pulmonary hypertension, estimated pulmonary arterial systolic pressure is 22 mmHg. Pericardium/Pleural There is no pericardial effusion. Inferior Vena Cava Normal inferior vena cava with >50% collapse upon inspiration consistent with normal right atrial pressure, 5 mmHg. Aorta The aortic root size at the sinus of Valsalva is normal. Left Ventricular Outflow Tract Name Value Normal LVOT 2D LVOT Diameter 2.0 cm LVOT Doppler LVOT Peak Velocity 84 cm/s LVOT Peak Gradient 3 mmHg LVOT Mean Gradient 2 mmHg LVOT VTI 18 cm LVOT VTI/AV VTI Ratio 0.3 LVOT Stroke Volume 57 ml Mitral Valve Name Value Normal MV Doppler MV Decel Bowie 494 cm/s2 MV PHT 41 ms MV Area (PHT) 5.3 cm2 4.0-5.0 MV Regurgitation Doppler MR Peak Gradient 134 mmHg MV Diastolic Function MV E Peak Velocity 70 cm/s MV A Peak Velocity 115 cm/s MV E/A 0.6 MV Decel Time 142 ms Tricuspid Valve Name Value Normal TV Regurgitation Doppler TR Peak Velocity 206 cm/s TR Peak Gradient 17 mmHg Estimated PAP/RSVP RA Pressure 5 mmHg <=5 PA Systolic Pressure 22 mmHg <36 RV Systolic Pressure 22 mmHg <36 Aortic Valve Name Value Normal AV Doppler AV Peak Velocity 281 cm/s AV Peak Gradient 32 mmHg AV Mean Gradient 20 mmHg AV VTI 55 cm AV Area (Cont Eq VTI) 1.0 cm2 >=3.0 AV Area (Cont Eq Daniel) 0.9 cm2 AV V1/V2 Ratio 0.30 AV Regurgitation 2D LVOT Area 3.1 cm2 Ventricles Name Value Normal LV Dimensions 2D/MM LVOT Diameter 2.0 cm LV Fractional Shortening/Ejection Fraction 2D/MM LV Diastolic Volume (4C MOD) 77 ml LV EF (4C MOD) 69 % LV Diastolic Length (4C) 8.2 cm LV Systolic Length (4C) 7.0 cm LV Stroke Volume (4C MOD) 53 ml Atria Name Value Normal RA Dimensions RA Area (4C) 9.4 cm2 <=18.0 Report Signatures
--- OUTSIDE RECORDS SUMMARY | 2024-11-26 17:09 | XMS_ITS | Encounter Summary ---
Author Organization [facility] Address [address] [place] [address] Care Team Providers Care Car Sales Consultant Name Role Phone Alejo Cha Primary Care Provider Encounter Details Date Type Department Care Team (Late st Contact Info) Description 05/12/2000 Outpatient Historical [facility] Internal Medicine [facility] [address] 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
--- OUTSIDE RECORDS SUMMARY | 2024-11-26 17:09 | XMS_ITS | Encounter Summary ---
Author Organization [id number] Address [address] [place] [address] Care Team Providers Care Dry House Wheeler Name Role Phone Alejo Cha Primary Care Provider [phone] Encounter Details Date Type Department Care Team (Late st Contact Info) Description 08/26/2003 Outpatient Historical Division of Neurology [address] [address] Derrick Aguilar MD [address] [place] [address] Social History Tobacco Use Types Packs/Day Years Used Date Smoking Tobacco: Never Assessed Comments Unknown Sex and Gender Information Value Date Recorded Sex Assigned at Not on file Legal Sex Female 4:34 AM PER ASSESSMENT NURSE Gender Identity Not on file Sexual Orientation Not on file documented as of this encounter Plan of Treatment Not on file documented as of this encounter Visit Diagnoses Not on filedocumented in this encounter Care Teams Dry House Wheeler Relationship Specialty Start Date End Date Alejo Cha PCP - General 01/14/04 documented as of this encounter
--- OUTSIDE RECORDS SUMMARY | 2024-11-26 17:09 | XMS_ITS | Clinical Summary ---
Author Organization [facility] Address [address] [place] [address] Care Team Providers Care Cost Accountant Name Role Phone Sammy Yoon DO Unavailable [phone] Nain Gonzales MD Unavailable [phone] Coleman Keita MD Unavailable [phone] Alejo Chinchilla MD Primary Care Provider [phone] Allergies No known active allergies Medications topiramate [...] 11/02/2018 Assessment & Plan (11/02/2018 11:46 AM BRICK HANDLER): Controlled. Last seizure about 9 years ago. Managed by Neurology. Primary osteoarthritis involving multiple joints 11/02/2018 Assessment & Plan (11/02/2018 11:53 AM BRICK HANDLER): Chronic. We discussed options. Advised OTC analgesics PRN. Hyperlipidemia 01/15/2018 Assessment & Plan (11/02/2018 11:47 AM BRICK HANDLER): I spent 15 minutes counseling her on [...] Synthroid versus adding Cytomel or changing to [place] or pork thyroid - patient willing to [...] taken. Assessment & Plan (11/02/2018 11:48 AM BRICK HANDLER): Euthyroid. Continue current regimen. She is managed by Endocrinology. Assessment & Plan (06/29/2018 12:14 PM CDT): Patient's medication was recently readjusted to the Synthroid 137 mcg daily. Migraine without aura and wi thout status migrainosus, not intractable 01/18/2013 Overview (11/02/2018): Assessment & Plan (11/02/2018 11:46 AM BRICK HANDLER): Headaches are fair control. Continue current treatment regimen. Managed by Neurology. Current smoker 01/20/2011 Assessment & Plan (11/02/2018 11:46 AM BRICK HANDLER): Smoking cessation counseling: We discussed the importance of smoking cessation. Therapeutic options discussed included nicotine replacement therapy, Chantix, Wellbutrin, Acupuncture, Hypnosis, and Behavioral therapy. I spent 4 minutes counseling the patient on smoking cessation Resolved Problems Problem Noted Date Diagnosed Date Resolved Date Thyroid nodule 06/12/2018 11/02/2018 Assessment & Plan (08/27/2018 8:09 AM BRICK HANDLER): Patient is status post thyroid isthmusectomy. Final [...] is to follow up with her medical home health specialist for continued thyroid hormone replacement. Assessment & [...] on file Legal Sex Female 11:49 PM BRICK HANDLER Gender Identity Not on file Sexual Orientation Not on file Obstetrics History Last Filed Vital Signs Vital Sign Reading Time Taken Comments Blood Pressure 104/68 05/27/2019 9:54 AM CDT Pulse 95 05/27/2019 9:54 AM CDT Temperature 37.4 C (99.4 F) 11/02/2018 11:20 AM BRICK HANDLER Respiratory Rate 14 05/27/2019 9:54 AM CDT Oxygen Saturation 98% 12/26/2018 11:37 AM CDT Inhaled Oxygen Concentration - - Weight 61.8 kg (136 lb 3.2 oz) 05/27/2019 9:54 A M CDT Height 165.1 cm (5' 5 ) 05/27/2019 9:54 AM CDT Body Mass Index 22.66 05/27/2019 9:54 AM CDT Plan of Treatment Not on file Insurance MEDICARE BLUE ACCESS CHOICE [place] MEDICARE BLUE ACCESS CHOICE [place] BLUE ACCESS AL MEDICARE [facility] Care Teams Cost Accountant Relationship Specialty Start Date End Date Alejo Chinchilla MD [address] [facility] [facility] [address] [place] [address] PCP - General 10/27/21 Sammy Yoon DO Surgeon Otolaryngology 09/10/18 Nain Gonzales MD [address] [facility] [address] [place] [address] Consulting Physician Endocrinology 09/10/18 Coleman Keita MD [address] [facility] [address] [place] [address] Referring Physician Neurology 11/02/18
--- OUTSIDE RECORDS SUMMARY | 2024-11-26 17:09 | XMS_ITS | Encounter Summary ---
Author Organization [facility] Address [address] [place] [address] Care Team Providers Care Bakery Associate Name Role Phone Alejo Cha Primary Care Provider [phone] Encounter Details Date Type Department Care Team (Late st Contact Info) Description 07/06/2000 Outpatient Historical Division of Neurology [address] [address] Derrick Aguilar MD [address] [place] [address] Social History Tobacco Use Types Packs/Day Years Used Date Smoking Tobacco: Never Assessed Comments Unknown Sex and Gender Information Value Date Recorded Sex Assigned at Not on file Legal Sex Female 4:34 AM PAINTER DRUM Gender Identity Not on file Sexual Orientation Not on file documented as of this encounter Plan of Treatment Not on file documented as of this encounter Visit Diagnoses Not on filedocumented in this encounter Care Teams Bakery Associate Relationship Specialty Start Date End Date Alejo Cha PCP - General 01/14/04 documented as of this encounter
--- OUTSIDE RECORDS SUMMARY | 2024-11-26 17:09 | XMS_ITS | Encounter Summary ---
Author Organization [facility] Address [address] [place] [address] Care Team Providers Care Special Equipment Technician Name Role Phone Alejo Cha Primary Care Provider [phone] Encounter Details Date Type Department Care Team (Late st Contact Info) Description 09/30/2003 Outpatient Historical [facility] AguilarDerrick MD [address] [facility] [address] [place] [address] Social History Tobacco Use Types Packs/Day Years Used Date Smoking Tobacco: Never Assessed Comments Unknown Sex and Gender Information Value Date Recorded Sex Assigned at Not on file Legal Sex Female 4:34 AM OFFICE ASSOCIATE Gender Identity Not on file Sexual Orientation Not on file documented as of this encounter Plan of Treatment Not on file documented as of this encounter Visit Diagnoses Not on filedocumented in this encounter Care Teams Special Equipment Technician Relationship Specialty Start Date End Date Alejo Cha PCP - General 01/14/04 documented as of this encounter
--- OUTSIDE RECORDS SUMMARY | 2024-11-26 17:09 | XMS_ITS | Encounter Summary ---
Author Organization [facility] Address [address] [place] [address] Care Team Providers Care Brick Handler Name Role Phone Alejo Cha Primary Care Provider [phone] Encounter Details Date Type Department Care Team (Late st Contact Info) Description 12/12/[address] 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
--- OUTSIDE RECORDS SUMMARY | 2024-11-26 17:09 | XMS_ITS | Referral Summary ---
Author Organization [facility] Address [address] [place] [address] Care Team Providers Care Organizational Psychologist Name Role Phone Sammy Yoon DO Unavailable [phone] Nain Gonzales MD Unavailable [phone] Coleman Keita MD Unavailable [phone] Alejo Chinchilla MD Primary Care Provider [phone] Allergies No known active allergies Medications topiramate [...] 11/02/2018 Assessment & Plan (11/02/2018 11:46 AM SENIOR QUALITY CONTROL TECHNICIAN): Controlled. Last seizure about 9 years ago. Managed by Neurology. Primary osteoarthritis involving multiple joints 11/02/2018 Assessment & Plan (11/02/2018 11:53 AM SENIOR QUALITY CONTROL TECHNICIAN): Chronic. We discussed options. Advised OTC analgesics PRN. Hyperlipidemia 01/15/2018 Assessment & Plan (11/02/2018 11:47 AM SENIOR QUALITY CONTROL TECHNICIAN): I spent 15 minutes counseling her on [...] Synthroid versus adding Cytomel or changing to [place] or pork thyroid - patient willing to [...] taken. Assessment & Plan (11/02/2018 11:48 AM SENIOR QUALITY CONTROL TECHNICIAN): Euthyroid. Continue current regimen. She is managed by Endocrinology. Assessment & Plan (06/29/2018 12:14 PM CDT): Patient's medication was recently readjusted to the Synthroid 137 mcg daily. Migraine without aura and wi thout status migrainosus, not intractable 01/18/2013 Overview (11/02/2018): Assessment & Plan (11/02/2018 11:46 AM SENIOR QUALITY CONTROL TECHNICIAN): Headaches are fair control. Continue current treatment regimen. Managed by Neurology. Current smoker 01/20/2011 Assessment & Plan (11/02/2018 11:46 AM SENIOR QUALITY CONTROL TECHNICIAN): Smoking cessation counseling: We discussed the importance of smoking cessation. Therapeutic options discussed included nicotine replacement therapy, Chantix, Wellbutrin, Acupuncture, Hypnosis, and Behavioral therapy. I spent 4 minutes counseling the patient on smoking cessation Resolved Problems Problem Noted Date Diagnosed Date Resolved Date Thyroid nodule 06/12/2018 11/02/2018 Assessment & Plan (08/27/2018 8:09 AM SENIOR QUALITY CONTROL TECHNICIAN): Patient is status post thyroid isthmusectomy. Final [...] is to follow up with her medical drafter tool design for continued thyroid hormone replacement. Assessment & [...] on file Legal Sex Female 11:49 PM SENIOR QUALITY CONTROL TECHNICIAN Gender Identity Not on file Sexual Orientation Not on file Last Filed Vital Signs Vital Sign Reading Time Taken Comments Blood Pressure 104/68 05/27/2019 9:54 AM CDT Pulse 95 05/27/2019 9:54 AM CDT Temperature 37.4 C (99.4 F) 11/02/2018 11:20 AM SENIOR QUALITY CONTROL TECHNICIAN Respiratory Rate 14 05/27/2019 9:54 AM CDT Oxygen Saturation 98% 12/26/2018 11:37 AM CDT Inhaled Oxygen Concentration - - Weight 61.8 kg (136 lb 3.2 oz) 05/27/2019 9:54 A M CDT Height 165.1 cm (5' 5 ) 05/27/2019 9:54 AM CDT Body Mass Index 22.66 05/27/2019 9:54 AM CDT Plan of Treatment Not on file Insurance MEDICARE [facility] MEDICARE [place] [facility] [facility] Care Teams Organizational Psychologist Relationship Specialty Start Date End Date Alejo Chinchilla MD [address] [place] [address] [place] [address] PCP - General 10/27/21 Sammy Yoon DO Surgeon Otolaryngology 09/10/18 Nain Gonzales MD [address] [facility] [address] [place] [address] Consulting Physician Endocrinology 09/10/18 Coleman Keita MD [address] [facility] [address] [place] [address] Referring Physician Neurology 11/02/18
--- OUTSIDE RECORDS SUMMARY | 2024-11-26 17:09 | XMS_ITS | Patient Health Summary ---
Author Organization [facility] Address [address] [place] [address] Care Team Providers Care Colorist Photography Name Role Phone KaiserCorrina Selena HODGES-MATHEMATICS IMPROVEMENT TEACHER Unavailable [phone] Aashish Corrigan DO Primary Care Provider [phone] Note from [facility],non-owned Affiliates and Associated Physician Practices is amultiple site organization consisting of ambulatory clinics and hospital sitesin [place], [place], [place] and [place]. This disclosure is being madepursuant to the Care Everywhere program and may not contain all information available regarding this patient. Last updated 18.[facility] Allergies No known active allergies [...] 10 mg by mouth once daily * ptv-hxwx-aetsyvsguq-codeine (FIORINAL WITH CODEINE) [id number] MG capsule Take 1 capsule by mouth [...] on 01/18/2022 at 1:13 PM Corrina Saab APRN-[facility] DIAGNOSTIC IMAG ING ORDERABLES * C-REACTIVE PROTEIN (CRP) (12/14/2021 3:29 PM CDT) Only the most recent of4 resultswithin the time period is included. Pathologist [facility] [place] C-Reactive Protein <0.20 <=0.50 mg/dL [facility] ACCOUNT BILL Blood BLOOD SPECIMEN / Unknown 12/14/2021 3:29 PM CDT 12/14/2021 Narrative Resulting Agency Comment Lab Testing performed at: [address] [phone] Corrina Saab APRN-[facility] LAB - CHEMISTRY ORDERABLES [facility] ACCOUNT BILL [address] [place] [address] * (ABNORMAL) CBC WITH DIFFERENTIAL (12/14/2021 3:29 PM CDT) Only the most recent of4 resultswithin the time period is included. Pathologist [facility] [place] WBC 4.5 4.4 - 10.7 x10E9/L [facility] [...] x10E9/L [facility] ACCOUNT BILL Comment:MPV FL BLOOD ([facility]) 1 1.2 fl 9.4-12.9 Granulocytes % 68.9 [...] Resulting Agency Comment Lab Testing performed at: [address] [phone] Corrina Saab CASHIER CHECKER-MATHEMATICS IMPROVEMENT TEACHER LAB - HEMATOLOG Y ORDERABLES [facility] ACCOUNT [place] [place] [address] * CT CHEST W CONTRAST (11/26/2021 3:17 PM LINING CEMENTER) Anatomical Region Laterality Modality Chest Computed Tomogra phy 11/26/2021 3:51 PM LINING CEMENTER Impressions 11/26/2021 3:53 PM LINING CEMENTER Resolution of the fluid collection within the posterior left hemithorax following percutaneous drainage. Trace residual fluid at the costophrenic angle. Persistent left lower lobe consolidation and minimal infiltrate right middle lobe and right lung base. *Reading Radiologist: Norman Huerta on 11/26/2021 at 3:53 PM Narrative 11/26/2021 3:[address] Chest With Contrast INDICATION: Pyothorax without [...] * (ABNORMAL) PROCALCITONIN LEVEL (11/26/2021 6:13 AM LINING CEMENTER) Only the most recent of3 resultswithin the time period is included. Procalcitonin 0.14(H) <0.10 ng/mL 11/26/2021 7:01 AM LINING CEMENTER [facility] Blood BLOOD SPECIMEN / Unknown Lab Venipuncture / Unknown 11/26/2021 6:13 AM LINING CEMENTER 11/26/2021 6:18 AM LINING CEMENTER Narrative [facility] - 11/26/2021 7:01 AM LINING CEMENTER The change in procalcitonin (PCT) concentration over [...] Change in Procalcitonin Calculator is available at [email or web address] If clinical picture has not improved and PCT remains high, reevaluate and consider treatment failure or other causes. Corrina Saab CASHIER CHECKER-MATHEMATICS IMPROVEMENT TEACHER LAB - CHEMISTRY ORDERABLES [facility] [address] [address] * (ABNORMAL) BASIC METABOLIC PANEL (CALCIUM TOTAL) (11/26/2021 6:13 AM [facility]) Glucose 91 70 - 105 mg/dL 11/26/2021 7:01 AM [facility] Sodium 140 136 - 145 mmol/L 11/26/2021 7:01 AM [facility] Potassium 3.9 3.5 - 5.1 mmol/L 11/26/2021 7:01 AM [facility] Chloride 114(H) 98 - 107 mmol/L 11/26/2021 7:01 AM [facility] CO2 20(L) 23 - 31 mmol/L 11/26/2021 7:01 AM [facility] Calcium 9.0 8.4 - 10.4 mg/dL 11/26/2021 7:01 AM [facility] Anion Gap 6(L) 8 - 18 mmol/L 11/26/2021 7:01 AM [facility] BUN 6(L) 9.8 - 20.1 mg/dL 11/26/2021 7:01 AM [facility] Creatinine 0.57 0.57 - 1.11 mg/dL 11/26/2021 7:01 AM [facility] eGFR by MDRD >60 >60 mL/min/1.7 3m2 11/26/2021 7:01 AM [facility] eGFR by MDRD >60 >60 mL/min/1.7 3m2 11/26/2021 7:01 AM [facility] Blood BLOOD SPECIMEN / Unknown Lab Venipuncture / Unknown 11/26/2021 6:13 AM LINING CEMENTER 11/26/2021 6:18 AM [facility] Corrina Saab CASHIER CHECKER-MATHEMATICS IMPROVEMENT TEACHER LAB - CHEMISTRY ORDERABLES [facility] [address] [address] * XR CHEST 1VW PORTABLE (11/25/2021 12:29 PM LINING CEMENTER) Only the most recent of2 resultswithin the time period is included. Anatomical Region Laterality Modality Chest Radiographic Trena ging 11/25/2021 1:22 PM LINING CEMENTER Narrative 11/25/2021 1:48 PM LINING CEMENTER CHEST AP PORTABLE INDICATION: Shortness of breath [...] CT ABSCESS DRAIN PERCUTANEOUS (11/23/2021 1:38 PM LINING CEMENTER) Anatomical Region Laterality Modality Abdomen Computed Tomogra phy Impressions 11/23/2021 3:48 PM LINING CEMENTER Drain insertion into a posterior inferior left chest abscess yielding 100 cc of purulent material. *Reading Radiologist: Norman Huerta on 11/23/2021 at 3:48 PM Narrative 11/23/2021 3:48 PM LINING CEMENTER Procedure: CT-guided left chest pleural drain insertion. [...] The tract was dilated and a 10 Ghanaian pigtail drain inserted. The pigtail was formed and locked. Approximately 100 cc of purulent material was aspirated and a sample sent for culture. The drain was secured in place. The patient tolerated the procedure well and there are no immediate competitions. Corrina Saab [facility] CT ORDERABLES * (ABNORMAL) CULTURE FLUID+GRAM STAIN (11/23/2021 1:15 PM LINING CEMENTER) [facility] Culture Heavy Streptococcus anginosus(AA) SELENA 11/27/2021 9:51 AM [facility] Gram Stain Heavy Polymorphonuclear cells(AA) 11/27/2021 9:51 AM [facility] Gram Stain Light Gram-positive cocci(AA) 11/27/2021 9:51 AM [facility] Fluid PLEURAL FLUID / Unknown Collection / Unknown 11/23/2021 1:15 PM LINING CEMENTER 11/23/2021 1:42 PM LINING CEMENTER Narrative Organism Antibiotic Method Susceptibility Streptococcus anginosus Ampicillin SELENA <=0.25 ug/mL: Susceptible Streptococcus anginosus Cefotaxime SELENA <=0.12 ug/mL: Susceptible Streptococcus anginosus Ceftriaxone SELENA <=0.12 ug/mL: Susceptible Streptococcus anginosus Levofloxacin SELENA <=0.25 ug/mL: Susceptible Streptococcus anginosus Penicillin G SELENA <=0.06 ug/mL: Susceptible Streptococcus anginosus Tetracycline SELENA <=0.25 ug/mL: Susceptible Corrina Saab [facility] LAB - MICROBIOL OGY ORDERABLES [facility] [address] [place] [address], [facility] [phone] * (ABNORMAL) COMPREHENSIVE METABOLIC PANEL (11/23/2021 10:15 AM LINING CEMENTER) Only the most recent of2 resultswithin the time period is included. [facility] Glucose 101 70 - 105 mg/dL 11/23/2021 10:41 AM [facility] Sodium 138 136 - 145 mmol/L 11/23/2021 10:41 AM [facility] Potassium 3.4(L) 3.5 - 5.1 mmol/L 11/23/2021 10:41 AM [facility] Chloride 110(H) 98 - 107 mmol/L 11/23/2021 10:41 AM [facility] CO2 18(L) 23 - 31 mmol/L 11/23/2021 10:41 AM [facility] Calcium 9.0 8.4 - 10.4 mg/dL 11/23/2021 10:41 AM [facility] Anion Gap 10 8 - 18 mmol/L 11/23/2021 10:41 AM [facility] BUN 7(L) 9.8 - 20.1 mg/dL 11/23/2021 10:41 AM [facility] Creatinine 0.59 0.57 - 1.11 mg/dL 11/23/2021 10:41 AM [facility] Alkaline Phosphatase 274(H) 40 - 150 U/L 11/23/2021 10:41 AM [facility] ALT 11 0 - 61 U/L 11/23/2021 10:41 AM [facility] AST 23 5 - 34 U/L 11/23/2021 10:41 AM [facility] Protein Total 5.9(L) 6.4 - 8.3 gm/dL 11/23/2021 10:41 AM [facility] Albumin 2.5(L) 3.2 - 4.6 gm/dL 11/23/2021 10:41 AM [facility] Bilirubin Total 0.3 0.2 - 1.2 mg/dL 11/23/2021 10:41 AM [facility] eGFR by MDRD >60 >60 mL/min/1.7 3m2 11/23/2021 10:41 AM [facility] eGFR by MDRD >60 >60 mL/min/1.7 3m2 11/23/2021 10:41 AM [facility] Blood BLOOD SPECIMEN / Unknown Lab Venipuncture / Unknown 11/23/2021 10:15 AM LINING CEMENTER 11/23/2021 10:21 AM LINING CEMENTER Corrina CASTRO LAB - CHEMISTRY ORDERABLES Performing Organization Address [facility] Co de Phone Number [facility] [address] [place] [phone] * MRSA DNA PCR (11/22/2021 9:40 PM LINING CEMENTER) MRSA DNA by PCR Not detected Not detected 11/23/2021 3:18 AM LINING CEMENTER [facility] Microbiology SPECIMEN FROM NASAL FOSSAE / Unknown Collection / Unknown 11/22/2021 9:40 PM LINING CEMENTER 11/22/2021 9:48 PM LINING CEMENTER Narrative [facility] - 11/23/2021 3:18 AM LINING CEMENTER Methicillin-resistant Staphylococcus aureus (MRSA) DNA is not detected (presumed not colonized with MRSA). Daniele Duke MD LAB - MICROBIOLOGY O RDERABLES Performing Organization Address [facility] Co de Phone Number [facility] [address] [place], [place] [address] [phone] * (ABNORMAL) PTT (11/22/2021 2:07 PM LINING CEMENTER) PTT 47.7(H) 23.0 - 38.4 sec 11/22/2021 3:12 PM LINING CEMENTER [facility] Blood BLOOD SPECIMEN / Unknown Lab Venipuncture / Unknown 11/22/2021 2:07 PM LINING CEMENTER 11/22/2021 2:13 PM LINING CEMENTER Narrative [facility] - 11/22/2021 3:12 PM LINING CEMENTER Heparin Therapeutic Range for PTT: 69.0 - 110.0 seconds. Corrina CASTRO LAB - COAGULATI ON ORDERABLES Performing Organization Address [facility] Co de Phone Number [facility] [address] [place] [phone] * (ABNORMAL) PT-INR (11/22/2021 2:07 PM LINING CEMENTER) PT 19.6(H) 12.1 - 14.8 sec 11/22/2021 3:09 PM LINING CEMENTER [facility] INR 1.7(H) 0.9 - 1.1 11/22/2021 3:09 PM LINING CEMENTER [facility] Blood BLOOD SPECIMEN / Unknown Lab Venipuncture / Unknown 11/22/2021 2:07 PM LINING CEMENTER 11/22/2021 2:13 PM LINING CEMENTER Narrative [facility] - 11/22/2021 3:09 PM LINING CEMENTER Conventional Warfarin Anticoagulant Therapy: INR Reference Range: 2.0-3.0 Intensive Warfarin Anticoagulant Therapy: INR Reference Range: 2.5-3.5 Corrina Saab CASHIER CHECKER-MATHEMATICS IMPROVEMENT TEACHER LAB - COAGULATI ON ORDERABLES [facility] [address] [place] [address] * ECHOCARDIOGRAM 2D WITH DOPPLER (11/22/2021 12:00 PM LINING CEMENTER) 11/22/2021 12:0 0 PM LINING CEMENTER Narrative Procedure Note Unknown, Provider, - 11/22/[address] [address] Echocardiography Examination Transthoracic Name: RADHA GARCÍA [facility]#: MR#: [id number] Admission Number: [id number] Study Date: 11/22/2021 Study Time: 01:35 PM [...] Routine study Image Quality: Adequate Facility Location: [facility] Indication: Heart murmur Procedure Manager Mechanical Maintenance: Jennifer Driscoll RDCS Ordering Provider: Amor Saab [...] PHT 60 ms Mitral Valve MV Dec [place] 3.97 m/s Pulmonic Valve PV PGmax 6 [...] PM Page 4 of 4 Corrina Saab CASHIER CHECKER-MATHEMATICS IMPROVEMENT TEACHER ECHO ORDERABLES [facility] [address] [place] [phone] * CREATININE BLOOD (11/22/2021 1:21 AM LINING CEMENTER) Creatinine 0.61 0.57 - 1.11 mg/dL 11/22/2021 1:54 AM LINING CEMENTER [facility] eGFR by MDRD >60 >60 mL/min/1.7 3m2 11/22/2021 1:54 AM LINING CEMENTER [facility] eGFR by MDRD >60 >60 mL/min/1.7 3m2 11/22/2021 1:54 AM LINING CEMENTER [facility] Blood BLOOD SPECIMEN / Unknown Lab Venipuncture / Unknown 11/22/2021 1:21 AM LINING CEMENTER 11/22/2021 1:38 AM LINING CEMENTER Billie Chavarria MD LAB - CHEMISTRY [facility] [facility] Organization Address City/State/ZIP Co de Phone Number [facility] [address] [address] Care Teams Colorist Photography Relationship Specialty Start Date End Date Aashish Corrigan DO [address] [place], [place] [id number] PCP - General Family Medicine 01/18/22 Corrina Saab, CASHIER CHECKER-MATHEMATICS IMPROVEMENT TEACHER [address] [phone] Nurse Practitioner Pulmonary Disease 12/14/21
--- OUTSIDE RECORDS SUMMARY | 2024-11-26 17:09 | XMS_ITS | Encounter Summary ---
Author Organization [facility] Address [address] [place] [address] Care Team Providers Care Stull Hewer Name Role Phone Alejo Cha Primary Care Provider Encounter Details Date Type Department Care Team (Late st Contact Info) Description 06/13/2000 Outpatient Historical [facility] Rodney Graham, DO [address] [place] [address] Er, Authorized P NO ADDRESS ON FILE Abdominal pain, unspecified site (Primary Dx) Social History Tobacco Use Types Packs/Day Years Used Date Smoking Tobacco: Never Assessed Comments Unknown Sex and Gender Information Value Date Recorded Sex Assigned at Not on file Legal Sex Female 4:34 AM SOLAR INSTALLATION CREW SUPERVISOR Gender Identity Not on file Sexual Orientation Not on file documented as of this encounter Plan of Treatment Not on file documented as of this encounter Visit Diagnoses Diagnosis Abdominal pain, unspecified site- Primary documented in this encounter Care Teams Stull Hewer Relationship Specialty Start Date End Date Alejo Cha PCP - General 01/14/04 documented as of this encounter
--- OUTSIDE RECORDS SUMMARY | 2024-11-26 17:09 | XMS_ITS | Encounter Summary ---
Author Organization [facility] Address [address] [place] [address] Care Team Providers Care Alcohol And Drug Counselor Name Role Phone Alejo Cha Primary Care Provider [phone] Encounter Details Date Type Department Care Team (Late st Contact Info) Description 07/15/2002 Outpatient Historical Division of Neurology [address] [address] Derrick Aguilar MD [address] [place] [address] Social History Tobacco Use Types Packs/Day Years Used Date Smoking Tobacco: Never Assessed Comments Unknown Sex and Gender Information Value Date Recorded Sex Assigned at Not on file Legal Sex Female 4:34 AM SCHEDULE CLERK Gender Identity Not on file Sexual Orientation Not on file documented as of this encounter Plan of Treatment Not on file documented as of this encounter Visit Diagnoses Not on filedocumented in this encounter Care Teams Alcohol And Drug Counselor Relationship Specialty Start Date End Date Alejo Cha PCP - General 01/14/04 documented as of this encounter
--- OUTSIDE RECORDS SUMMARY | 2024-11-26 17:09 | XMS_ITS | Encounter Summary ---
Author Organization [facility] Address [address] [place] [address] Care Team Providers Care Asbestos Siding Installer Name Role Phone Alejo Cha Primary Care Provider [phone] Encounter Details Date Type Department Care Team (Late st Contact Info) Description 10/16/2003 Outpatient [facility] - [address] [place] [address] Alejo Cha Social History Tobacco Use Types Packs/Day Years Used Date Smoking Tobacco: Never Assessed Comments Unknown Sex and Gender Information Value Date Recorded Sex Assigned at Not on file Legal Sex Female 4:34 AM METAL ALLOY SCIENTIST Gender Identity Not on file Sexual Orientation Not on file documented as of this encounter Plan of Treatment Not on file documented as of this encounter Visit Diagnoses Not on filedocumented in this encounter Care Teams Asbestos Siding Installer Relationship Specialty Start Date End Date Alejo Cha PCP - General 01/14/04 documented as of this encounter
--- OUTSIDE RECORDS SUMMARY | 2024-11-26 17:09 | XMS_ITS | Encounter Summary ---
Author Organization [facility] Address [address] [place] [address] Care Team Providers Care Channel Executive Name Role Phone Alejo Cha Primary Care Provider [phone] Encounter Details Date Type Department Care Team [...] on file Legal Sex Female 4:34 AM CARBONATING STONE CLEANER Gender Identity Not on file Sexual Orientation Not on file documented as of this encounter Plan of Treatment Not on file documented as of this encounter Visit Diagnoses Diagnosis Migraine without aura, with intractable migraine, so stated, without mention of status migrainosus- Primary documented in this encounter Care Teams Channel Executive Relationship Specialty Start Date End Date Alejo Cha PCP - General 01/14/04 documented as of this encounter
--- OUTSIDE RECORDS SUMMARY | 2024-11-26 17:09 | XMS_ITS | Encounter Summary ---
Author Organization [facility] Address [address] [place] [address] Care Team Providers Care Medical Claims Examiner Name Role Phone Alejo Cha Primary Care Provider [phone] Encounter Details Date Type Department Care Team (Late st Contact Info) Description 01/19/2004 Outpatient Historical [facility] Adult Hospitalists [address] [address] Jyoti Miller MD NO ADDRESS ON FILE Social History Tobacco Use Types Packs/Day Years Used Date Smoking Tobacco: Never Assessed Comments Unknown Sex and Gender Information Value Date Recorded Sex Assigned at Not on file Legal Sex Female 4:34 AM COTTON PROGRAM TECHNICIAN Gender Identity Not on file Sexual Orientation Not on file documented as of this encounter Plan of Treatment Not on file documented as of this encounter Visit Diagnoses Not on filedocumented in this encounter Care Teams Medical Claims Examiner Relationship Specialty Start Date End Date Alejo Cha PCP - General 01/14/04 documented as of this encounter
--- OUTSIDE RECORDS SUMMARY | 2024-11-26 17:09 | XMS_ITS | Encounter Summary ---
Author Organization [facility] Address [address] [place] [address] Care Team Providers Care Watchguard Name Role Phone Alejo Cha Primary Care Provider [phone] Encounter Details Date Type Department Care Team (Late st Contact Info) Description 11/02/2006 Inpatient Historical [facility] [address] [facility] [address] [place] [address] Opioid Type Dependence, Unspecified Abuse (CMS/HCC) (Primary Dx) Social History Tobacco Use Types Packs/Day Years Used Date Smoking Tobacco: Never Assessed Comments Unknown Sex and Gender Information Value Date Recorded Sex Assigned at Not on file Legal Sex Female 4:34 AM ROD CUP FILLER Gender Identity Not on file Sexual Orientation Not on file documented as of this encounter Plan of Treatment Not on file documented as of this encounter Procedures Procedure Name Priority Date/Time Associated Diagnosis Comments VALPROIC ACID LEVEL, TOTAL Routine 11/07/2006 8:05 AM ROD CUP FILLER documented in this encounter Results * VALPROIC ACID TOTAL (11/07/2006 8:05 AM ROD CUP FILLER) VALPROIC ACID TOTAL 54 50 - 100 ug/mL INTERFACE SYSTEM Comment: Valproic Acid Antiepileptic Control = 50 - 100 ug/mL Valproic Acid Manic Episode Control = 50 - 125 ug/mL Valproic Acid Toxic Level = >200 ug/mL 11/07/2006 8:05 AM ROD CUP FILLER us Tristen Faulkner CHEMISTRY ORDERABLES Ed ited INTERFACE SYSTEM Refer to clinic/hospital department documented in this encounter Visit Diagnoses Diagnosis Opioid type dependence, unspecified (CMS/HCC)- Primary Opioid type dependence, unspecified documented in this encounter Care Teams Watchguard Relationship Specialty Start Date End Date Alejo Cha PCP - General 01/14/04 documented as of this encounter
--- OUTSIDE RECORDS SUMMARY | 2024-11-26 17:09 | XMS_ITS | Clinical Summary ---
Author Organization [facility] Address [address] [place] [address] Care Team Providers Care Rate Inserter Name Role Phone Alejo Cha Primary Care Provider [phone] Social History Tobacco Use Types Packs/Day Years Used Date Smoking Tobacco: Never Assessed Comments Unknown Sex and Gender Information Value Date Recorded Sex Assigned at Not on file Legal Sex Female 4:34 AM ARGON TESTER Gender Identity Not on file Sexual [...] - 1-dose 75+ series) 2029 Care Teams Rate Inserter Relationship Specialty Start Date End Date Alejo Cha PCP - General 01/14/04
--- OUTSIDE RECORDS SUMMARY | 2024-11-26 17:09 | XMS_ITS | Encounter Summary ---
Author Organization [facility] Address [address] [place] [address] Care Team Providers Care Pressing Machine Operator Name Role Phone Alejo Cha Primary Care Provider [phone] Encounter Details Date Type Department Care Team (Late st Contact Info) Description 01/15/2004 Outpatient Historical [facility] Adult Hospitalists [facility] [address] [place] [address] Violette Singh MD [id number] [place], [place] [id number] Social History Tobacco Use Types Packs/Day Years Used Date Smoking Tobacco: Never Assessed Comments Unknown Sex and Gender Information Value Date Recorded Sex Assigned at Not on file Legal Sex Female 4:34 AM DROP HAMMER SETTER UP Gender Identity Not on file Sexual Orientation Not on file documented as of this encounter Plan of Treatment Not on file documented as of this encounter Visit Diagnoses Not on filedocumented in this encounter Care Teams Pressing Machine Operator Relationship Specialty Start Date End Date Alejo Cha PCP - General 01/14/04 documented as of this encounter
--- OUTSIDE RECORDS SUMMARY | 2024-11-26 17:09 | XMS_ITS | Encounter Summary ---
Author Organization [facility] Address 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
--- OUTSIDE RECORDS SUMMARY | 2024-11-26 17:09 | XMS_ITS | Clinical Summary ---
Author Organization [facility] Address [address] [facility] [place] [address] Care Team Providers Care Plain Clothes Police Officer Name Role Phone KaiserCorrina Selena SKIN DRIER-REHAB AID Unavailable [phone] Aashish Corrigan DO Primary Care Provider [phone] Source Comments [facility],non-owned Affiliates and Associated Physician Practices is amultiple site organization consisting of ambulatory clinics and hospital sitesin [place], [place], [place] and [place]. This disclosure is being madepursuant to the Care Everywhere program and may not contain all information available regarding this patient. Last updated 18.[facility] Allergies No known active allergies Medications * [...] 10 mg by mouth once daily Active uyn-rwxs-jbthpapmsl -codeine (FIORINAL WITH CODEINE) 16-700-49-30 MG capsule Take 1 capsule by mouth [...] 12:06 AM 11/27/2021 1:24 PM Care Teams Plain Clothes Police Officer Relationship Specialty Start Date End Date Aashish Corrigan DO [address] [place] [address] PCP - General Family Medicine 01/18/22 Corrina Saab, SKIN DRIER-REHAB AID [address] [place] [address] Nurse Practitioner Pulmonary Disease 12/14/21
--- OUTSIDE RECORDS SUMMARY | 2024-11-26 17:09 | XMS_ITS | Encounter Summary ---
Author Organization [facility] Address 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
--- OUTSIDE RECORDS SUMMARY | 2024-11-26 17:09 | XMS_ITS | Encounter Summary ---
Author Organization [facility] Address [address] [place] [address] Care Team Providers Care Horticultural Farmer Name Role Phone Alejo Cha Primary Care Provider [phone] Encounter Details Date Type Department Care Team (Late st Contact Info) Description 02/03/2003 Outpatient Historical Division of Neurology 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
--- OUTSIDE RECORDS SUMMARY | 2024-11-26 17:09 | XMS_ITS | Referral Summary ---
Author Organization [facility] Address [address] [facility] [place] [address] Care Team Providers Care Nocturnist Name Role Phone KaiserCorrina Selena PRODUCT ACCOUNTANT-PRODUCTION LINE SOLDERER Unavailable [phone] Aashish Corrigan DO Primary Care Provider [phone] Source Comments [facility],non-owned Affiliates and Associated Physician Practices is amultiple site organization consisting of ambulatory clinics and hospital sitesin [place], [place], [place] and [place]. This disclosure is being madepursuant to the Care Everywhere program and may not contain all information available regarding this patient. Last updated 18.[facility] Allergies No known active allergies Medications * [...] 10 mg by mouth once daily Active kwi-vfmb-jgqvlyjxrs -codeine (FIORINAL WITH CODEINE) 00-328-99-30 MG capsule Take 1 capsule by mouth [...] 12:06 AM 11/27/2021 1:24 PM Care Teams Nocturnist Relationship Specialty Start Date End Date Aashish Corrigan DO [address] [place] [address] PCP - General Family Medicine 01/18/22 Corrina Saab, PRODUCT ACCOUNTANT-PRODUCTION LINE SOLDERER [address] [place] [id number] Nurse Practitioner Pulmonary Disease 12/14/21
--- OUTSIDE RECORDS SUMMARY | 2024-11-26 17:09 | XMS_ITS | Encounter Summary ---
Author Organization [facility] Address [address] [place] [address] Care Team Providers Care Machinist First Class Name Role Phone Alejo Cha Primary Care Provider [phone] Encounter Details Date Type Department Care Team (Latest Contact Info) Description 07/06/2000 Outpatient Historical [facility] Derrick Bishop MD [address] [facility] [address] [place] [address] Encounter for long-term (current) use of other medications (Primary Dx) Social History Tobacco Use Types Packs/Day Years Used Date Smoking Tobacco: Never Assessed Comments Unknown Sex and Gender Information Value Date Recorded Sex Assigned at Not on file Legal Sex Female 4:34 AM APPLICATION ADMINISTRATOR Gender Identity Not on file Sexual Orientation Not on file documented as of this encounter Plan of Treatment Not on file documented as of this encounter Visit Diagnoses Diagnosis Encounter for long-term (current) use of other medications- Primary documented in this encounter Care Teams Machinist First Class Relationship Specialty Start Date End Date Alejo Cha PCP - General 01/14/04 documented as of this encounter
--- OUTSIDE RECORDS SUMMARY | 2024-11-26 17:09 | XMS_ITS | Encounter Summary ---
Author Organization [facility] Address [address] [place] [address] Care Team Providers Care Seafood Service Team Member Name Role Phone Alejo Cha Primary Care Provider [phone] Encounter Details Date Type Department Care Team (Late st Contact Info) Description 01/14/[address] [facility] Adult Hospitalists [address] [address] [place] Social History Tobacco Use Types Packs/Day Years Used Date Smoking Tobacco: Never Assessed Comments Unknown Sex and Gender Information Value Date Recorded Sex Assigned at Not on file Legal Sex Female 4:34 AM RESPIRATORY SERVICES MANAGER Gender Identity Not on file Sexual Orientation Not on file documented as of this encounter Plan of Treatment Not on file documented as of this encounter Visit Diagnoses Not on filedocumented in this encounter Care Teams Seafood Service Team Member Relationship Specialty Start Date End Date Alejo Cha PCP - General 01/14/04 documented as of this encounter
--- OUTSIDE RECORDS SUMMARY | 2024-11-26 17:10 | XMS_ITS | Clinical Summary ---
Author Organization [facility] Address [address] [place] [address] Care Team Providers Care Manager Product Support Name Role Phone Gaetano Llanes DO Primary Care Provider + Allergies No known active allergies Medications SYNTHROID 125 MCG tablet Take 125 mcg by mouth daily. 2 02/14/2019 Active topiramate 100 MG tablet Take 1 tablet by mouth 2 (two) times daily. 02/12/2019 Active rosuvastatin 10 MG tablet Take 10 mg by mouth daily. 1 02/19/2019 Active ASCOMP-CODEINE 21-431-85-30 MG capsule Take 1 mg by mouth [...] on file Legal Sex Female 6:30 PM WAREHOUSE ASSOCIATE DRIVER Gender Identity Not on file Sexual [...] age to complete this topic Insurance MEDICARE [facility] Care Teams Manager Product Support Relationship Specialty Start Date End Date Gaetano Llanes DO [address] [place] [address] PCP - General FAMILY PRACTICE 02/22/19
--- OUTSIDE RECORDS SUMMARY | 2024-11-26 17:10 | XMS_ITS | Encounter Summary ---
Author Organization [facility] Address [address] [place] [address] Care Team Providers Care Tram Inspector Name Role Phone Alejo Cha Primary Care Provider [phone] Encounter Details Date Type Department Care Team (Late st Contact Info) Description 01/15/2004 Outpatient Historical Division of Neurology [address] [address] Derrick Aguilar MD [address] [place] [address] Social History Tobacco Use Types Packs/Day Years Used Date Smoking Tobacco: Never Assessed Comments Unknown Sex and Gender Information Value Date Recorded Sex Assigned at Not on file Legal Sex Female 4:34 AM AGILE TESTER Gender Identity Not on file Sexual Orientation Not on file documented as of this encounter Plan of Treatment Not on file documented as of this encounter Visit Diagnoses Not on filedocumented in this encounter Care Teams Tram Inspector Relationship Specialty Start Date End Date Alejo Cha PCP - General 01/14/04 documented as of this encounter
--- OUTSIDE RECORDS SUMMARY | 2024-11-26 17:10 | XMS_ITS | Encounter Summary ---
Author Organization [facility] Address [facility] [place] [address] Care Team Providers Care Frog Farmer Name Role Phone Gaetano Llanes DO Primary Care Provider + Encounter Details Date Type Department Care Team (Late st Contact Info) Description 12/16/[address] [facility] Conversion [address] [place] [address] , Generic Conversion, Social History Tobacco Use Types Packs/Day Years Used Date Smoking Tobacco: Never Assessed Comments Unknown Sex and Gender Information Value Date Recorded Sex Assigned at Not on file Legal Sex Female 6:30 PM IMPLEMENTATION PROJECT MANAGER Gender Identity Not on file Sexual Orientation Not on file documented as of this encounter Plan of Treatment Not on file documented as of this encounter Visit Diagnoses Not on filedocumented in this encounter Care Teams Frog Farmer Relationship Specialty Start Date End Date Gaetano Llanes DO [address] [place] [address] PCP - General FAMILY PRACTICE 02/22/19 documented as of this encounter
--- OUTSIDE RECORDS SUMMARY | 2024-11-26 17:10 | XMS_ITS | Encounter Summary ---
Author Organization [facility] Address [facility] [place] [address] Care Team Providers Care Slubber Operator Name Role Phone Gaetano Llanes DO Primary Care Provider + Encounter Details Date Type Department Care Team (Late st Contact Info) Description 10/26/[address] [facility] Conversion [address] [place] [address] , Generic Conversion, Social History Tobacco Use Types Packs/Day Years Used Date Smoking Tobacco: Never Assessed Comments Unknown Sex and Gender Information Value Date Recorded Sex Assigned at Not on file Legal Sex Female 6:30 PM PROGRAM REP Gender Identity Not on file Sexual Orientation Not on file documented as of this encounter Plan of Treatment Not on file documented as of this encounter Visit Diagnoses Not on filedocumented in this encounter Care Teams Slubber Operator Relationship Specialty Start Date End Date Gaetano Llanes DO [address] [place] [address] PCP - General FAMILY PRACTICE 02/22/19 documented as of this encounter
--- OUTSIDE RECORDS SUMMARY | 2024-11-26 17:10 | XMS_ITS | Encounter Summary ---
Author Organization [facility] Address [address] [place] [address] Care Team Providers Care Director Writing Name Role Phone Alejo Cha Primary Care Provider Encounter Details Date Type Department Care Team (Late st Contact Info) Description 01/17/2004 Outpatient Historical [facility] Adult Hospitalists [address] [address] [place] Social History Tobacco Use Types Packs/Day Years Used Date Smoking Tobacco: Never Assessed Comments Unknown Sex and Gender Information Value Date Recorded Sex Assigned at Not on file Legal Sex Female 4:34 AM DECISION ANALYST Gender Identity Not on file Sexual Orientation Not on file documented as of this encounter Plan of Treatment Not on file documented as of this encounter Visit Diagnoses Not on filedocumented in this encounter Care Teams Director Writing Relationship Specialty Start Date End Date Alejo Cha PCP - General 01/14/04 documented as of this encounter
== END 2024-11-26 14:44 | disposition home or self-care (01) ==
PROVIDERS: PCP Nurse Practitioner Family; Visit Provider Nurse Practitioner Family
DX: R01.1 Cardiac murmur, unspecified (principal); I35.0 Nonrheumatic aortic (valve) stenosis
CPT/HCPCS: 93306

== ENCOUNTER 2025-03-28 10:50 | Outpatient (CLI) | payer MEDICARE, SELFPAY | END 2025-03-28 10:51 | disposition home or self-care (01) | LOC: CHSLAB 10:50 | PROVIDERS: PCP Nurse Practitioner Family; Visit Provider Nurse Practitioner Family | DX: E03.9 Hypothyroidism, unspecified (principal) | CPT/HCPCS: 36415; 84443 ==

== ENCOUNTER 2025-05-28 09:41 | Outpatient (CLI) | payer MEDICARE, SELFPAY ==
--- NOTE | ~2025-05-28 | CT_ITS ---
EXAMINATION: CT abdomen pelvis wo con DATE: 05/28/2025 10:11 INDICATION: Nausea vomiting for 3 days. History of renal stones TECHNIQUE: Computed tomography (CT) of the chest was performed without intravenous contrast. The dose-length product was 173.87 mGy-cm. COMPARISON: CT abdomen and pelvis 11/25/2024 FINDINGS: There are a few small bandlike and reticular opacities in lower lungs likely atelectasis or scarring.The liver, spleen, adrenal glands and pancreas unremarkable. Small gallstones in the gallbladder. Grossly stable calcifications in the right kidney and right renal pelvis including a 1.4 cm calcification in the right renal pelvis. No hydronephrosis. Abdominal aorta is partially calcified but is not aneurysmal. No free fluid in the abdomen. Bladder is unremarkable. No visualized enlarged lymph nodes in the abdomen or pelvis. No dilated bowel loops. Small amount of fluid in the pelvis. CT appearance of the uterus is unremarkable. Moderate amount of stool. No dilated bowel loops. No CT evidence for colitis. Bones appear osteopenic. Osseous structures are grossly stable as compared to the study from 11/25/2024. There are 2 stable sclerotic lesions in the iliac bones which may represent bone islands. Other etiologies are possible. IMPRESSION: 1. No CT evidence for an acute process in the abdomen or pelvis at this time. 2. Stable nonobstructing right renal stones. No hydronephrosis. Reviewed, dictated and finalized at location Q.
--- OUTSIDE RECORDS SUMMARY | 2025-05-28 10:02 | XMS_ITS | Encounter Summary ---
Author Organization [facility] Address [address] [place] [address] Care Team Providers Care Health And Safety Manager Name Role Phone Alejo Cha Primary Care Provider [phone] Encounter Details Date Type Department Care Team [...] on file Legal Sex Female 4:34 AM CENTRAL OFFICE OPERATOR Gender Identity Not on file Sexual Orientation Not on file documented as of this encounter Plan of Treatment Not on file documented as of this encounter Visit Diagnoses Diagnosis Migraine without aura, with intractable migraine, so stated, without mention of status migrainosus- Primary documented in this encounter Care Teams Health And Safety Manager Relationship Specialty Start Date End Date Alejo Cha PCP - General 01/14/04 documented as of this encounter
--- OUTSIDE RECORDS SUMMARY | 2025-05-28 10:02 | XMS_ITS | Encounter Summary ---
Author Organization [facility] Address [address] [place] [address] Care Team Providers Care Residential Advisor Name Role Phone Alejo Cha Primary Care Provider [phone] Encounter Details Date Type Department Care Team (Late st Contact Info) Description 05/12/2000 Outpatient Historical [facility] Internal Medicine [facility] [address] [facility] [address] Shadi [place] [address] Laurent Miranda Social History Tobacco Use Types Packs/Day Years Used Date Smoking Tobacco: Never Assessed Comments Unknown Sex and Gender Information Value Date Recorded Sex Assigned at Not on file Legal Sex Female 4:34 AM DATA WAREHOUSING SPECIALIST Gender Identity Not on file Sexual Orientation Not on file documented as of this encounter Plan of Treatment Not on file documented as of this encounter Visit Diagnoses Not on filedocumented in this encounter Care Teams Residential Advisor Relationship Specialty Start Date End Date Alejo Cha PCP - General 01/14/04 documented as of this encounter
--- OUTSIDE RECORDS SUMMARY | 2025-05-28 10:02 | XMS_ITS | Encounter Summary ---
Author Organization [facility] Address [address] [place] [address] Care Team Providers Care Project Management Professional Name Role Phone Alejo Cha Primary Care Provider [phone] Encounter Details Date Type Department Care Team (Late st Contact Info) Description 01/14/[address] [facility] Adult Hospitalists [address] [address] [place] Social History Tobacco Use Types Packs/Day Years Used Date Smoking Tobacco: Never Assessed Comments Unknown Sex and Gender Information Value Date Recorded Sex Assigned at Not on file Legal Sex Female 4:34 AM GRIDDLE COOK Gender Identity Not on file Sexual Orientation Not on file documented as of this encounter Plan of Treatment Not on file documented as of this encounter Visit Diagnoses Not on filedocumented in this encounter Care Teams Project Management Professional Relationship Specialty Start Date End Date Alejo Cha PCP - General 01/14/04 documented as of this encounter
--- OUTSIDE RECORDS SUMMARY | 2025-05-28 10:02 | XMS_ITS | Encounter Summary ---
Author Organization [facility] Address [address] [place] [address] Care Team Providers Care Medical Management Trainer Name Role Phone Alejo Cha Primary Care Provider [phone] Encounter Details Date Type Department Care Team (Latest Contact Info) Description 07/06/2000 Outpatient Historical [facility] Derrick Bishop MD [address] [facility] [address] [place] [address] Encounter for long-term (current) use of other medications (Primary Dx) Social History Tobacco Use Types Packs/Day Years Used Date Smoking Tobacco: Never Assessed Comments Unknown Sex and Gender Information Value Date Recorded Sex Assigned at Not on file Legal Sex Female 4:34 AM INVESTIGATIONS MANAGER Gender Identity Not on file Sexual Orientation Not on file documented as of this encounter Plan of Treatment Not on file documented as of this encounter Visit Diagnoses Diagnosis Encounter for long-term (current) use of other medications- Primary documented in this encounter Care Teams Medical Management Trainer Relationship Specialty Start Date End Date Alejo Cha PCP - General 01/14/04 documented as of this encounter
--- OUTSIDE RECORDS SUMMARY | 2025-05-28 10:02 | XMS_ITS | Encounter Summary ---
Author Organization [facility] Address [address] [place] [address] Care Team Providers Care Bag Filler Machine Operator Name Role Phone Alejo Cha Primary Care Provider [phone] Encounter Details Date Type Department Care Team (Late st Contact Info) Description 07/06/2000 Outpatient Historical Division of Neurology [address] [address] Derrick Aguilar MD [address] [place] [address] Social History Tobacco Use Types Packs/Day Years Used Date Smoking Tobacco: Never Assessed Comments Unknown Sex and Gender Information Value Date Recorded Sex Assigned at Not on file Legal Sex Female 4:34 AM TOMATO PASTE MAKER Gender Identity Not on file Sexual Orientation Not on file documented as of this encounter Plan of Treatment Not on file documented as of this encounter Visit Diagnoses Not on filedocumented in this encounter Care Teams Bag Filler Machine Operator Relationship Specialty Start Date End Date Alejo Cha PCP - General 01/14/04 documented as of this encounter
--- OUTSIDE RECORDS SUMMARY | 2025-05-28 10:02 | XMS_ITS | Encounter Summary ---
Author Organization [facility] Address [address] [place] [address] Care Team Providers Care Senior Java Programmer Name Role Phone Alejo Cha Primary Care Provider [phone] Encounter Details Date Type Department Care Team (Late st Contact Info) Description 10/16/2003 Outpatient [facility] Primary Care - [address] [place] [address] Alejo Cha Social History Tobacco Use Types Packs/Day Years Used Date Smoking Tobacco: Never Assessed Comments Unknown Sex and Gender Information Value Date Recorded Sex Assigned at Not on file Legal Sex Female 4:34 AM LISW Gender Identity Not on file Sexual Orientation Not on file documented as of this encounter Plan of Treatment Not on file documented as of this encounter Visit Diagnoses Not on filedocumented in this encounter Care Teams Senior Java Programmer Relationship Specialty Start Date End Date Alejo Cha PCP - General 01/14/04 documented as of this encounter
--- OUTSIDE RECORDS SUMMARY | 2025-05-28 10:02 | XMS_ITS | Clinical Summary ---
Author Organization [facility] [email or web address] Address [address] [facility] [place] [address] Care Team Providers Care Recycler Name Role Phone KaiserCorrina Selena HOOK AND EYE ATTACHER-FALL INTERNSHIP Unavailable Aashish Corrigan DO Primary Care Provider [phone] Source Comments [facility] [email or web address],non-owned Affiliates and Associated Physician Practices is amultiple site organization consisting of ambulatory clinics and hospital sitesin [place], [place] and [place]. This disclosure is being madepursuant to the Care Everywhere program and may not contain all information available regarding this patient. Last updated 18.[email or web address] Allergies No known active allergies Medications * Be aware that medications may not be up to date on this document. Alwaysverify current medications with the patient. levothyroxine (SYNTHROID) 112 MCG tablet Take 112 mcg by mouth daily before breakfast Active esomeprazole (NEXIUM) 20 MG capsule Take 20 mg by mouth daily before breakfast Active topiramate (TOPAMAX) 100 MG tablet Take 100 mg by mouth 2 times daily Active rosuvastatin (CRESTOR) 10 MG tablet Take 10 mg by mouth once daily Active ekb-cdlc-vkwvtf ital-codeine (FIORINAL WITH CODEINE) 23-748-67-30 MG capsule Take 1 capsule by mouth every 4 hours as needed for Headache Active HYDROcodone-kalina taminophen (NORCO) 5-325 MG tablet Take 1 (one) tablet by mouth every 6 hours as needed 20 tablet Active Additional Information Patient not taking.Reported on 01/18/2022 Active Problems Problem Noted Date Diagnosed Date Abscess 11/21/2021 Immunizations Immunization Administration Dates Next Due Covid Pfizer primary [...] money to buy more. Never true 11/22/19 22 Within the past 12 months, t he food you bought just didn't last and you didn't have money to get more. Never true 11/22/2021 Comments Unknown Sex and Gender Information Value Date Recorded Sex Assigned at Not on file Legal Sex Female 8:06 AM CDT Gender Identity Not on file Sexual Orientation [...] P M CDT Height 165.1 cm (5' 5) 01/18/2022 1:51 PM CDT Body Mass Index [...] (4 - season) 2024 01/01/2022, 04/09/2021, 03/18/2021 DEPRESSION SCREENING 10/02/2024 INFLUENZA VACCINE (#1) 2025 , 06/28/2020, 08/02/2018, Additional history exists Respiratory Syncytial Virus (RSV) Vaccine Pt: or [...] complete this topic MENINGOCOCCAL (Group B) VACCINE SHARED DECISION-MAKING Aged Out No longer eligible based on patient's age to complete this topic MENINGOCOCCAL GROUPS A/C/Y/W VACCINE Aged Out No longer eligible based on patient's age to complete this topic Insurance MEDICARE [facility] MEDICARE Advance Directives * Full Code (Latest Code Status on File) Date Activated Date Inactivated Comments 11/22/2021 12:06 AM 11/27/2021 1:24 PM Care Teams Recycler Relationship Specialty Start Date End Date Aashish Corrigan DO [address] [place] [address] PCP - General Family Medicine 01/18/22 Corrina Saab, HOOK AND EYE ATTACHER-FALL INTERNSHIP [facility] [address] [place] [address] Nurse Practitioner Pulmonary Disease 12/14/21
--- OUTSIDE RECORDS SUMMARY | 2025-05-28 10:02 | XMS_ITS | Encounter Summary ---
Author Organization [facility] [facility] Address [address] [place] [address] Care Team Providers Care Destination Coordinator Name Role Phone Alejo Cha Primary Care Provider [phone] Encounter Details Date Type Department Care Team (Late st Contact Info) Description 07/15/2002 Outpatient Historical Division of Neurology [address] [address] Derrick Aguilar MD [address] [place] [address] Social History Tobacco Use Types Packs/Day Years Used Date Smoking Tobacco: Never Assessed Comments Unknown Sex and Gender Information Value Date Recorded Sex Assigned at Not on file Legal Sex Female 4:34 AM SILVER PLATER Gender Identity Not on file Sexual Orientation Not on file documented as of this encounter Plan of Treatment Not on file documented as of this encounter Visit Diagnoses Not on filedocumented in this encounter Care Teams Destination Coordinator Relationship Specialty Start Date End Date Alejo Cha PCP - General 01/14/04 documented as of this encounter
--- OUTSIDE RECORDS SUMMARY | 2025-05-28 10:02 | XMS_ITS | Encounter Summary ---
Author Organization [employer] Address [address] [place] [address] Care Team Providers Care Self Pay Specialist Name Role Phone SemajAlejo Primary Care Provider [phone] Encounter Details Date Type Department Care Team (Late st Contact Info) Description 11/02/2006 Inpatient Historical [facility] Miki Arechiga MD [address] [facility] [address] [place] [address] Opioid Type Dependence, Unspecified Abuse (CMS/HCC) (Primary Dx) Social History Tobacco Use Types Packs/Day Years Used Date Smoking Tobacco: Never Assessed Comments Unknown Sex and Gender Information Value Date Recorded Sex Assigned at Not on file Legal Sex Female 4:34 AM NICU RN Gender Identity Not on file Sexual Orientation Not on file documented as of this encounter Plan of Treatment Not on file documented as of this encounter Procedures Procedure Name Priority Date/Time Associated Diagnosis Comments VALPROIC ACID LEVEL, TOTAL Routine 11/07/2006 8:05 AM NICU RN documented in this encounter Results * VALPROIC ACID TOTAL (11/07/2006 8:05 AM NICU RN) VALPROIC ACID TOTAL 54 50 - 100 ug/mL INTERFACE SYSTEM Comment: Valproic Acid Antiepileptic Control = 50 - 100 ug/mL Valproic Acid Manic Episode Control = 50 - 125 ug/mL Valproic Acid Toxic Level = >200 ug/mL 11/07/2006 8:05 AM NICU RN us Tristen Faulkner CHEMISTRY ORDERABLES Ed ited INTERFACE SYSTEM Refer to clinic/hospital department documented in this encounter Visit Diagnoses Diagnosis Opioid type dependence, unspecified (CMS/HCC)- Primary Opioid type dependence, unspecified documented in this encounter Care Teams Self Pay Specialist Relationship Specialty Start Date End Date Alejo Cha PCP - General 01/14/04 documented as of this encounter
--- OUTSIDE RECORDS SUMMARY | 2025-05-28 10:02 | XMS_ITS | Encounter Summary ---
Author Organization [employer] Address [address] [place] [address] Care Team Providers Care Workers' Compensation Claims Supervisor Name Role Phone Alejo Cha Primary Care Provider [phone] Encounter Details Date Type Department Care Team (Late st Contact Info) Description 08/26/2003 Outpatient Historical Division of Neurology 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
--- OUTSIDE RECORDS SUMMARY | 2025-05-28 10:02 | XMS_ITS | Encounter Summary ---
Author Organization [facility] Address [address] [place] [address] Care Team Providers Care Strap Cutting Machine Operator Name Role Phone Alejo Cha Primary Care Provider [phone] Encounter Details Date Type Department Care Team (Late st Contact Info) Description 01/17/2004 Outpatient Historical [facility] Adult Hospitalists [address] [address] [place] Social History Tobacco Use Types Packs/Day Years Used Date Smoking Tobacco: Never Assessed Comments Unknown Sex and Gender Information Value Date Recorded Sex Assigned at Not on file Legal Sex Female 4:34 AM PRE PLANNING ADVISOR Gender Identity Not on file Sexual Orientation Not on file documented as of this encounter Plan of Treatment Not on file documented as of this encounter Visit Diagnoses Not on filedocumented in this encounter Care Teams Strap Cutting Machine Operator Relationship Specialty Start Date End Date Alejo Cha PCP - General 01/14/04 documented as of this encounter
--- OUTSIDE RECORDS SUMMARY | 2025-05-28 10:02 | XMS_ITS | Encounter Summary ---
Author Organization [facility] Address 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
--- OUTSIDE RECORDS SUMMARY | 2025-05-28 10:02 | XMS_ITS | Clinical Summary ---
Author Organization [facility] Address [address] [place] [address] Care Team Providers Care E Commerce Merchant Name Role Phone Alejo Cha Primary Care Provider [phone] Social History Tobacco Use Types Packs/Day Years Used Date Smoking Tobacco: Never Assessed Comments Unknown Sex and Gender Information Value Date Recorded Sex Assigned at Not on file Legal Sex Female 4:34 AM TOWEL CABINET REPAIRER Gender Identity Not on file Sexual Orientation Not on file Plan of Treatment Health Maintenance Due Date Last Done Comments DTAP/TDAP/TD VACCINES (1 - Tdap) 1973 BREAST CANCER SCREENING 1994 COLORECTAL SCREENING 1999 Colorectal Cancer Screening 1999 FIT-DNA Q 3 years 1999 FIT/FOBT Q 1 year 1999 Flex Sig/CT Colonography Q 5 years 1999 PNEUMOCOCCAL VACCINE 50+ YEARS (1 of 1 - PCV) 07/27/20 04 ZOSTER VACCINE (1 of 2) 2004 OSTEOPOROSIS SCREENING 2019 INFLUENZA VACCINE (#1) 2025 RSV VACCINE (60+ or ) (1 - 1-dose 75+ series) 2029 Care Teams E Commerce Merchant Relationship Specialty Start Date End Date Alejo Cha PCP - General 01/14/04
--- OUTSIDE RECORDS SUMMARY | 2025-05-28 10:02 | XMS_ITS | Encounter Summary ---
Author Organization [facility] Address [address] [place] [address] Care Team Providers Care Assistant Women'S Soccer Coach Name Role Phone Alejo Cha Primary Care Provider [phone] Encounter Details Date Type Department Care Team (Late st Contact Info) Description 02/03/2003 Outpatient Historical Division of Neurology 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
--- OUTSIDE RECORDS SUMMARY | 2025-05-28 10:02 | XMS_ITS | Encounter Summary ---
Author Organization [facility] Address [address] [place] [address] Care Team Providers Care Silo Filler Name Role Phone Alejo Cha Primary Care Provider [phone] Encounter Details Date Type Department Care Team (Late st Contact Info) Description 06/13/2000 Emergency [facility] EMERGENCY ROOM [facility] Rodney Graham, DO [address] [place] [address] Er, Authorized P NO ADDRESS ON FILE Abdominal pain, unspecified site (Primary Dx) Social History Tobacco Use Types Packs/Day Years Used Date Smoking Tobacco: Never Assessed Comments Unknown Sex and Gender Information Value Date Recorded Sex Assigned at Not on file Legal Sex Female 4:34 AM SENIOR SPEECH PATHOLOGIST Gender Identity Not on file Sexual Orientation Not on file documented as of this encounter Plan of Treatment Not on file documented as of this encounter Visit Diagnoses Diagnosis Abdominal pain, unspecified site- Primary documented in this encounter Care Teams Silo Filler Relationship Specialty Start Date End Date Alejo Cha PCP - General 01/14/04 documented as of this encounter
--- OUTSIDE RECORDS SUMMARY | 2025-05-28 10:02 | XMS_ITS | Encounter Summary ---
Author Organization [facility] Address [address] [place] [address] Care Team Providers Care Pediatric Radiologist Name Role Phone Alejo Cha Primary Care Provider Encounter Details Date Type Department Care Team (Late st Contact Info) Description 09/30/2003 Outpatient Historical HIS MRI DEPT AguilarDerrick MD [address] [facility] [address] [place] [address] Social History Tobacco Use Types Packs/Day Years Used Date Smoking Tobacco: Never Assessed Comments Unknown Sex and Gender Information Value Date Recorded Sex Assigned at Not on file Legal Sex Female 4:34 AM AWS SOFTWARE DEVELOPMENT ENGINEER Gender Identity Not on file Sexual Orientation Not on file documented as of this encounter Plan of Treatment Not on file documented as of this encounter Visit Diagnoses Not on filedocumented in this encounter Care Teams Pediatric Radiologist Relationship Specialty Start Date End Date Alejo Cha PCP - General 01/14/04 documented as of this encounter
--- OUTSIDE RECORDS SUMMARY | 2025-05-28 10:02 | XMS_ITS | Encounter Summary ---
Author Organization [facility] Address [address] [place] [address] Care Team Providers Care Enterprise Engineer Name Role Phone Alejo Cha Primary Care Provider [phone] Encounter Details Date Type Department Care Team (Late st Contact Info) Description 01/15/2004 Outpatient Historical [facility] Adult Hospitalists [facility] [address] [place] [address] Violette Singh MD [id number] [place], [place] [id number] Social History Tobacco Use Types Packs/Day Years Used Date Smoking Tobacco: Never Assessed Comments Unknown Sex and Gender Information Value Date Recorded Sex Assigned at Not on file Legal Sex Female 4:34 AM TUFTER OPERATOR Gender Identity Not on file Sexual Orientation Not on file documented as of this encounter Plan of Treatment Not on file documented as of this encounter Visit Diagnoses Not on filedocumented in this encounter Care Teams Enterprise Engineer Relationship Specialty Start Date End Date Alejo Cha PCP - General 01/14/04 documented as of this encounter
--- OUTSIDE RECORDS SUMMARY | 2025-05-28 10:02 | XMS_ITS | Encounter Summary ---
Author Organization [facility] Address [address] [place] [address] Care Team Providers Care Social Welfare Clerk Name Role Phone Alejo Cha Primary Care Provider [phone] Encounter Details Date Type Department Care Team (Late st Contact Info) Description 06/27/2000 Outpatient Historical [facility] Internal Medicine [facility] [address] [facility] [address] Shadi Patterson [place] [address] Laurent Miranda Social History Tobacco Use Types Packs/Day Years Used Date Smoking Tobacco: Never Assessed Comments Unknown Sex and Gender Information Value Date Recorded Sex Assigned at Not on file Legal Sex Female 4:34 AM ARTILLERY SPECIALIST Gender Identity Not on file Sexual Orientation Not on file documented as of this encounter Plan of Treatment Not on file documented as of this encounter Visit Diagnoses Not on filedocumented in this encounter Care Teams Social Welfare Clerk Relationship Specialty Start Date End Date Alejo Cha PCP - General 01/14/04 documented as of this encounter
--- OUTSIDE RECORDS SUMMARY | 2025-05-28 10:02 | XMS_ITS | Encounter Summary ---
Author Organization [facility] Address [address] [place] [address] Care Team Providers Care Automation And Controls Manager Name Role Phone Alejo Cha Primary Care Provider [phone] Encounter Details Date Type Department Care Team (Late st Contact Info) Description 12/31/2003 Outpatient [facility] Primary Care - [address] [place] [address] Alejo Cha Social History Tobacco Use Types Packs/Day Years Used Date Smoking Tobacco: Never Assessed Comments Unknown Sex and Gender Information Value Date Recorded Sex Assigned at Not on file Legal Sex Female 4:34 AM DROPHAMMER OPERATOR Gender Identity Not on file Sexual Orientation Not on file documented as of this encounter Plan of Treatment Not on file documented as of this encounter Visit Diagnoses Not on filedocumented in this encounter Care Teams Automation And Controls Manager Relationship Specialty Start Date End Date Alejo Cha PCP - General 01/14/04 documented as of this encounter
--- OUTSIDE RECORDS SUMMARY | 2025-05-28 10:02 | XMS_ITS | Encounter Summary ---
Author Organization Address [address] [place] [address] Care Team Providers Care Cocoa Bean Cleaner Name Role Phone Alejo Cha Primary Care Provider [phone] Encounter Details Date Type Department Care Team (Late st Contact Info) Description 01/19/2004 Outpatient Historical [facility] Adult Hospitalists [address] [address] Jyoti Miller MD NO ADDRESS ON FILE Social History Tobacco Use Types Packs/Day Years Used Date Smoking Tobacco: Never Assessed Comments Unknown Sex and Gender Information Value Date Recorded Sex Assigned at Not on file Legal Sex Female 4:34 AM PERSONAL CARE ATTENDANT Gender Identity Not on file Sexual Orientation Not on file documented as of this encounter Plan of Treatment Not on file documented as of this encounter Visit Diagnoses Not on filedocumented in this encounter Care Teams Cocoa Bean Cleaner Relationship Specialty Start Date End Date Alejo Cha PCP - General 01/14/04 documented as of this encounter
--- OUTSIDE RECORDS SUMMARY | 2025-05-28 10:02 | XMS_ITS | Clinical Summary ---
Author Organization [facility] Address [address] [place] [address] Care Team Providers Care Funeral Service Manager Name Role Phone Sammy Yoon DO Unavailable [phone] Nain Gonzales MD Unavailable [phone] Coleman Keita MD Unavailable [phone] Alejo Chinchilla MD Primary Care Provider [phone] Allergies No known active allergies Medications topiramate [...] Begin Mirtazapine. Recheck 3 months Seizure disorder 11/02/2018 Assessment & Plan (11/02/2018 11:46 AM GUIDE DOMESTIC TOUR): Controlled. Last seizure about 9 years ago. Managed by Neurology. Primary osteoarthritis involving multiple joints 11/02/2018 Assessment & Plan (11/02/2018 11:53 AM GUIDE DOMESTIC TOUR): Chronic. We discussed options. Advised OTC analgesics PRN. Hyperlipidemia 01/15/2018 Assessment & Plan (11/02/2018 11:47 AM GUIDE DOMESTIC TOUR): I spent 15 minutes counseling her on [...] Synthroid versus adding Cytomel or changing to Heber or pork thyroid - patient willing to [...] taken. Assessment & Plan (11/02/2018 11:48 AM GUIDE DOMESTIC TOUR): Euthyroid. Continue current regimen. She is managed by Endocrinology. Assessment & Plan (06/29/2018 12:14 PM CDT): Patient's medication was recently readjusted to the Synthroid 137 mcg daily. Migraine without aura and wi thout status migrainosus, not intractable 01/18/2013 Overview (11/02/2018): Assessment & Plan (11/02/2018 11:46 AM GUIDE DOMESTIC TOUR): Headaches are fair control. Continue current treatment regimen. Managed by Neurology. Current smoker 01/20/2011 Assessment & Plan (11/02/2018 11:46 AM GUIDE DOMESTIC TOUR): Smoking cessation counseling: We discussed the importance of smoking cessation. Therapeutic options discussed included nicotine replacement therapy, Chantix, Wellbutrin, Acupuncture, Hypnosis, and Behavioral therapy. I spent 4 minutes counseling the patient on smoking cessation Resolved Problems Problem Noted Date Diagnosed Date Resolved Date Thyroid nodule 06/12/2018 11/02/2018 Assessment & Plan (08/27/2018 8:09 AM GUIDE DOMESTIC TOUR): Patient is status post thyroid isthmusectomy. Final [...] is to follow up with her medical field logistics coordinator for continued thyroid hormone replacement. Assessment & [...] on file Legal Sex Female 11:49 PM GUIDE DOMESTIC TOUR Gender Identity Not on file Sexual Orientation Not on file Obstetrics History Last Filed Vital Signs Vital Sign Reading Time Taken Comments Blood Pressure 104/68 05/27/2019 9:54 AM CDT Pulse 95 05/27/2019 9:54 AM CDT Temperature 37.4 C (99.4 F) 11/02/2018 11:20 AM GUIDE DOMESTIC TOUR Respiratory Rate 14 05/27/2019 9:54 AM CDT Oxygen Saturation 98% 12/26/2018 11:37 AM CDT Inhaled Oxygen Concentration - - Weight 61.8 kg (136 lb 3.2 oz) 05/27/2019 9:54 A M CDT Height 165.1 cm (5' 5) 05/27/2019 9:54 AM CDT Body Mass Index 22.66 05/27/2019 9:54 AM CDT Plan of Treatment Not on file Insurance [place] [facility] Care Teams Funeral Service Manager Relationship Specialty Start Date End Date Alejo Chinchilla MD [address] [place] [address] PCP - General 10/27/21 Sammy Yoon DO Surgeon Otolaryngology 09/10/18 Nain Gonzales MD [address] [facility] [address] [place] [address] Consulting Physician Endocrinology 09/10/18 Coleman Keita MD [address] [facility] [address] [place] [address] Referring Physician Neurology 11/02/18
--- OUTSIDE RECORDS SUMMARY | 2025-05-28 10:02 | XMS_ITS | Patient Health Record ---
Author Organization [facility] [employer] Address [facility] [facility] [address] [place] [address] Care Team Providers Care Carbon Brushes Assembler Name Role Phone Tristan Burleson Unavailable [phone] Reason For Referral No Information Plan Of Treatment No Information
--- OUTSIDE RECORDS SUMMARY | 2025-05-28 10:02 | XMS_ITS | Encounter Summary ---
Author Organization [facility] Address [address] [place] [address] Care Team Providers Care Social Media Specialist Name Role Phone Alejo Cha Primary Care Provider [phone] Encounter Details Date Type Department Care Team (Late st Contact Info) Description 01/15/2004 Outpatient Historical Division of Neurology [address] [address] Derrick Aguilar MD [address] [place] [address] Social History Tobacco Use Types Packs/Day Years Used Date Smoking Tobacco: Never Assessed Comments Unknown Sex and Gender Information Value Date Recorded Sex Assigned at Not on file Legal Sex Female 4:34 AM COSTUME SPECIALIST Gender Identity Not on file Sexual Orientation Not on file documented as of this encounter Plan of Treatment Not on file documented as of this encounter Visit Diagnoses Not on filedocumented in this encounter Care Teams Social Media Specialist Relationship Specialty Start Date End Date Alejo Cha PCP - General 01/14/04 documented as of this encounter
== END 2025-05-28 09:42 | disposition home or self-care (01) ==
LOC: CHSIMG 09:44
PROVIDERS: PCP Family Medicine; Visit Provider Family Medicine
DX: R10.9 Unspecified abdominal pain (principal); N20.0 Calculus of kidney
CPT/HCPCS: 74176

== ENCOUNTER 2025-06-13 13:39 | Outpatient (NON) | payer MEDICARE, SELFPAY ==
[2025-06-13 14:13] LABS: Add Urine Microscopic? NO; Appearance Urine Clear (Clear); Glucose Urine UA Negative (Negative); Leukocyte Esterase Ur Negative LEU/UL (Negative); Nitrate Urine Negative (Negative); Specific Grav Ur 1.015 (1.010-1.020)
--- OUTSIDE RECORDS SUMMARY | 2025-06-13 14:29 | XMS_ITS | Encounter Summary ---
Author Organization [facility] Address [address] [place] [address] Care Team Providers Care Tree Driller Name Role Phone Alejo Cha Primary Care Provider [phone] Encounter Details Date Type Department Care Team (Late st Contact Info) Description 01/15/2004 Outpatient Historical [facility] Adult Hospitalists [facility] [address] [place] [address] Violette Singh MD [id number] [place], [place] [id number] Social History Tobacco Use Types Packs/Day Years Used Date Smoking Tobacco: Never Assessed Comments Unknown Sex and Gender Information Value Date Recorded Sex Assigned at Not on file Legal Sex Female 4:34 AM LOCK TENDER Gender Identity Not on file Sexual Orientation Not on file documented as of this encounter Plan of Treatment Not on file documented as of this encounter Visit Diagnoses Not on filedocumented in this encounter Care Teams Tree Driller Relationship Specialty Start Date End Date Alejo Cha PCP - General 01/14/04 documented as of this encounter
--- OUTSIDE RECORDS SUMMARY | 2025-06-13 14:29 | XMS_ITS | Encounter Summary ---
Author Organization [facility] Address [address] [place] [address] Care Team Providers Care Blast Furnace Checker Name Role Phone Alejo Cha Primary Care Provider [phone] Encounter Details Date Type Department Care Team [...] on file Legal Sex Female 4:34 AM IRON ERECTOR Gender Identity Not on file Sexual Orientation Not on file documented as of this encounter Plan of Treatment Not on file documented as of this encounter Visit Diagnoses Diagnosis Migraine without aura, with intractable migraine, so stated, without mention of status migrainosus- Primary documented in this encounter Care Teams Blast Furnace Checker Relationship Specialty Start Date End Date Alejo Cha PCP - General 01/14/04 documented as of this encounter
--- OUTSIDE RECORDS SUMMARY | 2025-06-13 14:29 | XMS_ITS | Encounter Summary ---
Author Organization [facility] Address [address] [place] [address] Care Team Providers Care English As A Second Language Teacher Name Role Phone Alejo Cha Primary Care Provider Encounter Details Date Type Department Care Team (Late st Contact Info) Description 01/19/2004 Outpatient Historical [facility]ists [address] [address] Jyoti Miller MD NO ADDRESS ON FILE Social History Tobacco Use Types Packs/Day Years Used Date Smoking Tobacco: Never Assessed Comments Unknown Sex and Gender Information Value Date Recorded Sex Assigned at Not on file Legal Sex Female 4:34 AM BUMPER OPERATOR Gender Identity Not on file Sexual Orientation Not on file documented as of this encounter Plan of Treatment Not on file documented as of this encounter Visit Diagnoses Not on filedocumented in this encounter Care Teams English As A Second Language Teacher Relationship Specialty Start Date End Date Alejo Cha PCP - General 01/14/04 documented as of this encounter
--- OUTSIDE RECORDS SUMMARY | 2025-06-13 14:29 | XMS_ITS | Encounter Summary ---
Author Organization [facility] Address [address] [place] [address] Care Team Providers Care Podiatric Physician Name Role Phone Alejo Cha Primary Care Provider [phone] Encounter Details Date Type Department Care Team (Late st Contact Info) Description 06/27/2000 Outpatient Historical [facility] Internal Medicine [facility] [address] [facility] [address] [place] [address] Laurent Miranda Social History Tobacco Use Types Packs/Day Years Used Date Smoking Tobacco: Never Assessed Comments Unknown Sex and Gender Information Value Date Recorded Sex Assigned at Not on file Legal Sex Female 4:34 AM DOG FOOD DOUGH MIXER Gender Identity Not on file Sexual Orientation Not on file documented as of this encounter Plan of Treatment Not on file documented as of this encounter Visit Diagnoses Not on filedocumented in this encounter Care Teams Podiatric Physician Relationship Specialty Start Date End Date Alejo Cha PCP - General 01/14/04 documented as of this encounter
--- OUTSIDE RECORDS SUMMARY | 2025-06-13 14:29 | XMS_ITS | Encounter Summary ---
Author Organization [facility] Address [address] [place] [address] Care Team Providers Care Scientific Photographer Name Role Phone Alejo Cha Primary Care Provider [phone] Encounter Details Date Type Department Care Team (Late st Contact Info) Description 09/30/2003 Outpatient Historical [facility] AguilarDerrick MD [address] [facility] [address] [place] [address] Social History Tobacco Use Types Packs/Day Years Used Date Smoking Tobacco: Never Assessed Comments Unknown Sex and Gender Information Value Date Recorded Sex Assigned at Not on file Legal Sex Female 4:34 AM CLOTH CLASSER Gender Identity Not on file Sexual Orientation Not on file documented as of this encounter Plan of Treatment Not on file documented as of this encounter Visit Diagnoses Not on filedocumented in this encounter Care Teams Scientific Photographer Relationship Specialty Start Date End Date Alejo Cha PCP - General 01/14/04 documented as of this encounter
--- OUTSIDE RECORDS SUMMARY | 2025-06-13 14:29 | XMS_ITS | Encounter Summary ---
Author Organization [facility] Address [address] [place] [address] Care Team Providers Care Inbound Call Center Agent Name Role Phone Alejo Cha Primary Care Provider [phone] Encounter Details Date Type Department Care Team (Latest Contact Info) Description 07/06/2000 Outpatient Historical [facility] Derrick Bishop MD [address] [facility] [address] [place] [address] Encounter for long-term (current) use of other medications (Primary Dx) Social History Tobacco Use Types Packs/Day Years Used Date Smoking Tobacco: Never Assessed Comments Unknown Sex and Gender Information Value Date Recorded Sex Assigned at Not on file Legal Sex Female 4:34 AM DIRECTOR OF OCCUPATIONAL HEALTH Gender Identity Not on file Sexual Orientation Not on file documented as of this encounter Plan of Treatment Not on file documented as of this encounter Visit Diagnoses Diagnosis Encounter for long-term (current) use of other medications- Primary documented in this encounter Care Teams Inbound Call Center Agent Relationship Specialty Start Date End Date Alejo Cha PCP - General 01/14/04 documented as of this encounter
--- OUTSIDE RECORDS SUMMARY | 2025-06-13 14:29 | XMS_ITS | Encounter Summary ---
Author Organization [facility] Address [address] [place] [address] Care Team Providers Care Heat Treatment Technician Name Role Phone Alejo Cha Primary Care Provider [phone] Encounter Details Date Type Department Care Team (Late st Contact Info) Description 06/13/2000 Emergency [facility] Rodney Graham, [address] [place] [address] Er, Authorized P NO ADDRESS ON FILE Abdominal pain, unspecified site (Primary Dx) Social History Tobacco Use Types Packs/Day Years Used Date Smoking Tobacco: Never Assessed Comments Unknown Sex and Gender Information Value Date Recorded Sex Assigned at Not on file Legal Sex Female 4:34 AM BAGGAGEMASTER Gender Identity Not on file Sexual Orientation Not on file documented as of this encounter Plan of Treatment Not on file documented as of this encounter Visit Diagnoses Diagnosis Abdominal pain, unspecified site- Primary documented in this encounter Care Teams Heat Treatment Technician Relationship Specialty Start Date End Date Alejo Cha PCP - General 01/14/04 documented as of this encounter
--- OUTSIDE RECORDS SUMMARY | 2025-06-13 14:29 | XMS_ITS | Encounter Summary ---
Author Organization [facility] Address [address] [place] [address] Care Team Providers Care High School Teacher Name Role Phone Alejo Cha Primary Care Provider [phone] Encounter Details Date Type Department Care Team (Late st Contact Info) Description 02/03/2003 Outpatient Historical Division of Neurology [address] [address] Derrick Aguilar MD [address] [place] [address] Social History Tobacco Use Types Packs/Day Years Used Date Smoking Tobacco: Never Assessed Comments Unknown Sex and Gender Information Value Date Recorded Sex Assigned at Not on file Legal Sex Female 4:34 AM HAULPAK DRIVER Gender Identity Not on file Sexual Orientation Not on file documented as of this encounter Plan of Treatment Not on file documented as of this encounter Visit Diagnoses Not on filedocumented in this encounter Care Teams High School Teacher Relationship Specialty Start Date End Date Alejo Cha PCP - General 01/14/04 documented as of this encounter
--- OUTSIDE RECORDS SUMMARY | 2025-06-13 14:29 | XMS_ITS | Encounter Summary ---
Author Organization [facility] Address [address] [place] [address] Care Team Providers Care Molder Wax Ball Name Role Phone Alejo Cha Primary Care Provider [phone] Encounter Details Date Type Department Care Team (Late st Contact Info) Description 12/31/2003 Outpatient [facility] Primary Care - [address] [place] [address] Alejo Cha Social History Tobacco Use Types Packs/Day Years Used Date Smoking Tobacco: Never Assessed Comments Unknown Sex and Gender Information Value Date Recorded Sex Assigned at Not on file Legal Sex Female 4:34 AM SINGING MESSENGER Gender Identity Not on file Sexual Orientation Not on file documented as of this encounter Plan of Treatment Not on file documented as of this encounter Visit Diagnoses Not on filedocumented in this encounter Care Teams Molder Wax Ball Relationship Specialty Start Date End Date Alejo Cha PCP - General 01/14/04 documented as of this encounter
--- OUTSIDE RECORDS SUMMARY | 2025-06-13 14:29 | XMS_ITS | Encounter Summary ---
Author Organization [facility] Address [address] [place] [address] Care Team Providers Care Pest Controller Name Role Phone Alejo Cha Primary Care Provider [phone] Encounter Details Date Type Department Care Team (Late st Contact Info) Description 05/12/2000 Outpatient Historical [facility] Internal Medicine [facility] [address] [facility] [address] [place] [address] Laurent Miranda Social History Tobacco Use Types Packs/Day Years Used Date Smoking Tobacco: Never Assessed Comments Unknown Sex and Gender Information Value Date Recorded Sex Assigned at Not on file Legal Sex Female 4:34 AM WINCH TRUCK OPERATOR Gender Identity Not on file Sexual Orientation Not on file documented as of this encounter Plan of Treatment Not on file documented as of this encounter Visit Diagnoses Not on filedocumented in this encounter Care Teams Pest Controller Relationship Specialty Start Date End Date Alejo Cha PCP - General 01/14/04 documented as of this encounter
--- OUTSIDE RECORDS SUMMARY | 2025-06-13 14:29 | XMS_ITS | Encounter Summary ---
Author Organization [facility] Address [address] [place] [address] Care Team Providers Care Surface Supply Breathing Apparatus Name Role Phone Alejo Cha Primary Care Provider [phone] Encounter Details Date Type Department Care Team (Late st Contact Info) Description 01/15/2004 Outpatient Historical Division of Neurology [address] [address] Derrick Aguilar MD [address] [place] [address] Social History Tobacco Use Types Packs/Day Years Used Date Smoking Tobacco: Never Assessed Comments Unknown Sex and Gender Information Value Date Recorded Sex Assigned at Not on file Legal Sex Female 4:34 AM INDUSTRIAL FABRIC CUTTER Gender Identity Not on file Sexual Orientation Not on file documented as of this encounter Plan of Treatment Not on file documented as of this encounter Visit Diagnoses Not on filedocumented in this encounter Care Teams Surface Supply Breathing Apparatus Relationship Specialty Start Date End Date Alejo Cha PCP - General 01/14/04 documented as of this encounter
--- OUTSIDE RECORDS SUMMARY | 2025-06-13 14:29 | XMS_ITS | Encounter Summary ---
Author Organization [facility] Address [address] [place] [address] Care Team Providers Care Pocketed Spring Machine Operator Name Role Phone Alejo Cha Primary Care Provider [phone] Encounter Details Date Type Department Care Team (Late st Contact Info) Description 10/16/2003 Outpatient [facility] Primary Care - [address] [place] [address] Alejo Cha Social History Tobacco Use Types Packs/Day Years Used Date Smoking Tobacco: Never Assessed Comments Unknown Sex and Gender Information Value Date Recorded Sex Assigned at Not on file Legal Sex Female 4:34 AM AUTOMATION MACHINE BUILDER Gender Identity Not on file Sexual Orientation Not on file documented as of this encounter Plan of Treatment Not on file documented as of this encounter Visit Diagnoses Not on filedocumented in this encounter Care Teams Pocketed Spring Machine Operator Relationship Specialty Start Date End Date Alejo Cha PCP - General 01/14/04 documented as of this encounter
--- OUTSIDE RECORDS SUMMARY | 2025-06-13 14:29 | XMS_ITS | Encounter Summary ---
Author Organization [facility] Address [address] [place] [address] Care Team Providers Care Clinical Psychologist Name Role Phone Alejo Cha Primary Care Provider Encounter Details Date Type Department Care Team (Late st Contact Info) Description 01/14/2004 Outpatient Historical [facility] Adult Hospitalists [address] [address] [place] Social History Tobacco Use Types Packs/Day Years Used Date Smoking Tobacco: Never Assessed Comments Unknown Sex and Gender Information Value Date Recorded Sex Assigned at Not on file Legal Sex Female 4:34 AM WRAPPER HANDS SPRAYER Gender Identity Not on file Sexual Orientation Not on file documented as of this encounter Plan of Treatment Not on file documented as of this encounter Visit Diagnoses Not on filedocumented in this encounter Care Teams Clinical Psychologist Relationship Specialty Start Date End Date Alejo Cha PCP - General 01/14/04 documented as of this encounter
--- OUTSIDE RECORDS SUMMARY | 2025-06-13 14:29 | XMS_ITS | Encounter Summary ---
Author Organization [facility] Address [address] [place] [address] Care Team Providers Care Concrete Grinder Operator Name Role Phone Alejo Cha Primary Care Provider [phone] Encounter Details Date Type Department Care Team (Late st Contact Info) Description 12/12/2003 Outpatient [facility] Primary Care - [address] [place] [address] Alejo Cha Social History Tobacco Use Types Packs/Day Years Used Date Smoking Tobacco: Never Assessed Comments Unknown Sex and Gender Information Value Date Recorded Sex Assigned at Not on file Legal Sex Female 4:34 AM AADC PLANS STAFF OFFICER Gender Identity Not on file Sexual Orientation Not on file documented as of this encounter Plan of Treatment Not on file documented as of this encounter Visit Diagnoses Not on filedocumented in this encounter Care Teams Concrete Grinder Operator Relationship Specialty Start Date End Date Alejo Cha PCP - General 01/14/04 documented as of this encounter
--- OUTSIDE RECORDS SUMMARY | 2025-06-13 14:29 | XMS_ITS | Clinical Summary ---
Author Organization [facility] Address [address] [place] [address] Care Team Providers Care Cable Armorer Name Role Phone Alejo Cha Primary Care Provider [phone] Social History Tobacco Use Types Packs/Day Years Used Date Smoking Tobacco: Never Assessed Comments Unknown Sex and Gender Information Value Date Recorded Sex Assigned at Not on file Legal Sex Female 4:34 AM CEMENT AND CONCRETE PLANT WORKER Gender Identity Not on file Sexual [...] - 1-dose 75+ series) 2029 Care Teams Cable Armorer Relationship Specialty Start Date End Date Alejo Cha PCP - General 01/14/04
--- OUTSIDE RECORDS SUMMARY | 2025-06-13 14:29 | XMS_ITS | Encounter Summary ---
Author Organization [facility] Address [address] [place] [address] Care Team Providers Care Advertising Copywriter Name Role Phone Alejo Cha Primary Care Provider [phone] Encounter Details Date Type Department Care Team (Late st Contact Info) Description 08/26/2003 Outpatient Historical Division of Neurology [address] [address] Derrick Aguilar MD [address] [place] [address] Social History Tobacco Use Types Packs/Day Years Used Date Smoking Tobacco: Never Assessed Comments Unknown Sex and Gender Information Value Date Recorded Sex Assigned at Not on file Legal Sex Female 4:34 AM GAS TESTER Gender Identity Not on file Sexual Orientation Not on file documented as of this encounter Plan of Treatment Not on file documented as of this encounter Visit Diagnoses Not on filedocumented in this encounter Care Teams Advertising Copywriter Relationship Specialty Start Date End Date Alejo Cha PCP - General 01/14/04 documented as of this encounter
--- OUTSIDE RECORDS SUMMARY | 2025-06-13 14:29 | XMS_ITS | Encounter Summary ---
Author Organization [facility] Address [address] [place] [address] Care Team Providers Care Health It Specialist Name Role Phone SemajAlejo Primary Care Provider [phone] Encounter Details Date Type Department Care Team (Late st Contact Info) Description 11/02/2006 Inpatient Historical [facility] Miki Arechiga MD [address] [facility] [address] [place] [address] Opioid Type Dependence, Unspecified Abuse (CMS/HCC) (Primary Dx) Social History Tobacco Use Types Packs/Day Years Used Date Smoking Tobacco: Never Assessed Comments Unknown Sex and Gender Information Value Date Recorded Sex Assigned at Not on file Legal Sex Female 4:34 AM CORRECTIONAL FOOD SERVICE SUPERVISOR Gender Identity Not on file Sexual Orientation Not on file documented as of this encounter Plan of Treatment Not on file documented as of this encounter Procedures Procedure Name Priority Date/Time Associated Diagnosis Comments VALPROIC ACID LEVEL, TOTAL Routine 11/07/2006 8:05 AM CORRECTIONAL FOOD SERVICE SUPERVISOR documented in this encounter Results * VALPROIC ACID TOTAL (11/07/2006 8:05 AM CORRECTIONAL FOOD SERVICE SUPERVISOR) VALPROIC ACID TOTAL 54 50 - 100 ug/mL INTERFACE SYSTEM Comment: Valproic Acid Antiepileptic Control = 50 - 100 ug/mL Valproic Acid Manic Episode Control = 50 - 125 ug/mL Valproic Acid Toxic Level = >200 ug/mL 11/07/2006 8:05 AM CORRECTIONAL FOOD SERVICE SUPERVISOR us Tristen Faulkner CHEMISTRY ORDERABLES Ed ited INTERFACE SYSTEM Refer to clinic/hospital department documented in this encounter Visit Diagnoses Diagnosis Opioid type dependence, unspecified (CMS/HCC)- Primary Opioid type dependence, unspecified documented in this encounter Care Teams Health It Specialist Relationship Specialty Start Date End Date Alejo Cha PCP - General 01/14/04 documented as of this encounter
--- OUTSIDE RECORDS SUMMARY | 2025-06-13 14:29 | XMS_ITS | Clinical Summary ---
Author Organization [facility] Address [address] [place] [address] Care Team Providers Care Instrument Inspector Name Role Phone Sammy Yoon DO Unavailable [phone] Nain Gonzales MD Unavailable [phone] Coleman Keita MD Unavailable [phone] Alejo Chinchilla MD Primary Care Provider [phone] Allergies No known active allergies Medications topiramate [...] 11/02/2018 Assessment & Plan (11/02/2018 11:46 AM ORACLE ETL DEVELOPER): Controlled. Last seizure about 9 years ago. Managed by Neurology. Primary osteoarthritis involving multiple joints 11/02/2018 Assessment & Plan (11/02/2018 11:53 AM ORACLE ETL DEVELOPER): Chronic. We discussed options. Advised OTC analgesics PRN. Hyperlipidemia 01/15/2018 Assessment & Plan (11/02/2018 11:47 AM ORACLE ETL DEVELOPER): I spent 15 minutes counseling her on [...] Synthroid versus adding Cytomel or changing to G[place] or pork thyroid - patient willing to [...] taken. Assessment & Plan (11/02/2018 11:48 AM ORACLE ETL DEVELOPER): Euthyroid. Continue current regimen. She is managed by Endocrinology. Assessment & Plan (06/29/2018 12:14 PM CDT): Patient's medication was recently readjusted to the Synthroid 137 mcg daily. Migraine without aura and wi thout status migrainosus, not intractable 01/18/2013 Overview (11/02/2018): Assessment & Plan (11/02/2018 11:46 AM ORACLE ETL DEVELOPER): Headaches are fair control. Continue current treatment regimen. Managed by Neurology. Current smoker 01/20/2011 Assessment & Plan (11/02/2018 11:46 AM ORACLE ETL DEVELOPER): Smoking cessation counseling: We discussed the importance of smoking cessation. Therapeutic options discussed included nicotine replacement therapy, Chantix, Wellbutrin, Acupuncture, Hypnosis, and Behavioral therapy. I spent 4 minutes counseling the patient on smoking cessation Resolved Problems Problem Noted Date Diagnosed Date Resolved Date Thyroid nodule 06/12/2018 11/02/2018 Assessment & Plan (08/27/2018 8:09 AM ORACLE ETL DEVELOPER): Patient is status post thyroid isthmusectomy. Final [...] is to follow up with her medical dispensary attendant for continued thyroid hormone replacement. Assessment & [...] on file Legal Sex Female 11:49 PM ORACLE ETL DEVELOPER Gender Identity Not on file Sexual Orientation Not on file Obstetrics History Last Filed Vital Signs Vital Sign Reading Time Taken Comments Blood Pressure 104/68 05/27/2019 9:54 AM CDT Pulse 95 05/27/2019 9:54 AM CDT Temperature 37.4 C (99.4 F) 11/02/2018 11:20 AM ORACLE ETL DEVELOPER Respiratory Rate 14 05/27/2019 9:54 AM CDT Oxygen Saturation 98% 12/26/2018 11:37 AM CDT Inhaled Oxygen Concentration - - Weight 61.8 kg (136 lb 3.2 oz) 05/27/2019 9:54 A M CDT Height 165.1 cm (5' 5) 05/27/2019 9:54 AM CDT Body Mass Index 22.66 05/27/2019 9:54 AM CDT Plan of Treatment Not on file Insurance MEDICARE BLUE ACCESS CHOICE RI MEDICARE BLUE ACCESS CHOICE RI BLUE ACCESS RI MEDICARE [facility] Care Teams Instrument Inspector Relationship Specialty Start Date End Date Alejo Chinchilla MD [address] [facility] [address] [place] [address] PCP - General 10/27/21 Sammy Yoon DO Surgeon Otolaryngology 09/10/18 Nain Gonzales MD [address] [place] [address] Consulting Physician Endocrinology 09/10/18 Coleman Keita MD [address] [place] [address] Referring Physician Neurology 11/02/18
--- OUTSIDE RECORDS SUMMARY | 2025-06-13 14:29 | XMS_ITS | Encounter Summary ---
Author Organization [facility] Address [address] [place] [address] Care Team Providers Care Endoscopy Tech Name Role Phone Alejo Cha Primary Care Provider Encounter Details Date Type Department Care Team (Late st Contact Info) Description 07/15/2002 Outpatient Historical Division of Neurology [address] [address] Derrick Aguilar MD [address] [place] [address] Social History Tobacco Use Types Packs/Day Years Used Date Smoking Tobacco: Never Assessed Comments Unknown Sex and Gender Information Value Date Recorded Sex Assigned at Not on file Legal Sex Female 4:34 AM PERFORMANCE ARCHITECT Gender Identity Not on file Sexual Orientation Not on file documented as of this encounter Plan of Treatment Not on file documented as of this encounter Visit Diagnoses Not on filedocumented in this encounter Care Teams Endoscopy Tech Relationship Specialty Start Date End Date Alejo Cha PCP - General 01/14/04 documented as of this encounter
--- OUTSIDE RECORDS SUMMARY | 2025-06-13 14:29 | XMS_ITS | Encounter Summary ---
Author Organization [facility] Address [address] [place] [address] Care Team Providers Care Market Research Interviewer Name Role Phone Alejo Cha Primary Care Provider Encounter Details Date Type Department Care Team (Late st Contact Info) Description 01/17/2004 Outpatient Historical [facility] Adult Hospitalists [address] [address] [place] Social History Tobacco Use Types Packs/Day Years Used Date Smoking Tobacco: Never Assessed Comments Unknown Sex and Gender Information Value Date Recorded Sex Assigned at Not on file Legal Sex Female 4:34 AM REHABILITATION CASEWORKER Gender Identity Not on file Sexual Orientation Not on file documented as of this encounter Plan of Treatment Not on file documented as of this encounter Visit Diagnoses Not on filedocumented in this encounter Care Teams Market Research Interviewer Relationship Specialty Start Date End Date Alejo Cha PCP - General 01/14/04 documented as of this encounter
--- OUTSIDE RECORDS SUMMARY | 2025-06-13 14:29 | XMS_ITS | Encounter Summary ---
Author Organization [facility] Address [address] [place] [address] Care Team Providers Care Manager Service Desk Name Role Phone Alejo Cha Primary Care Provider [phone] Encounter Details Date Type Department Care Team (Late st Contact Info) Description 07/06/2000 Outpatient Historical Division of Neurology [address] [address] Derrick Augilar MD [address] [place] [address] Social History Tobacco Use Types Packs/Day Years Used Date Smoking Tobacco: Never Assessed Comments Unknown Sex and Gender Information Value Date Recorded Sex Assigned at Not on file Legal Sex Female 4:34 AM MIXING ROLL OPERATOR Gender Identity Not on file Sexual Orientation Not on file documented as of this encounter Plan of Treatment Not on file documented as of this encounter Visit Diagnoses Not on filedocumented in this encounter Care Teams Manager Service Desk Relationship Specialty Start Date End Date Alejo Cha PCP - General 01/14/04 documented as of this encounter
--- OUTSIDE RECORDS SUMMARY | 2025-06-13 14:29 | XMS_ITS | Clinical Summary ---
Author Organization [facility] Address [address] [facility] [place] [address] Care Team Providers Care Miller Helper Name Role Phone KaiserCorrina Selena TIMEKEEPING SUPERVISOR-WELT POCKET MACHINE OPERATOR Unavailable [phone] Aashish Corrigan DO Primary Care Provider [phone] Source Comments [facility],non-owned Affiliates and Associated Physician Practices is amultiple site organization consisting of ambulatory clinics and hospital sitesin [place], [place], [place] and [place]. This disclosure is being madepursuant to the Care Everywhere program and may not contain all information available regarding this patient. Last updated 18.[facility] Allergies No known active allergies Medications * [...] 10 mg by mouth once daily Active efd-kyqk-gcjjmn ital-codeine (FIORINAL WITH CODEINE) 79-302-62-30 MG capsule Take 1 capsule by mouth [...] age to complete this topic Insurance MEDICARE [facility] MEDICARE Advance Directives * Full Code (Latest Code Status on File) Date Activated Date Inactivated Comments 11/22/2021 12:06 AM 11/27/2021 1:24 PM Care Teams Miller Helper Relationship Specialty Start Date End Date Aashish Corrigan DO [address] [place] [address] PCP - General Family Medicine 01/18/22 Corrina Saab, TIMEKEEPING SUPERVISOR-WELT POCKET MACHINE OPERATOR [facility] [address] [place] [address] Nurse Practitioner Pulmonary Disease 12/14/21
== END 2025-06-13 13:40 | disposition home or self-care (01) ==
LOC: CHSLAB 13:40
PROVIDERS: PCP Nurse Practitioner Family; Visit Provider Nurse Practitioner Family
DX: R39.9 Unspecified symptoms and signs involving the genitourinary system (principal)
CPT/HCPCS: 81003

== ENCOUNTER 2025-06-27 13:06 | Outpatient (NON) | payer MEDICARE, SELFPAY ==
--- OUTSIDE RECORDS SUMMARY | 2025-06-27 13:13 | XMS_ITS | Encounter Summary ---
Author Organization [facility] Address [address] [place] [address] Care Team Providers Care Ham Sawyer Name Role Phone Alejo Cha Primary Care Provider [phone] Encounter Details Date Type Department Care Team (Late st Contact Info) Description 06/27/2000 Outpatient Historical [facility] Internal Medicine [facility] [address] [facility] [address] Shadi Patterson [place] [address] Laurent Miranda Social History Tobacco Use Types Packs/Day Years Used Date Smoking Tobacco: Never Assessed Comments Unknown Sex and Gender Information Value Date Recorded Sex Assigned at Not on file Legal Sex Female 4:34 AM PRISON CLASSIFICATION COUNSELOR Gender Identity Not on file Sexual Orientation Not on file documented as of this encounter Plan of Treatment Not on file documented as of this encounter Visit Diagnoses Not on filedocumented in this encounter Care Teams Ham Sawyer Relationship Specialty Start Date End Date Alejo Cha PCP - General 01/14/04 documented as of this encounter
--- OUTSIDE RECORDS SUMMARY | 2025-06-27 13:13 | XMS_ITS | Encounter Summary ---
Author Organization [facility] Address [address] [place] [address] Care Team Providers Care Chemical Production Machine Operator Name Role Phone Alejo Cha Primary Care Provider Encounter Details Date Type Department Care Team (Late st Contact Info) Description 10/16/2003 Outpatient [facility] Primary Care - [address] [place] [address] Alejo Cha Social History Tobacco Use Types Packs/Day Years Used Date Smoking Tobacco: Never Assessed Comments Unknown Sex and Gender Information Value Date Recorded Sex Assigned at Not on file Legal Sex Female 4:34 AM HALL TENDER Gender Identity Not on file Sexual Orientation Not on file documented as of this encounter Plan of Treatment Not on file documented as of this encounter Visit Diagnoses Not on filedocumented in this encounter Care Teams Chemical Production Machine Operator Relationship Specialty Start Date End Date Alejo Cha PCP - General 01/14/04 documented as of this encounter
--- OUTSIDE RECORDS SUMMARY | 2025-06-27 13:13 | XMS_ITS | Encounter Summary ---
Author Organization [facility] Address [address] [place] [address] Care Team Providers Care Metalizer Name Role Phone Alejo Cha Primary Care Provider [phone] Encounter Details Date Type Department Care Team (Late st Contact Info) Description 08/26/2003 Outpatient Historical Division of Neurology [address] [address] Derrick Aguilar MD [address] [place] [address] Social History Tobacco Use Types Packs/Day Years Used Date Smoking Tobacco: Never Assessed Comments Unknown Sex and Gender Information Value Date Recorded Sex Assigned at Not on file Legal Sex Female 4:34 AM ON AIR HOST Gender Identity Not on file Sexual Orientation Not on file documented as of this encounter Plan of Treatment Not on file documented as of this encounter Visit Diagnoses Not on filedocumented in this encounter Care Teams Metalizer Relationship Specialty Start Date End Date Alejo Cha PCP - General 01/14/04 documented as of this encounter
--- OUTSIDE RECORDS SUMMARY | 2025-06-27 13:13 | XMS_ITS | Encounter Summary ---
Author Organization [facility] Address [address] [place] [address] Care Team Providers Care Head Loft Worker Name Role Phone Alejo Cha Primary Care Provider [phone] Encounter Details Date Type Department Care Team (Late st Contact Info) Description 07/06/2000 Outpatient Historical Division of Neurology [address] [address] Derrick Aguilar MD [address] [place] [address] Social History Tobacco Use Types Packs/Day Years Used Date Smoking Tobacco: Never Assessed Comments Unknown Sex and Gender Information Value Date Recorded Sex Assigned at Not on file Legal Sex Female 4:34 AM WIRE SPIRAL BINDER Gender Identity Not on file Sexual Orientation Not on file documented as of this encounter Plan of Treatment Not on file documented as of this encounter Visit Diagnoses Not on filedocumented in this encounter Care Teams Head Loft Worker Relationship Specialty Start Date End Date Alejo Cha PCP - General 01/14/04 documented as of this encounter
--- OUTSIDE RECORDS SUMMARY | 2025-06-27 13:13 | XMS_ITS | Encounter Summary ---
Author Organization [facility] Address [address] [place] [address] Care Team Providers Care Mold Cleaning And Storage Supervisor Name Role Phone Alejo Cha Primary Care Provider [phone] Encounter Details Date Type Department Care Team (Late st Contact Info) Description 12/12/2003 Outpatient [facility] Primary Care - [address] [place] [address] Alejo Cha Social History Tobacco Use Types Packs/Day Years Used Date Smoking Tobacco: Never Assessed Comments Unknown Sex and Gender Information Value Date Recorded Sex Assigned at Not on file Legal Sex Female 4:34 AM COMMUNITY PLACEMENT WORKER Gender Identity Not on file Sexual Orientation Not on file documented as of this encounter Plan of Treatment Not on file documented as of this encounter Visit Diagnoses Not on filedocumented in this encounter Care Teams Mold Cleaning And Storage Supervisor Relationship Specialty Start Date End Date Alejo Cha PCP - General 01/14/04 documented as of this encounter
--- OUTSIDE RECORDS SUMMARY | 2025-06-27 13:13 | XMS_ITS | Encounter Summary ---
Author Organization [facility] Address [address] [place] [address] Care Team Providers Care Stamper Blocker Name Role Phone Alejo Cha Primary Care Provider [phone] Encounter Details Date Type Department Care Team (Late st Contact Info) Description 09/30/2003 Outpatient Historical [facility] DEPT AguilarDerrick MD [address] [facility] [address] [place] [address] Social History Tobacco Use Types Packs/Day Years Used Date Smoking Tobacco: Never Assessed Comments Unknown Sex and Gender Information Value Date Recorded Sex Assigned at Not on file Legal Sex Female 4:34 AM WORM PACKER Gender Identity Not on file Sexual Orientation Not on file documented as of this encounter Plan of Treatment Not on file documented as of this encounter Visit Diagnoses Not on filedocumented in this encounter Care Teams Stamper Blocker Relationship Specialty Start Date End Date Alejo Cha PCP - General 01/14/04 documented as of this encounter
--- OUTSIDE RECORDS SUMMARY | 2025-06-27 13:13 | XMS_ITS | Encounter Summary ---
Author Organization [facility] Address [address] [place] [address] Care Team Providers Care Rail Car Repairman Name Role Phone Alejo Cha Primary Care Provider [phone] Encounter Details Date Type Department Care Team (Late st Contact Info) Description 05/12/[address] [facility] Internal Medicine [facility] [address] [facility] [address] Shadi [place] [address] Laurent Miranda Social History Tobacco Use Types Packs/Day Years Used Date Smoking Tobacco: Never Assessed Comments Unknown Sex and Gender Information Value Date Recorded Sex Assigned at Not on file Legal Sex Female 4:34 AM TESTING MANAGER Gender Identity Not on file Sexual Orientation Not on file documented as of this encounter Plan of Treatment Not on file documented as of this encounter Visit Diagnoses Not on filedocumented in this encounter Care Teams Rail Car Repairman Relationship Specialty Start Date End Date Alejo Cha PCP - General 01/14/04 documented as of this encounter
[2025-06-27 13:14] LABS: Appearance Urine Clear (Clear); Glucose Urine UA Negative (Negative); Leukocyte Esterase Ur Trace LEU/UL (Negative); Nitrate Urine Positive (Negative); Specific Grav Ur 1.025 (1.010-1.020)
--- OUTSIDE RECORDS SUMMARY | 2025-06-27 13:14 | XMS_ITS | Clinical Summary ---
Author Organization [facility] Address [address] [place] [address] Care Team Providers Care Rv Parts And Service Director Name Role Phone Alejo Cha Primary Care Provider [phone] Social History Tobacco Use Types Packs/Day Years Used Date Smoking Tobacco: Never Assessed Comments Unknown Sex and Gender Information Value Date Recorded Sex Assigned at Not on file Legal Sex Female 4:34 AM PROJECT HIRE Gender Identity Not on file Sexual Orientation [...] - 1-dose 75+ series) 2029 Care Teams Rv Parts And Service Director Relationship Specialty Start Date End Date Alejo Cha PCP - General 01/14/04
--- OUTSIDE RECORDS SUMMARY | 2025-06-27 13:14 | XMS_ITS | Encounter Summary ---
Author Organization [facility] Address [address] [place] [address] Care Team Providers Care Field Education Director Name Role Phone Alejo Cha Primary Care Provider [phone] Encounter Details Date Type Department Care Team (Late st Contact Info) Description 06/13/2000 Emergency [facility] Rodney Graham, DO [address] [place] [address] Er, Authorized P NO ADDRESS ON FILE Abdominal pain, unspecified site (Primary Dx) Social History Tobacco Use Types Packs/Day Years Used Date Smoking Tobacco: Never Assessed Comments Unknown Sex and Gender Information Value Date Recorded Sex Assigned at Not on file Legal Sex Female 4:34 AM SOCIAL SCIENCES LECTURER Gender Identity Not on file Sexual Orientation Not on file documented as of this encounter Plan of Treatment Not on file documented as of this encounter Visit Diagnoses Diagnosis Abdominal pain, unspecified site- Primary documented in this encounter Care Teams Field Education Director Relationship Specialty Start Date End Date Alejo Cha PCP - General 01/14/04 documented as of this encounter
--- OUTSIDE RECORDS SUMMARY | 2025-06-27 13:14 | XMS_ITS | Clinical Summary ---
Author Organization [facility] Address [address] [place] [address] Care Team Providers Care Assurance Associate Name Role Phone Sammy Yoon DO Unavailable [phone] Nain Gonzales MD Unavailable [phone] Coleman Keita MD Unavailable [phone] Alejo Chinchilla MD Primary Care Provider [phone] Allergies No known active allergies Medications topiramate [...] 11/02/2018 Assessment & Plan (11/02/2018 11:46 AM RETAIL SPECIALIST): Controlled. Last seizure about 9 years ago. Managed by Neurology. Primary osteoarthritis involving multiple joints 11/02/2018 Assessment & Plan (11/02/2018 11:53 AM RETAIL SPECIALIST): Chronic. We discussed options. Advised OTC analgesics PRN. Hyperlipidemia 01/15/2018 Assessment & Plan (11/02/2018 11:47 AM RETAIL SPECIALIST): I spent 15 minutes counseling her [...] Synthroid versus adding Cytomel or changing to Scammon or pork thyroid - patient willing to [...] taken. Assessment & Plan (11/02/2018 11:48 AM RETAIL SPECIALIST): Euthyroid. Continue current regimen. She is managed by Endocrinology. Assessment & Plan (06/29/2018 12:14 PM CDT): Patient's medication was recently readjusted to the Synthroid 137 mcg daily. Migraine without aura and wi thout status migrainosus, not intractable 01/18/2013 Overview (11/02/2018): Assessment & Plan (11/02/2018 11:46 AM RETAIL SPECIALIST): Headaches are fair control. Continue current treatment regimen. Managed by Neurology. Current smoker 01/20/2011 Assessment & Plan (11/02/2018 11:46 AM RETAIL SPECIALIST): Smoking cessation counseling: We discussed the importance of smoking cessation. Therapeutic options discussed included nicotine replacement therapy, Chantix, Wellbutrin, Acupuncture, Hypnosis, and Behavioral therapy. I spent 4 minutes counseling the patient on smoking cessation Resolved Problems Problem Noted Date Diagnosed Date Resolved Date Thyroid nodule 06/12/2018 11/02/2018 Assessment & Plan (08/27/2018 8:09 AM RETAIL SPECIALIST): Patient is status post thyroid isthmusectomy. [...] is to follow up with her medical tap puller for continued thyroid hormone replacement. Assessment & [...] on file Legal Sex Female 11:49 PM RETAIL SPECIALIST Gender Identity Not on file Sexual Orientation Not on file Obstetrics History Last Filed Vital Signs Vital Sign Reading Time Taken Comments Blood Pressure 104/68 05/27/2019 9:54 AM CDT Pulse 95 05/27/2019 9:54 AM CDT Temperature 37.4 C (99.4 F) 11/02/2018 11:20 AM RETAIL SPECIALIST Respiratory Rate 14 05/27/2019 9:54 AM CDT Oxygen Saturation 98% 12/26/2018 11:37 AM CDT Inhaled Oxygen Concentration - - Weight 61.8 kg (136 lb 3.2 oz) 05/27/2019 9:54 A M CDT Height 165.1 cm (5' 5) 05/27/2019 9:54 AM CDT Body Mass Index 22.66 05/27/2019 9:54 AM CDT Plan of Treatment Not on file Insurance MEDICARE BLUE ACCESS CHOICE CA MEDICARE BLUE ACCESS CHOICE CA BLUE ACCESS CA MEDICARE [facility] Care Teams Assurance Associate Relationship Specialty Start Date End Date Alejo Chinchilla MD [address] [place] [address] PCP - General 10/27/21 Sammy Yoon DO Surgeon Otolaryngology 09/10/18 Nain Gonzales MD [address] [place] [address] Consulting Physician Endocrinology 09/10/18 Coleman Keita MD [address] [place] [address] Referring Physician Neurology 11/02/18
--- OUTSIDE RECORDS SUMMARY | 2025-06-27 13:14 | XMS_ITS | Encounter Summary ---
Author Organization [facility] Address [address] [place] [address] Care Team Providers Care Resident Program Specialist Name Role Phone Alejo Cha Primary Care Provider [phone] Encounter Details Date Type Department Care Team (Late st Contact Info) Description 01/15/2004 Outpatient Historical Division of Neurology [address] [address] Derrick Aguilar MD [address] [place] [address] Social History Tobacco Use Types Packs/Day Years Used Date Smoking Tobacco: Never Assessed Comments Unknown Sex and Gender Information Value Date Recorded Sex Assigned at Not on file Legal Sex Female 4:34 AM KARATE INSTRUCTOR Gender Identity Not on file Sexual Orientation Not on file documented as of this encounter Plan of Treatment Not on file documented as of this encounter Visit Diagnoses Not on filedocumented in this encounter Care Teams Resident Program Specialist Relationship Specialty Start Date End Date Alejo Cha PCP - General 01/14/04 documented as of this encounter
--- OUTSIDE RECORDS SUMMARY | 2025-06-27 13:14 | XMS_ITS | Clinical Summary ---
Author Organization [facility] Address [address] [place] [address] Care Team Providers Care Robotics Software Engineer Name Role Phone KaiserCorrina Selena HOSPITAL CORPSMAN-DATA COMMUNICATIONS ANALYST Unavailable [phone] Aashish Corrigan DO Primary Care Provider [phone] Source Comments [facility],non-owned Affiliates and Associated Physician Practices is amultiple site organization consisting of ambulatory clinics and hospital sitesin [place], [place] and [place]. This disclosure is being madepursuant to the Care Everywhere program and may not contain all information available regarding this patient. Last updated 18.[facility] Allergies No known active allergies Medications * [...] 10 mg by mouth once daily Active dfk-ebvx-jtshzs ital-codeine (FIORINAL WITH CODEINE) 30-263-42-30 MG capsule Take 1 capsule by mouth [...] 2004 ZOSTER VACCINE (1 of 2) 2004 DEPRESSION SCREENING 10/02/2024 COVID-19 VACCINE (4 - season) 2025 01/01/2022, 04/09/2021, 03/18/2021 INFLUENZA VACCINE (#1) 2025 , 06/28/2020, 08/02/2018, [...] age to complete this topic Insurance MEDICARE [facility] MEDICARE Advance Directives * Full Code (Latest Code Status on File) Date Activated Date Inactivated Comments 11/22/2021 12:06 AM 11/27/2021 1:24 PM Care Teams Robotics Software Engineer Relationship Specialty Start Date End Date Aashish Corrigan DO [address] [place] [address] PCP - General Family Medicine 01/18/22 Corrina Saab, HOSPITAL CORPSMAN-DATA COMMUNICATIONS ANALYST [facility] [address] [place] [address] Nurse Practitioner Pulmonary Disease 12/14/21
--- OUTSIDE RECORDS SUMMARY | 2025-06-27 13:14 | XMS_ITS | Encounter Summary ---
Author Organization [facility] Address [address] [place] [address] Care Team Providers Care Financial Legal Assistant Name Role Phone Alejo Cha Primary Care Provider [phone] Encounter Details Date Type Department Care Team (Late st Contact Info) Description 01/19/2004 Outpatient Historical [facility] Adult Hospitalists [address] [address] Jyoti Miller MD NO ADDRESS ON FILE Social History Tobacco Use Types Packs/Day Years Used Date Smoking Tobacco: Never Assessed Comments Unknown Sex and Gender Information Value Date Recorded Sex Assigned at Not on file Legal Sex Female 4:34 AM COTTON BROKER Gender Identity Not on file Sexual Orientation Not on file documented as of this encounter Plan of Treatment Not on file documented as of this encounter Visit Diagnoses Not on filedocumented in this encounter Care Teams Financial Legal Assistant Relationship Specialty Start Date End Date Alejo Cha PCP - General 01/14/04 documented as of this encounter
--- OUTSIDE RECORDS SUMMARY | 2025-06-27 13:14 | XMS_ITS | Encounter Summary ---
Author Organization [facility] Address [address] [place] [address] Care Team Providers Care Research Software Engineer Name Role Phone Alejo Cha Primary Care Provider [phone] Encounter Details Date Type Department Care Team [...] on file Legal Sex Female 4:34 AM PROFILE GRINDER Gender Identity Not on file Sexual Orientation Not on file documented as of this encounter Plan of Treatment Not on file documented as of this encounter Visit Diagnoses Diagnosis Migraine without aura, with intractable migraine, so stated, without mention of status migrainosus- Primary documented in this encounter Care Teams Research Software Engineer Relationship Specialty Start Date End Date Alejo Cha PCP - General 01/14/04 documented as of this encounter
--- OUTSIDE RECORDS SUMMARY | 2025-06-27 13:14 | XMS_ITS | Encounter Summary ---
Author Organization [facility] Address [address] [place] [address] Care Team Providers Care Foundation Engineer Name Role Phone SemajAlejo Primary Care Provider [phone] Encounter Details Date Type Department Care Team (Late st Contact Info) Description 11/02/2006 Inpatient Historical [facility] Miki Arechiga MD [address] [facility] [address] [place] [address] Opioid Type Dependence, Unspecified Abuse (CMS/HCC) (Primary Dx) Social History Tobacco Use Types Packs/Day Years Used Date Smoking Tobacco: Never Assessed Comments Unknown Sex and Gender Information Value Date Recorded Sex Assigned at Not on file Legal Sex Female 4:34 AM PRICE CLERK Gender Identity Not on file Sexual Orientation Not on file documented as of this encounter Plan of Treatment Not on file documented as of this encounter Procedures Procedure Name Priority Date/Time Associated Diagnosis Comments VALPROIC ACID LEVEL, TOTAL Routine 11/07/2006 8:05 AM PRICE CLERK documented in this encounter Results * VALPROIC ACID TOTAL (11/07/2006 8:05 AM PRICE CLERK) VALPROIC ACID TOTAL 54 50 - 100 ug/mL INTERFACE SYSTEM Comment: Valproic Acid Antiepileptic Control = 50 - 100 ug/mL Valproic Acid Manic Episode Control = 50 - 125 ug/mL Valproic Acid Toxic Level = >200 ug/mL 11/07/2006 8:05 AM PRICE CLERK us Tristen Faulkner CHEMISTRY ORDERABLES Ed ited INTERFACE SYSTEM Refer to clinic/hospital department documented in this encounter Visit Diagnoses Diagnosis Opioid type dependence, unspecified (CMS/HCC)- Primary Opioid type dependence, unspecified documented in this encounter Care Teams Foundation Engineer Relationship Specialty Start Date End Date Alejo Cha PCP - General 01/14/04 documented as of this encounter
--- OUTSIDE RECORDS SUMMARY | 2025-06-27 13:14 | XMS_ITS | Encounter Summary ---
Author Organization [facility] Address [address] [place] [address] Care Team Providers Care Electronics System Mechanic Name Role Phone Alejo Cha Primary Care Provider [phone] Encounter Details Date Type Department Care Team (Late st Contact Info) Description 12/31/2003 Outpatient [facility] Primary Care - [address] [place] [address] Alejo Cha Social History Tobacco Use Types Packs/Day Years Used Date Smoking Tobacco: Never Assessed Comments Unknown Sex and Gender Information Value Date Recorded Sex Assigned at Not on file Legal Sex Female 4:34 AM OPTOMETRIST PRESIDENT/PRACTICE OWNER Gender Identity Not on file Sexual Orientation Not on file documented as of this encounter Plan of Treatment Not on file documented as of this encounter Visit Diagnoses Not on filedocumented in this encounter Care Teams Electronics System Mechanic Relationship Specialty Start Date End Date Alejo Cha PCP - General 01/14/04 documented as of this encounter
--- OUTSIDE RECORDS SUMMARY | 2025-06-27 13:14 | XMS_ITS | Encounter Summary ---
Author Organization [facility] Address [address] [place] [address] Care Team Providers Care Recruiting Assistant Name Role Phone Alejo Cha Primary Care Provider [phone] Encounter Details Date Type Department Care Team (Late st Contact Info) Description 02/03/2003 Outpatient Historical Division of Neurology [address] [address] Derrick Aguilar MD [address] [place] [address] Social History Tobacco Use Types Packs/Day Years Used Date Smoking Tobacco: Never Assessed Comments Unknown Sex and Gender Information Value Date Recorded Sex Assigned at Not on file Legal Sex Female 4:34 AM TOOL AND DIE INSPECTOR Gender Identity Not on file Sexual Orientation Not on file documented as of this encounter Plan of Treatment Not on file documented as of this encounter Visit Diagnoses Not on filedocumented in this encounter Care Teams Recruiting Assistant Relationship Specialty Start Date End Date Alejo Cha PCP - General 01/14/04 documented as of this encounter
--- OUTSIDE RECORDS SUMMARY | 2025-06-27 13:14 | XMS_ITS | Encounter Summary ---
Author Organization [facility] Address [address] [place] [address] Care Team Providers Care Import Coordinator Name Role Phone Alejo Cha Primary Care Provider Encounter Details Date Type Department Care Team (Latest Contact Info) Description 07/06/2000 Outpatient Historical [facility] Derrick Bishop MD [address] [facility] [address] [place] [address] Encounter for long-term (current) use of other medications (Primary Dx) Social History Tobacco Use Types Packs/Day Years Used Date Smoking Tobacco: Never Assessed Comments Unknown Sex and Gender Information Value Date Recorded Sex Assigned at Not on file Legal Sex Female 4:34 AM CLIENT CARE CONSULTANT Gender Identity Not on file Sexual Orientation Not on file documented as of this encounter Plan of Treatment Not on file documented as of this encounter Visit Diagnoses Diagnosis Encounter for long-term (current) use of other medications- Primary documented in this encounter Care Teams Import Coordinator Relationship Specialty Start Date End Date Alejo Cha PCP - General 01/14/04 documented as of this encounter
--- OUTSIDE RECORDS SUMMARY | 2025-06-27 13:14 | XMS_ITS | Encounter Summary ---
Author Organization [facility] Address [address] [place] [address] Care Team Providers Care Rn Gastroenterology Name Role Phone Alejo Cha Primary Care Provider Encounter Details Date Type Department Care Team (Late st Contact Info) Description 01/17/2004 Outpatient Historical [facility] Adult Hospitalists [address] [address] [place] Social History Tobacco Use Types Packs/Day Years Used Date Smoking Tobacco: Never Assessed Comments Unknown Sex and Gender Information Value Date Recorded Sex Assigned at Not on file Legal Sex Female 4:34 AM AUTOMOBILE UPHOLSTERER APPRENTICE Gender Identity Not on file Sexual Orientation Not on file documented as of this encounter Plan of Treatment Not on file documented as of this encounter Visit Diagnoses Not on filedocumented in this encounter Care Teams Rn Gastroenterology Relationship Specialty Start Date End Date Alejo Cha PCP - General 01/14/04 documented as of this encounter
--- OUTSIDE RECORDS SUMMARY | 2025-06-27 13:14 | XMS_ITS | Encounter Summary ---
Author Organization [facility] Address [address] [place] [address] Care Team Providers Care Tester Compressed Gases Name Role Phone Alejo Cha Primary Care Provider Encounter Details Date Type Department Care Team (Late st Contact Info) Description 07/15/2002 Outpatient Historical Division of Neurology [address] [address] Derrick Aguilar MD [address] [place] [address] Social History Tobacco Use Types Packs/Day Years Used Date Smoking Tobacco: Never Assessed Comments Unknown Sex and Gender Information Value Date Recorded Sex Assigned at Not on file Legal Sex Female 4:34 AM CHURN TENDER Gender Identity Not on file Sexual Orientation Not on file documented as of this encounter Plan of Treatment Not on file documented as of this encounter Visit Diagnoses Not on filedocumented in this encounter Care Teams Tester Compressed Gases Relationship Specialty Start Date End Date Alejo Cha PCP - General 01/14/04 documented as of this encounter
--- OUTSIDE RECORDS SUMMARY | 2025-06-27 13:14 | XMS_ITS | Encounter Summary ---
Author Organization [facility] Address [address] [place] [address] Care Team Providers Care Lead Pressman Name Role Phone Alejo Cha Primary Care Provider [phone] Encounter Details Date Type Department Care Team (Late st Contact Info) Description 01/14/2004 Outpatient Historical [facility] Adult Hospitalists [address] [address] [place] Social History Tobacco Use Types Packs/Day Years Used Date Smoking Tobacco: Never Assessed Comments Unknown Sex and Gender Information Value Date Recorded Sex Assigned at Not on file Legal Sex Female 4:34 AM CARPENTER RAILCAR Gender Identity Not on file Sexual Orientation Not on file documented as of this encounter Plan of Treatment Not on file documented as of this encounter Visit Diagnoses Not on filedocumented in this encounter Care Teams Lead Pressman Relationship Specialty Start Date End Date Alejo Cha PCP - General 01/14/04 documented as of this encounter
--- OUTSIDE RECORDS SUMMARY | 2025-06-27 13:14 | XMS_ITS | Encounter Summary ---
Author Organization [facility] Address [address] [place] [address] Care Team Providers Care Court Recorder Name Role Phone Alejo Cha Primary Care Provider [phone] Encounter Details Date Type Department Care Team (Late st Contact Info) Description 01/15/[address] [facility] Adult Hospitalists [facility] [address] [place] [address] Violette Singh MD 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
[2025-06-27 13:21] LABS: Add Urine Microscopic? YES
== END 2025-06-27 13:07 | disposition home or self-care (01) ==
LOC: CHSLAB 13:07
PROVIDERS: PCP Nurse Practitioner Family; Visit Provider Nurse Practitioner Family
DX: R31.9 Hematuria, unspecified (principal)
CPT/HCPCS: 81001; 87086; 87186

== ENCOUNTER 2025-07-14 10:00 | Outpatient (CLI) | payer MEDICARE, SELFPAY ==
[2025-07-14 10:15] LABS: Add Urine Microscopic? YES; Glucose Urine UA Negative (Negative); Leukocyte Esterase Ur Negative LEU/UL (Negative); Nitrate Urine Negative (Negative); Specific Grav Ur 1.025 (1.010-1.020)
[2025-07-14 10:21] LABS: Appearance Urine Sl Cloudy (Clear)
[2025-07-14 10:42] LABS: Cholesterol 156 mg/dL (0-200); HDL Direct 51 mg/dL; Triglycerides 124 mg/dL (<150)
--- OUTSIDE RECORDS SUMMARY | 2025-07-14 10:52 | XMS_ITS | Encounter Summary ---
Author Organization [facility] Address [address] [place] [address] Care Team Providers Care Title Clerk Name Role Phone SemajAlejo Primary Care Provider [phone] Encounter Details Date Type Department Care Team (Late st Contact Info) Description 11/02/2006 Inpatient Historical HIS PATIENT IN A BED [facility] (Excluded Provider) Miki Arechiga MD [address] [facility] [address] [place] [address] Opioid Type Dependence, Unspecified Abuse (CMS/HCC) (Primary Dx) Social History Tobacco Use Types Packs/Day Years Used Date Smoking Tobacco: Never Assessed Comments Unknown Sex and Gender Information Value Date Recorded Sex Assigned at Not on file Legal Sex Female 4:34 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 Gender Identity Not on file Sexual Orientation Not on file documented as of this encounter Plan of Treatment Not on file documented as of this encounter Procedures Procedure Name Priority Date/Time Associated Diagnosis Comments VALPROIC ACID LEVEL, TOTAL Routine 11/07/2006 8:05 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 documented in this encounter Results * VALPROIC ACID TOTAL (11/07/2006 8:05 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) VALPROIC ACID TOTAL 54 50 - 100 ug/mL INTERFACE SYSTEM Comment: Valproic Acid Antiepileptic Control = 50 - 100 ug/mL Valproic Acid Manic Episode Control = 50 - 125 ug/mL Valproic Acid Toxic Level = >200 ug/mL 11/07/2006 8:05 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 us Tristen Faulkner CHEMISTRY ORDERABLES Ed ited INTERFACE SYSTEM Refer to clinic/hospital department documented in this encounter Visit Diagnoses Diagnosis Opioid type dependence, unspecified (CMS/HCC)- Primary Opioid type dependence, unspecified documented in this encounter Care Teams Title Clerk Relationship Specialty Start Date End Date Alejo Cha PCP - General 01/14/04 documented as of this encounter
--- OUTSIDE RECORDS SUMMARY | 2025-07-14 10:52 | XMS_ITS | Encounter Summary ---
Author Organization [facility] Address [address] [place] [address] Care Team Providers Care Tool And Equipment Rental Clerk Name Role Phone Alejo Cha Primary Care Provider [phone] Encounter Details Date Type Department Care Team (Late st Contact Info) Description 01/19/2004 Outpatient Historical [facility] Adult Hospitalists [address] [address] Jyoti Miller MD NO ADDRESS ON FILE Social History Tobacco Use Types Packs/Day Years Used Date Smoking Tobacco: Never Assessed Comments Unknown Sex and Gender Information Value Date Recorded Sex Assigned at Not on file Legal Sex Female 4:34 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
--- OUTSIDE RECORDS SUMMARY | 2025-07-14 10:52 | XMS_ITS | Clinical Summary ---
Author Organization [facility] [employer] Address [address] [facility] [place] [address] Care Team Providers Care Proofer Prepress Name Role Phone KaiserCorrina Selena HEALTHCARE INTERPRETER-HEALTHCARE RECEPTIONIST Unavailable [phone] Aashish Corrigan DO Primary Care Provider [phone] Source Comments [facility] [employer],non-owned Affiliates and Associated Physician Practices is amultiple site organization consisting of ambulatory clinics and hospital sitesin [place], [place], [place] and [place]. This disclosure is being madepursuant to the Care Everywhere program and may not contain all information available regarding this patient. Last updated 18.[facility] [employer] Allergies No known active allergies Medications * [...] 10 mg by mouth once daily Active zuo-qstq-txqeoc ital-codeine (FIORINAL WITH CODEINE) [id number] MG capsule Take 1 capsule by mouth [...] age to complete this topic Insurance MEDICARE [facility] MEDICARE Advance Directives * Full Code (Latest Code Status on File) Date Activated Date Inactivated Comments 11/22/2021 12:06 AM 11/27/2021 1:24 PM Care Teams Proofer Prepress Relationship Specialty Start Date End Date Aashish Corrigan DO [address] [place] [address] PCP - General Family Medicine 01/18/22 Corrina Saab, HEALTHCARE INTERPRETER-HEALTHCARE RECEPTIONIST [facility] [address] [place] [address] Nurse Practitioner Pulmonary Disease 12/14/21
--- OUTSIDE RECORDS SUMMARY | 2025-07-14 10:52 | XMS_ITS | Clinical Summary ---
Author Organization [facility] Address [address] [place] [address] Care Team Providers Care Lab Analyst Name Role Phone Alejo Cha Primary Care Provider [phone] Social History Tobacco Use Types Packs/Day Years Used Date Smoking Tobacco: Never Assessed Comments Unknown Sex and Gender Information Value Date Recorded Sex Assigned at Not on file Legal Sex Female 4:34 AM STICK ROLLER Gender Identity Not on file Sexual Orientation [...] - 1-dose 75+ series) 2029 Care Teams Lab Analyst Relationship Specialty Start Date End Date Alejo Cha PCP - General 01/14/04
--- OUTSIDE RECORDS SUMMARY | 2025-07-14 10:52 | XMS_ITS | Clinical Summary ---
Author Organization [facility] Address [address] [place] [address] Care Team Providers Care Tube Splicer Name Role Phone Sammy Yoon DO Unavailable [phone] Nain Gonzales MD Unavailable [phone] Coleman Keita MD Unavailable [phone] Alejo Chinchilla MD Primary Care Provider [phone] Allergies No known active allergies Medications topiramate [...] 11/02/2018 Assessment & Plan (11/02/2018 11:46 AM PARK LANDSCAPE ARCHITECT): Controlled. Last seizure about 9 years ago. Managed by Neurology. Primary osteoarthritis involving multiple joints 11/02/2018 Assessment & Plan (11/02/2018 11:53 AM PARK LANDSCAPE ARCHITECT): Chronic. We discussed options. Advised OTC analgesics PRN. Hyperlipidemia 01/15/2018 Assessment & Plan (11/02/2018 11:47 AM PARK LANDSCAPE ARCHITECT): I spent 15 minutes counseling her on [...] Synthroid versus adding Cytomel or changing to [place] or pork thyroid - patient willing to [...] taken. Assessment & Plan (11/02/2018 11:48 AM PARK LANDSCAPE ARCHITECT): Euthyroid. Continue current regimen. She is managed by Endocrinology. Assessment & Plan (06/29/2018 12:14 PM CDT): Patient's medication was recently readjusted to the Synthroid 137 mcg daily. Migraine without aura and wi thout status migrainosus, not intractable 01/18/2013 Overview (11/02/2018): Assessment & Plan (11/02/2018 11:46 AM PARK LANDSCAPE ARCHITECT): Headaches are fair control. Continue current treatment regimen. Managed by Neurology. Current smoker 01/20/2011 Assessment & Plan (11/02/2018 11:46 AM PARK LANDSCAPE ARCHITECT): Smoking cessation counseling: We discussed the importance of smoking cessation. Therapeutic options discussed included nicotine replacement therapy, Chantix, Wellbutrin, Acupuncture, Hypnosis, and Behavioral therapy. I spent 4 minutes counseling the patient on smoking cessation Resolved Problems Problem Noted Date Diagnosed Date Resolved Date Thyroid nodule 06/12/2018 11/02/2018 Assessment & Plan (08/27/2018 8:09 AM PARK LANDSCAPE ARCHITECT): Patient is status post thyroid isthmusectomy. Final [...] is to follow up with her medical steam brush operator for continued thyroid hormone replacement. Assessment & [...] on file Legal Sex Female 11:49 PM PARK LANDSCAPE ARCHITECT Gender Identity Not on file Sexual Orientation Not on file Obstetrics History Last Filed Vital Signs Vital Sign Reading Time Taken Comments Blood Pressure 104/68 05/27/2019 9:54 AM CDT Pulse 95 05/27/2019 9:54 AM CDT Temperature 37.4 C (99.4 F) 11/02/2018 11:20 AM PARK LANDSCAPE ARCHITECT Respiratory Rate 14 05/27/2019 9:54 AM CDT Oxygen Saturation 98% 12/26/2018 11:37 AM CDT Inhaled Oxygen Concentration - - Weight 61.8 kg (136 lb 3.2 oz) 05/27/2019 9:54 A M CDT Height 165.1 cm (5' 5) 05/27/2019 9:54 AM CDT Body Mass Index 22.66 05/27/2019 9:54 AM CDT Plan of Treatment Not on file Insurance [place]IC[place] [facility] Care Teams Tube Splicer Relationship Specialty Start Date End Date Alejo Chinchilla MD [address] [place] [address] PCP - General 10/27/21 Sammy Yoon DO Surgeon Otolaryngology 09/10/18 Nain Gonzales MD [address] [facility] [address] [place] [address] Consulting Physician Endocrinology 09/10/18 Coleman Keita MD [address] [facility] [address] [place] [address] Referring Physician Neurology 11/02/18
--- OUTSIDE RECORDS SUMMARY | 2025-07-14 10:52 | XMS_ITS | Encounter Summary ---
Author Organization [facility] Address 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
--- OUTSIDE RECORDS SUMMARY | 2025-07-14 10:52 | XMS_ITS | Encounter Summary ---
Author Organization [facility] Address 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
--- OUTSIDE RECORDS SUMMARY | 2025-07-14 10:53 | XMS_ITS | Encounter Summary ---
Author Organization [facility] Address 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
--- OUTSIDE RECORDS SUMMARY | 2025-07-14 10:53 | XMS_ITS | Encounter Summary ---
Author Organization [facility] Address [address] [place] [address] Care Team Providers Care Security Solutions Engineer Name Role Phone Alejo Cha Primary Care Provider [phone] Encounter Details Date Type Department Care Team (Late st Contact Info) Description 07/06/2000 Outpatient Historical Division of Neurology 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
--- OUTSIDE RECORDS SUMMARY | 2025-07-14 10:53 | XMS_ITS | Encounter Summary ---
Author Organization [facility] Address [facility] [place] [address] Care Team Providers Care Embedded Firmware Developer Name Role Phone Gaetano Llanes DO Primary Care Provider + Encounter Details Date Type Department Care Team (Late st Contact Info) Description 12/16/[address] [facility] Conversion [address] [place] [address] , Generic Conversion, Social History Tobacco Use Types Packs/Day Years Used Date Smoking Tobacco: Never Assessed Comments Unknown Sex and Gender Information Value Date Recorded Sex Assigned at Not on file Legal Sex Female 6:30 PM WELLNESS INSTRUCTOR Gender Identity Not on file Sexual Orientation Not on file documented as of this encounter Plan of Treatment Not on file documented as of this encounter Visit Diagnoses Not on filedocumented in this encounter Care Teams Embedded Firmware Developer Relationship Specialty Start Date End Date Gaetano Llanes DO [address] [place] [id number] PCP - General FAMILY PRACTICE 02/22/19 documented as of this encounter
--- OUTSIDE RECORDS SUMMARY | 2025-07-14 10:53 | XMS_ITS | Encounter Summary ---
Author Organization [facility] Address [address] [place] [address] Care Team Providers Care Webmethods Architect Name Role Phone Alejo Cha Primary Care Provider [phone] Encounter Details Date Type Department Care Team (Late st Contact Info) Description 09/30/2003 Outpatient Historical [facility] MRI DEPT AguilarDerrick MD [address] [facility] [address] [place] [address] Social History Tobacco Use Types Packs/Day Years Used Date Smoking Tobacco: Never Assessed Comments Unknown Sex and Gender Information Value Date Recorded Sex Assigned at Not on file Legal Sex Female 4:34 AM BLINTZE ROLLER Gender Identity Not on file Sexual Orientation Not on file documented as of this encounter Plan of Treatment Not on file documented as of this encounter Visit Diagnoses Not on filedocumented in this encounter Care Teams Webmethods Architect Relationship Specialty Start Date End Date Alejo Cha PCP - General 01/14/04 documented as of this encounter
--- OUTSIDE RECORDS SUMMARY | 2025-07-14 10:53 | XMS_ITS | Clinical Summary ---
Author Organization [facility] Address [address] [place] [address] Care Team Providers Care Gear Tester Name Role Phone Gaetano Llanes DO Primary Care Provider + Allergies No known active allergies Medications SYNTHROID 125 MCG tablet Take 125 mcg by mouth daily. 2 02/14/2019 Active topiramate 100 MG tablet Take 1 tablet by mouth 2 (two) times daily. 02/12/2019 Active rosuvastatin 10 MG tablet Take 10 mg by mouth daily. 1 02/19/2019 Active ASCOMP-CODEINE 19-905-63-30 MG capsule Take 1 mg by mouth [...] on file Legal Sex Female 6:30 PM CELLULOID TRIMMER Gender Identity Not on file Sexual Orientation [...] 8:15 AM CDT Height 165.1 cm (5' 5) 02/22/2019 8:15 AM CDT Body Mass Index 22.47 02/22/2019 8:15 AM CDT Plan of Treatment Health Maintenance Due Date Last Done Comments Colorectal Cancer Screening Colonoscopy (10 Years) 1954 Hepatitis C 1972 Mammogram Screening 1994 Annual Medicare Wellness Visit 2019 Dexa Scan (General) 2019 COVID-19 Vaccine ( season) 2025 08/01/2022, 01/01/2022, 04/09/2021, Additional history exists Influenza Adult (#1) 2025 07/13/2022, 08/02/2019, 08/02/2018, Additional history exists RSV Immunization or 60+ Years (1 - 1-dose 75+ series) 2029 DTaP, Tdap and Td Vaccines (4 - Td or Tdap) 02/18/2032 02/17/2022, 04/30/2016, 10/02/2013 Zoster Vaccines Completed 09/06/2018, 08/02/2018 Pneumococcal Vaccine: 50+ Years Completed 07/21/2022, 02/14/2020 Meningococcal B Vaccine Aged Out No l onger eligible based on patient's age to complete this topic Meningococcal Vaccine Aged Out No melonie lazara eligible based on patient's age to complete this topic RSV Immunizations Under 20 Months Aged Out No longer eligible based on patient's age to complete this topic Insurance MEDICARE [facility] Care Teams Gear Tester Relationship Specialty Start Date End Date Gaetano Llanes DO [address] [place] [id number] PCP - General FAMILY PRACTICE 02/22/19
--- OUTSIDE RECORDS SUMMARY | 2025-07-14 10:53 | XMS_ITS | Encounter Summary ---
Author Organization [facility] Address [address] [place] [address] Care Team Providers Care State Wildlife Officer Name Role Phone Alejo Cha Primary Care Provider [phone] Encounter Details Date Type Department Care Team (Late st Contact Info) Description 07/15/2002 Outpatient Historical Division of Neurology 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
--- OUTSIDE RECORDS SUMMARY | 2025-07-14 10:53 | XMS_ITS | Encounter Summary ---
Author Organization [facility] Address [address] [place] [address] Care Team Providers Care Sifter And Miller Name Role Phone Alejo Cha Primary Care Provider [phone] Encounter Details Date Type Department Care Team (Late st Contact Info) Description 01/14/2004 Outpatient Historical [facility] Adult Hospitalists [address] [address] [place] Social History Tobacco Use Types Packs/Day Years Used Date Smoking Tobacco: Never Assessed Comments Unknown Sex and Gender Information Value Date Recorded Sex Assigned at Not on file Legal Sex Female 4:34 AM SAND SLINGER Gender Identity Not on file Sexual Orientation Not on file documented as of this encounter Plan of Treatment Not on file documented as of this encounter Visit Diagnoses Not on filedocumented in this encounter Care Teams Sifter And Miller Relationship Specialty Start Date End Date Alejo Cha PCP - General 01/14/04 documented as of this encounter
--- OUTSIDE RECORDS SUMMARY | 2025-07-14 10:53 | XMS_ITS | Encounter Summary ---
Author Organization [facility] Address [address] [place] [address] Care Team Providers Care Dramatic Director Name Role Phone Alejo Cha Primary Care Provider [phone] Encounter Details Date Type Department Care Team (Latest Contact Info) Description 07/06/2000 Outpatient Historical HIS [facility] Derrick Bishop MD [address] [facility] [address] [place] [address] Encounter for long-term (current) use of other medications (Primary Dx) Social History Tobacco Use Types Packs/Day Years Used Date Smoking Tobacco: Never Assessed Comments Unknown Sex and Gender Information Value Date Recorded Sex Assigned at Not on file Legal Sex Female 4:34 AM ACID ETCH OPERATOR Gender Identity Not on file Sexual Orientation Not on file documented as of this encounter Plan of Treatment Not on file documented as of this encounter Visit Diagnoses Diagnosis Encounter for long-term (current) use of other medications- Primary documented in this encounter Care Teams Dramatic Director Relationship Specialty Start Date End Date Alejo Cha PCP - General 01/14/04 documented as of this encounter
--- OUTSIDE RECORDS SUMMARY | 2025-07-14 10:53 | XMS_ITS | Encounter Summary ---
Author Organization [facility] Address [address] [place] [address] Care Team Providers Care Ged Tutor Name Role Phone Alejo Cha Primary Care Provider [phone] Encounter Details Date Type Department Care Team (Late st Contact Info) Description 01/15/2004 Outpatient Historical [facility] Adult Hospitalists [facility] [address] [place] [address] Violette Singh MD [id number] [place], [place] [id number] Social History Tobacco Use Types Packs/Day Years Used Date Smoking Tobacco: Never Assessed Comments Unknown Sex and Gender Information Value Date Recorded Sex Assigned at Not on file Legal Sex Female 4:34 AM PROJECT SCIENTIST Gender Identity Not on file Sexual Orientation Not on file documented as of this encounter Plan of Treatment Not on file documented as of this encounter Visit Diagnoses Not on filedocumented in this encounter Care Teams Ged Tutor Relationship Specialty Start Date End Date Alejo Cha PCP - General 01/14/04 documented as of this encounter
--- OUTSIDE RECORDS SUMMARY | 2025-07-14 10:53 | XMS_ITS | Encounter Summary ---
Author Organization [facility] Address [facility] [place] [address] Care Team Providers Care Shop Hand Name Role Phone Gaetano Llanes DO Primary Care Provider + Encounter Details Date Type Department Care Team (Late st Contact Info) Description 10/26/[address] 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
--- OUTSIDE RECORDS SUMMARY | 2025-07-14 10:53 | XMS_ITS | Encounter Summary ---
Author Organization [facility] Address 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
--- OUTSIDE RECORDS SUMMARY | 2025-07-14 10:53 | XMS_ITS | Encounter Summary ---
Author Organization [facility] Address [address] [place] [address] Care Team Providers Care Production Zone Leader Name Role Phone Alejo Cha Primary Care Provider [phone] Encounter Details Date Type Department Care Team (Late st Contact Info) Description 05/12/2000 Outpatient Historical [facility] Internal Medicine [facility] [address] [facility] [address] [place] [place] [address] Laurent Miranda Social History Tobacco Use Types Packs/Day Years Used Date Smoking Tobacco: Never Assessed Comments Unknown Sex and Gender Information Value Date Recorded Sex Assigned at Not on file Legal Sex Female 4:34 AM GLOVE CUFFER Gender Identity Not on file Sexual Orientation Not on file documented as of this encounter Plan of Treatment Not on file documented as of this encounter Visit Diagnoses Not on filedocumented in this encounter Care Teams Production Zone Leader Relationship Specialty Start Date End Date Alejo Cha PCP - General 01/14/04 documented as of this encounter
--- OUTSIDE RECORDS SUMMARY | 2025-07-14 10:53 | XMS_ITS | Encounter Summary ---
Author Organization [facility] Address [address] [place] [address] Care Team Providers Care Guide Rail Cleaner Name Role Phone Alejo Cha Primary Care Provider [phone] Encounter Details Date Type Department Care Team (Late st Contact Info) Description 06/27/2000 Outpatient Historical [facility] Internal Medicine [facility] [address] [facility] [address] [place] [place] [address] Laurent Miranda Social History Tobacco Use Types Packs/Day Years Used Date Smoking Tobacco: Never Assessed Comments Unknown Sex and Gender Information Value Date Recorded Sex Assigned at Not on file Legal Sex Female 4:34 AM GEOSPATIAL IMAGE ANALYST Gender Identity Not on file Sexual Orientation Not on file documented as of this encounter Plan of Treatment Not on file documented as of this encounter Visit Diagnoses Not on filedocumented in this encounter Care Teams Guide Rail Cleaner Relationship Specialty Start Date End Date Alejo Cha PCP - General 01/14/04 documented as of this encounter
--- OUTSIDE RECORDS SUMMARY | 2025-07-14 10:53 | XMS_ITS | Encounter Summary ---
Author Organization [facility] Address [address] [place] [address] Care Team Providers Care Cable Operator Name Role Phone Alejo Cha Primary Care Provider [phone] Encounter Details Date Type Department Care Team (Late st Contact Info) Description 01/15/2004 Outpatient Historical Division of Neurology [address] [address] Derrick Aguilar MD [address] [place] [address] Social History Tobacco Use Types Packs/Day Years Used Date Smoking Tobacco: Never Assessed Comments Unknown Sex and Gender Information Value Date Recorded Sex Assigned at Not on file Legal Sex Female 4:34 AM MAINTENANCE TECHNICIAN 2ND SHIFT Gender Identity Not on file Sexual Orientation Not on file documented as of this encounter Plan of Treatment Not on file documented as of this encounter Visit Diagnoses Not on filedocumented in this encounter Care Teams Cable Operator Relationship Specialty Start Date End Date Alejo Cha PCP - General 01/14/04 documented as of this encounter
--- OUTSIDE RECORDS SUMMARY | 2025-07-14 10:53 | XMS_ITS | Encounter Summary ---
Author Organization [facility] Address [address] [place] [address] Care Team Providers Care Log Washer Name Role Phone Alejo Cha Primary Care Provider Encounter Details Date Type Department Care Team (Late st Contact Info) Description 08/26/2003 Outpatient Historical Division of Neurology [address] [address] Derrick Aguilar MD [address] [place] [address] Social History Tobacco Use Types Packs/Day Years Used Date Smoking Tobacco: Never Assessed Comments Unknown Sex and Gender Information Value Date Recorded Sex Assigned at Not on file Legal Sex Female 4:34 AM DINING ROOM CAPTAIN Gender Identity Not on file Sexual Orientation Not on file documented as of this encounter Plan of Treatment Not on file documented as of this encounter Visit Diagnoses Not on filedocumented in this encounter Care Teams Log Washer Relationship Specialty Start Date End Date Alejo Cha PCP - General 01/14/04 documented as of this encounter
--- OUTSIDE RECORDS SUMMARY | 2025-07-14 10:53 | XMS_ITS | Encounter Summary ---
Author Organization [facility] Address [address] [place] [address] Care Team Providers Care Printing Sales Representative Name Role Phone Alejo Cha Primary Care Provider [phone] Encounter Details Date Type Department Care Team (Late st Contact Info) Description 02/03/2003 Outpatient Historical Division of Neurology [address] [address] Derrick Aguilar MD [address] [place] [address] Social History Tobacco Use Types Packs/Day Years Used Date Smoking Tobacco: Never Assessed Comments Unknown Sex and Gender Information Value Date Recorded Sex Assigned at Not on file Legal Sex Female 4:34 AM AQUATICS LIFEGUARD Gender Identity Not on file Sexual Orientation Not on file documented as of this encounter Plan of Treatment Not on file documented as of this encounter Visit Diagnoses Not on filedocumented in this encounter Care Teams Printing Sales Representative Relationship Specialty Start Date End Date Alejo Cha PCP - General 01/14/04 documented as of this encounter
--- OUTSIDE RECORDS SUMMARY | 2025-07-14 10:53 | XMS_ITS | Encounter Summary ---
Author Organization [facility] Address [address] [place] [address] Care Team Providers Care Belt Fixer Name Role Phone Alejo Cha Primary Care Provider [phone] Encounter Details Date Type Department Care Team [...] on file Legal Sex Female 4:34 AM CAN PATCHER Gender Identity Not on file Sexual Orientation Not on file documented as of this encounter Plan of Treatment Not on file documented as of this encounter Visit Diagnoses Diagnosis Migraine without aura, with intractable migraine, so stated, without mention of status migrainosus- Primary documented in this encounter Care Teams Belt Fixer Relationship Specialty Start Date End Date Alejo Cha PCP - General 01/14/04 documented as of this encounter
--- OUTSIDE RECORDS SUMMARY | 2025-07-14 10:53 | XMS_ITS | Encounter Summary ---
Author Organization [facility] Address [address] [place] [address] Care Team Providers Care Dust Collector Ore Crushing Name Role Phone Alejo Cha Primary Care Provider [phone] Encounter Details Date Type Department Care Team (Late st Contact Info) Description 01/17/[address] [facility] Adult Hospitalists [address] [address] [place] Social History Tobacco Use Types Packs/Day Years Used Date Smoking Tobacco: Never Assessed Comments Unknown Sex and Gender Information Value Date Recorded Sex Assigned at Not on file Legal Sex Female 4:34 AM DYE EXPERT Gender Identity Not on file Sexual Orientation Not on file documented as of this encounter Plan of Treatment Not on file documented as of this encounter Visit Diagnoses Not on filedocumented in this encounter Care Teams Dust Collector Ore Crushing Relationship Specialty Start Date End Date Alejo Cha PCP - General 01/14/04 documented as of this encounter
[2025-07-14 11:14] LABS: Thyroid Stimulating Hormone 0.661 uIU/mL (0.465-4.680)
[2025-07-18 06:08] LABS: Hep B Core Ab, Total Negative (Negative)
== END 2025-07-14 10:01 | disposition home or self-care (01) ==
LOC: CHSLAB 10:00
PROVIDERS: PCP Nurse Practitioner Family; Visit Provider Nurse Practitioner Family
DX: E03.9 Hypothyroidism, unspecified (principal); Z11.59 Encounter for screening for other viral diseases; E78.5 Hyperlipidemia, unspecified; N39.0 Urinary tract infection, site not specified; R53.83 Other fatigue; Z72.89 Other problems related to lifestyle
CPT/HCPCS: 36415; 80061; 81001; 84443; 86704; 87086; 87186; G0499

== ENCOUNTER 2025-07-24 08:11 | Outpatient (CLI) | payer MEDICARE, SELFPAY ==
--- OUTSIDE RECORDS SUMMARY | 2025-07-24 08:18 | XMS_ITS | Encounter Summary ---
Author Organization [facility] Address [address] [place] [address] Care Team Providers Care Enterprise Resource Planning Consultant Name Role Phone Alejo Cha Primary Care Provider [phone] Encounter Details Date Type Department Care Team (Late st Contact Info) Description 06/13/2000 Emergency [facility] Rodney Graham, DO [address] [place] [address] Er, Authorized P NO ADDRESS ON FILE Abdominal pain, unspecified site (Primary Dx) Social History Tobacco Use Types Packs/Day Years Used Date Smoking Tobacco: Never Assessed Comments Unknown Sex and Gender Information Value Date Recorded Sex Assigned at Not on file Legal Sex Female 4:34 AM DIRECTOR ALUMNI RELATIONS Gender Identity Not on file Sexual Orientation Not on file documented as of this encounter Plan of Treatment Not on file documented as of this encounter Visit Diagnoses Diagnosis Abdominal pain, unspecified site- Primary documented in this encounter Care Teams Enterprise Resource Planning Consultant Relationship Specialty Start Date End Date Alejo Cha PCP - General 01/14/04 documented as of this encounter
--- OUTSIDE RECORDS SUMMARY | 2025-07-24 08:18 | XMS_ITS | Encounter Summary ---
Author Organization [facility] Address [address] [place] [address] Care Team Providers Care Plant Maintenance Mechanic Name Role Phone Alejo Cha Primary Care Provider [phone] Encounter Details Date Type Department Care Team (Late st Contact Info) Description 01/15/2004 Outpatient Historical [facility] Adult Hospitalists [facility] [address] [place] [address] Violette Singh MD [id number] [place], [place] [id number] Social History Tobacco Use Types Packs/Day Years Used Date Smoking Tobacco: Never Assessed Comments Unknown Sex and Gender Information Value Date Recorded Sex Assigned at Not on file Legal Sex Female 4:34 AM SENIOR PRODUCT DEVELOPMENT MANAGER Gender Identity Not on file Sexual Orientation Not on file documented as of this encounter Plan of Treatment Not on file documented as of this encounter Visit Diagnoses Not on filedocumented in this encounter Care Teams Plant Maintenance Mechanic Relationship Specialty Start Date End Date Alejo Cha PCP - General 01/14/04 documented as of this encounter
--- OUTSIDE RECORDS SUMMARY | 2025-07-24 08:18 | XMS_ITS | Encounter Summary ---
Author Organization [facility] Address [address] [place] [address] Care Team Providers Care Pulper Operator Name Role Phone Alejo Cha Primary Care Provider [phone] Encounter Details Date Type Department Care Team (Late st Contact Info) Description 02/03/2003 Outpatient Historical Division of Neurology [address] [address] Derrick Aguilar MD [address] [place] [address] Social History Tobacco Use Types Packs/Day Years Used Date Smoking Tobacco: Never Assessed Comments Unknown Sex and Gender Information Value Date Recorded Sex Assigned at Not on file Legal Sex Female 4:34 AM RAILROAD AUDITOR Gender Identity Not on file Sexual Orientation Not on file documented as of this encounter Plan of Treatment Not on file documented as of this encounter Visit Diagnoses Not on filedocumented in this encounter Care Teams Pulper Operator Relationship Specialty Start Date End Date Alejo Cha PCP - General 01/14/04 documented as of this encounter
--- OUTSIDE RECORDS SUMMARY | 2025-07-24 08:18 | XMS_ITS | Encounter Summary ---
Author Organization [facility] Address [address] [place] [address] Care Team Providers Care Human Resources Benefits Assistant Name Role Phone Alejo Cha Primary Care Provider [phone] Encounter Details Date Type Department Care Team (Late st Contact Info) Description 01/14/2004 Outpatient Historical [facility] Adult Hospitalists [address] [address] [place] Social History Tobacco Use Types Packs/Day Years Used Date Smoking Tobacco: Never Assessed Comments Unknown Sex and Gender Information Value Date Recorded Sex Assigned at Not on file Legal Sex Female 4:34 AM HEEL ATTACHER Gender Identity Not on file Sexual Orientation Not on file documented as of this encounter Plan of Treatment Not on file documented as of this encounter Visit Diagnoses Not on filedocumented in this encounter Care Teams Human Resources Benefits Assistant Relationship Specialty Start Date End Date Alejo Cha PCP - General 01/14/04 documented as of this encounter
--- OUTSIDE RECORDS SUMMARY | 2025-07-24 08:18 | XMS_ITS | Encounter Summary ---
Author Organization [facility] Address [address] [place] [address] Care Team Providers Care Manager Test Name Role Phone Alejo Cha Primary Care Provider [phone] Encounter Details Date Type Department Care Team (Late st Contact Info) Description 07/15/2002 Outpatient Historical Division of Neurology [address] [address] Derrick Aguilar MD [address] [place] [address] Social History Tobacco Use Types Packs/Day Years Used Date Smoking Tobacco: Never Assessed Comments Unknown Sex and Gender Information Value Date Recorded Sex Assigned at Not on file Legal Sex Female 4:34 AM COREMAKER FLOOR Gender Identity Not on file Sexual Orientation Not on file documented as of this encounter Plan of Treatment Not on file documented as of this encounter Visit Diagnoses Not on filedocumented in this encounter Care Teams Manager Test Relationship Specialty Start Date End Date Alejo Cha PCP - General 01/14/04 documented as of this encounter
--- OUTSIDE RECORDS SUMMARY | 2025-07-24 08:18 | XMS_ITS | Encounter Summary ---
Author Organization [facility] Address [address] [place] [address] Care Team Providers Care Dramatic Director Name Role Phone Alejo Cha Primary Care Provider [phone] Encounter Details Date Type Department Care Team (Late st Contact Info) Description 06/27/[address] [facility] Internal Medicine [facility] [address] [facility] [address] Shadi [place] [address] Laurent Miranda Social History Tobacco Use Types Packs/Day Years Used Date Smoking Tobacco: Never Assessed Comments Unknown Sex and Gender Information Value Date Recorded Sex Assigned at Not on file Legal Sex Female 4:34 AM DIGITAL ACCOUNT COORDINATOR Gender Identity Not on file Sexual Orientation Not on file documented as of this encounter Plan of Treatment Not on file documented as of this encounter Visit Diagnoses Not on filedocumented in this encounter Care Teams Dramatic Director Relationship Specialty Start Date End Date Alejo Cha PCP - General 01/14/04 documented as of this encounter
--- OUTSIDE RECORDS SUMMARY | 2025-07-24 08:18 | XMS_ITS | Encounter Summary ---
Author Organization [facility] Address [address] [place] [address] Care Team Providers Care Banner Painter Name Role Phone Alejo Cha Primary Care Provider [phone] Encounter Details Date Type Department Care Team (Late st Contact Info) Description 08/26/2003 Outpatient Historical Division of Neurology [address] [address] Derrick Aguilar MD [address] [place] [address] Social History Tobacco Use Types Packs/Day Years Used Date Smoking Tobacco: Never Assessed Comments Unknown Sex and Gender Information Value Date Recorded Sex Assigned at Not on file Legal Sex Female 4:34 AM HOME SECURITY PROFESSIONAL Gender Identity Not on file Sexual Orientation Not on file documented as of this encounter Plan of Treatment Not on file documented as of this encounter Visit Diagnoses Not on filedocumented in this encounter Care Teams Banner Painter Relationship Specialty Start Date End Date Alejo Cha PCP - General 01/14/04 documented as of this encounter
--- OUTSIDE RECORDS SUMMARY | 2025-07-24 08:18 | XMS_ITS | Encounter Summary ---
Author Organization [facility] Address [address] [place] [address] Care Team Providers Care Photography Teacher Name Role Phone Alejo Cha Primary Care Provider [phone] Encounter Details Date Type Department Care Team [...] on file Legal Sex Female 4:34 AM RECORDING STUDIO INTERNSHIP Gender Identity Not on file Sexual Orientation Not on file documented as of this encounter Plan of Treatment Not on file documented as of this encounter Visit Diagnoses Diagnosis Migraine without aura, with intractable migraine, so stated, without mention of status migrainosus- Primary documented in this encounter Care Teams Photography Teacher Relationship Specialty Start Date End Date Alejo Cha PCP - General 01/14/04 documented as of this encounter
--- OUTSIDE RECORDS SUMMARY | 2025-07-24 08:18 | XMS_ITS | Encounter Summary ---
Author Organization [facility] Address [address] [place] [address] Care Team Providers Care Shell Mold Bonder Name Role Phone Alejo Cha Primary Care Provider [phone] Encounter Details Date Type Department Care Team (Late st Contact Info) Description 05/12/2000 Outpatient Historical [facility] Internal Medicine [facility] [address] [facility] [address] [place] [address] Laurent Miranda Social History Tobacco Use Types Packs/Day Years Used Date Smoking Tobacco: Never Assessed Comments Unknown Sex and Gender Information Value Date Recorded Sex Assigned at Not on file Legal Sex Female 4:34 AM RESIDENTIAL REAL ESTATE APPRAISER Gender Identity Not on file Sexual Orientation Not on file documented as of this encounter Plan of Treatment Not on file documented as of this encounter Visit Diagnoses Not on filedocumented in this encounter Care Teams Shell Mold Bonder Relationship Specialty Start Date End Date Alejo Cha PCP - General 01/14/04 documented as of this encounter
--- OUTSIDE RECORDS SUMMARY | 2025-07-24 08:18 | XMS_ITS | Encounter Summary ---
Author Organization [facility] Address [address] [place] [address] Care Team Providers Care Registered Appraiser Name Role Phone Alejo Cha Primary Care Provider [phone] Encounter Details Date Type Department Care Team (Late st Contact Info) Description 10/16/2003 Outpatient [facility] Primary Care - [address] [place] [address] Alejo Cha Social History Tobacco Use Types Packs/Day Years Used Date Smoking Tobacco: Never Assessed Comments Unknown Sex and Gender Information Value Date Recorded Sex Assigned at Not on file Legal Sex Female 4:34 AM JUICE PACKAGING MACHINES SETTER Gender Identity Not on file Sexual Orientation Not on file documented as of this encounter Plan of Treatment Not on file documented as of this encounter Visit Diagnoses Not on filedocumented in this encounter Care Teams Registered Appraiser Relationship Specialty Start Date End Date Alejo Cha PCP - General 01/14/04 documented as of this encounter
--- OUTSIDE RECORDS SUMMARY | 2025-07-24 08:18 | XMS_ITS | Clinical Summary ---
Author Organization [facility] Address [address] [place] [address] Care Team Providers Care Computer Numerical Control Machinist Name Role Phone Alejo Cha Primary Care Provider [phone] Social History Tobacco Use Types Packs/Day Years Used Date Smoking Tobacco: Never Assessed Comments Unknown Sex and Gender Information Value Date Recorded Sex Assigned at Not on file Legal Sex Female 4:34 AM BELT SEWER Gender Identity Not on file Sexual Orientation [...] - 1-dose 75+ series) 2029 Care Teams Computer Numerical Control Machinist Relationship Specialty Start Date End Date Alejo Cha PCP - General 01/14/04
--- OUTSIDE RECORDS SUMMARY | 2025-07-24 08:18 | XMS_ITS | Encounter Summary ---
Author Organization [facility] Address [address] [place] [address] Care Team Providers Care Head Batcher Name Role Phone Alejo Cha Primary Care Provider [phone] Encounter Details Date Type Department Care Team (Late st Contact Info) Description 12/31/2003 Outpatient [facility] Primary Care - [address] [place] [address] Alejo Cha Social History Tobacco Use Types Packs/Day Years Used Date Smoking Tobacco: Never Assessed Comments Unknown Sex and Gender Information Value Date Recorded Sex Assigned at Not on file Legal Sex Female 4:34 AM BRIM POUNCER MACHINE OPERATOR Gender Identity Not on file Sexual Orientation Not on file documented as of this encounter Plan of Treatment Not on file documented as of this encounter Visit Diagnoses Not on filedocumented in this encounter Care Teams Head Batcher Relationship Specialty Start Date End Date Alejo Cha PCP - General 01/14/04 documented as of this encounter
--- OUTSIDE RECORDS SUMMARY | 2025-07-24 08:18 | XMS_ITS | Clinical Summary ---
Author Organization [facility] Address [address] [place] [address] Care Team Providers Care Performance Management Consultant Name Role Phone Sammy Yoon DO Unavailable [phone] Nain Gonzales MD Unavailable [phone] Coleman Keita MD Unavailable [phone] Alejo Chinchilla MD Primary Care Provider [phone] Allergies No known active allergies Medications topiramate [...] 11/02/2018 Assessment & Plan (11/02/2018 11:46 AM INSTRUCTIONAL MATERIAL DIRECTOR): Controlled. Last seizure about 9 years ago. Managed by Neurology. Primary osteoarthritis involving multiple joints 11/02/2018 Assessment & Plan (11/02/2018 11:53 AM INSTRUCTIONAL MATERIAL DIRECTOR): Chronic. We discussed options. Advised OTC analgesics PRN. Hyperlipidemia 01/15/2018 Assessment & Plan (11/02/2018 11:47 AM INSTRUCTIONAL MATERIAL DIRECTOR): I spent 15 minutes counseling her on [...] Synthroid versus adding Cytomel or changing to [place] or pork thyroid - patient willing to [...] taken. Assessment & Plan (11/02/2018 11:48 AM INSTRUCTIONAL MATERIAL DIRECTOR): Euthyroid. Continue current regimen. She is managed by Endocrinology. Assessment & Plan (06/29/2018 12:14 PM CDT): Patient's medication was recently readjusted to the Synthroid 137 mcg daily. Migraine without aura and wi thout status migrainosus, not intractable 01/18/2013 Overview (11/02/2018): Assessment & Plan (11/02/2018 11:46 AM INSTRUCTIONAL MATERIAL DIRECTOR): Headaches are fair control. Continue current treatment regimen. Managed by Neurology. Current smoker 01/20/2011 Assessment & Plan (11/02/2018 11:46 AM INSTRUCTIONAL MATERIAL DIRECTOR): Smoking cessation counseling: We discussed the importance of smoking cessation. Therapeutic options discussed included nicotine replacement therapy, Chantix, Wellbutrin, Acupuncture, Hypnosis, and Behavioral therapy. I spent 4 minutes counseling the patient on smoking cessation Resolved Problems Problem Noted Date Diagnosed Date Resolved Date Thyroid nodule 06/12/2018 11/02/2018 Assessment & Plan (08/27/2018 8:09 AM INSTRUCTIONAL MATERIAL DIRECTOR): Patient is status post thyroid isthmusectomy. Final [...] is to follow up with her medical case picker for continued thyroid hormone replacement. Assessment & [...] on file Legal Sex Female 11:49 PM INSTRUCTIONAL MATERIAL DIRECTOR Gender Identity Not on file Sexual Orientation Not on file Obstetrics History Last Filed Vital Signs Vital Sign Reading Time Taken Comments Blood Pressure 104/68 05/27/2019 9:54 AM CDT Pulse 95 05/27/2019 9:54 AM CDT Temperature 37.4 C (99.4 F) 11/02/2018 11:20 AM INSTRUCTIONAL MATERIAL DIRECTOR Respiratory Rate 14 05/27/2019 9:54 AM CDT Oxygen Saturation 98% 12/26/2018 11:37 AM CDT Inhaled Oxygen Concentration - - Weight 61.8 kg (136 lb 3.2 oz) 05/27/2019 9:54 A M CDT Height 165.1 cm (5' 5) 05/27/2019 9:54 AM CDT Body Mass Index 22.66 05/27/2019 9:54 AM CDT Plan of Treatment Not on file Insurance MEDIC[place] [facility] Care Teams Performance Management Consultant Relationship Specialty Start Date End Date Alejo Chinchilla MD [address] [place] [address] PCP - General 10/27/21 Sammy Yoon DO Surgeon Otolaryngology 09/10/18 Nain Gonzales MD [address] [facility] [address] [place] [address] Consulting Physician Endocrinology 09/10/18 Coleman Keita MD [address] [facility] [address] [place] [address] Referring Physician Neurology 11/02/18
--- OUTSIDE RECORDS SUMMARY | 2025-07-24 08:18 | XMS_ITS | Clinical Summary ---
Author Organization [facility] Address [address] [facility] [place] [address] Care Team Providers Care Metalsmith Apprentice Name Role Phone KaiserCorrina Selena ASSURANCE MANAGER INSURANCE-SPORTING GOODS SALESPERSON Unavailable [phone] Aashish Corrigan DO Primary Care Provider [phone] Source Comments [facility],non-owned Affiliates and Associated Physician Practices is amultiple site organization consisting of ambulatory clinics and hospital sitesin [place], [place], [place] and [place]. This disclosure is being madepursuant to the Care Everywhere program and may not contain all information available regarding this patient. Last updated 18.[facility] Allergies No known active allergies Medications * [...] 10 mg by mouth once daily Active hzb-hqid-mjltmf ital-codeine (FIORINAL WITH CODEINE) 52-082-34-30 MG capsule Take 1 capsule by mouth [...] age to complete this topic Insurance MEDICARE [facility] MEDICARE Advance Directives * Full Code (Latest Code Status on File) Date Activated Date Inactivated Comments 11/22/2021 12:06 AM 11/27/2021 1:24 PM Care Teams Metalsmith Apprentice Relationship Specialty Start Date End Date Aashish Corrigan DO [address] [place] [address] PCP - General Family Medicine 01/18/22 Corrina Saab, ASSURANCE MANAGER INSURANCE-SPORTING GOODS SALESPERSON [facility] [address] [place] [address] Nurse Practitioner Pulmonary Disease 12/14/21
--- OUTSIDE RECORDS SUMMARY | 2025-07-24 08:18 | XMS_ITS | Encounter Summary ---
Author Organization [facility] Address [address] [place] [address] Care Team Providers Care Blueprint Trimmer Name Role Phone SemajAlejo Primary Care Provider [phone] Encounter Details Date Type Department Care Team (Late st Contact Info) Description 11/02/2006 Inpatient Historical [facility] PATIENT IN A BED KenjiTristen zhang (Excluded Provider) Mkii Arechiga MD [address] [facility] [address] [place] [address] Opioid Type Dependence, Unspecified Abuse (CMS/HCC) (Primary Dx) Social History Tobacco Use Types Packs/Day Years Used Date Smoking Tobacco: Never Assessed Comments Unknown Sex and Gender Information Value Date Recorded Sex Assigned at Not on file Legal Sex Female 4:34 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 Gender Identity Not on file Sexual Orientation Not on file documented as of this encounter Plan of Treatment Not on file documented as of this encounter Procedures Procedure Name Priority Date/Time Associated Diagnosis Comments VALPROIC ACID LEVEL, TOTAL Routine 11/07/2006 8:05 AM STENCIL SPRAYER documented in this encounter Results * VALPROIC ACID TOTAL (11/07/2006 8:05 AM STENCIL SPRAYER) VALPROIC ACID TOTAL 54 50 - 100 ug/mL INTERFACE SYSTEM Comment: Valproic Acid Antiepileptic Control = 50 - 100 ug/mL Valproic Acid Manic Episode Control = 50 - 125 ug/mL Valproic Acid Toxic Level = >200 ug/mL 11/07/2006 8:05 AM STENCIL SPRAYER us Tristen Faulkner CHEMISTRY ORDERABLES Ed ited INTERFACE SYSTEM Refer to clinic/hospital department documented in this encounter Visit Diagnoses Diagnosis Opioid type dependence, unspecified (CMS/HCC)- Primary Opioid type dependence, unspecified documented in this encounter Care Teams Blueprint Trimmer Relationship Specialty Start Date End Date Alejo Cha PCP - General 01/14/04 documented as of this encounter
--- OUTSIDE RECORDS SUMMARY | 2025-07-24 08:18 | XMS_ITS | Encounter Summary ---
Author Organization [facility] Address 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
--- OUTSIDE RECORDS SUMMARY | 2025-07-24 08:18 | XMS_ITS | Encounter Summary ---
Author Organization [facility] Address [address] [place] [address] Care Team Providers Care Beef Grinder Name Role Phone Alejo Cha Primary Care Provider [phone] Encounter Details Date Type Department Care Team (Late st Contact Info) Description 01/19/[address] 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
--- OUTSIDE RECORDS SUMMARY | 2025-07-24 08:18 | XMS_ITS | Encounter Summary ---
Author Organization [facility] Address 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
--- OUTSIDE RECORDS SUMMARY | 2025-07-24 08:18 | XMS_ITS | Encounter Summary ---
Author Organization [facility] Address [address] [place] [address] Care Team Providers Care Icd 9 Coder Name Role Phone Alejo Cha Primary Care Provider [phone] Encounter Details Date Type Department Care Team (Late st Contact Info) Description 07/06/2000 Outpatient Historical Division of Neurology [address] [address] Derrick Aguilar MD [address] [place] [address] Social History Tobacco Use Types Packs/Day Years Used Date Smoking Tobacco: Never Assessed Comments Unknown Sex and Gender Information Value Date Recorded Sex Assigned at Not on file Legal Sex Female 4:34 AM COMMISSIONER OF CONCILIATION Gender Identity Not on file Sexual Orientation Not on file documented as of this encounter Plan of Treatment Not on file documented as of this encounter Visit Diagnoses Not on filedocumented in this encounter Care Teams Icd 9 Coder Relationship Specialty Start Date End Date Alejo Cha PCP - General 01/14/04 documented as of this encounter
--- OUTSIDE RECORDS SUMMARY | 2025-07-24 08:18 | XMS_ITS | Encounter Summary ---
Author Organization [facility] Address [address] [place] [address] Care Team Providers Care Fruit Culler Name Role Phone Alejo Cha Primary Care Provider [phone] Encounter Details Date Type Department Care Team (Latest Contact Info) Description 07/06/2000 Outpatient Historical [facility] Derrick Bishop MD [address] [facility] [address] [place] [address] Encounter for long-term (current) use of other medications (Primary Dx) Social History Tobacco Use Types Packs/Day Years Used Date Smoking Tobacco: Never Assessed Comments Unknown Sex and Gender Information Value Date Recorded Sex Assigned at Not on file 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
--- OUTSIDE RECORDS SUMMARY | 2025-07-24 08:19 | XMS_ITS | Clinical Summary ---
Author Organization [facility] Address [address] [place] [address] Care Team Providers Care Apparel Manufacture Instructor Name Role Phone Gaetano Llanes DO Primary Care Provider + Allergies No known active allergies Medications SYNTHROID 125 MCG tablet Take 125 mcg by mouth daily. 2 02/14/2019 Active topiramate 100 MG tablet Take 1 tablet by mouth 2 (two) times daily. 02/12/2019 Active rosuvastatin 10 MG tablet Take 10 mg by mouth daily. 1 02/19/2019 Active ASCOMP-CODEINE 46-984-73-30 MG capsule Take 1 mg by mouth [...] on file Legal Sex Female 6:30 PM HANGING FLAGS DECORATOR Gender Identity Not on file Sexual Orientation [...] Pneumococcal Vaccine: 50+ Years Completed 07/21/2022, 02/14/2020 Hepatitis A Vaccines Aged Out No long er eligible based on patient's age to complete this topic Meningococcal B Vaccine Aged Out No l onger eligible based on patient's age to complete this topic Meningococcal Vaccine Aged Out No melonie lazara eligible based on patient's age to complete this topic RSV Immunizations Under 20 Months Aged Out No longer eligible based on patient's age to complete this topic Insurance MEDICARE [facility] Care Teams Apparel Manufacture Instructor Relationship Specialty Start Date End Date Gaetano Llanes DO [address] [place] [id number] PCP - General FAMILY PRACTICE 02/22/19
--- OUTSIDE RECORDS SUMMARY | 2025-07-24 08:19 | XMS_ITS | Encounter Summary ---
Author Organization [facility] Address [address] [place] [address] Care Team Providers Care Refrigerator Mover Name Role Phone Alejo Cha Primary Care Provider [phone] Encounter Details Date Type Department Care Team (Late st Contact Info) Description 01/15/2004 Outpatient Historical Division of Neurology 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
--- OUTSIDE RECORDS SUMMARY | 2025-07-24 08:19 | XMS_ITS | Encounter Summary ---
Author Organization [facility] Address [facility]ly [facility] [place] [address] Care Team Providers Care Continuous Pickling Line Pickler Helper Name Role Phone Gaetano Llanes DO Primary Care Provider + Encounter Details Date Type Department Care Team (Late st Contact Info) Description 10/26/[address] [facility] Conversion [address] [place] [address] , Generic Conversion, Social History Tobacco Use Types Packs/Day Years Used Date Smoking Tobacco: Never Assessed Comments Unknown Sex and Gender Information Value Date Recorded Sex Assigned at Not on file Legal Sex Female 6:30 PM LAUNDRY TECH Gender Identity Not on file Sexual Orientation Not on file documented as of this encounter Plan of Treatment Not on file documented as of this encounter Visit Diagnoses Not on filedocumented in this encounter Care Teams Continuous Pickling Line Pickler Helper Relationship Specialty Start Date End Date Gaetano Llanes DO [address] [place] [id number] PCP - General FAMILY PRACTICE 02/22/19 documented as of this encounter
--- OUTSIDE RECORDS SUMMARY | 2025-07-24 08:19 | XMS_ITS | Encounter Summary ---
Author Organization [facility] Address [facility] [place] [address] Care Team Providers Care Press Worker Helper Name Role Phone Gaetano Llanes DO Primary Care Provider + Encounter Details Date Type Department Care Team (Late st Contact Info) Description 12/16/[address] [facility] Conversion [address] [place] [address] , Generic Conversion, Social History Tobacco Use Types Packs/Day Years Used Date Smoking Tobacco: Never Assessed Comments Unknown Sex and Gender Information Value Date Recorded Sex Assigned at Not on file Legal Sex Female 6:30 PM FASHION EDITOR Gender Identity Not on file Sexual Orientation Not on file documented as of this encounter Plan of Treatment Not on file documented as of this encounter Visit Diagnoses Not on filedocumented in this encounter Care Teams Press Worker Helper Relationship Specialty Start Date End Date Gaetano Llanes DO [address] [place] [id number] PCP - General FAMILY PRACTICE 02/22/19 documented as of this encounter
--- OUTSIDE RECORDS SUMMARY | 2025-07-24 08:19 | XMS_ITS | Encounter Summary ---
Author Organization [facility] Address 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
[2025-07-24 08:22] LABS: Add Urine Microscopic? YES; Appearance Urine Clear (Clear); Glucose Urine UA Negative (Negative); Leukocyte Esterase Ur Negative LEU/UL (Negative); Nitrate Urine Negative (Negative); Specific Grav Ur 1.025 (1.010-1.020)
== END 2025-07-24 08:12 | disposition home or self-care (01) ==
LOC: CHSLAB 08:12
PROVIDERS: PCP Nurse Practitioner Family; Visit Provider Nurse Practitioner Family
DX: R39.9 Unspecified symptoms and signs involving the genitourinary system (principal)
CPT/HCPCS: 81001

== ENCOUNTER 2025-08-19 15:15 | Outpatient (CLI) | payer MEDICARE, SELFPAY ==
--- NOTE | ~2025-08-19 | CT_ITS ---
EXAMINATION: CT abdomen pelvis wo con DATE: 08/19/2025 15:37 INDICATION: 70-year-old female with right lower quadrant pain. History of kidney stones status post surgery. TECHNIQUE: Computed tomography (CT) of the abdomen and pelvis was performed without intravenous contrast. Automated exposure control and iterative reconstruction technique were employed. The dose-length product was 172.99 mGy-cm. COMPARISON: CT abdomen and pelvis dated 05/28/2025. FINDINGS: Lung bases do not show acute findings. No focal lesions of the liver and spleen. The gallbladder shows no acute findings. No calculi or obstruction of the left kidney. Multiple renal calculi are noted measuring up to 13 mm in diameter. Couple of calculi are noted in the right renal pelvis, measuring up to 12 x 6 mm. No significant hydronephrosis. No evidence of hydroureter. No evidence of small bowel obstruction. The appendix measures 4.5 mm in diameter. Retroverted pelvis. No pelvic mass or fluid collections. No acute findings of the lumbar spine. Well-defined sclerotic lesion of the iliac bone on the right side is stable. Degenerative changes of moderate degree. IMPRESSION: 1. Limited noncontrast examination is not optimal to evaluate solid viscera, neoplasms and vascular structures. 2. Multiple right renal calculi. Calculi of right renal pelvis. No significant obstructive changes on the right side. No interval change from 05/28/2025. Reviewed, dictated and finalized at location T. FORCE DEVELOPMENT SPECIALIST IMPRESSION: 1. Limited noncontrast examination is not optimal to evaluate solid viscera, ne oplasms and vascular structures. 2. Multiple right renal calculi. Calculi of right renal pelvis. No significant obstructive changes on the right side. No interval change from 05/28/2025.
[2025-08-19 15:28] LABS: Add Urine Microscopic? YES; Appearance Urine Clear (Clear); Glucose Urine UA Negative (Negative); Hematocrit 40.6 % (35.0-42.0); Hemoglobin 13.3 g/dL (11.7-13.8); Immature Granulocyte Percent A 0.3 % (0.0-0.0); Leukocyte Esterase Ur Negative LEU/UL (Negative); Lymphocytes Absolute Auto 1.26 K/mm3 (1.10-4.50); Mean Corpuscular HGB Conc 32.8 g/dL (32-36); Mean Corpuscular Hemoglobin 31.1 pg (27.0-31.0); Mean Corpuscular Volume 95.1 fL (78.0-102.0); Nitrate Urine Negative (Negative); Nucleated Red Blood Cells Absolute Auto 0.00 K/mm3 (0.00-0.00); Nucleated Red Blood Cells Perc 0.0 % (0-0.0); Platelet Count Result 215 K/mm3 (150-420); Red Blood Count 4.27 M/mm3 (4.20-5.40); Specific Grav Ur 1.025 (1.010-1.020); White Blood Count 6.2 K/mm3 (4.8-10.8)
[2025-08-19 15:51] LABS: Alanine Aminotransferase 12 U/L (6-35); Albumin Level 4.3 g/dL (3.5-5.1); Alkaline Phosphatase 144 U/L (38-126); Anion Gap 12 mmol/L (4-12); Aspartate Amino Transferase 28 U/L (14-36); Bilirubin,Total 0.2 mg/dL (0.2-1.3); Blood Urea Nitrogen 9 mg/dL (7-17); CRP 3.2 mg/dL (<1.0); Calcium 9.8 mg/dL (8.4-10.2); Carbon Dioxide 20 mmol/L (22-30); Chloride 113 mmol/L (98-107); Estimated Glomerular Filt Rate 59; Glucose 98 mg/dL (65-110); Lipase 65 U/L (23-300); Osmolality Calculated 298 mOsm/kg (285-295); Potassium 3.5 mmol/L (3.4-5.0); Sodium 145 mmol/L (137-145); Total Protein 7.1 g/dL (6.3-8.2)
== END 2025-08-19 15:16 | disposition home or self-care (01) ==
PROVIDERS: PCP Nurse Practitioner Family; Visit Provider Nurse Practitioner Family
DX: R10.31 Right lower quadrant pain (principal); R10.32 Left lower quadrant pain; R10.9 Unspecified abdominal pain; R11.0 Nausea; N20.0 Calculus of kidney
CPT/HCPCS: 36415; 74176; 80053; 81001; 83690; 85025; 86140